=== PATIENT | female | born 2000 | race Caucasian/White ===

== ENCOUNTER 2020-07-03 16:51 | Emergency (ER) | payer BC, SELFPAY ==
[2020-07-03 16:54] VITALS: BP 125/83; PULSE 118; RESP 18; TEMP 36.9; O2SAT 99; BMI 43.9
--- NOTE | 2020-07-03 17:10 | HMH.EDGENADL ---
ED Disposition Clinical Impression: Menometrorrhagia Disposition: Home, Self-Care Condition on Discharge: Fair Instructions: DI for Vaginal Bleeding Additional Instructions: Treatment and follow-up as per Dr. Arroyo. Referrals: Mimi Tan APRN [Primary Care Provider] - Everett Arroyo MD [Staff Physician] - - Critical Care Critical Care Time: No Attestation: On 07/03/20, the high probability of a clinically significant, sudden or life threatening deterioration of the following system(s) required my full and direct attention, intervention and personal management. The time I documented below is in addition to time spent performing reported procedures but includes the following listed in this critical care notation. Medical Decision Making - Aidan Inquiry Pt receiving controlled substance: No Vital Signs: 07/03/20 16:54 Temperature 98.5 F Temperature Source Oral Pulse Rate [Right Radial] 118 H Respiratory Rate 18 Blood Pressure [Right Arm] 125/83 Blood Pressure Mean [Right Arm] 97 Blood Pressure Source [Right Arm] Automatic Cuff Blood Pressure Position [Right Arm] Sitting 02 Sat by Pulse Oximetry 99 Oxygen Delivery Method Room Air - Lab Data Lab results reviewed: Yes: I reviewed the patient's lab results. Lab Results 07/03/20 17:15: Urine Color Red, Urine Appearance Cloudy, Urine pH 6.0, Ur Specific [place] 1.025, Urine Protein 1+, Urine Glucose (UA) Negative, Urine Ketones Trace, Urine Blood 3+, Urine Nitrate Negative, Urine Bilirubin Negative, Urine Urobilinogen 0.2, Ur Leukocyte Esterase Negative, Urine RBC 20-50 07/03/20 17:21: PT 10.4, INR 0.93, APTT 24.8 07/03/20 17:21: Sodium 137, Potassium 3.4 L, Chloride 103, Carbon Dioxide 27, Anion Gap 10.4, BUN 13, Creatinine 0.60, Estimated Creat Clear 117, Estimated GFR 126, Est GFR ( Amer) 153, Glucose 137 H, Calcium 9.7, Total Bilirubin 0.4, AST 25, ALT 25, Alkaline Phosphatase 96, Total Protein 7.8, Albumin 4.3, Globulin 3.5 H, Albumin/Globulin Ratio 1.2 07/03/20 17:21: TSH 1.00, Free T4 Index 2.8 L, Thyroxine (T4) 9.9, T3 Uptake 28 07/03/20 17:21: Serum HCG, Qual Negative 07/03/20 17:31: WBC 7.7, RBC 4.27, Hgb 10.8 L, Hct 34.3 L, MCV 80.3 L, MCH 25.4 L, MCHC 31.6 L, RDW 14.6, Plt Count 291, MPV 7.6, Neut % (Auto) 61.5, Lymph % (Auto) 32.4, [place] % (Auto) 4.0, Eos % (Auto) 1.5, Baso % (Auto) 0.6, Neut # (Auto) 4.7, Lymph # (Auto) 2.5, [place] # (Auto) 0.3, Eos # (Auto) 0.1, Baso # (Auto) 0.0 Result diagrams: 07/03/20 17:31 07/03/20 17:21 Orders (Tests/Meds): ED MEDICATIONS Discontinued Medications Generic Name Dose Route Start Last Admin Trade Name Freq PRN Reason Stop Dose Admin Ketorolac Tromethamine 30 mg 07/03/20 19:03 07/03/20 19:05 Ketorolac 30mg/Ml Vial IV 07/03/20 19:04 30 mg ONCE ONE Administration ORDERS Category Date Time Status US transvaginal Stat Exams 07/03/20 17:19 Taken - Physician Consults Physician Consulted: Cruz Time: 19:00 Reason -: Gynocological Eval/Care Comment/Response: He will be in to the emergency department to see the patient. Discussed medication for her pain, patient is requesting pain medication. He recommends Toradol which may also help her bleeding. Medical Decision Narrative: 8:00 PM: Awaiting Dr. Arroyo. General Adult HPI - General Stated complaint: Vaginal Bleeding,abd lower back pain,rectum pain Time Seen by Provider: 07/03/20 17:10 - History of Present Illness HPI narrative: Complains of heavy vaginal bleeding for 3 months. States that she was seeing an SALES ADVISORY MANAGER at [facility] in [facility]. She says she was on progesterone and the bleeding stopped, but then it came back shortly after treatment and was heavier than prior. She says that they then started her on control pills which have not helped at all. She says that she is bleeding extremely heavily for a week and a half. She is using both tampons and pads. Says that she ap
--- NOTE | 2020-07-03 17:19 | US_ITS ---
PROCEDURE: US TRANSVAGINAL CLINICAL INDICATION: vaginal bleeding, pelvic pain COMPARISON: No exams were available for comparison FINDINGS: The uterus is 7 x 4 x 2.5 cm with a combined endometrial thickness of 8 mm. No uterine mass evident. Ovaries have an unremarkable appearance. Bilateral ovarian blood flow is present. No adnexal mass or cul-de-sac fluid. IMPRESSION: Negative pelvic ultrasound Dictated by: Blake aHuser MD 07/04/2020 07:07 Blake Hauser MD in OV 07/04/2020 07:07
[2020-07-03 18:06] LABS: Chloride 103 mmol/L (98-107); Potassium 3.4 mmoL/L (3.5-5.1); Sodium 137 mmol/L (136-145)
[2020-07-03 18:07] LABS: Activated Partial Thrombo Time 24.8 seconds (23.6-34.0); INR 0.93 (0.9-1.1); Prothrombin Time 10.4 seconds (9.4-11.8)
[2020-07-03 18:09] LABS: Alanine Aminotransferase 25 U/L (12-78); Albumin Level 4.3 g/dl (3.5-5.0); Albumin/Globulin Ratio 1.2 (1.1-1.8); Alkaline Phosphatase 96 U/L (38-126); Anion Gap 10.4 mEq/L (5-15); Aspartate Amino Transferase 25 U/L (14-36); Bilirubin,Total 0.4 mg/dl (0.2-1.3); Blood Urea Nitrogen 13 mg/dl (7-17); Carbon Dioxide 27 mmol/L (22.0-30.0); Creatinine Clearance Estimated 117 mL/min (50-200); Estimated Glomerular Filt Rate 126 ml/min (>60); GFR (African American) 153 ML/MIN (>60); Globulin 3.5 g/dL (1.3-3.2); Total Protein,Serum 7.8 g/dl (6.3-8.2)
[2020-07-03 18:10] LABS: Calcium 9.7 mg/dl (8.4-10.2); Glucose 137 mg/dl (74-100)
[2020-07-03 18:11] LABS: HCG Qualitative, Serum Negative (Negative)
--- NOTE | 2020-07-03 18:15 | PC.NURSE ---
pt return from ultrasound
[2020-07-03 18:26] LABS: Triiodothryronine (T3) Uptake 28 % (23.5-40.5)
[2020-07-03 18:27] LABS: Free Thyroxine Index 2.8 ug/dL (5.93-13.13); T4 (Thyroxine) 9.9 ug/dl (5.53-11.0)
[2020-07-03 18:43] LABS: Basophils % 0.6 % (0.1-2.0); Eosinophils # 0.1 K/mm3 (0.0-0.4); Eosinophils % 1.5 % (0.1-12.0); Hematocrit 34.3 % (37.0-47.0); Hemoglobin 10.8 g/dL (12.2-16.2); Lymphocytes # 2.5 K/mm3 (0.7-4.5); Lymphocytes % 32.4 % (10-50); Mean Corpuscular HGB Conc 31.6 g/dL (31.8-35.4); Mean Corpuscular Hemoglobin 25.4 pg (27.0-31.2); Mean Corpuscular Volume 80.3 fl (81-99); Mean Platelet Volume 7.6 fl (7.4-10.4); Monocytes # 0.3 K/mm3 (0.1-1.0); Neutrophils # 4.7 K/mm3 (1.8-7.8); Neutrophils % 61.5 % (37.0-80.0); Platelet Count 291 K/mm3 (142-424); Red Blood Count 4.27 M/mm3 (4.20-5.40); Red Cell Distribution Width 14.6 % (11.5-17.5); White Blood Count 7.7 K/mm3 (4.8-10.8)
[2020-07-03 18:50] LABS: Microscopic, Urine URINE MICROSCOPIC (MICROSCOPIC)
[2020-07-03 18:53] LABS: Appearance,Urine CLOUDY (Clear); Bilirubin,Urine Negative (Negative); Blood, Urine 3+ (Negative); Color,Urine RED (Yellow); Glucose,Urine (UA) Negative (Negative); Ketones,Urine TRACE (Negative); Leukocyte Esterase,Urine Negative (Negative); Nitrate,Urine Negative (Negative); Protein,Urine 1+ (Negative); Specific Gravity, Urine 1.025 (1.005-1.030); Urobilinogen,Urine 0.2 EU/dl (0.2)
--- NOTE | 2020-07-03 18:56 | PC.NURSE ---
ROXIE CALLE speaking with
[2020-07-03 19:04] LABS: RBC,Urine 20-50 #/hpf (0-3)
[2020-07-03 19:24] VITALS: BP 118/64; PULSE 102; RESP 16; O2SAT 99
--- NOTE | 2020-07-03 20:47 | HMH.GYNCON ---
COSMETICS AND TOILETRIES SALESPERSON - CN: HPI - Data of Consult Patient: new to practice Consult date: 07/03/20 Requesting Physician: Dr. Alston, ER Primary Care Provider: Mimi Tan APRN - Consult Narrative Reason for consult: vaginal bleeding History of present illness: Ms. Spivey is a 20 year old female 3 para 0 aborta 3 who has very irregular periods. She has been seen in [facility] and has tried Provera but as soon as she stopped taking it she started having very heavy bleeding. Lately over the last few days she has been bleeding quite heavily and going through tampons as well as pads. She was not happy with the care she was getting at [facility] and as result of that came down here to the ER. She is also tried control pills. Since last July she has been having very irregular periods. Her hemoglobin is stable at 10.1. CC: Review of Systems - Review of Systems Review of systems:: pertinent systems reviewed and negative unless documented below [facility] History I have reviewed the patient's past medical history: Yes *Have you ever received a pneumonia vaccine?: No *Have you received a flu vaccine this season?: No Amputation: No Fractures: No - *Social History Smoking Status: Unknown if ever smoked Alcohol Intake Frequency:: holidays/special occasions only Substance Use Type: denies use *Occupational Status:: other *Travel in the last 8 weeks: None Family Hx:: No significant family history Meds Allergies Allergy/AdvReac Type Severity Reaction Status Date / Time No Known Allergies Allergy Verified 07/03/20 17:30 COSMETICS AND TOILETRIES SALESPERSON - Exam Vital signs: Temp Pulse Resp BP Pulse Ox 98.5 F 118 H 18 125/83 99 07/03/20 16:54 07/03/20 16:54 07/03/20 16:54 07/03/20 16:54 07/03/20 16:54 - Constitutional no acute distress - Routine HEENT Exam Head: Present: normocephalic Eye: Present: EOMI, PERRL ENT: Present: mucous membranes moist - Routine Neck Exam Present: supple, full ROM - Routine Exam Patient deferred: external exam COSMETICS AND TOILETRIES SALESPERSON - Results - Labs CBC & Chem 7: 07/03/20 17:31 07/03/20 17:21 Labs: Short CBC 07/03/20 Range/Units 17:31 WBC 7.7 (4.8-10.8) K/mm3 Hgb 10.8 L (12.2-16.2) g/dL Hct 34.3 L (37.0-47.0) % Plt Count 291 (142-424) K/mm3 BMP 07/03/20 17:21 Sodium 137 Potassium 3.4 L Chloride 103 Carbon Dioxide 27 BUN 13 Creatinine 0.60 Glucose 137 H Calcium 9.7 Liver Function 07/03/20 Range/Units 17:21 Total Bilirubin 0.4 (0.2-1.3) mg/dl AST 25 (14-36) U/L ALT 25 (12-78) U/L Alkaline Phosphatase 96 (38-126) U/L Albumin 4.3 (3.5-5.0) g/dl Urine 07/03/20 Range/Units 17:15 Urine Color Red (Yellow) Urine Appearance Cloudy (Clear) Urine pH 6.0 (5.0-8.5) Ur Specific [place] 1.025 (1.005-1.030) Urine Protein 1+ (Negative) Urine Glucose (UA) Negative (Negative) Assessment and Plan (1) Menorrhagia Status: Acute Category: Medical Code(s): N92.0 - Excessive and frequent menstruation with regular cycle - Assessment and plan all Dx Assessment and Plan for all problems:: Her hemoglobin is 10.8. She is still bleeding somewhat. We gave her 25 mg IV of Premarin. We will discharge her home to follow-up with me in approximately 2 weeks time. She will continue with her vitamins. I have suggested that she start iron tablets as well. She is reluctant to start her control pill. We will see her in the office and then determine what the next step is. We will give her a prescription for Toradol. She said that this helped her when she received IV.
--- NOTE | 2020-07-03 21:00 | PC.NURSE ---
dr. jimenez came and seen patient and discharged her home.
[2020-07-03 21:02] VITALS: BP 116/68; PULSE 105; RESP 16; TEMP 36.7; O2SAT 99
== END 2020-07-03 21:04 | disposition home or self-care (01) ==
PROVIDERS: Emergency Provider Emergency Medicine; PCP Nurse Practitioner
DX: N92.1 Excessive and frequent menstruation with irregular cycle (principal)
CPT/HCPCS: 76830; 80053; 81001; 84436; 84443; 84479; 84703; 85025; 85610; 85730; 96374; 96375; 99283

== ENCOUNTER 2022-02-11 12:40 | Emergency (ER) | payer BC, SELFPAY ==
[2022-02-11 12:41] VITALS: BP 132/87; PULSE 100; RESP 18; TEMP 36.9; O2SAT 98; BMI 31.8
[2022-02-11 12:45] VITALS: BP 132/87; PULSE 101; RESP 17; O2SAT 97
--- NOTE | 2022-02-11 12:48 | PC.NURSE ---
ED MD AT BEDSIDE
--- NOTE | 2022-02-11 12:53 | HMH.EDGENADL ---
Discharge Plan Disposition Patient Disposition: Home, Self-Care Condition: Good Prescriptions Prescriptions: No Action ketorolac 10 MG tablet 10 mg PO Q6H 5 Days Qty: 20 0RF Referrals Follow up/Referrals: Helene Warren [Primary Care Provider] - See instructions Activity Restrictions/Add. Instructions Additional Instructions/Restrictions: Rest. Drink plenty of liquids. Tylenol as needed for discomfort. Discharge ED Provider: Efe Rodriguez General Adult HPI General Chief complaint: Weakness Stated complaint: covid+, 7 weeks Time Seen by Provider: 02/11/22 12:45 Mode of Arrival: Ambulatory Limitations: No Limitations Description of Symptoms (Recalled from ER Triage Doc. by RN): PT REPORTS HOME COVID TEST POSITIVE. WOKE UP FEELING WEAK AND HAS SORE THROAT. LIVES WITH COUSIN WHO WAS POSTIVE LAST WEEK. PT REPORTS BEING ABOUT 7 WEEKS History of Present Illness HPI narrative: Patient presents with 3-day history of sore throat. She had some generalized weakness today. She diagnosed positive for COVID at home and has had exposure to a cousin with whom she is residing that is known to be COVID-positive as well. She denies chest pain or shortness of breath she denies fever, vomiting or diarrhea. She is reportedly approximately 7 weeks but denies pelvic pain or vaginal discharge or bleeding. Chills are described as mild and without exacerbating or alleviating factors. Related Data Previous Rx's Medication Instructions Recorded ketorolac 10 mg tablet 10 mg PO Q6H 5 days #20 tabs 07/03/20 Allergies Allergy/AdvReac Type Severity Reaction Status Date / Time No Known Allergies Allergy Verified 07/03/20 17:30 PFSH PFSH Medical History (Updated 02/11/22 @ 12:58 by Bree Barfield RN) No significant past medical history Surgical History (Updated 02/11/22 @ 12:59 by Bree Barfield RN) Hx of tonsillectomy Family History (Updated 02/11/22 @ 12:58 by Bree Barfield RN) Other No significant family history Social History (Updated 02/11/22 @ 13:00 by Bree Barfield RN) Smoking Status: Never smoker alcohol intake: never substance use type: denies use current occupational status: other Travel in the last 8 weeks: None ROS Obtained: Yes All systems reviewed & no additional complaints except as documented Constitutional Constitutional: Reports system reviewed and no additional complaints, except as documented Physical Exam General General appearance: alert and in no apparent distress Head Head exam: atraumatic Eye Eye exam: Present normal appearance and PERRL ENT ENT exam: Present normal exam and normal oropharynx Neck Neck exam: Present normal inspection Chest Chest inspection: Present normal inspection Respiratory Respiratory exam: Present normal lung sounds bilaterally and respiratory distress Cardiovascular Cardiovascular exam: Present regular rate and normal rhythm Abdominal Exam Abdominal exam: Present soft; Absent tenderness Extremities Exam Extremities exam: Present normal inspection Back Exam Back exam: Present normal inspection Neurological Exam Neurological exam: Present alert and oriented X3 Psychiatric Psychiatric exam: Present anxious Skin Skin exam: Present warm Lymphatic Lymphatic Findings: no adenopathy Medical Decision Making Aidan Inquiry Pt receiving controlled substance: No Vital Signs: 02/11/22 12:41 Temperature 98.5 F Temperature Source Oral Pulse Rate [Radial] 100 H Respiratory Rate 18 Blood Pressure [Right Arm] 132/87 Blood Pressure Mean [Right Arm] 102 Blood Pressure Source [Right Arm] Automatic Cuff Blood Pressure Position [Right Arm] Sitting 02 Sat by Pulse Oximetry 98 Oxygen Delivery Method Room Air Lab Data Lab Results 02/11/22 12:55: Group A Strep Rapid Negative Orders (Tests/Meds): ORDERS Category Date Time Status Strep Scrn Group A (Rapid) Stat Lab 02/11/22 12:55 Completed Strep
[2022-02-11 13:00] VITALS: BP 118/80; PULSE 92; RESP 17; O2SAT 98
[2022-02-11 13:09] LABS: Strep Scrn Group A (Rapid) Negative (Negative)
[2022-02-11 13:28] VITALS: BP 112/22; PULSE 89; RESP 18; TEMP 36.9; O2SAT 98
== END 2022-02-11 13:32 | disposition home or self-care (01) ==
PROVIDERS: Emergency Provider Emergency Medicine; PCP Family Medicine
DX: O26.891 Other specified pregnancy related conditions, first trimester (principal); J02.9 Acute pharyngitis, unspecified; Z3A.01 Less than 8 weeks gestation of pregnancy
CPT/HCPCS: 87430; 99212; G0463

== ENCOUNTER 2022-03-19 13:34 | Emergency (ER) | payer BC, SELFPAY ==
[2022-03-19 14:05] VITALS: BP 126/84; PULSE 101; RESP 18; TEMP 36.8; O2SAT 99; BMI 32.8
--- NOTE | 2022-03-19 14:10 | HMH.EDGENADL ---
Discharge Plan Disposition Patient Disposition: Home, Self-Care Condition: Good Prescriptions Prescriptions: New metoclopramide HCl [Reglan] 5 mg tablet 5 mg PO TIDP PRN (Reason: nausea and vomiting) Qty: 10 0RF No Action prenat.vits,zoya,[id number] Tablet 1 tab PO DAILY promethazine 12.5 mg tablet 12.5 mg PO Q6H PRN (Reason: nausea and vomiting) Qty: 20 1RF Referrals Follow up/Referrals: Helene Sanchez [Primary Care Provider] - See instructions Activity Restrictions/Add. Instructions Additional Instructions/Restrictions: Reglan or Phenergan for nausea and vomiting. Follow-up with your PRINCIPLE SOFTWARE ENGINEER, call for appointment. Clinical Impressions Clinical Impression: Hyperemesis gravidarum Instructions Patient Instructions: DI for Diarrhea and Traveler's Diarrhea -- Adult, DI for Diarrhea and Traveler's Diarrhea -- Child, DI for Nausea -- Adult, DI for Nausea -- Child Discharge ED Provider: Axel Cheung General Adult HPI General Chief complaint: Nausea/Vomiting/Diarrhea Stated complaint: possibly dehydrated, 12 weeks Time Seen by Provider: 03/19/22 14:06 History of Present Illness HPI narrative: Patient states that she is 12-1/2 weeks , 4, para 0, AB 3 and is having profuse and intractable vomiting and now feels weak like she might be dehydrated. She called her PRINCIPLE SOFTWARE ENGINEER, Dr. Arroyo, and was advised to come to the emergency department for IV fluids. She also said that she has diarrhea today. However, this is not unusual for her. She says that she has seen a counter waiter in the past and is diagnosed with constipation, which precipitates her diarrhea. She currently is not nauseated. She does however have a headache and would like something for her headache. Related Data Home Medications Medication Instructions Recorded Confirmed prenat.vits,zoya,[id number] 1 tab PO DAILY 03/03/22 03/03/22 Previous Rx's Medication Instructions Recorded promethazine 12.5 mg tablet 12.5 mg PO Q6H PRN nausea and 03/03/22 vomiting #20 tabs metoclopramide HCl 5 mg tablet 5 mg PO TIDP PRN nausea and 03/19/22 (Reglan) vomiting #10 tabs Allergies Allergy/AdvReac Type Severity Reaction Status Date / Time No Known Allergies Allergy Verified 03/03/22 10:15 [facility] Medical History (Updated 03/19/22 @ 17:01 by Axel Cheung MD) No significant past medical history Surgical History (Updated 03/03/22 @ 10:16 by LUCHO Jc) History of dilation and curettage Hx of tonsillectomy Family History Other No significant family history Social History (Updated 03/03/22 @ 10:16 by LUCHO Jc) Smoking Status: Never smoker alcohol intake: never substance use type: marijuana current occupational status: unemployed and other Travel in the last 8 weeks: None ROS Obtained: Yes Systems reviewed as appropriate & no additional complaints except as documented Constitutional Constitutional: Denies fever(s), Reports headache(s) and Denies weakness ENT Ears, Nose, Mouth, and Throat: Reports headache(s), Denies nasal discharge and Denies sore throat Cardiovascular Cardiovascular: Denies chest pain Respiratory Respiratory: Denies shortness of breath and Denies cough Gastrointestinal Gastrointestingal: Reports diarrhea, nausea and vomiting; Denies abdominal pain or constipation Genitourinary Female Genitourinary: Denies difficulty voiding, Denies dysuria and Denies flank pain Musculoskeletal Musculoskeletal: Denies numbness Neurologic Neurologic: Reports headache(s), Denies numbness and Denies weakness Physical Exam General General appearance: alert and in no apparent distress Head Head exam: atraumatic and normocephalic Eye Eye exam: Present normal appearance and EOMI ENT ENT exam: Present mucous membranes moist Neck Neck exam: Present normal inspection and trachea midline Zina
[2022-03-19 14:28] VITALS: BMI 32.8
[2022-03-19 15:03] LABS: Basophils % 0.3 % (0.1-2.0); Eosinophils # 0.1 K/mm3 (0.0-0.4); Eosinophils % 0.9 % (0.1-12.0); Hematocrit 40.5 % (37.0-47.0); Hemoglobin 12.8 g/dL (12.2-16.2); Lymphocytes % 21.5 % (10-50); Mean Corpuscular HGB Conc 31.6 g/dL (31.8-35.4); Mean Corpuscular Hemoglobin 27.6 pg (27.0-31.2); Mean Corpuscular Volume 87.1 fl (81-99); Mean Platelet Volume 8.1 fl (7.4-10.4); Monocytes # 0.3 K/mm3 (0.1-1.0); Monocytes % 3.6 % (1.7-9.3); Neutrophils # 6.8 K/mm3 (1.8-7.8); Neutrophils % 73.7 % (37.0-80.0); Platelet Count 238 K/mm3 (142-424); Red Blood Count 4.65 M/mm3 (4.20-5.40); Red Cell Distribution Width 13.5 % (11.5-17.5); White Blood Count 9.3 K/mm3 (4.8-10.8)
--- NOTE | 2022-03-19 15:05 | PC.NURSE ---
Pt provided with a warm blanket and remote for the tv
--- NOTE | 2022-03-19 15:19 | PC.NURSE ---
Pt aware of need for UA. States she doesn't need to go at this time.
[2022-03-19 15:23] LABS: Alanine Aminotransferase 22 U/L (12-78); Albumin Level 3.9 g/dl (3.5-5.0); Albumin/Globulin Ratio 1.3 (1.1-1.8); Alkaline Phosphatase 91 U/L (38-126); Anion Gap 15.2 mEq/L (5-15); Aspartate Amino Transferase 26 U/L (14-36); Bilirubin,Total 0.4 mg/dl (0.2-1.3); Blood Urea Nitrogen 6 mg/dl (7-17); Calcium 8.8 mg/dl (8.4-10.2); Carbon Dioxide 26 mmol/L (22.0-30.0); Chloride 98 mmol/L (98-107); Creatinine Clearance Estimated 390 mL/min (50-200); Estimated Glomerular Filt Rate 278 ml/min (>60); GFR (African American) 337 ML/MIN (>60); Glucose 91 mg/dl (74-100); Potassium 3.2 mmoL/L (3.5-5.1); Sodium 136 mmol/L (136-145); Total Protein,Serum 6.9 g/dl (6.3-8.2)
[2022-03-19 16:21] LABS: Microscopic, Urine URINE MICROSCOPIC (MICROSCOPIC)
[2022-03-19 16:23] LABS: Appearance,Urine CLEAR (Clear); Bilirubin,Urine Negative (Negative); Blood, Urine Negative (Negative); Color,Urine YELLOW (Yellow); Glucose,Urine (UA) Negative (Negative); Ketones,Urine Negative (Negative); Leukocyte Esterase,Urine Negative (Negative); Nitrate,Urine Negative (Negative); Protein,Urine Negative (Negative); Urobilinogen,Urine 0.2 EU/dl (0.2)
[2022-03-19 16:27] VITALS: BP 117/60; PULSE 77; RESP 18; O2SAT 100
[2022-03-19 17:00] VITALS: BP 104/63; PULSE 84; O2SAT 100
[2022-03-19 17:15] LABS: Squamous Epithelial Cell,Urine Occasional #/hpf (0-5)
[2022-03-19 17:39] VITALS: BP 106/64; PULSE 89; RESP 16; TEMP 36.8; O2SAT 99
== END 2022-03-19 17:39 | disposition home or self-care (01) ==
PROVIDERS: Emergency Provider Emergency Medicine; PCP Family Medicine
DX: O21.0 Mild hyperemesis gravidarum (principal); Z3A.12 12 weeks gestation of pregnancy
CPT/HCPCS: 80053; 81001; 85025; 96365; 96366; 99284

== ENCOUNTER 2022-03-30 17:27 | Emergency (ER) | payer BC, SELFPAY ==
--- NOTE | 2022-03-30 17:49 | HMH.EDGENADL ---
Discharge Plan Disposition Patient Disposition: Home, Self-Care Condition: Good Prescriptions Prescriptions: No Action prenat.vits,zoya,[id number] Tablet 1 tab PO DAILY promethazine 12.5 mg tablet 12.5 mg PO Q6H PRN (Reason: nausea and vomiting) Qty: 20 1RF metoclopramide HCl [Reglan] 5 mg tablet 5 mg PO TIDP PRN (Reason: nausea and vomiting) Qty: 10 0RF Referrals Follow up/Referrals: Helene Sanchez [Primary Care Provider] - See instructions Activity Restrictions/Add. Instructions Additional Instructions/Restrictions: Follow up with your gang investigator as scheduled tomorrow and return to the ER for any new or worsening symptoms. Clinical Impressions Clinical Impression: Bleeding after intercourse Discharge ED Provider: Catrachito Ma General Adult HPI General Chief complaint: Vaginal Bleeding Stated complaint: 14 weeks preg bleeding Time Seen by Provider: 03/30/22 17:37 History of Present Illness HPI narrative: 21-year-old female presents with complaint of vaginal bleeding while 14 weeks that started while having intercourse. States that there was a pink trace amount of bleeding followed by a small amount of brown bleeding on arrival here no clots have been passed she has not had a loss of fluid and denies pain at this time. 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 She had significant nausea and vomiting earlier in and has improved from the standpoint. She denies vaginal discharge denies dysuria is having no difficulty urinating. Denies fevers chills and body aches. Related Data Home Medications Medication Instructions Recorded Confirmed prenat.vits,zoya,[id number] 1 tab PO DAILY 03/03/22 03/03/22 Previous Rx's Medication Instructions Recorded promethazine 12.5 mg tablet 12.5 mg PO Q6H PRN nausea and 03/03/22 vomiting #20 tabs metoclopramide HCl 5 mg tablet 5 mg PO TIDP PRN nausea and 03/19/22 (Reglan) vomiting #10 tabs Allergies Allergy/AdvReac Type Severity Reaction Status Date / Time No Known Allergies Allergy Verified 03/03/22 10:15 PFSH PFSH Medical History No significant past medical history Surgical History History of dilation and curettage Hx of tonsillectomy Family History Other No significant family history Social History Smoking Status: Never smoker alcohol intake: never substance use type: marijuana current occupational status: unemployed and other Travel in the last 8 weeks: None ROS Obtained: Yes Systems reviewed as appropriate & no additional complaints except as documented Physical Exam General General appearance: alert and in no apparent distress Head Head exam: atraumatic ENT ENT exam: Present mucous membranes moist Chest Chest inspection: Present symmetric chest wall rise Respiratory Respiratory exam: Absent respiratory distress Cardiovascular Cardiovascular exam: Present regular rate Abdominal Exam Abdominal exam: Present soft; Absent distention or tenderness Neurological Exam Neurological exam: Present alert and oriented X3 Skin Skin exam: Present warm, dry and intact Medical Decision Making Medical Records Medical records reviewed: Yes I reviewed the patient's medical records. Aidan Inquiry Pt receiving controlled substance: No Vital Signs: 03/30/22 18:36 Temperature 99.2 F Temperature Source Oral Pulse Rate [Apical] 114 H Respiratory Rate 18 Blood Pressure [Right Arm] 116/85 Blood Pressure Mean [Right Arm] 95 Blood Pressure Source [Right Arm] Automatic Cuff Blood Pressure Position [Right Arm] Sitting 02 Sat by Pulse Oximetry 98 Oxygen Delivery Method Room Air Lab Data Lab results reviewed: Yes I reviewed
[2022-03-30 18:36] VITALS: BP 116/85; PULSE 114; RESP 18; TEMP 37.3; O2SAT 98; BMI 31.1
[2022-03-30 19:06] LABS: Microscopic, Urine URINE MICROSCOPIC (MICROSCOPIC)
--- NOTE | 2022-03-30 19:10 | PC.NURSE ---
MD ARIANA OZUNA DOING FHT
--- NOTE | 2022-03-30 19:16 | PC.NURSE ---
MD requested heart tones be assessed. Unable to ascertain any heart tones. MD at bedside and performed a bedside ultrasound and was able to find a heart tone.
[2022-03-30 19:22] LABS: Appearance,Urine CLEAR (Clear); Bilirubin,Urine Negative (Negative); Blood, Urine 3+ (Negative); Color,Urine YELLOW (Yellow); Glucose,Urine (UA) Negative (Negative); Ketones,Urine Negative (Negative); Leukocyte Esterase,Urine Negative (Negative); Nitrate,Urine Negative (Negative); PH,Urine 6.5 (5.0-8.5); Protein,Urine Negative (Negative); Specific Gravity, Urine 1.025 (1.005-1.030); Urobilinogen,Urine 0.2 EU/dl (0.2)
[2022-03-30 19:35] LABS: WBC,Urine Occasional #/hpf (0-3)
[2022-03-30 19:36] LABS: Amorphous Sediment,Urine 1+ /lpf; Bacteria,Urine 1+ /lpf
[2022-03-30 20:38] LABS: Basophils % 0.4 % (0.1-2.0); Eosinophils # 0.1 K/mm3 (0.0-0.4); Eosinophils % 0.9 % (0.1-12.0); Hematocrit 39.2 % (37.0-47.0); Hemoglobin 13.1 g/dL (12.2-16.2); Lymphocytes # 2.4 K/mm3 (0.7-4.5); Lymphocytes % 22.7 % (10-50); Mean Corpuscular HGB Conc 33.4 g/dL (31.8-35.4); Mean Corpuscular Hemoglobin 28.5 pg (27.0-31.2); Mean Corpuscular Volume 85.2 fl (81-99); Mean Platelet Volume 8.7 fl (7.4-10.4); Monocytes # 0.5 K/mm3 (0.1-1.0); Monocytes % 5.1 % (1.7-9.3); Neutrophils # 7.3 K/mm3 (1.8-7.8); Neutrophils % 70.8 % (37.0-80.0); Platelet Count 248 K/mm3 (142-424); White Blood Count 10.3 K/mm3 (4.8-10.8)
[2022-03-30 20:42] LABS: Chloride 99 mmol/L (98-107); Potassium 3.4 mmoL/L (3.5-5.1); Sodium 134 mmol/L (136-145)
[2022-03-30 20:44] LABS: Blood Urea Nitrogen 5 mg/dl (7-17); Creatinine Clearance Estimated 371 mL/min (50-200); Estimated Glomerular Filt Rate 278 ml/min (>60); GFR (African American) 337 ML/MIN (>60)
[2022-03-30 20:45] LABS: Alanine Aminotransferase 22 U/L (12-78); Albumin Level 4.1 g/dl (3.5-5.0); Albumin/Globulin Ratio 1.4 (1.1-1.8); Alkaline Phosphatase 82 U/L (38-126); Anion Gap 14.4 mEq/L (5-15); Aspartate Amino Transferase 27 U/L (14-36); Bilirubin,Total 0.3 mg/dl (0.2-1.3); Calcium 9.4 mg/dl (8.4-10.2); Carbon Dioxide 24 mmol/L (22.0-30.0); Glucose 100 mg/dl (74-100); Total Protein,Serum 7.1 g/dl (6.3-8.2)
[2022-03-30 21:21] VITALS: BP 118/79; PULSE 85; RESP 18; TEMP 36.9; O2SAT 99
== END 2022-03-30 21:25 | disposition home or self-care (01) ==
PROVIDERS: Emergency Provider Student in an Organized Health Care Education/Training Program; PCP Family Medicine
DX: O26.852 Spotting complicating pregnancy, second trimester (principal); R11.2 Nausea with vomiting, unspecified; Z79.899 Other long term (current) drug therapy; Z3A.14 14 weeks gestation of pregnancy
CPT/HCPCS: 80053; 81001; 85025; 86900; 86901; 96360; 99284

== ENCOUNTER → 2022-05-14 12:54 | Outpatient (CLI) | payer BC, SELFPAY ==
--- NOTE | 2022-05-14 12:59 | US_ITS ---
FINAL REPORT CLINICAL HISTORY: 20 week anatomy scan FINDINGS: There is a single live intrauterine gestation. Presentation is cephalic. The cervix is closed and measures 3 cm. Placenta is anterior and grade 1. movement is noted. Three-vessel cord with satisfactory umbilical cord insertion. Four-chamber heart is noted. brain and ventricles are unremarkable. Chest and diaphragm are unremarkable. ABDOMEN: Both kidneys are unremarkable. Stomach is unremarkable. SPINE: No anomalies identified. AMNIOTIC FLUID: Appropriate amount. MEASUREMENTS: ULTRASOUND AGE: 20 weeks 6 days. GESTATION AGE: 20 weeks 3 days. ESTIMATED WEIGHT: 1 lb 13 oz GROWTH PERCENTILE: 65 % BPD: 4.93 cm, 21 weeks 0 days. OFD: 6.06 cm, 20 weeks 4 days. HC: 17.35 cm consistent with 20 weeks 0 days. AC: 15.45 cm consistent with 20 weeks 5 days. FL: 3.53 cm consistent with 21 weeks 2 days. CEREBELLUM: 2.04 cm consistent with 20 weeks 5 days. HUMERUS: 3.21 cm consistent with 20 weeks 6 days. HC/AC: 1.12 CI: 81% FL/BPD: 72% FL/AC: 23% IMPRESSION: Single living IUP with an ultrasound age of 20 weeks 6 days. Reviewed, Interpreted and Dictated by Bolivar Ambrosio III, MD Transcribed by Hailey Holden Authenticated and [facility]
== END ==
PROVIDERS: PCP Family Medicine; Visit Provider Nurse Practitioner Obstetrics & Gynecology
DX: Z34.90 Encounter for supervision of normal pregnancy, unspecified, unspecified trimester (principal); Z3A.20 20 weeks gestation of pregnancy
CPT/HCPCS: 76811

== ENCOUNTER 2022-05-27 18:40 | Outpatient (CLI) | payer BC, SELFPAY ==
[2022-05-27 19:15] VITALS: BP 129/69; PULSE 124; RESP 20; TEMP 36.9; O2SAT 96; BMI 30.4
[2022-05-27 19:39] VITALS: BMI 30.4
[2022-05-27 19:47] LABS: Microscopic, Urine URINE MICROSCOPIC (MICROSCOPIC)
[2022-05-27 20:14] LABS: Basophils # 0.1 K/mm3 (0-0.2); Basophils % 0.5 % (0.1-2.0); Eosinophils # 0.2 K/mm3 (0.0-0.4); Eosinophils % 1.3 % (0.1-12.0); Hematocrit 35.6 % (37.0-47.0); Hemoglobin 12.2 g/dL (12.2-16.2); Lymphocytes # 2.4 K/mm3 (0.7-4.5); Lymphocytes % 20.4 % (10-50); Mean Corpuscular HGB Conc 34.3 g/dL (31.8-35.4); Mean Corpuscular Hemoglobin 28.8 pg (27.0-31.2); Mean Corpuscular Volume 83.9 fl (81-99); Mean Platelet Volume 8.5 fl (7.4-10.4); Monocytes # 0.5 K/mm3 (0.1-1.0); Monocytes % 4.1 % (1.7-9.3); Neutrophils # 8.7 K/mm3 (1.8-7.8); Neutrophils % 73.7 % (37.0-80.0); Platelet Count 255 K/mm3 (142-424); Red Blood Count 4.25 M/mm3 (4.20-5.40); Red Cell Distribution Width 14.2 % (11.5-17.5); White Blood Count 11.7 K/mm3 (4.8-10.8)
[2022-05-27 20:16] LABS: Appearance,Urine SL CLOUDY (Clear); Bilirubin,Urine Negative (Negative); Blood, Urine Negative (Negative); Color,Urine YELLOW (Yellow); Glucose,Urine (UA) Negative (Negative); Ketones,Urine Negative (Negative); Leukocyte Esterase,Urine Negative (Negative); Nitrate,Urine Negative (Negative); PH,Urine 6.5 (5.0-8.5); Protein,Urine Negative (Negative); Urobilinogen,Urine 0.2 EU/dl (0.2)
[2022-05-27 20:22] LABS: Chloride 100 mmol/L (98-107); Sodium 136 mmol/L (136-145)
[2022-05-27 20:25] LABS: Alanine Aminotransferase 29 U/L (12-78); Albumin Level 3.8 g/dl (3.5-5.0); Albumin/Globulin Ratio 1.4 (1.1-1.8); Alkaline Phosphatase 85 U/L (38-126); Amylase 52 U/L (30-110); Anion Gap 11.9 mEq/L (5-15); Aspartate Amino Transferase 29 U/L (14-36); Bilirubin,Total 0.4 mg/dl (0.2-1.3); Blood Urea Nitrogen 6 mg/dl (7-17); Calcium 8.6 mg/dl (8.4-10.2); Carbon Dioxide 27 mmol/L (22.0-30.0); Creatinine Clearance Estimated 359 mL/min (50-200); Estimated Glomerular Filt Rate 276 ml/min (>60); GFR (African American) 334 ML/MIN (>60); Globulin 2.7 g/dL (1.3-3.2); Glucose 115 mg/dl (74-100); Lipase 84 U/L (23-300); Total Protein,Serum 6.5 g/dl (6.3-8.2)
[2022-05-27 20:28] LABS: Potassium 2.9 mmoL/L (3.5-5.1)
--- NOTE | 2022-05-27 20:28 | PC.NURSE ---
Nory from lab called with a critical lab value on patient; patient potassium is 2.9. Name, , and potassium level verified x2.
[2022-05-27 20:31] LABS: Barbiturates Screen,Urine Negative ng/ml (<200); Benzodiazepines Screen,Urine Negative ng/ml (<200)
--- NOTE | 2022-05-27 20:31 | PC.NURSE ---
Dr. Sharma notified of critical potassium level of 2.9 on patient. Orders for 40 meq of potassium chloride PO ONCE NOW.
[2022-05-27 20:32] LABS: Amphetamine/Metha Screen,Urine Negative ng/ml (<1000); Cocaine Screen,Urine Negative ng/ml (<300)
[2022-05-27 20:33] LABS: Methadone Screen,Urine Negative ng/ml (<300)
[2022-05-27 20:34] LABS: Cannabinoid Screen,Urine Positive ng/ml (<50); Opiate Screen,Urine Negative ng/ml (<300)
[2022-05-27 20:35] LABS: Phencyclidine Screen,Urine Negative ng/ml (<25)
[2022-05-27 20:52] LABS: Bacteria,Urine Trace /lpf; Squamous Epithelial Cell,Urine Occasional #/hpf (0-5); WBC,Urine Occasional #/hpf (0-3)
--- NOTE | 2022-05-27 21:31 | ECG_ITS ---
APPROVED REPORT Exam: Resting ECG HR:88 bpm ECG Measurements Heart Rate 88 AXES PA 145 P 50 QRSd 79 QRS 70 QT 362 T 13 QTc 408 Conclusion SINUS RHYTHM WITH SINUS ARRHYTHMIA NORMAL ECG UNCONFIRMED REPORT Electronically signed by : Hector Ash MD 05/29/2022 08:52:58
[2022-05-29 06:07] LABS: Rubella Antibodies, IgG 1.41 index (Immune >0.99)
[2022-05-29 06:09] LABS: HIV Screen 4th Generation wRfx Non Reactive (Non Reactive); Hepatitis B Surface Antigen Negative (Negative)
[2022-05-29 08:13] LABS: Rapid Plasma Reagin Ab Titer Non Reactive (NonRea<1:1)
== END 2022-05-27 21:45 | disposition home or self-care (01) ==
LOC: OBOUT 18:42 → OB 18:45
PROVIDERS: PCP Family Medicine; Visit Provider Obstetrics & Gynecology
DX: O26.892 Other specified pregnancy related conditions, second trimester (principal); Z3A.22 22 weeks gestation of pregnancy; R11.2 Nausea with vomiting, unspecified; R19.7 Diarrhea, unspecified
CPT/HCPCS: 80053; 80305; 81001; 82150; 83690; 85025; 86593; 86762; 86850; 87340; 93005; J2405

== ENCOUNTER → 2022-06-01 15:51 | Outpatient (CLI) | payer BC, SELFPAY ==
[2022-06-01 16:57] LABS: Potassium 3.1 mmoL/L (3.5-5.1)
== END ==
PROVIDERS: PCP Family Medicine; Visit Provider Obstetrics & Gynecology
DX: E87.6 Hypokalemia (principal)
CPT/HCPCS: 36415; 84132

== ENCOUNTER → 2022-06-12 15:06 | Outpatient (CLI) | payer BC, SELFPAY ==
[2022-06-12 15:25] LABS: Basophils # 0.1 K/mm3 (0-0.2); Basophils % 0.7 % (0.1-2.0); Eosinophils # 0.2 K/mm3 (0.0-0.4); Eosinophils % 1.4 % (0.1-12.0); Hematocrit 35.8 % (37.0-47.0); Hemoglobin 11.9 g/dL (12.2-16.2); Lymphocytes # 1.9 K/mm3 (0.7-4.5); Lymphocytes % 16.6 % (10-50); Mean Corpuscular HGB Conc 33.3 g/dL (31.8-35.4); Mean Corpuscular Hemoglobin 28.8 pg (27.0-31.2); Mean Corpuscular Volume 86.4 fl (81-99); Mean Platelet Volume 8.6 fl (7.4-10.4); Monocytes # 0.4 K/mm3 (0.1-1.0); Monocytes % 3.8 % (1.7-9.3); Neutrophils % 77.5 % (37.0-80.0); Platelet Count 268 K/mm3 (142-424); Red Blood Count 4.14 M/mm3 (4.20-5.40); Red Cell Distribution Width 14.1 % (11.5-17.5); White Blood Count 11.6 K/mm3 (4.8-10.8)
[2022-06-12 16:23] LABS: Potassium 3.5 mmoL/L (3.5-5.1)
== END ==
PROVIDERS: Obstetrics & Gynecology; PCP Family Medicine; Visit Provider Nurse Practitioner Obstetrics & Gynecology
DX: Z34.90 Encounter for supervision of normal pregnancy, unspecified, unspecified trimester (principal); E87.6 Hypokalemia
CPT/HCPCS: 36415; 84132; 85025

== ENCOUNTER → 2022-06-25 11:44 | Outpatient (CLI) | payer BC, SELFPAY ==
[2022-06-25 12:21] LABS: Glucose,Fasting 84 mg/dl (74-100)
[2022-06-25 13:56] LABS: Glucose 1 Hour 107 mg/dL (74-100)
== END ==
PROVIDERS: PCP Family Medicine; Visit Provider Nurse Practitioner Obstetrics & Gynecology
DX: Z34.90 Encounter for supervision of normal pregnancy, unspecified, unspecified trimester (principal)
CPT/HCPCS: 36415; 82951

== ENCOUNTER 2022-08-03 08:45 | Outpatient (CLI) | payer BC, SELFPAY ==
[2022-08-03 09:09] VITALS: BMI 33.6
[2022-08-03 09:18] LABS: Microscopic, Urine URINE MICROSCOPIC (MICROSCOPIC)
[2022-08-03 09:20] VITALS: BP 127/87; PULSE 120; RESP 18; TEMP 36.8; O2SAT 100
[2022-08-03 09:25] LABS: Appearance,Urine CLOUDY (Clear); Bilirubin,Urine Negative (Negative); Blood, Urine Negative (Negative); Color,Urine YELLOW (Yellow); Glucose,Urine (UA) Negative (Negative); Ketones,Urine Negative (Negative); Leukocyte Esterase,Urine 1+ (Negative); Nitrate,Urine Negative (Negative); Protein,Urine Negative (Negative); Specific Gravity, Urine 1.015 (1.005-1.030); Urobilinogen,Urine 0.2 EU/dl (0.2)
[2022-08-03 09:36] LABS: Barbiturates Screen,Urine Negative ng/ml (<200)
[2022-08-03 09:37] LABS: Benzodiazepines Screen,Urine Negative ng/ml (<200)
[2022-08-03 09:38] LABS: Amphetamine/Metha Screen,Urine Negative ng/ml (<1000); Methadone Screen,Urine Negative ng/ml (<300)
[2022-08-03 09:39] LABS: Cannabinoid Screen,Urine Positive ng/ml (<50)
[2022-08-03 09:40] LABS: Cocaine Screen,Urine Negative ng/ml (<300); Opiate Screen,Urine Negative ng/ml (<300)
[2022-08-03 09:41] LABS: Phencyclidine Screen,Urine Negative ng/ml (<25)
[2022-08-03 09:42] LABS: Amorphous Sediment,Urine 2+ /lpf; Bacteria,Urine Trace /lpf; Squamous Epithelial Cell,Urine Occasional #/hpf (0-5)
[2022-08-03 09:45] VITALS: BP 121/82; PULSE 105
[2022-08-03 10:10] VITALS: BP 115/72; PULSE 100
[2022-08-03 10:32] VITALS: BP 127/87; PULSE 115; RESP 18; TEMP 36.8; O2SAT 100; BMI 33.6
[2022-08-03 11:00] VITALS: BP 115/82; PULSE 94
== END 2022-08-03 12:39 | disposition home or self-care (01) ==
LOC: OBOUT 08:47 → OB 08:48
PROVIDERS: Nurse Practitioner Obstetrics & Gynecology; Visit Provider Obstetrics & Gynecology
DX: O26.893 Other specified pregnancy related conditions, third trimester (principal); Z3A.32 32 weeks gestation of pregnancy; R51.9 Headache, unspecified; O21.0 Mild hyperemesis gravidarum; H53.19 Other subjective visual disturbances
CPT/HCPCS: 59025; 80305; 81001; 87086; 87088; 87186; J2405

== ENCOUNTER → 2022-09-01 17:14 | Outpatient (CLI) | payer BC, SELFPAY | PROVIDERS: Visit Provider Nurse Practitioner Obstetrics & Gynecology | DX: Z34.90 Encounter for supervision of normal pregnancy, unspecified, unspecified trimester (principal) | CPT/HCPCS: 86403; 87186 ==

== ENCOUNTER 2022-09-09 21:43 | Outpatient (CLI) | payer BC, SELFPAY ==
[2022-09-09 21:56] VITALS: BMI 35.0
[2022-09-09 21:58] VITALS: BP 108/64; PULSE 95; RESP 18; TEMP 37.2; O2SAT 98; BMI 35.0
[2022-09-09 22:03] LABS: Microscopic, Urine URINE MICROSCOPIC (MICROSCOPIC)
[2022-09-09 22:06] LABS: Appearance,Urine CLEAR (Clear); Bilirubin,Urine Negative (Negative); Blood, Urine Negative (Negative); Color,Urine YELLOW (Yellow); Glucose,Urine (UA) Negative (Negative); Ketones,Urine Negative (Negative); Leukocyte Esterase,Urine 1+ (Negative); Nitrate,Urine Negative (Negative); PH,Urine 6.5 (5.0-8.5); Protein,Urine Negative (Negative); Specific Gravity, Urine 1.025 (1.005-1.030)
[2022-09-09 22:20] LABS: Amphetamine/Metha Screen,Urine Negative ng/ml (<1000); Benzodiazepines Screen,Urine Negative ng/ml (<200)
[2022-09-09 22:21] LABS: Barbiturates Screen,Urine Negative ng/ml (<200)
[2022-09-09 22:22] LABS: Cannabinoid Screen,Urine Positive ng/ml (<50); Cocaine Screen,Urine Negative ng/ml (<300)
[2022-09-09 22:23] LABS: Methadone Screen,Urine Negative ng/ml (<300)
[2022-09-09 22:24] LABS: Opiate Screen,Urine Negative ng/ml (<300)
[2022-09-09 23:11] LABS: POC Glucose,Bedside 106 (70-110)
[2022-09-10 00:38] LABS: Phencyclidine Screen,Urine Negative ng/ml (<25)
[2022-09-10 00:47] LABS: Bacteria,Urine 2+ /lpf
== END 2022-09-09 23:30 | disposition home or self-care (01) ==
LOC: OBOUT 21:47 → OB 21:48
PROVIDERS: PCP Family Medicine; Visit Provider Obstetrics & Gynecology
DX: O26.893 Other specified pregnancy related conditions, third trimester (principal); Z3A.37 37 weeks gestation of pregnancy; R53.1 Weakness
CPT/HCPCS: 59025; 80305; 81001; 82962; 87086

== ENCOUNTER 2022-09-23 04:58 | Inpatient (IN) | payer BC, SELFPAY ==
[2022-09-23 04:59] VITALS: BMI 35.4
[2022-09-23 05:32] VITALS: BP 114/75; PULSE 114; RESP 18; TEMP 36.9; O2SAT 99; BMI 35.4
[2022-09-23 05:42] LABS: Coronavirus 19, PCR Not Detected (NotDetected); Influenza A, PCR Not Detected (NotDetected); Influenza B, PCR Not Detected (NotDetected); Microscopic, Urine URINE MICROSCOPIC (MICROSCOPIC)
[2022-09-23 06:01] LABS: Basophils % 0.2 % (0.1-2.0); Eosinophils # 0.1 K/mm3 (0.0-0.4); Eosinophils % 0.5 % (0.1-12.0); Hemoglobin 11.8 g/dL (12.2-16.2); Lymphocytes # 2.4 K/mm3 (0.7-4.5); Lymphocytes % 18.1 % (10-50); Mean Corpuscular HGB Conc 32.7 g/dL (31.8-35.4); Mean Corpuscular Hemoglobin 25.9 pg (27.0-31.2); Mean Corpuscular Volume 79.4 fl (81-99); Mean Platelet Volume 9.7 fl (7.4-10.4); Monocytes # 0.9 K/mm3 (0.1-1.0); Monocytes % 6.5 % (1.7-9.3); Neutrophils # 9.9 K/mm3 (1.8-7.8); Neutrophils % 74.8 % (37.0-80.0); Platelet Count 271 K/mm3 (142-424); Red Blood Count 4.53 M/mm3 (4.20-5.40); Red Cell Distribution Width 14.9 % (11.5-17.5); White Blood Count 13.2 K/mm3 (4.8-10.8)
[2022-09-23 06:09] LABS: Appearance,Urine CLEAR (Clear); Bilirubin,Urine Negative (Negative); Blood, Urine Negative (Negative); Color,Urine YELLOW (Yellow); Glucose,Urine (UA) Negative (Negative); Ketones,Urine Negative (Negative); Leukocyte Esterase,Urine Negative (Negative); Nitrate,Urine Negative (Negative); Protein,Urine Negative (Negative); Specific Gravity, Urine 1.015 (1.005-1.030); Urobilinogen,Urine 0.2 EU/dl (0.2)
[2022-09-23 06:16] LABS: Barbiturates Screen,Urine Negative ng/ml (<200); Benzodiazepines Screen,Urine Negative ng/ml (<200)
[2022-09-23 06:17] LABS: Amphetamine/Metha Screen,Urine Negative ng/ml (<1000)
[2022-09-23 06:18] LABS: Cocaine Screen,Urine Negative ng/ml (<300); Methadone Screen,Urine Negative ng/ml (<300)
[2022-09-23 06:19] LABS: Cannabinoid Screen,Urine Negative ng/ml (<50)
[2022-09-23 06:20] LABS: Opiate Screen,Urine Negative ng/ml (<300); Phencyclidine Screen,Urine Negative ng/ml (<25)
[2022-09-23 06:43] LABS: Bacteria,Urine Trace /lpf; Squamous Epithelial Cell,Urine Occasional #/hpf (0-5)
--- NOTE | 2022-09-23 08:03 | P.CONPHA_ITS ---
Pharmacy Intervention Comments: MEDICATION RECONCILIATION COMPLETED ON PATIENT USING EXTERNAL FILL HISTORY FROM PHARMACY AND LIST FROM BASEBALL COACH OFFICE. -[place]
--- NOTE | 2022-09-23 08:03 | HMH.PHAINT1 ---
Pharmacy Intervention Comments: MEDICATION RECONCILIATION COMPLETED ON PATIENT USING EXTERNAL FILL HISTORY FROM PHARMACY AND LIST FROM [facility] TECHNICIAN OFFICE. -[place]
--- NOTE | 2022-09-23 08:52 | EXP.LABOR.NO ---
Labor Note Subjective: Date: 09/23/22 Time: 08:35 regular contraction Objective: NST:: Reactive Contractions:: every 2-3 minutes Cervical Dilation:: 2-3 Effacement:: 75% Station: -1 Membranes: artificially ruptured Fetus: Monitoring?: Yes monitoring type:: External Assessment: Labor progressing?: Yes Cephalopelvic disproportion?: No Plan: Anesthesia for epidural?: No Continue to labor down?: Yes Plan for ?: No Continue to monitor?: Yes Start pushing?: No Comment:: I ruptured membranes and there was clear fluid. She is having regular contractions. We will plan for a vaginal delivery.
--- NOTE | 2022-09-23 08:53 | EXP.HP ---
History of Present Illness *Admission Date: 09/23/22 *Reason for visit:: Term . *History of present illness: She is a 22-year-old lady at 39+ weeks gestational age. She requested induction of labor at term. She is admitted for delivery. [facility] Disclaimer: The information contained in this section may have been updated after the patient was seen, as this information can be updated by other users. Medical History Group B Streptococcus carrier, +RV culture, currently Hypokalemia Menorrhagia Surgical History History of dilation and curettage Hx of tonsillectomy Family History Anemia Hyperlipidemia Heart attack Cancer Hypertension Asthma Social History Smoking Status: Never smoker alcohol intake: never substance use type: marijuana current occupational status: unemployed Travel in the last 8 weeks: None Review of Systems Review of Systems Review of systems:: pertinent systems reviewed and negative unless documented below Meds Home Medications and Allergies Home Medications Medication Instructions Recorded Confirmed Type prenat.vits,zoya,[id number] 1 tab PO DAILY Supplement 03/03/22 09/23/22 History famotidine 20 mg tablet 20 mg PO DAILY Acid reflux 09/23/22 09/23/22 History ferrous sulfate 325 mg (65 mg 325 mg PO DAILY Supplement 09/23/22 09/23/22 History iron) tablet ondansetron 4 mg disintegrating 4 mg PO Q6HP PRN nausea and 09/23/22 09/23/22 History tablet vomiting New Prescriptions to Start Prescriptions: Allergies Allergy/AdvReac Type Severity Reaction Status Date / Time bisoprolol Allergy Mild rash Verified 09/23/22 06:04 phentermine [From Adipex-P] AdvReac Verified 09/23/22 06:04 Exam Data for Last 24 hours Vital signs and Labs for Last 24 Hours: Temp Pulse Resp BP Pulse Ox 98.4 F 114 H 18 114/75 99 09/23/22 05:32 09/23/22 05:32 09/23/22 05:32 09/23/22 05:32 09/23/22 05:32 Laboratory Results - last 24 hr 09/23/22 05:10: Urine Color Yellow, Urine Appearance Clear, Urine pH 7.0, Ur Specific [place] 1.015, Urine Protein Negative, Urine Glucose (UA) Negative, Urine Ketones Negative, Urine Blood Negative, Urine Nitrate Negative, Urine Bilirubin Negative, Urine Urobilinogen 0.2, Ur Leukocyte Esterase Negative, Urine RBC None, Urine WBC None, Ur Squamous Epith Cells Occasional, Urine Bacteria Trace 09/23/22 05:10: SARS-CoV-2 (PCR) Not detected, Influenza A Untype (PCR) Not detected, Influenza Type B (PCR) Not detected 09/23/22 05:10: Urine Opiates Screen Negative, Urine Methadone Screen Negative, Ur Barbituates Screen Negative, Ur Phencyclidine Scrn Negative, Ur Amphetamines Screen Negative, U Benzodiazepines Scrn Negative, Urine Cocaine Screen Negative, U Marijuana (THC) Screen Negative 09/23/22 05:25: WBC 13.2 H, RBC 4.53, Hgb 11.8 L, Hct 36.0 L, MCV 79.4 L, MCH 25.9 L, MCHC 32.7, RDW 14.9, Plt Count 271, MPV 9.7, Neut % (Auto) 74.8, Lymph % (Auto) 18.1, [place] % (Auto) 6.5, Eos % (Auto) 0.5, Baso % (Auto) 0.2, Neut # (Auto) 9.9 H, Lymph # (Auto) 2.4, [place] # (Auto) 0.9, Eos # (Auto) 0.1, Baso # (Auto) 0.0 09/23/22 05:25: Blood Type A Positive, Antibody Screen Negative I & O for Last 24 hours: Intake & Output 09/20/22 09/21/22 09/22/22 09/23/22 11:59 11:59 11:59 11:59 Weight 200 lb Constitutional Constitutional: no acute distress *Routine HEENT Exam Head: Present normocephalic Eye: Present EOMI and PERRL ENT: Present mucous membranes moist *Routine Neck Exam Neck: Present supple; Absent lymphadenopathy *Routine Respiratory Exam Respiratory: Present CTA bilaterally *Routine Cardiovascular Exam Cardiovascular: Present RRR *Routine Abdominal Exam Abdominal: Present soft and normoactive bowel sounds; Absent tenderness *Routine
--- NOTE | 2022-09-23 11:07 | EXP.LABOR.NO ---
Labor Note Subjective: Date: 09/23/22 Time: 11:07 regular contraction Objective: NST:: Reactive Contractions:: every 2-3 minutes Cervical Dilation:: 3-4 Effacement:: 75% Station: -1 Membranes: artificially ruptured Fetus: Monitoring?: Yes monitoring type:: External Assessment: Labor progressing?: Yes Cephalopelvic disproportion?: No Plan: Anesthesia for epidural?: Yes Continue to labor down?: Yes Plan for ?: No Continue to monitor?: Yes Start pushing?: No Comment:: She is doing well. She has changed to 3 to 4 cm. She would like an epidural. She is having regular strong contractions. We will plan for a vaginal delivery.
--- NOTE | 2022-09-23 13:39 | EXP.LABOR.NO ---
Labor Note Subjective: Date: 09/23/22 Time: 13:39 regular contraction Objective: NST:: Reactive Contractions:: every 2-3 minutes Cervical Dilation:: 4 Effacement:: 80% Station: -1 Membranes: artificially ruptured Fetus: monitoring type:: External Assessment: Labor progressing?: Yes Cephalopelvic disproportion?: No Plan: Anesthesia for epidural?: Yes Continue to labor down?: Yes Plan for ?: No Continue to monitor?: Yes Start pushing?: No Comment:: She seems to be doing well. We will continue to let her labor down. We expect a vaginal delivery.
--- NOTE | 2022-09-23 15:26 | EXP.ANES.CKL ---
[facility] Disclaimer: The information contained in this section may have been updated after the patient was seen, as this information can be updated by other users. Medical History Group B Streptococcus carrier, +RV culture, currently Hypokalemia Menorrhagia Surgical History History of dilation and curettage Hx of tonsillectomy Family History Anemia Hyperlipidemia Heart attack Cancer Hypertension Asthma Social History Smoking Status: Never smoker alcohol intake: never substance use type: marijuana current occupational status: unemployed Travel in the last 8 weeks: None [facility] Anesthesia Checklist Patient Identification Patient Identification: Verbal (Name & ) Structural Data Admitted From: Inpatient Planned Operative Procedure/s: labor epidural Consent for Planned Operative Procedure(s) Verified: Yes Airway Assessment C-Spine Mobility Assessed: Yes TMJ Mobility Assessed: Yes Dentition: Good Dentition Neurological Assessment Level of Consciousness: Awake, Alert and Appropriate Anesthesia Plan Anesthesia Risk discussed: Yes Anesthesia Plan: Verified ASA Class: II Anesthesia Type: Epidural
--- NOTE | 2022-09-23 16:35 | EXP.LABOR.NO ---
Labor Note Subjective: Date: 09/23/22 Time: 15:45 regular contraction Objective: NST:: Reactive Contractions:: every 2-3 minutes Cervical Dilation:: 5 Effacement:: 90% Station: -1 Membranes: artificially ruptured Fetus: Monitoring?: Yes monitoring type:: External Assessment: Labor progressing?: Yes Cephalopelvic disproportion?: No Plan: Anesthesia for epidural?: Yes Continue to labor down?: Yes Plan for ?: No Continue to monitor?: Yes Start pushing?: No Comment:: She is progressing slowly. She has a catheter. The head is well applied to the cervix. There is some molding. The nonstress test is reactive. We will see how she does over the next few hours and see if she progresses.
--- NOTE | 2022-09-23 18:22 | EXP.LABOR.NO ---
Labor Note Subjective: Date: 09/23/22 Time: 18:22 regular contraction Objective: NST:: Reactive Contractions:: every 2-3 minutes Cervical Dilation:: 5 Effacement:: 100% Station: -1 Membranes: artificially ruptured Fetus: Monitoring?: Yes monitoring type:: External Assessment: Labor progressing?: No Cephalopelvic disproportion?: Yes Plan: Anesthesia for epidural?: Yes Continue to labor down?: Yes Plan for ?: Yes Continue to monitor?: Yes Start pushing?: No Comment:: Her cervix has thinned somewhat but she still remains at 5 cm. Head is still a station -1. We will give her another couple of hours and see how she is doing although its been 7 hours since she turned 4 cm. She has thinned out but otherwise has not really dilated much. I will come back and check on her in a couple of hours the nonstress test is reactive. Hopefully this head will come down a little farther and she will dilate. Is not clear whether she may be occiput posterior.
--- NOTE | 2022-09-23 20:16 | PC.NURSE ---
Surgery team paged
--- NOTE | 2022-09-23 20:17 | EXP.LABOR.NO ---
Labor Note Subjective: Date: 09/23/22 Time: 20:17 regular contraction Objective: NST:: Reactive Contractions:: every 2-3 minutes Cervical Dilation:: 5 Effacement:: 100% Station: -1 Membranes: artificially ruptured Fetus: Monitoring?: Yes monitoring type:: External Assessment: Labor progressing?: No Cephalopelvic disproportion?: Yes Plan: Anesthesia for epidural?: Yes Continue to labor down?: No Plan for ?: Yes Continue to monitor?: Yes Start pushing?: No Continue pushing?: No Comment:: I have allowed her to do labor down for the last couple of hours and she really has not changed her cervix. There is a little more molding of the head but otherwise no cervical changes. We will go ahead with a section for pelvic disproportion. We discussed the risks of surgery that includes bleeding, infection, injury to other structures. We discussed the rare risk of DVT. We discussed the need for DVT prophylaxis. All questions were answered and consents were signed.
--- NOTE | 2022-09-23 20:18 | PC.NURSE ---
Spoke with Estela Ibarra and Tammi for pending C section.
[2022-09-23 21:29] LABS: Cord Blood PH 7.27 (7.35-7.45)
--- NOTE | 2022-09-23 21:55 | EXP.OP.NOTE ---
Date of procedure: 09/23/22 Pre-op Diagnosis:: Term , pelvic disproportion Post-op Diagnosis:: Term , pelvic disproportion, right occiput posterior, uterine atony Procedure performed:: Primary lower segment transverse section, B-miles suture Surgeon:: Everett Arroyo MD Tree Shear Operator(s):: Dr. Espinal TAPPING MACHINE OPERATOR AUTOMATIC:: Marcelo Thayer Anesthesia: epidural Estimated blood loss (mL): 600 Clinical Note:: She is a 22-year-old lady who is 39 weeks gestational age. She was brought in for induction of labor at term for maternal discomfort. She was started on IV oxytocin had her membranes ruptured and really failed to progress beyond 5 cm. There was considerable molding of the head but really no further dilation. As result of that pelvic disproportion was diagnosed. Risks and benefits of surgery discussed the patient and family and she was taken for a primary lower segment transverse section. Operative findings:: She delivered a liveborn male child at 9:19 PM in the evening of September 23, 2022. The baby was in the direct IVORY position. Apgars were 8 at 1 minute and 9 at 5 minutes. pH was 7.30. The baby weighed 7 pounds 4 ounces. When I opened up into the uterus I could see the baby's mouth. Ovaries and tubes appeared normal. The uterus was somewhat boggy so we elected to perform a B miles suture. Operative note:: She was taken to the operating room where spinal anesthesia was found be adequate. She was prepped and draped in normal sterile fashion in the supine position. A Hightower catheter was in the bladder. A Pfannenstiel skin incision was made with knife then carried through to the underlying layer of fascia with cautery. The fascia was opened in the midline with cautery and extended laterally using Farris scissors. Harvard clamps were applied to the superior aspect of the fascial incision which was tented up and the underlying rectus muscles dissected off using cautery. The Harvard clamps were then applied to the inferior aspect of the fascial incision which in a similar fashion was tented up and the underlying rectus muscles dissected off using cautery. The rectus muscles were then in the midline, the peritoneum identified, and entered bluntly. An Eliceo retractor was then inserted into the abdominal cavity. Transverse incision was made through the uterine muscle above the bladder flap to the amnion. This incision was then extended superiorly and inferiorly using the fingers as traction. The amnion was entered sharply with knife. There was clear amniotic fluid. The infant's head was then delivered atraumatically. This was followed by the anterior shoulder and the rest of the infant's body atraumatically. The oropharynx and nasopharynx were bulb suctioned. The infant was vigorous so we allowed the cord to continue to pulsate for approximately 1 minute. The cord was then doubly clamped and cut. The infant was then handed off to Dr. Rodrigues who assigned Apgars of 8 at 1 minute and 9 at 5 minutes. We then obtained cord blood. Using gentle traction on the cord and fundal massage I was able to easily deliver the placenta intact. It had a normal three-vessel cord. The uterus was then cleared of clots and debris . The uterine incision was then closed using running 0 Vicryl suture in a locked fashion. A second layer of the same suture was used to imbricate the first layer. The bladder peritoneum was then closed using running 2-0 Vicryl suture in a locked fashion. The uterus was somewhat boggy so elected to perform a B-miles suture. Using #1 Vicryl suture and a large needle I took a large bite anteriorly and then went over the top of the fundus of the uterus and took 2 large bites posteriorly. I then came back over the top of the uterus anteriorly and took another bite of the uterine muscle. The suture was then cinched down making sure to avoid the bilateral tubes. The gutters and cul-de-sac were then cleared of clots and memo
[2022-09-23 22:00] VITALS: BP 137/78; PULSE 112; RESP 18; TEMP 36.8; O2SAT 97
--- NOTE | 2022-09-23 22:06 | P.PNANES_ITS ---
[facility] Anesthesia Record Part I Anesthesia Record I Intake, IV Amount: 1,500 Estimated blood loss (mL): 600 Urine output (mL): 250 Blood Pressure: 147/101 SaO2: 98 Pulse Rate: 111 Respiratory Rate: 12 Temperature: 98.2 F Patient is:: Awake and Stable Stable to PACU at:: 22:00
[2022-09-23 22:07] VITALS: BP 147/101; PULSE 111; RESP 12; TEMP 36.8; O2SAT 98
[2022-09-23 22:10] VITALS: BP 140/93; PULSE 115; RESP 14; O2SAT 97
[2022-09-23 22:20] VITALS: BP 136/91; PULSE 119; RESP 14; O2SAT 98
[2022-09-23 22:30] VITALS: BP 128/87; PULSE 103; RESP 16; O2SAT 98
[2022-09-24 04:07] VITALS: BP 124/77; PULSE 101; RESP 19; TEMP 36.8; O2SAT 100
[2022-09-24 07:55] LABS: Hematocrit 32.1 % (37.0-47.0); Hemoglobin 10.6 g/dL (12.2-16.2)
[2022-09-24 08:35] VITALS: BP 140/78; PULSE 117; RESP 18; TEMP 37.4; O2SAT 98
--- NOTE | 2022-09-24 09:10 | EXP.ACUTE.PN ---
Subjective *Date: 09/24/22 *Time: 09:10 Interval history: She is postop day 1 from a primary lower segment transverse section. She is doing very well. She is bottlefeeding. Her pain is well controlled with a tap block. Her lochia is normal. Medical Exam Vital signs and Labs for Last 24 Hours: Vital Signs Temp Pulse Pulse Resp BP BP Pulse Ox 09/24/22 08:35 99.4 F 117 H 18 140/78 98 09/24/22 04:07 98.3 F 101 H 19 124/77 100 09/23/22 22:30 103 H 16 128/87 98 09/23/22 22:20 119 H 14 136/91 H 98 09/23/22 22:10 115 H 14 140/93 H 97 09/23/22 22:00 98.2 F 112 H 18 137/78 97 09/23/22 22:07 98.2 F 111 H 12 147/101 H Intake and Output 09/23/22 09/24/22 09/24/22 19:59 03:59 11:59 Intake Total 1500 / 1500 Output Total 700 / 700 Balance 800 / 800 Intake: Intake, Total IV Amount 1500 / 1500 Output: Output, Urine Amount (Catheter) 700 / 700 Hightower 700 / 700 Laboratory Results - last 24 hr 09/23/22 21:26: Cord ABG pH 7.27 L 09/24/22 07:41: Hgb 10.6 L, Hct 32.1 L I & O for Labs for Last 24 Hours: Intake & Output 09/21/22 09/22/22 09/23/22 09/24/22 11:59 11:59 11:59 11:59 Intake Total 1500 / 1500 Output Total 700 / 700 Balance 800 / 800 Weight 200 lb Head: Present atraumatic Neck: Present normal inspection Respiratory: Present normal respiratory effort; Absent accessory muscle use GI: Present soft; Absent distention, tenderness or guarding Assessment and Plan *Assessment and plan (1) delivery delivered: Status: Acute Category: Medical Code(s): O82 - Encounter for delivery without indication (2) Occiput posterior presentation of fetus: Status: Acute Category: Medical Code(s): O64.0XX0 - Obstructed labor due to incomplete rotation of head, not applicable or unspecified (3) pelvic disproportion antepartum: Status: Acute Category: Medical Code(s): O33.9 - Maternal care for disproportion, unspecified Plan She is doing very well 1 day post section. We will plan to send her home tomorrow if she is doing well.
--- NOTE | 2022-09-24 10:28 | EXP.ANES.II ---
[facility] Anesthesia Record Part II Anesthesia Record Part II Discharge Time: 22:30 Destination: Obstetric PACU nurse assessment reviewed?: Yes Patient Condition:: Good Anesthesia Complications:: None Swallowing reflex intact?: Yes Cyanosis?: No Blood Pressure: 128/87 Pulse Rate: 103 Temperature: 98.2 F Mental Status: Alert & Oriented Pain level:: 2 Nausea and/or vomitting:: None Intake, IV Amount: 0
[2022-09-24 10:30] VITALS: BP 128/87; PULSE 103; TEMP 36.8
--- NOTE | 2022-09-24 10:55 | SW/DCPLANNER ---
Addendum entered by Mayra Suh 09/28/22 09:10: Infant cord screen is NEGATIVE. Addendum entered by Mayra Suh 09/24/22 12:32: urine drug screen is negative. Original Note: I received a consult on this patient regarding THC use during . Patient tested positive for THC on the following dates: 03/03/22, 05/27/22, 08/03/22, 09/09/22. Patient was negative at admission on 09/23/22. urine has been collected but not resulted at this time: I will continue to follow up. Patient admits to THC use due to lack of sleep, nausea and appetite. Infant male (Costa Espinoza) was born on 09/23/22. Infant's father (Flaco Espinoza 05/09/98) was present at the time of my visit. Patient, , and Flaco will reside at [address] [place] [address]. Patient's contact number is [phone]. Patient is currently established with [facility] and is NOT interested in HANDS. Patient stated that she has the following items: crib, carseat, clothing, diapers and will be breast feeding. Patient could possibly discharge home tomorrow 09/25/22. OB nursing staff stated that patient is appropriate with . I will wait for 's urine drug screen to result.
[2022-09-24 16:15] VITALS: BP 117/71; PULSE 101; RESP 18; TEMP 36.8; O2SAT 99
--- NOTE | 2022-09-24 18:25 | PC.NURSE ---
All charting and care completed under my direct supervision
[2022-09-25 00:06] VITALS: RESP 18
[2022-09-25 04:15] VITALS: BP 123/81; PULSE 104; RESP 17; TEMP 36.6; O2SAT 100
[2022-09-25 08:00] VITALS: BP 132/74; PULSE 120; RESP 18; TEMP 36.7; O2SAT 99
--- NOTE | 2022-09-25 11:58 | EXP.DC.SUM ---
General Admission date:: 09/23/22 Discharge date: 09/25/22 HPI HPI HPI: She is a 22-year-old lady at 39+ weeks gestational age. She requested induction of labor at term. She is admitted for delivery. Hospital Course Hospital Course Hospital Course: She was started on IV oxytocin and had her membranes ruptured. She really failed to progress beyond about 5 to 6 cm. The baby was found to be in the occiput posterior position. She was diagnosed with pelvic disproportion and taken for primary lower segment transverse section. She delivered by section a liveborn male child at 9:19 PM in the evening of September 23, 2022. The baby weighed 7 pounds 4 ounces and had Apgars of 8 at 1 minute and 9 at 5 minutes. She has done well and has remained afebrile throughout her hospitalization. She is eating and drinking and ambulating. She is breast and bottlefeeding. Her lochia is normal. She has a positive blood, she is overall immune and she was group B streptococcus positive. She did receive IV antibiotics while in labor. She received a T AP block after her . This seems to be working well for her pain. She will be discharged home to follow-up with me in approximate 2 weeks time. She will continue with her vitamins and iron. She was given a prescription for Percocet 5/325 number 20 tablets. She was given the usual instructions with respect to limiting her activity, driving and sexual activity. She was given instructions with respect to wound care. Her condition on discharge is stable and improved. Exam Data for Last 24 hours Vital signs and Labs for Last 24 Hours: Temp Pulse Resp BP Pulse Ox 98.1 F 120 H 18 132/74 99 09/25/22 08:00 09/25/22 08:00 09/25/22 08:00 09/25/22 08:00 09/25/22 08:00 I & O for Last 24 hours: Intake & Output 09/22/22 09/23/22 09/24/22 09/25/22 11:59 11:59 11:59 11:59 Intake Total 1500 / 1500 Output Total 700 / 700 Balance 800 / 800 Weight 200 lb Constitutional Constitutional: no acute distress *Routine HEENT Exam Head: Present normocephalic *Routine Respiratory Exam Respiratory: Present normal respiratory effort DS: Diagnosis Discharge Diagnosis (1) delivery delivered: Status: Acute (2) Occiput posterior presentation of fetus: Status: Acute (3) pelvic disproportion antepartum: Status: Acute Meds Home Medications and Allergies Home Medications Medication Instructions Recorded Confirmed Type prenat.vits,zoya,grj-dfhb-xkily 1 tab PO DAILY Supplement 03/03/22 09/23/22 History famotidine 20 mg tablet 20 mg PO DAILY Acid reflux 09/23/22 09/23/22 History ferrous sulfate 325 mg (65 mg 325 mg PO DAILY Supplement 09/23/22 09/23/22 History iron) tablet ondansetron 4 mg disintegrating 4 mg PO Q6HP PRN nausea and 09/23/22 09/23/22 History tablet vomiting oxycodone-acetaminophen 5 mg-325 1 tab PO Q4-6H PRN severe pain. 09/25/22 Rx mg tablet (Percocet) #20 tabs New Prescriptions to Start Prescriptions: oxycodone-acetaminophen [Percocet] Everett Arroyo Allergies Allergy/AdvReac Type Severity Reaction Status Date / Time bisoprolol Allergy Mild rash Verified 09/23/22 06:04 phentermine [From Adipex-P] AdvReac Verified 09/23/22 06:04 Discharge Plan Disposition Patient Disposition: Home, Self-Care Condition: Good Discharge Order Discharge Orders: Discharge Order (Routine); Ordered 09/25/22 Ordered By: Everett Arroyo Follow up Plan Follow up with: Everett Arroyo MD [Staff Physician] - 10/07/22 2:00 pm Prescriptions/Medication Reconciliation: New oxycodone-acetaminophen [Percocet] 5-325 mg Tablet 1 tab PO Q4-6H PRN (Reason: severe pain.) Qty: 20 0RF Continued prenat.vits,zoya,psr-aghu-ocygg Tablet 1 tab PO DAILY famotidine 20 mg tablet 20 mg PO DAILY ferrous sulfate 325 mg (65 mg iron) tablet 325 mg PO
== END 2022-09-25 16:00 | disposition home or self-care (01) | DRG 788 ==
PROVIDERS: Admitting Provider Nurse Practitioner Obstetrics & Gynecology; PCP Family Medicine; Visit Provider Nurse Practitioner Obstetrics & Gynecology
PROC: 10D00Z1 Extraction of Products of Conception, Low, Open Approach (ICD-10-PCS; CPT 59514; principal; 2022-09-23 20:30)
DX: O64.0XX0 Obstructed labor due to incomplete rotation of fetal head, not applicable or unspecified (principal); O99.820 Streptococcus B carrier state complicating pregnancy; Z3A.39 39 weeks gestation of pregnancy; O75.89 Other specified complications of labor and delivery; Z37.0 Single live birth
CPT/HCPCS: 59514; 36415; 59025; 80305; 81001; 82800; 85014; 85018; 85025; 86850; 94761; C9803; G0283; J0290; J2405; U0003; U0005

== ENCOUNTER → 2022-10-08 15:17 | Outpatient (CLI) | payer BC, SELFPAY | PROVIDERS: PCP Family Medicine; Visit Provider Physician Assistant | DX: R00.0 Tachycardia, unspecified (principal); Z34.90 Encounter for supervision of normal pregnancy, unspecified, unspecified trimester | CPT/HCPCS: 93306 ==

== ENCOUNTER → 2022-12-17 11:22 | Outpatient (CLI) | payer BC, SELFPAY ==
[2022-12-17 13:50] LABS: HCG,Quantitative 7374 mIU/ml (0-5.42)
== END ==
PROVIDERS: PCP Family Medicine; Visit Provider Nurse Practitioner Obstetrics & Gynecology
DX: Z32.01 Encounter for pregnancy test, result positive (principal)
CPT/HCPCS: 36415; 84144; 84702

== ENCOUNTER → 2023-01-07 09:55 | Outpatient (CLI) | payer BC, SELFPAY ==
--- NOTE | 2023-01-07 09:56 | US_ITS ---
PROCEDURE: US OB <= 14 WEEKS FETUS CLINICAL INDICATION: for dates COMPARISON: No exams were available for comparison FINDINGS: Transvaginal sonographic images of the pelvis were obtained. From her last menstrual period she is 9weeks 1day. An intrauterine gestational sac is present with a pole with a crown-rump length of 1.87cm correlating to gestational age of 8weeks 3days. heart tones are present with an FHR of 163bpm. Yolk sac is noted. The yolk sac measures 4.6mm. There is a fluid collection adjacent to the chorion that measures 2.6 cm x 2.3 cm . The right ovary is seen and appears normal. The right ovary measures 3.2 cm x 2.2 cm x 1.9 cm The left ovary is seen and appears normal. The left ovary measures 3.1 cm x 1.8 cm x 1.4 cm Both ovaries have a polycystic appearance. There is no fluid in the cul-de-sac. IMPRESSION: 1. Viable fetus within the uterine cavity with heart rate activity. 2. Due date will be 08/16/2023. 3. There is a 2.6 centimeter fluid collection adjacent to the chorion. Likely blood. 4. Both ovaries have a polycystic appearance. Dictated by: Everett Arroyo MD 01/07/2023 13:56 Everett Arroyo MD in OV 01/07/2023 13:56
[2023-01-11 06:08] LABS: Neisseria gonorrhoeae, NAA Negative (Negative)
== END ==
PROVIDERS: PCP Family Medicine; Visit Provider Nurse Practitioner Obstetrics & Gynecology
DX: Z34.91 Encounter for supervision of normal pregnancy, unspecified, first trimester (principal); Z3A.08 8 weeks gestation of pregnancy
CPT/HCPCS: 76801; 87086; 87491; 87591

== ENCOUNTER → 2023-02-04 11:27 | Outpatient (CLI) | payer BC, SELFPAY ==
[2023-02-04 11:55] LABS: Basophils % 0.3 % (0.1-2.0); Eosinophils # 0.1 K/mm3 (0.0-0.4); Eosinophils % 1.4 % (0.1-12.0); Hematocrit 38.4 % (37.0-47.0); Hemoglobin 12.7 g/dL (12.2-16.2); Lymphocytes # 1.9 K/mm3 (0.7-4.5); Lymphocytes % 23.9 % (10-50); Mean Corpuscular HGB Conc 33.1 g/dL (31.8-35.4); Mean Corpuscular Hemoglobin 26.9 pg (27.0-31.2); Mean Corpuscular Volume 81.2 fl (81-99); Mean Platelet Volume 10.2 fl (7.4-10.4); Monocytes # 0.4 K/mm3 (0.1-1.0); Monocytes % 4.4 % (1.7-9.3); Neutrophils # 5.6 K/mm3 (1.8-7.8); Platelet Count 211 K/mm3 (142-424); Red Blood Count 4.73 M/mm3 (4.20-5.40); Red Cell Distribution Width 14.7 % (11.5-17.5)
[2023-02-05 06:17] LABS: Rubella Antibodies, IgG 1.87 index (Immune >0.99)
[2023-02-05 11:08] LABS: HIV Screen 4th Generation wRfx Non Reactive (Non Reactive)
[2023-02-05 12:29] LABS: Rapid Plasma Reagin Ab Titer Non Reactive (NonRea<1:1)
[2023-02-15 11:57] LABS: Hepatitis B Surface Antigen Negative; Hepatitis C Antibody Non Reactive
== END ==
PROVIDERS: PCP Family Medicine; Visit Provider Nurse Practitioner Obstetrics & Gynecology
DX: Z34.91 Encounter for supervision of normal pregnancy, unspecified, first trimester (principal); Z3A.12 12 weeks gestation of pregnancy
CPT/HCPCS: 36415; 85025; 86593; 86703; 86762; 86850; 87340; 87380; G0432

== ENCOUNTER → 2023-02-17 14:55 | Outpatient (CLI) | payer BC, SELFPAY ==
[2023-02-17 15:55] VITALS: BP 125/82; PULSE 105; RESP 18; TEMP 36.7; O2SAT 98
[2023-02-17 16:21] VITALS: BMI 36.5
--- NOTE | 2023-02-17 16:55 | PC.NURSE ---
LR infusion complete at this time.
--- NOTE | 2023-02-17 17:08 | PC.NURSE ---
1545- PT. ARRIVED TO ROOM 272 FOR INFUSION.
--- NOTE | 2023-02-17 17:09 | PC.NURSE ---
pT. LEFT UNIT AMBULATORY AT THIS TIME.
== END ==
LOC: OBOUT 14:56 → INF 14:58
PROVIDERS: PCP Family Medicine; Visit Provider Nurse Practitioner Obstetrics & Gynecology
DX: Z3A.14 14 weeks gestation of pregnancy (principal); R11.2 Nausea with vomiting, unspecified; E86.0 Dehydration
CPT/HCPCS: 96360; G0463; J2405

== ENCOUNTER 2023-03-10 19:35 | Emergency (ER) | payer BC, SELFPAY ==
[2023-03-10 19:35] VITALS: BP 154/83; PULSE 102; RESP 20; TEMP 37.2; O2SAT 98; BMI 36.5
--- NOTE | 2023-03-10 20:10 | ECG_ITS ---
APPROVED REPORT Exam: Resting ECG HR:102 bpm ECG Measurements Heart Rate 102 AXES [place] 148 P 52 QRSd 85 QRS 65 QT 346 T 38 QTc 405 Conclusion SINUS TACHYCARDIA ABNORMAL RHYTHM ECG UNCONFIRMED REPORT Electronically signed by : Hector Ash MD 03/13/2023 11:06:55
[2023-03-10 20:30] VITALS: BP 116/72; PULSE 102; O2SAT 97
--- NOTE | 2023-03-10 20:45 | HMH.EDGENADL ---
Discharge Plan Disposition Patient Disposition: Home, Self-Care Prescriptions Prescriptions: New potassium chloride 10 mEq capsule, extended release 40 meq PO BID 1 Days Qty: 8 0RF No Action prenat.vits,zoya,its-pstg-slucn Tablet 1 tab PO DAILY ondansetron 4 mg tablet,disintegrating 4 mg PO Q6H PRN (Reason: nausea and vomiting) Qty: 30 1RF progesterone micronized [Prometrium] 200 mg capsule 200 mg vaginal QHS 30 Days Qty: 30 2RF Referrals Follow up/Referrals: Helene Rain MD [Primary Care Provider] - See instructions Activity Restrictions/Add. Instructions Additional Instructions/Restrictions: Please follow-up with your primary care provider and your obgyn. Please return to the emergency department if you develop any new or worsening symptoms or become concerned for your health. You have been prescribed a couple of doses of potassium. Please take those tomorrow. Monitor for signs of dehydration, if you continue to be dehydrated, recommend returning for admission for fluids. Clinical Impressions Clinical Impression: Vomiting, Acute dehydration, Acute hypokalemia Discharge ED Provider: Efe Kirk General Adult HPI <Eef Kirk MD - Last Filed: 03/10/23 23:29> General Chief complaint: PAIN Stated complaint: kidney pain Time Seen by Provider: 03/10/23 19:38 Mode of Arrival: Ambulatory Source of Information: Patient Limitations: No Limitations Description of Symptoms (Recalled from ER Triage Doc. by RN): Pt is 17 weeks , presents today with complaints of left flank pain that has now moved to the right and radiaites into her lower abdomen. She states she feels SOA, has right arm pain that started a couple days ago as well a headache for 1 week. History of Present Illness HPI narrative: 22-year-old female who is 17 weeks by last menstrual period and initial OB ultrasound confirming IUP on 01/07 presenting with left leg pain. Patient states that left leg pain has been going on for couple of days. Intermittently on the left, intermittently on the right. Primarily on the left and wraps around to her lower abdomen. Denies dysuria or hematuria. No nausea or vomiting, fevers or chills. No abnormal vaginal discharge or bleeding or loss of fluid. Also having a host of other complaints that have been present prior to and are intermittently reappearing such as shortness of breath, bilateral shoulder discomfort, headaches, amongst others. Related Data Home Medications Medication Instructions Recorded Confirmed prenat.vits,zoya,jhp-txiv-gxuac 1 tab PO DAILY Supplement 03/03/22 03/04/23 Previous Rx's Medication Instructions Recorded progesterone micronized 200 mg 200 mg vaginal QHS 30 days #30 caps 12/18/22 capsule (Prometrium) ondansetron 4 mg disintegrating 4 mg PO Q6H PRN nausea and 02/17/23 tablet vomiting #30 tabs potassium chloride 10 mEq 40 meq PO BID hypokalemia 1 day #8 03/11/23 capsule,extended release caps Allergies Allergy/AdvReac Type Severity Reaction Status Date / Time bisoprolol Allergy Mild rash Verified 03/04/23 14:12 phentermine [From Adipex-P] AdvReac Verified 03/04/23 14:12 PFS <Efe Kirk MD - Last Filed: 03/10/23 23:29> [facility] Disclaimer: The information contained in this section may have been updated after the patient was seen, as this information can be updated by other users. Medical History (Updated 03/10/23 @ 23:29 by Efe Kirk MD) Hypokalemia Menorrhagia Sore throat Surgical History History of delivery History of dilation and curettage Hx of tonsillectomy Family History Other Anemia Asthma Cancer Heart attack Hyperlipidemia Hypertension Social History Smoking Status: Current every day smoker alcohol intake: never substa
[2023-03-10 20:54] LABS: Microscopic, Urine URINE MICROSCOPIC (MICROSCOPIC)
[2023-03-10 20:58] LABS: Appearance,Urine CLEAR (Clear); Bilirubin,Urine Negative (Negative); Blood, Urine Negative (Negative); Color,Urine YELLOW (Yellow); Glucose,Urine (UA) Negative (Negative); Ketones,Urine Negative (Negative); Leukocyte Esterase,Urine Negative (Negative); Nitrate,Urine Negative (Negative); PH,Urine 6.5 (5.0-8.5); Protein,Urine Negative (Negative); Specific Gravity, Urine 1.015 (1.005-1.030); Urobilinogen,Urine 0.2 EU/dl (0.2)
[2023-03-10 21:12] LABS: Bacteria,Urine Trace /lpf
--- NOTE | 2023-03-10 21:17 | US_ITS ---
PROCEDURE INFORMATION: Exam: US After First Trimester, Transabdominal Exam date and time: 03/10/2023 10:03 PM Age: 22 years old Clinical indication: complicated by abdominal or pelvic pain; Lower; Second trimester (14 weeks 0 days to 27 weeks 6 days); Gestational age or lmp: 17w1d; ; Additional info: Flank pain, abd pain, vomiting LABS AND CLINICAL REPORTS: Gestational age (Established): 17 w 2 d Estimated due date (Established): 08/16/2023 TECHNIQUE: Imaging protocol: Real-time transabdominal obstetrical ultrasound of the maternal pelvis and a second or third trimester with image documentation. COMPARISON: US OB <= 14 WEEKS FETUS 01/07/2023 10:05 AM FINDINGS: Gestation: Single intrauterine. heart rate: 144 bpm presentation: Breech Placenta: Anterior, grade 1 without previa. Amniotic fluid: Adequate. Survey: Visualized anatomy is unremarkable. BIOMETRY: Gestational age (AUA): 17 w 2 d Estimated due date (AUA): 08/16/2023 Estimated weight: 174.5 g. EFW by AC, BPD, FL, HC, Hadlock 1985 Biparietal diameter (BPD): 3.8 cm. EGA (BPD) is 17 w 4 d. 64 % percentile Head circumference (HC): 13.55 cm. EGA (HC) is 17 w 0 d. 27 % percentile Abdominal circumference (AC): 10.88 cm. EGA (AC) is 16 w 5 d. 31 % percentile Femur length (FL): 2.34 cm. EGA (FL) is 17 w 0 d. 35 % percentile HC/AC: 1.25 FL/BPD: 0.62 FL/AC: 0.22 MATERNAL: Cervix: Cervical length measures 3.2 cm. Intraperitoneal space: No free fluid in the pelvis. Other findings: Incidental note is made of gallstone(s) IMPRESSION: Single VIABLE intrauterine gestation.
--- NOTE | 2023-03-10 21:19 | PC.NURSE ---
called radiology to call in US
[2023-03-10 22:12] LABS: Basophils % 0.4 % (0.1-2.0); Eosinophils # 0.2 K/mm3 (0.0-0.4); Eosinophils % 2.4 % (0.1-12.0); Hemoglobin 12.9 g/dL (12.2-16.2); Lymphocytes # 2.5 K/mm3 (0.7-4.5); Mean Corpuscular HGB Conc 34.7 g/dL (31.8-35.4); Mean Corpuscular Hemoglobin 28.6 pg (27.0-31.2); Mean Corpuscular Volume 82.4 fl (81-99); Mean Platelet Volume 9.1 fl (7.4-10.4); Monocytes # 0.4 K/mm3 (0.1-1.0); Monocytes % 4.1 % (1.7-9.3); Neutrophils # 6.8 K/mm3 (1.8-7.8); Neutrophils % 68.2 % (37.0-80.0); Platelet Count 178 K/mm3 (142-424); Red Blood Count 4.49 M/mm3 (4.20-5.40); Red Cell Distribution Width 14.9 % (11.5-17.5)
[2023-03-10 22:20] LABS: Alanine Aminotransferase 25 U/L (12-78); Albumin/Globulin Ratio 1.2 (1.1-1.8); Alkaline Phosphatase 80 U/L (38-126); Aspartate Amino Transferase 28 U/L (14-36); Bilirubin,Total 0.2 mg/dl (0.2-1.3); Blood Urea Nitrogen 4 mg/dl (7-17); Carbon Dioxide 22 mmol/L (22.0-30.0); Chloride 102 mmol/L (98-107); Creatinine Clearance Estimated 430 mL/min (50-200); Estimated Glomerular Filt Rate 276 ml/min (>60); GFR (African American) 334 ML/MIN (>60); Globulin 3.3 g/dL (1.3-3.2); Glucose 95 mg/dl (74-100); Sodium 136 mmol/L (136-145); Total Protein,Serum 7.3 g/dl (6.3-8.2)
[2023-03-10 22:26] LABS: VBG Base Excess -1.1 mmol/L (-2.4-2.3); VBG HCO3 22.7 mmol/L (23-30); VBG Oxygen Saturation 99.7 % (50-70); VBG PCO2 32.7 mmol/L (35-51); VBG PH 7.46 mmol/L (7.31-7.41); VBG PO2 219.2 mmol/L (28-40); VBG Total CO2 23.7 mmol/L (23-27)
--- NOTE | 2023-03-10 22:26 | PC.NURSE ---
Lab called critical result K+ 3.0, Dr Kirk aware
--- NOTE | 2023-03-10 22:30 | PC.NURSE ---
Patient returned from ultrasound, nausea improved.
--- NOTE | 2023-03-10 22:52 | XR_ITS ---
PROCEDURE INFORMATION: Exam: XR Chest Exam date and time: 03/10/2023 11:17 PM Age: 22 years old Clinical indication: Shortness of breath; Additional info: SOA, leg nodules TECHNIQUE: Imaging protocol: Radiologic exam of the chest. Views: 1 view. COMPARISON: No relevant prior studies available. FINDINGS: Lungs: Unremarkable lungs. Pleural spaces: No pleural effusion or pneumothorax. Heart/Mediastinum: Cardiomediastinal silhouette is normal. Bones/joints: NA IMPRESSION: No active lung parenchymal lesion.
[2023-03-10 23:03] LABS: HCG,Quantitative 38693 mIU/ml (0-5.42)
[2023-03-10 23:09] LABS: Lipase 162 U/L (23-300)
--- NOTE | 2023-03-10 23:51 | PC.NURSE ---
Patient reports improved nausea, asked for food with medications. Approved by ER provider. Provided patient with sandwich, chips, and water.
[2023-03-11 01:53] VITALS: BP 124/75; PULSE 90; RESP 18; TEMP 36.7; O2SAT 99
== END 2023-03-11 01:56 | disposition home or self-care (01) ==
PROVIDERS: Emergency Provider Emergency Medicine; PCP Family Medicine
DX: O26.892 Other specified pregnancy related conditions, second trimester (principal); O21.1 Hyperemesis gravidarum with metabolic disturbance; E86.0 Dehydration; R00.0 Tachycardia, unspecified; O99.332 Smoking (tobacco) complicating pregnancy, second trimester; R22.42 Localized swelling, mass and lump, left lower limb; R51.9 Headache, unspecified; Z3A.17 17 weeks gestation of pregnancy; F17.210 Nicotine dependence, cigarettes, uncomplicated
CPT/HCPCS: 71045; 76805; 80053; 81001; 82803; 83690; 84702; 85025; 93005; 96361; 96374; 96375; 99285; J2405

== ENCOUNTER → 2023-04-01 13:08 | Outpatient (CLI) | payer BC, SELFPAY ==
--- NOTE | 2023-04-01 13:12 | US_ITS ---
PROCEDURE: US OB /MATERNAL DETAIL CLINICAL INDICATION: 20 week anatomy scan COMPARISON: US US OB >= 14 WEEKS FETUS from 03/10/2023 FINDINGS: Transabdominal sonographic images of the pelvis were obtained. From her established due date she is 20 weeks 3 days. Single viable intrauterine gestation. Breech position. Placenta: Anterior and fundalplacenta grade 1. Posterior accessory lobe. There is an average amount of fluid. MVP 4.4 cm. The cervix appears satisfactory. Closed and measuring 2.7 cm in length. Complete survey performed and was unremarkable on the submitted images as in PACS. No discrete anomalies identified on survey imaging by technologist. Active fetus. Three-vessel cord with satisfactory umbilical cord insertion. 4- chamber heart noted. Situs, aortic arch, LVOT, RVOT, three-vessel view appear normal. Survey of brain & ventricles Unremarkable. Cerebellum, cisterna magna, choroid plexus, thalamus appear normal. Face and neck survey unremarkable. Profile, nasion, lips and nose appeared normal. Diaphragm and chest views unremarkable. Abdomen: Both kidneys noted and unremarkable. Stomach and bladder noted and satisfactory. Spine: Survey of the spine satisfactory with no anomalies identified nor imaged. Cervical, thoracic and lower spine appear normal. Both arms and legs noted. Amniotic Fluid: Adequate. Measurements: Average ultrasound age 20weeks 0 days. Estimated due date by ultrasound age 0308/19/2023. Estimated weight 334g BPD = 19weeks 4days HC = 19weeks 6days AC = 20weeks 4days FL = 19weeks 6days Growth Percentile= 29 Heart Rate = 144bpm Cerebellum = 19weeks 6days Humerus = 20weeks 3days HC/AC is 1.13 FL/BPD is 0.71 FL/AC is 0.21 IMPRESSION: 1. Viable fetus in the breech presentation with an anterior/fundal placenta grade 1. There appears to be a posterior accessory lobe. 2. Anatomy scan appears normal. 3. biometry is consistent with dates. Dictated by: Everett Arroyo MD 04/01/2023 18:27 Everett Arroyo MD in OV 04/01/2023 18:27
== END ==
PROVIDERS: PCP Family Medicine; Visit Provider Nurse Practitioner Obstetrics & Gynecology
DX: Z34.92 Encounter for supervision of normal pregnancy, unspecified, second trimester (principal); Z3A.20 20 weeks gestation of pregnancy
CPT/HCPCS: 76811

== ENCOUNTER 2023-05-26 13:53 | Outpatient (CLI) | payer BC, SELFPAY ==
[2023-05-26 14:03] VITALS: BMI 38.6
[2023-05-26 14:25] LABS: Microscopic, Urine URINE MICROSCOPIC (MICROSCOPIC)
[2023-05-26] MEDS: ONDANSETRON 4MG/2ML VIAL 4 MG IV (14:55)
[2023-05-26] MEDS: LACTATED RINGERS 1000ML 1,000 ML 999 ML IV (14:55)
[2023-05-26 15:10] LABS: Appearance,Urine CLEAR (Clear); Bilirubin,Urine Negative (Negative); Blood, Urine Negative (Negative); Color,Urine YELLOW (Yellow); Glucose,Urine (UA) Negative (Negative); Ketones,Urine Negative (Negative); Leukocyte Esterase,Urine Negative (Negative); Nitrate,Urine Negative (Negative); PH,Urine 7.5 (5.0-8.5); Protein,Urine Negative (Negative); Specific Gravity, Urine 1.015 (1.005-1.030); Urobilinogen,Urine 0.2 EU/dl (0.2)
[2023-05-26 15:17] VITALS: BP 128/69; PULSE 111; RESP 16; TEMP 37.4; O2SAT 98; BMI 38.6
[2023-05-26 15:23] LABS: Barbiturates Screen,Urine Negative ng/ml (<200)
[2023-05-26 15:24] LABS: Benzodiazepines Screen,Urine Negative ng/ml (<200)
[2023-05-26 15:25] LABS: Amphetamine/Metha Screen,Urine Negative ng/ml (<1000); Cannabinoid Screen,Urine Positive ng/ml (<50)
[2023-05-26 15:26] LABS: Cocaine Screen,Urine Negative ng/ml (<300); Methadone Screen,Urine Negative ng/ml (<300)
[2023-05-26 15:27] LABS: Opiate Screen,Urine Negative ng/ml (<300)
[2023-05-26 15:28] LABS: Phencyclidine Screen,Urine Negative ng/ml (<25)
[2023-05-26 16:09] LABS: Bacteria,Urine Trace /lpf; WBC,Urine Occasional #/hpf (0-3)
== END 2023-05-26 17:20 | disposition home or self-care (01) ==
LOC: OBOUT 13:56 → OB 13:57
PROVIDERS: PCP Family Medicine; Referring Provider Obstetrics & Gynecology; Visit Provider Obstetrics & Gynecology
DX: O21.8 Other vomiting complicating pregnancy (principal); Z3A.28 28 weeks gestation of pregnancy
CPT/HCPCS: 59025; 80307; 81001; 96365; 96366; G0463; J2405

== ENCOUNTER → 2023-05-27 11:59 | Outpatient (CLI) | payer BC, SELFPAY ==
[2023-05-27 12:25] LABS: Basophils % 0.2 % (0.1-2.0); Eosinophils # 0.1 K/mm3 (0.0-0.4); Eosinophils % 0.9 % (0.1-12.0); Hematocrit 34.1 % (37.0-47.0); Hemoglobin 11.8 g/dL (12.2-16.2); Lymphocytes # 1.8 K/mm3 (0.7-4.5); Lymphocytes % 18.5 % (10-50); Mean Corpuscular HGB Conc 34.6 g/dL (31.8-35.4); Mean Corpuscular Hemoglobin 28.2 pg (27.0-31.2); Mean Corpuscular Volume 81.6 fl (81-99); Mean Platelet Volume 8.9 fl (7.4-10.4); Monocytes # 0.4 K/mm3 (0.1-1.0); Monocytes % 4.5 % (1.7-9.3); Neutrophils # 7.2 K/mm3 (1.8-7.8); Platelet Count 187 K/mm3 (142-424); Red Blood Count 4.18 M/mm3 (4.20-5.40); Red Cell Distribution Width 14.8 % (11.5-17.5); White Blood Count 9.5 K/mm3 (4.8-10.8)
[2023-05-27 12:36] LABS: Glucose,Fasting 88 mg/dl (74-100)
[2023-05-27 14:32] LABS: Glucose 1 Hour 113 mg/dL (74-100)
== END ==
LOC: LAB 12:00
PROVIDERS: Visit Provider Obstetrics & Gynecology
DX: Z34.93 Encounter for supervision of normal pregnancy, unspecified, third trimester (principal); Z3A.28 28 weeks gestation of pregnancy
CPT/HCPCS: 36415; 82951; 85025

== ENCOUNTER 2023-06-04 18:08 | Outpatient (CLI) | payer BC, SELFPAY ==
[2023-06-04 19:12] VITALS: BMI 38.6
[2023-06-04 19:13] VITALS: BP 136/83; PULSE 120; RESP 18; TEMP 36.8; O2SAT 97; BMI 38.6
[2023-06-04 19:21] LABS: Microscopic, Urine URINE MICROSCOPIC (MICROSCOPIC)
[2023-06-04 19:22] LABS: Fetal Membrane Rupture (Rapid) Negative (Negative)
[2023-06-04 19:27] LABS: Appearance,Urine CLEAR (Clear); Blood, Urine Negative (Negative); Color,Urine YELLOW (Yellow); Glucose,Urine (UA) Negative (Negative); Ketones,Urine TRACE (Negative); Leukocyte Esterase,Urine 1+ (Negative); Nitrate,Urine Negative (Negative); Protein,Urine Negative (Negative); Specific Gravity, Urine 1.025 (1.005-1.030); Urobilinogen,Urine 0.2 EU/dl (0.2)
[2023-06-04 19:32] LABS: Bilirubin,Urine 1+ (Negative)
[2023-06-04 19:46] LABS: Bacteria,Urine 1+ /lpf
[2023-06-04 21:02] LABS: Amphetamine/Metha Screen,Urine Negative ng/ml (<1000); Barbiturates Screen,Urine Negative ng/ml (<200); Benzodiazepines Screen,Urine Negative ng/ml (<200); Cannabinoid Screen,Urine Positive ng/ml (<50); Cocaine Screen,Urine Negative ng/ml (<300); Methadone Screen,Urine Negative ng/ml (<300); Opiate Screen,Urine Negative ng/ml (<300); Phencyclidine Screen,Urine Negative ng/ml (<25)
== END 2023-06-04 19:55 | disposition home or self-care (01) ==
LOC: OBOUT 18:09 → OB 18:10
PROVIDERS: PCP Family Medicine; Visit Provider Obstetrics & Gynecology
DX: O26.893 Other specified pregnancy related conditions, third trimester (principal); Z3A.29 29 weeks gestation of pregnancy; R10.2 Pelvic and perineal pain
CPT/HCPCS: 59025; 80307; 81001; 84112; 87086; G0463

== ENCOUNTER 2023-06-23 08:49 | Outpatient (CLI) | payer BC, SELFPAY ==
--- NOTE | 2023-06-23 08:54 | US_ITS ---
PROCEDURE: US OB BIOPHYSICAL PROFILE CLINICAL INDICATION: US OB BPP/Growth for LGA and EVI COMPARISON: No exams were available for comparison FINDINGS: Transabdominal sonographic images of the uterus were obtained. From her established due date she is 32weeks 2days. The following parameters are obtained: Viable Fetus in the breech presentation with and anterior placenta grade 1. Average ultrasound age is 31weeks 6days Estimated weight 1,805g, 4 lb 0 oz. The cervix measures 3.5 cm Measurements: heart Rate = 136bpm BPD = 32weeks 3days HC = 31weeks 5days AC = 31weeks 5days FL = 31weeks 3days HC/AC is 1.04 FL/BPD is 0.75 FL/AC is 0.22 21 percentile Amniotic fluid index: 9.03cm, MVP 3.90 cm Qualitative AFV:2 Breathing movements: 2 Gross Body Movements: 2 Tone: 2 Biophysical profile score: 8 No obvious anomalies evident.Kidneys, stomach, bladder, diaphragm, three-vessel cord appear normal. IMPRESSION: 1. Viable fetus in the breech presentation with an anterior placenta grade 1. 2. The fluid is within normal limits with an amniotic fluid index of 9.03 cm, MVP 3.90 cm. 3. Biophysical profile is 8/8 with good breathing movement and movement seen. 4. There has been good interval growth with the fetus currently 21st percentile. Dictated by: Everett Arroyo MD 06/23/2023 12:54 Everett Arroyo MD in OV 06/23/2023 12:54
== END 2023-06-23 23:59 ==
LOC: RAD 08:50
PROVIDERS: PCP Family Medicine; Visit Provider Obstetrics & Gynecology
DX: O36.63X0 Maternal care for excessive fetal growth, third trimester, not applicable or unspecified (principal); Z3A.32 32 weeks gestation of pregnancy
CPT/HCPCS: 76816; 76819

== ENCOUNTER 2023-06-30 11:34 | Emergency (ER) | payer BC, SELFPAY ==
[2023-06-30 11:35] VITALS: BP 140/94; PULSE 114; RESP 18; TEMP 36.7; O2SAT 98; BMI 38.0
--- NOTE | 2023-06-30 11:40 | PC.NURSE ---
FHT'S 136-145 WITH DOPPLER. PT REPORTS + FM
--- NOTE | 2023-06-30 11:43 | PC.NURSE ---
DR BENITEZ AT BEDSIDE
--- NOTE | 2023-06-30 11:45 | PC.NURSE ---
DR MARILYNN FERNANDEZ
--- NOTE | 2023-06-30 11:48 | PC.NURSE ---
SPOKE WITH DR CERNA WHO IS COUNTER POCKET TRIMMER FOR DR SUBRAMANIAN, REPORT GIVEN. VERBAL ORDERS RECEIVED. PT TO BE EVALUATED IN OB FOR PRE-ECLAMPSIA WORK-UP
[2023-06-30 11:49] VITALS: BMI 38.0
--- NOTE | 2023-06-30 11:51 | PC.NURSE ---
REPORT CALLED TO ELAINE LANGE
--- NOTE | 2023-06-30 11:53 | PC.NURSE ---
PT UPDATED ON POC, CALL LIGHT WITHIN REACH. S.O. AT BEDSIDE
--- NOTE | 2023-06-30 11:54 | ED_ITS ---
Discharge Plan Disposition Patient Disposition: Still a Patient Chief Complaint: PAIN Prescriptions Prescriptions: No Action prenat.vits,zoya,[id number] Tablet 1 tab PO DAILY famotidine [Pepcid] 20 mg tablet 20 mg PO DAILY Qty: 30 11RF Clinical Impressions Clinical Impression: Preeclampsia Discharge ED Provider: Tammi Patricia General Adult HPI General Chief complaint: PAIN Stated complaint: weakness Time Seen by Provider: 06/30/23 11:38 History of Present Illness HPI narrative: This patient is a 23-year-old female at estimated 33 weeks gestational age presenting to the emergency department for evaluation with concern for headache, visual aura, strange sensation in her left arm, and upper abdominal discomfort that radiates between her shoulder blades. She advises that she noticed this this morning. She also took her blood pressure at home and noted that it was high in the 140s over 80s. thus far has been uncomplicated, with the exception of marijuana use as per medical record review. No other concerns noted, such as speech difficulty, facial droop, balance issues, weakness, or other issues. Related Data Home Medications Medication Instructions Recorded Confirmed prenat.vits,zoya,fye-axgv-jieae 1 tab PO DAILY Supplement 03/03/22 06/23/23 Previous Rx's Medication Instructions Recorded famotidine 20 mg tablet (Pepcid) 20 mg PO DAILY #30 tabs 03/22/23 Allergies Allergy/AdvReac Type Severity Reaction Status Date / Time bisoprolol Allergy Mild rash Verified 06/23/23 09:58 phentermine [From Adipex-P] AdvReac Verified 06/23/23 09:[address] [facility] Disclaimer: The information contained in this section may have been updated after the patient was seen, as this information can be updated by other users. Medical History Hypokalemia Marijuana use during Menorrhagia depression Size of fetus inconsistent with dates in third trimester Sore throat Surgical History History of delivery History of dilation and curettage Hx of tonsillectomy Family History Other Anemia Asthma Cancer Heart attack Hyperlipidemia Hypertension Social History Smoking Status: Current every day smoker alcohol intake: never substance use type: marijuana current occupational status: other Travel in the last 8 weeks: None ROS Obtained: Yes All systems reviewed & no additional complaints except as documented Physical Exam General General appearance: alert and in no apparent distress Head Head exam: atraumatic and normocephalic Eye Eye exam: Present normal appearance, PERRL and EOMI ENT ENT exam: Present normal exam, normal oropharynx, mucous membranes moist and normal external ear exam Neck Neck exam: Present normal inspection, full ROM and trachea midline; Absent tenderness Chest Chest inspection: Present normal inspection and symmetric chest wall rise; Absent tenderness Respiratory Respiratory exam: Present normal lung sounds bilaterally; Absent respiratory distress, wheezes, stridor or accessory muscle use Cardiovascular Cardiovascular exam: Present regular rate and normal rhythm Abdominal Exam Abdominal exam: Present soft; Absent distention, tenderness or guarding Extremities Exam Extremities exam: Present normal inspection, full ROM and normal capillary refill; Absent tenderness or edema Back Exam Back exam: Present normal inspection and full ROM; Absent tenderness Neurological Exam Neurological exam: Present alert, oriented X3, CN II-XII intact, normal gait and other (No focal neurologic deficits on exam); Absent motor sensory deficit Psychiatric Psychiatric exam: Present normal affect and normal mood Skin Skin exam: Present warm and dry Medical Decision Making Medical Records Medical records reviewed: Yes I reviewed the patient's medical records. Aidan Inquiry Pt receiving controlled substance: No Vital Signs: 06/30/23 11:35 06/30/23 12:05 Temperature 98.0 F 98.0 F Temperature Source Oral Oral Pulse Rate 121 H Pulse Rate [Radial] 114 H Respiratory Rate 18 18 Blood Pressure 142/86 H Blood Pressure [Right Arm] 140/94 H Blood Pressure Mean [Right Arm] 109 Blood Pressure Source Automatic Cuff Blood Pressure Source [Right Arm] Automatic Cuff Blood Pressure Position Sitting Blood Pressure Position [Right Arm] Sitting 02 Sat by Pulse Oximetry 98 Oxygen Delivery Method Room Air Room Air Lab Data Lab results reviewed: Yes I reviewed the patient's lab results. Lab Results 06/30/23 11:42: WBC 8.6, RBC 4.20, Hgb 11.7 L, Hct 33.3 L, MCV 79.1 L, MCH 27.8, MCHC 35.1, RDW 14.7, Plt Count 201, MPV 9.2, Neut % (Auto) 72.6, Lymph % (Auto) 20.9, [place] % (Auto) 5.3, Eos % (Auto) 0.8, Baso % (Auto) 0.5, Neut # (Auto) 6.3, Lymph # (Auto) 1.8, [place] # (Auto) 0.5, Eos # (Auto) 0.1, Baso # (Auto) 0.1, PT 9.7 L, INR 0.89 L, APTT 25.0, Fibrinogen 520 H, Sodium 135 L 06/30/23 11:42: Sodium 135 L, Potassium 2.9 L* 06/30/23 11:42: Potassium 2.9 L*, Chloride 103 06/30/23 11:42: Chloride 102, Carbon Dioxide 25 06/30/23 11:42: Carbon Dioxide 24, Anion Gap 9.9 06/30/23 11:42: Anion Gap 11.9, BUN 6 L 06/30/23 11:42: BUN 5 L, Creatinine 0.40 L 06/30/23 11:42: Creatinine 0.40 L, Estimated Creat Clear 334 H 06/30/23 11:42: Estimated Creat Clear 334 H, Estimated GFR 196 06/30/23 11:42: Estimated GFR 196, Est GFR ( Amer) 237 06/30/23 11:42: Est GFR ( Amer) 237, Glucose 117 H 06/30/23 11:42: Glucose 116 H, Uric Acid 3.6, Calcium 9.2 06/30/23 11:42: Calcium 9.3, Total Bilirubin 0.4, AST 26 06/30/23 11:42: AST 26, ALT 21 06/30/23 11:42: ALT 22, Alkaline Phosphatase 119, Total Protein 6.4, Albumin 3.5, Globulin 2.9, Albumin/Globulin Ratio 1.2 06/30/23 11:42 06/30/23 11:42 Orders (Tests/Meds): ORDERS Category Date Time Status Comprehensive Metabolic Panel Stat Lab 06/30/23 11:42 Completed Lactate Dehydrogenase Stat Lab 06/30/23 11:42 Received Magnesium Stat Lab 06/30/23 11:42 Received PIH Profile [ Ind. Hyperten(No TS)] Stat Lab 06/30/23 11:42 Completed Urinalysis and Microscopic Stat Lab 06/30/23 11:38 Ordered Medical Decision Narrative: In summary, this patient is a 23-year-old female presenting to the Emergency Department for evaluation of visual disturbance, headache, upper abdominal pain, and strange sensation in her left arm as well as high blood pressure readings at home. She is estimated 33 weeks gestation. Differential diagnoses considered include but are not limited to preeclampsia, eclampsia, HELLP syndrome, CVA, hypoglycemia, hypertensive urgency, hypertensive emergency, other stroke mimic. Ruling out the most morbid conditions drove assessment. On exam, the patient is well-appearing. She has no focal neurologic deficits despite noting a strange sensation in her left arm. Abdominal exam is benign with no focal tenderness. Workup included CBC, CMP, LDH, uric acid, and urinalysis. Patient is hypertensive with systolics in the 140s. Prior to lab results, I called and had an interactive discussion with OB who accepted the patient upstairs for further evaluation with concern for likely preeclampsia. Patient was transported in stable condition. Critical Care Critical Care Time Critical Care Time: No
[2023-06-30 11:56] LABS: Basophils # 0.1 K/mm3 (0-0.2); Basophils % 0.5 % (0.1-2.0); Eosinophils # 0.1 K/mm3 (0.0-0.4); Eosinophils % 0.8 % (0.1-12.0); Hematocrit 33.3 % (37.0-47.0); Hemoglobin 11.7 g/dL (12.2-16.2); Lymphocytes # 1.8 K/mm3 (0.7-4.5); Lymphocytes % 20.9 % (10-50); Mean Corpuscular HGB Conc 35.1 g/dL (31.8-35.4); Mean Corpuscular Hemoglobin 27.8 pg (27.0-31.2); Mean Corpuscular Volume 79.1 fl (81-99); Mean Platelet Volume 9.2 fl (7.4-10.4); Monocytes # 0.5 K/mm3 (0.1-1.0); Monocytes % 5.3 % (1.7-9.3); Neutrophils # 6.3 K/mm3 (1.8-7.8); Neutrophils % 72.6 % (37.0-80.0); Platelet Count 201 K/mm3 (142-424); Red Cell Distribution Width 14.7 % (11.5-17.5); White Blood Count 8.6 K/mm3 (4.8-10.8)
[2023-06-30 12:05] VITALS: BP 142/86; PULSE 121; RESP 18; TEMP 36.7; O2SAT 98
[2023-06-30 12:07] LABS: Alanine Aminotransferase 22 U/L (12-78); Anion Gap 11.9 mEq/L (5-15); Aspartate Amino Transferase 26 U/L (14-36); Blood Urea Nitrogen 5 mg/dl (7-17); Calcium 9.3 mg/dl (8.4-10.2); Carbon Dioxide 24 mmol/L (22.0-30.0); Chloride 102 mmol/L (98-107); Creatinine Clearance Estimated 334 mL/min (50-200); Estimated Glomerular Filt Rate 196 ml/min (>60); GFR (African American) 237 ML/MIN (>60); Glucose 116 mg/dl (74-100); Sodium 135 mmol/L (136-145); Uric Acid 3.6 mg/dl (2.5-6.2)
[2023-06-30 12:08] LABS: Alanine Aminotransferase 21 U/L (12-78); Albumin Level 3.5 g/dl (3.5-5.0); Albumin/Globulin Ratio 1.2 (1.1-1.8); Alkaline Phosphatase 119 U/L (38-126); Anion Gap 9.9 mEq/L (5-15); Aspartate Amino Transferase 26 U/L (14-36); Bilirubin,Total 0.4 mg/dl (0.2-1.3); Blood Urea Nitrogen 6 mg/dl (7-17); Calcium 9.2 mg/dl (8.4-10.2); Carbon Dioxide 25 mmol/L (22.0-30.0); Chloride 103 mmol/L (98-107); Creatinine Clearance Estimated 334 mL/min (50-200); Estimated Glomerular Filt Rate 196 ml/min (>60); GFR (African American) 237 ML/MIN (>60); Globulin 2.9 g/dL (1.3-3.2); Glucose 117 mg/dl (74-100); Sodium 135 mmol/L (136-145); Total Protein,Serum 6.4 g/dl (6.3-8.2)
[2023-06-30 12:11] LABS: Fibrinogen 520 mg/dL (229.9-363.5); INR 0.89 (0.9-1.1); Prothrombin Time 9.7 seconds (10.1-12.5)
[2023-06-30 12:15] LABS: Potassium 2.9 mmoL/L (3.5-5.1)
[2023-06-30 12:16] LABS: Potassium 2.9 mmoL/L (3.5-5.1)
--- NOTE | 2023-06-30 13:00 | ECG_ITS ---
APPROVED REPORT Exam: Resting ECG HR:103 bpm ECG Measurements Heart Rate 103 AXES NH 136 P 27 QRSd 76 QRS 29 QT 334 T 0 QTc 393 Conclusion SINUS TACHYCARDIA ABNORMAL RHYTHM ECG UNCONFIRMED REPORT Electronically signed by : Hector Ash MD 06/30/2023 22:38:24
[2023-06-30 13:06] LABS: Lactate Dehydrogenase 252 U/L (313-618); Magnesium 1.8 mg/dl (1.6-2.3)
== END 2023-06-30 12:05 | disposition still patient (30) ==
PROVIDERS: Nurse Practitioner Obstetrics & Gynecology; Emergency Provider Emergency Medicine; PCP Family Medicine
DX: O14.93 Unspecified pre-eclampsia, third trimester (principal); O99.353 Diseases of the nervous system complicating pregnancy, third trimester; O99.891 Other specified diseases and conditions complicating pregnancy; O99.331 Smoking (tobacco) complicating pregnancy, first trimester; H53.8 Other visual disturbances; R51.9 Headache, unspecified; R10.10 Upper abdominal pain, unspecified; F17.200 Nicotine dependence, unspecified, uncomplicated; Z3A.33 33 weeks gestation of pregnancy
CPT/HCPCS: 80048; 80053; 83615; 83735; 84450; 84460; 84550; 85025; 85384; 85610; 85730; 93005; 99285

== ENCOUNTER 2023-06-30 12:06 | Outpatient (CLI) | payer BC, SELFPAY ==
[2023-06-30 12:21] VITALS: BP 137/66; PULSE 112; RESP 20; BMI 38.0
[2023-06-30] MEDS: LACTATED RINGERS 1000ML 1,000 ML 999 ML IV (13:04)
[2023-06-30] MEDS: FAMOTIDINE 20MG/2ML VIAL 20 MG IV (13:05)
[2023-06-30] MEDS: ASPIRIN 81MG CHEWABLE TABLET 81 MG PO (13:05)
[2023-06-30] MEDS: hydrOXYzine pamoate 25MG CAPSULE 50 MG PO (13:05)
[2023-06-30] MEDS: POTASSIUM CHLORIDE 20MEQ TAB 20 MEQ PO (13:05)
== END 2023-06-30 15:25 | disposition home or self-care (01) ==
LOC: OBOUT 12:08 → OB 12:10
PROVIDERS: PCP Family Medicine; Referring Provider Obstetrics & Gynecology; Visit Provider Nurse Practitioner Obstetrics & Gynecology
DX: O26.893 Other specified pregnancy related conditions, third trimester (principal); Z3A.33 33 weeks gestation of pregnancy; R51.9 Headache, unspecified; R11.0 Nausea; M79.602 Pain in left arm
CPT/HCPCS: 59025; 96360; 96361; 96367

== ENCOUNTER 2023-07-14 15:32 | Outpatient (CLI) | payer BC, SELFPAY ==
[2023-07-14 15:57] VITALS: BMI 35.2
[2023-07-14 16:17] LABS: Microscopic, Urine URINE MICROSCOPIC (MICROSCOPIC)
[2023-07-14 16:19] LABS: Appearance,Urine CLEAR (Clear); Bilirubin,Urine Negative (Negative); Blood, Urine Negative (Negative); Color,Urine YELLOW (Yellow); Glucose,Urine (UA) Negative (Negative); Ketones,Urine 1+ (Negative); Leukocyte Esterase,Urine Negative (Negative); Nitrate,Urine Negative (Negative); Protein,Urine TRACE (Negative); Specific Gravity, Urine 1.025 (1.005-1.030); Urobilinogen,Urine 0.2 EU/dl (0.2)
[2023-07-14 16:25] VITALS: BP 122/80; PULSE 113; RESP 20; TEMP 36.9; O2SAT 98; BMI 35.2
[2023-07-14 16:30] LABS: Fetal Membrane Rupture (Rapid) Negative (Negative)
[2023-07-14 16:34] LABS: Barbiturates Screen,Urine Negative ng/ml (<200)
[2023-07-14 16:35] LABS: Benzodiazepines Screen,Urine Negative ng/ml (<200)
[2023-07-14 16:36] LABS: Amphetamine/Metha Screen,Urine Negative ng/ml (<1000); Cannabinoid Screen,Urine Positive ng/ml (<50)
[2023-07-14 16:37] LABS: Cocaine Screen,Urine Negative ng/ml (<300)
[2023-07-14 16:38] LABS: Methadone Screen,Urine Negative ng/ml (<300); Opiate Screen,Urine Negative ng/ml (<300)
[2023-07-14 16:39] LABS: Phencyclidine Screen,Urine Negative ng/ml (<25)
[2023-07-14 17:49] LABS: Squamous Epithelial Cell,Urine Occasional #/hpf (0-5); WBC,Urine Occasional #/hpf (0-3)
== END 2023-07-14 16:41 | disposition home or self-care (01) ==
LOC: OBOUT 15:36 → OB 15:39
PROVIDERS: PCP Family Medicine; Visit Provider Obstetrics & Gynecology
DX: O26.893 Other specified pregnancy related conditions, third trimester (principal); Z3A.35 35 weeks gestation of pregnancy
CPT/HCPCS: 59025; 80307; 81001; 84112; G0463

== ENCOUNTER 2023-07-29 17:44 | Inpatient (IN) | payer BC, SELFPAY ==
[2023-07-29 15:32] VITALS: BP 127/68; PULSE 128; RESP 16; TEMP 36.8; O2SAT 97; BMI 36.6
[2023-07-29 15:40] VITALS: BMI 36.6
--- NOTE | 2023-07-29 16:13 | US_ITS ---
PROCEDURE: US OB BIOPHYSICAL PROFILE CLINICAL INDICATION: PT C/O PAIN COMPARISON: No exams were available for comparison FINDINGS: Transabdominal sonographic images of the uterus were obtained. From her established due date she is 37weeks 3days. The following parameters are obtained: Viable Fetus in the cephalic presentation with an anterior placenta grade 2. Measurements: heart Rate = 133bpm Amniotic fluid index: 11.62cm, MVP 3.68 cm. Qualitative AFV:2 Breathing movements: 2 Gross Body Movements: 2 Tone: 2 Biophysical profile score: 8 No obvious anomalies evident.Kidneys, stomach, bladder, four-chamber heart, three-vessel cord appear normal. IMPRESSION: 1. Viable fetus in the cephalic presentation with an anterior placenta grade 2. 2. The fluid is within normal limits with an amniotic fluid index of 11.62 cm, MVP 3.68 cm. 3. Biophysical profile 8/8 with good breathing movement and movement seen. 4. Measurement between the skull and internal bladder wall is 8 mm. The uterine wall appears to be thin here. 5. Dr. Forbes was notified by the bone puller. Dictated by: Everett Arroyo MD 07/30/2023 17:01 Everett Arroyo MD in OV 07/30/2023 17:01
[2023-07-29 19:42] LABS: Basophils % 0.5 % (0.1-2.0); Eosinophils # 0.1 K/mm3 (0.0-0.4); Eosinophils % 1.1 % (0.1-12.0); Hematocrit 32.8 % (37.0-47.0); Lymphocytes # 1.9 K/mm3 (0.7-4.5); Lymphocytes % 21.5 % (10-50); Mean Corpuscular HGB Conc 33.5 g/dL (31.8-35.4); Mean Corpuscular Hemoglobin 27.5 pg (27.0-31.2); Mean Platelet Volume 9.3 fl (7.4-10.4); Monocytes # 0.4 K/mm3 (0.1-1.0); Monocytes % 4.6 % (1.7-9.3); Neutrophils # 6.2 K/mm3 (1.8-7.8); Neutrophils % 72.3 % (37.0-80.0); Platelet Count 242 K/mm3 (142-424); Red Blood Count 4.01 M/mm3 (4.20-5.40); White Blood Count 8.6 K/mm3 (4.8-10.8)
[2023-07-29] MEDS: FAMOTIDINE 20MG TABLET 20 MG PO (20:07)
[2023-07-29] MEDS: ACETAMINOPHEN 500MG TAB 1000 MG PO (20:12)
[2023-07-29] MEDS: LACTATED RINGERS 1000ML 1,000 ML 75 ML IV (20:18)
[2023-07-29 23:52] LABS: Microscopic, Urine URINE MICROSCOPIC (MICROSCOPIC)
[2023-07-29 23:55] LABS: Appearance,Urine CLEAR (Clear); Bilirubin,Urine Negative (Negative); Blood, Urine Negative (Negative); Color,Urine YELLOW (Yellow); Glucose,Urine (UA) Negative (Negative); Ketones,Urine Negative (Negative); Leukocyte Esterase,Urine Negative (Negative); Nitrate,Urine Negative (Negative); Protein,Urine Negative (Negative); Specific Gravity, Urine 1.015 (1.005-1.030); Urobilinogen,Urine 0.2 EU/dl (0.2)
[2023-07-30] VITALS (13 sets, daily range): BP systolic 99–136; BP diastolic 63–88; PULSE 93–114; RESP 16–24; TEMP 36.7–36.8; O2SAT 94–100
[2023-07-30 00:06] LABS: Barbiturates Screen,Urine Negative ng/ml (<200); Benzodiazepines Screen,Urine Negative ng/ml (<200)
[2023-07-30 00:08] LABS: Cocaine Screen,Urine Negative ng/ml (<300); Methadone Screen,Urine Negative ng/ml (<300)
[2023-07-30 00:09] LABS: Opiate Screen,Urine Negative ng/ml (<300)
[2023-07-30 00:10] LABS: Phencyclidine Screen,Urine Negative ng/ml (<25)
[2023-07-30 00:15] LABS: Cannabinoid Screen,Urine Positive ng/ml (<50)
[2023-07-30 00:29] LABS: Amorphous Sediment,Urine Trace /lpf; Bacteria,Urine Trace /lpf; Squamous Epithelial Cell,Urine Occasional #/hpf (0-5)
[2023-07-30 00:30] LABS: Amphetamine/Metha Screen,Urine Negative ng/ml (<1000)
[2023-07-30] MEDS: ACETAMINOPHEN 500MG TAB 1000 MG PO ×3 (03:11→22:18)
[2023-07-30] MEDS: ONDANSETRON 4MG/2ML VIAL 4 MG IV (07:08)
--- NOTE | 2023-07-30 07:50 | P.CONPHA_ITS ---
Pharmacy Intervention Comments: MEDICATION RECONCILIATION COMPLETED ON PATIENT USING EXTERNAL FILL HISTORY FROM PHARMACY AND LIST FROM PARAPROFESSIONAL AIDE TEACHER OFFICE. -[place]
--- NOTE | 2023-07-30 07:50 | HMH.PHAINT1 ---
Pharmacy Intervention Comments: MEDICATION RECONCILIATION COMPLETED ON PATIENT USING EXTERNAL FILL HISTORY FROM PHARMACY AND LIST FROM TICKET COLLECTOR OFFICE. -[place]
--- NOTE | 2023-07-30 09:04 | EXP.OB.APHP ---
OB - H&P: HPI Antepartum History of Present Illness Chief complaint: Abdominal pain History of present illness: Ms Emmanuelle Spivey is a 23 yo at 37w4d, by 1st trimster ultrasound, who presented to [facility] Labor and Delivery from the office on 07/29/23 for complaint of abdominal pain along prior scar. Pain started the evening of 07/28. When she attempted to stand from a sitting position she had sudden severe abdominal pain along her incision that caused her to sit back down. This occurred 3 times in a row. She sat for a while and rested and pain resolved. During her ob appointment on abdomen was tender to palpation incision. She reported pain felt deep. She also reported decreased movement. She was sent to L&D for evaluation. NST was reactive. No contractions on monitor. However, when she stood up to get out of bed she felt sudden sharp pain in the area of her scar. Ultrasound was ordered and demonstrated previous uterine wall measuring 7-8 mm in thickness at uterine scar and baby's head appeared to be pushing on scar. History of Present Criteria for establishing EDC:: based on 1st trimester US only care: good care Ultrasounds: normal mid trimester US Obstetrical complications: previous Medical complications: none Labs Blood type: A (+) positive Rubella: immune RPR/VDRL: nonreactive HBsAG: negative PFSH [facility] Disclaimer: The information contained in this section may have been updated after the patient was seen, as this information can be updated by other users. Medical History (Updated 07/30/23 @ 16:37 by Josefina Sharma DO) 37 weeks gestation of Hypokalemia Marijuana use during Menorrhagia depression Size of fetus inconsistent with dates in third trimester Sore throat Surgical History History of delivery History of dilation and curettage Hx of tonsillectomy Family History Other Anemia Asthma Cancer Heart attack Hyperlipidemia Hypertension Social History (Updated 07/29/23 @ 19:13 by Brie Holliday RN) Smoking Status: Current every day smoker alcohol intake: never substance use type: marijuana current occupational status: unemployed Travel in the last 8 weeks: None Review of Systems Review of Systems Review of systems:: pertinent systems reviewed and negative unless documented below *Gastrointestinal Gastrointestinal: Reports abdominal pain (deep to prior scar) Meds Home Medications and Allergies Home Medications Medication Instructions Recorded Confirmed Type famotidine 20 mg tablet (Pepcid) 20 mg PO DAILY Acid Reflux 07/30/23 07/30/23 History ferrous sulfate 325 mg (65 mg 325 mg PO DAILY Supplement 07/30/23 07/30/23 History iron) tablet potassium chloride 20 mEq 20 meq PO DAILY Supplement 07/30/23 07/30/23 History tablet,extended release(part/cryst) vit no.95-ferrous 1 tab PO DAILY Supplement 07/30/23 07/30/23 History fumarate 28 mg-folic acid 800 mcg tablet () New Prescriptions to Start Prescriptions: Allergies Allergy/AdvReac Type Severity Reaction Status Date / Time bisoprolol Allergy Mild rash Verified 07/29/23 13:29 phentermine [From Adipex-P] AdvReac Verified 07/29/23 13:29 OB - H&P: Exam Physical Exam Vital signs: Temp Pulse Resp BP Pulse Ox O2 Del Method 98.3 F 128 H 16 127/68 97 Room Air 07/29/23 15:32 07/29/23 15:32 07/29/23 15:32 07/29/23 15:32 07/29/23 15:32 07/29/23 15:32 Constitutional no acute distress and cooperative Routine HEENT Exam Head: Present normocephalic and atraumatic Eye: Absent conjunctivae pink ENT: Present mucous membranes moist Routine Neck Exam Present full ROM Routine Respiratory Exam Present CTA bilaterally and normal respiratory effort Routine Cardiovascular Exam Present RRR Routine Abdominal Exam Present soft (Gravid) and tenderness (tenderness to palpation at Pfannenstiel scar) Routine Rectal Exam Patient deferred: visual exam Routine Exam Patient deferred: external exam Routine Neurological Exam Present alert, moving all extremities and normal speech Routine Psychiatric Exam Present normal affect and cooperative Detailed Labor and Delivery Exam Baseline heart rate: 130 monitor accelerations: Present monitor decelerations: None buttermilk drier operator variability: Moderate (11-25) OB - Results Labs Labs: Short CBC 07/29/23 Range/Units 19:30 WBC 8.6 (4.8-10.8) K/mm3 Hgb 11.0 L (12.2-16.2) g/dL Hct 32.8 L (37.0-47.0) % Plt Count 242 (142-424) K/mm3 Urine 07/29/23 Range/Units 23:40 Urine Color Yellow (Yellow) Urine Appearance Clear (Clear) Urine pH 7.0 (5.0-8.5) Ur Specific [place] 1.015 (1.005-1.030) Urine Protein Negative (Negative) Urine Glucose (UA) Negative (Negative) OB - A/P Antepartum (1) 37 weeks gestation of : Status: Acute (2) Short interval between pregnancies affecting in first trimester, antepartum: Problem details: less than 2 months after primary Status: Acute (3) Previous section complicating : Status: Acute (4) Marijuana use during : Status: Acute Additional Plan Additional Information:: Discussed ultrasound findings and Emmanuelle's pain. I and Emmanuelle were worried about the risk of rupture. Decision was made to proceed with repeat at 37w4d secondary to abdominal pain at scar and thin uterine wall with history of less than 2 months after primary . Discussed risks, benefits, alternatives, expectations and possible complications of surgery. All questions addressed and answered. She voiced understanding of risks and possible complications. Consent form signed. Proceed with repeat
[2023-07-30] MEDS: CEFAZOLIN SODIUM 2 GM in 0.9 % SODIUM CHLORIDE 100 ML IV ×2 (14:25→22:17)
--- NOTE | 2023-07-30 14:51 | EXP.ANES.CKL ---
[facility] Disclaimer: The information contained in this section may have been updated after the patient was seen, as this information can be updated by other users. Medical History Hypokalemia Marijuana use during Menorrhagia depression Size of fetus inconsistent with dates in third trimester Sore throat Surgical History History of delivery History of dilation and curettage Hx of tonsillectomy Family History Other Anemia Asthma Cancer Heart attack Hyperlipidemia Hypertension Social History (Updated 07/29/23 @ 19:13 by Brie Holliday RN) Smoking Status: Current every day smoker alcohol intake: never substance use type: marijuana current occupational status: unemployed Travel in the last 8 weeks: None [facility] Anesthesia Checklist Patient Identification Patient Identification: Arm Band Structural Data Admitted From: Inpatient Planned Operative Procedure/s: Repeat C/S Consent for Planned Operative Procedure(s) Verified: Yes Verified Documents: Surgical Consent NPO Status Verified Time NPO: 07:00 (Clear Liquids) Additional verifications Anesthesia Reactions: Yes Airway Assessment Mallampati Score:: Class II C-Spine Mobility Assessed: Yes TMJ Mobility Assessed: Yes Dentition: Good Dentition Neurological Assessment Level of Consciousness: Awake and Alert Anesthesia Plan Anesthesia Risk discussed: Yes Anesthesia Plan: Verified ASA Class: II Anesthesia Type: Spinal (with Bilateral TAP Block)
--- NOTE | 2023-07-30 15:59 | EXP.ANES.I ---
[facility] Anesthesia Record Part I Anesthesia Record I Intake, IV Amount: 1,000 Hydration: Adequate Estimated blood loss (mL): 500 Urine output (mL): 200 Blood Pressure: 110/63 SaO2: 100 Pulse Rate: 110 Airway Patency: Patent Respiratory Rate: 24 Temperature: 98.3 F Patient is:: Awake Stable to PACU at:: 15:50
--- NOTE | 2023-07-30 16:39 | P.OP_ITS ---
Date of procedure: 07/30/23 Pre-op Diagnosis:: 1. IUP at 37w4d 2. Abdominal pain at prior scar 3. Thin uterine wall at prior scar 3. History of x 1 4. Short interval between pregnancies. less than 2 months from primary . Post-op Diagnosis:: 1. IUP at 37w4d 2. Abdominal pain at prior scar 3. Thin uterine wall at prior scar 3. History of x 1 4. Short interval between pregnancies. less than 2 months from primary . Procedure performed:: Repeat Low Transverse Section Surgeon:: Josefina Sharma DO Senior Network Systems Engineer(s):: Rhona Forbes DO ASSAULT AMPHIBIOUS VEHICLE CREWMAN:: Krista Uriostegui Anesthesia: spinal Estimated blood loss (mL): 500 Clinical Note:: Ms Emmanuelle Spivey is a 23 yo at 37w4d, by [facility] trimster ultrasound, who presented to [facility] Labor and Delivery from the office on 07/29/23 for complaint of abdominal pain along prior scar. Pain started the evening of 07/28. When she attempted to stand from a sitting position she had sudden severe abdominal pain along her incision that caused her to sit back down. This occurred 3 times in a row. She sat for a while and rested and pain resolved. During her ob appointment on abdomen was tender to palpation incision. She reported pain felt deep. She also reported decreased movement. She was sent to L&D for evaluation. NST was reactive. No contractions on monitor. However, when she stood up to get out of bed she felt sudden sharp pain in the area of her scar. Ultrasound was ordered and demonstrated previous uterine wall measuring 7-8 mm in thickness at uterine scar and baby's head appeared to be pushing on scar. Current occurred less than two months from primary . Decision was made to proceed with repeat c- section secondary to pain and risk of rupture with thin uterine wall. Operative findings:: 1. Live female baby, Amy Elizondo, weighing 6 lb 5 oz, AGPARs 8 (1 min), 6 (5 min), 8 (10 min) 2. Very thin lower uterine segment without any muscular integrity 3. Grossly normal appearing bilateral fallopian tubes and ovaries Operative note:: The risks, benefits and alternatives of the procedure were reviewed with the patient. Informed consent was obtained. Patient was taken to the operating room where spinal anesthesia was placed. She received 2 grams of Ancef preoperatively. She was placed in dorsal supine position with a leftward tilt. SCDs in place. Hightower catheter had been placed and was draining clear urine prior to the start of the procedure. heart tones were obtained. She was then prepped and draped in normal sterile fashion. Allis clamp test was performed to ensure adequate anesthesia. A Pfannenstiel skin incision was made 2 cm above pubic symphysis, above prior Pfannenstiel scar. This was carried through to underlying layer of fascia. Fascia was incised in midline, extended laterally with Farris scissors. Superior aspect of fascial incision was grasped with two Magy clamps, elevated up, and rectus muscle dissected off bluntly and sharply with Farris scissors. Inferior aspect of fascial incision was grasped with two Magy clamps, elevated up, and rectus muscle dissected off bluntly and sharply with Farris scissors. The retcus muscle was then in the midline and the peritoneum was entered bluntly with a digit. Peritoneal incision was then extended superiorly and inferiorly with good visualization of the bladder. Eliceo retractor was inserted. Very thin lower uterine segment was noted. No muscular integrity appreciated. The lower uterine segment was incised in a transverse fashion. Clear amniotic fluid was noted. Head was delivered without difficulty. Remainder of body was delivered without difficulty. Mouth and nares were bulb suctioned. Spontaneous cry was noted. Delayed cord clamping was performed for 60 seconds. The umbilical cord was clamped and cut. The was handed to awaiting pediatric staff in stable condition. Dr. Varner was present. Apgars were 8 (1 min), 6 (5 min), 8 (10 min). Cord blood was obtained. Gentle traction on the umbilical cord and uterine fundal massage delivered the placenta. Placenta was intact. Placenta will be sent to pathology for review. Uterus was cleared of all clots and debris with a moist laparotomy sponge. Corners of the uterine incision were grasped with Allis clamps. The uterine incision was reapproximated with # 1 Vicryl suture in a running, locked stitch. Hemostasis was noted. Posterior cul-de-sac was cleaned with moist laparotomy sponge. Gutters cleared of all clots and debris with a moist laparotomy sponge. Reinspection of the lower uterine segment demonstrated small amount of oozing. Gel Foam placed over closed incision. Hemostasis was noted. At this point all instruments and sponges were removed from the pelvis.? The peritoneum was grasped with Bernadette clamps x 3. The peritoneum was reapproximated with 0 Vicryl suture in a running stitch. The corners of the fascia were grasped with Magy clamps, and the fascia was reapproximated with two # 1 Vicryl suture overlapped to the right of midline. Subcutaneous tissue was irrigated with clear return of fluids. The subcutaneous tissue was reapproximated with 3-0 Vicryl. The skin was reapproximated with Insorb philipp. Telfa was placed over closed Pfannenstiel skin incision. At the end of the procedure, the uterus was firm with minimal vaginal bleeding. Patient tolerated the procedure well. Instrument, sponges and needle counts were correct x 2. Mom and baby were transported to recovery room in stable condition. Condition: stable Disposition: floor Specimens:: 1. Placenta and umbilical cord 2. Cord blood Complications:: None
--- NOTE | 2023-07-30 16:47 | SUR.PHASEI ---
677.6 was QBL. The patient was dressed with philipp, telfa, and tape. No bleeding was noted with the fundal rubs. 3 below the umbilicus. The patient was comfortable and stable. Report was given to TEX bass RN at [id number].
[2023-07-30] MEDS: OXYTOCIN/RINGERS LACTATE 30 UNITS/500 ML BAG 40 UNITS IV (17:11)
[2023-07-30] MEDS: LACTATED RINGERS 1000ML 1,000 ML 125 ML IV (17:12)
[2023-07-30] MEDS: OXYCODONE 5MG IMMEDIATE RELEASE TABLET 5 MG PO (18:21)
[2023-07-30] MEDS: PRENATAL MULTIVITAMIN W/IRON 1 EACH PO (18:21)
[2023-07-30] MEDS: KETOROLAC 30MG/ML VIAL 30 MG IV (22:17)
[2023-07-31] MEDS: ACETAMINOPHEN 500MG TAB 1000 MG PO ×4 (04:19→21:44)
[2023-07-31] MEDS: KETOROLAC 30MG/ML VIAL 30 MG IV (04:20)
[2023-07-31] MEDS: OXYCODONE 5MG IMMEDIATE RELEASE TABLET 5 MG PO ×4 (04:31→21:43)
[2023-07-31] MEDS: SENNA 8.6MG TABLET 8.59999999999999964 MG PO ×2 (04:31→16:35)
[2023-07-31] MEDS: SIMETHICONE 80MG CHEWABLE TABLET 160 MG PO ×2 (04:31→16:35)
[2023-07-31] MEDS: CEFAZOLIN SODIUM 2 GM in 0.9 % SODIUM CHLORIDE 100 ML IV (06:07)
[2023-07-31 08:00] VITALS: BP 109/74; PULSE 97; RESP 18; TEMP 36.8; O2SAT 100
[2023-07-31 08:44] LABS: Basophils % 0.3 % (0.1-2.0); Eosinophils # 0.1 K/mm3 (0.0-0.4); Eosinophils % 0.9 % (0.1-12.0); Hematocrit 33.8 % (37.0-47.0); Hemoglobin 10.7 g/dL (12.2-16.2); Lymphocytes # 2.1 K/mm3 (0.7-4.5); Lymphocytes % 19.1 % (10-50); Mean Corpuscular HGB Conc 31.7 g/dL (31.8-35.4); Mean Corpuscular Hemoglobin 26.4 pg (27.0-31.2); Mean Corpuscular Volume 83.4 fl (81-99); Mean Platelet Volume 9.2 fl (7.4-10.4); Monocytes # 0.5 K/mm3 (0.1-1.0); Monocytes % 4.8 % (1.7-9.3); Neutrophils # 8.2 K/mm3 (1.8-7.8); Neutrophils % 74.9 % (37.0-80.0); Platelet Count 210 K/mm3 (142-424); Red Blood Count 4.05 M/mm3 (4.20-5.40); Red Cell Distribution Width 14.8 % (11.5-17.5); White Blood Count 10.9 K/mm3 (4.8-10.8)
[2023-07-31] MEDS: IBUPROFEN 400 MG TABLET 800 MG PO ×2 (11:45→21:43)
--- NOTE | 2023-07-31 12:20 | P.PN_ITS ---
Subjective *Date: 07/31/23 *Time: 12:20 Interval history: POD # 1 s/p RLTCS Resting comfortably in bed. Pain controlled. Lochia appropriate. Bottle/formula feeding. Voiding without diffiulty. Not passing flatus yet. Tolerating regular diet. But, admits to some nausea. No vomiting. No fever/chills, chest pain or shortness of breath. No headaches, lightheadedness/dizziness. No swelling. Medical Exam Vital signs and Labs for Last 24 Hours: Vital Signs Temp Pulse Pulse Resp BP BP Pulse Ox 07/30/23 18:45 108 H 99/70 L 100 07/30/23 18:15 108 H 119/81 97 07/30/23 18:00 107 H 16 136/83 98 07/30/23 17:45 94 H 129/82 07/30/23 17:30 94 H 18 115/68 95 07/30/23 17:15 98 H 120/76 95 07/30/23 17:00 101 H 16 121/75 99 07/30/23 16:30 98.1 F 104 H 16 110/63 99 07/30/23 16:52 93 H 18 112/71 94 L 07/30/23 16:20 99 H 19 120/88 100 07/30/23 16:10 100 H 20 127/86 100 07/30/23 16:00 99 H 20 121/75 100 07/30/23 15:50 98.2 F 114 H 20 110/69 100 07/30/23 16:00 98.3 F 110 H 24 110/63 O2 Del Method 07/30/23 18:45 Room Air 07/30/23 18:15 07/30/23 18:00 07/30/23 17:45 07/30/23 17:30 Room Air 07/30/23 17:15 Room Air 07/30/23 17:00 Room Air 07/30/23 16:30 Room Air 07/30/23 16:52 Room Air 07/30/23 16:20 Room Air 07/30/23 16:10 Room Air 07/30/23 16:00 Room Air 07/30/23 15:50 Room Air 07/30/23 16:00 Intake and Output 07/30/23 07/31/23 07/31/23 23:59 07:59 15:59 Intake Total 1000 / 1000 Output Total 300 / 300 Balance 700 / 700 Intake: Intake, Total IV Amount 1000 / 1000 Output: Output, Urine Amount 300 / 300 Laboratory Results - last 24 hr 07/31/23 07:59: WBC 10.9 H D, RBC 4.05 L, Hgb 10.7 L, Hct 33.8 L, MCV 83.4, MCH 26.4 L, MCHC 31.7 L, RDW 14.8, Plt Count 210, MPV 9.2, Neut % (Auto) 74.9, Lymph % (Auto) 19.1, Tompkins % (Auto) 4.8, Eos % (Auto) 0.9, Baso % (Auto) 0.3, Neut # (Auto) 8.2 H, Lymph # (Auto) 2.1, Tompkins # (Auto) 0.5, Eos # (Auto) 0.1, Baso # (Auto) 0.0 I & O for Labs for Last 24 Hours: Intake & Output 07/28/23 07/29/23 07/30/23 07/31/23 23:59 23:59 23:59 23:59 Intake Total 1000 / 1000 Output Total 300 / 300 Balance 700 / 700 Weight 220 lb Head: Present atraumatic and normocephalic ENT: Present mucous membranes moist Neck: Present full ROM Respiratory: Present CTA bilaterally and normal respiratory effort Cardiac: Present Reg Rate and Rhythm GI: Present soft, tenderness (appropriate mild tenderness to palpation) and hypoactive bowel sounds; Absent distention or guarding Comments:: Uterine fundus firm and below umbilicus, pfannenstiel incision clean/dry/intact with steri strips in place Rectal (female): Present deferred (female): Present deferred Extremities: Present full ROM; Absent edema or calf tenderness Neuro: Present alert, awake and moves all extremities Assessment and Plan *Assessment and plan (1) S/P repeat low transverse : Status: Acute Category: Surgical Code(s): Z98.891 - History of uterine scar from previous surgery (2) 37 weeks gestation of : Status: Acute Category: Medical Code(s): Z3A.37 - 37 weeks gestation of (3) Short interval between pregnancies affecting in first trimester, antepartum: Problem Comment: less than 2 months after primary Status: Acute Category: Medical Code(s): O09.891 - Supervision of other high risk pregnancies, first trimester (4) Previous section complicating : Status: Acute Category: Surgical Code(s): O34.219 - Maternal care for unspecified type scar from previous delivery Plan Continue routine care Encouraged increased ambulation. Mylicon and chewing gum to help augment bowels Plan d/c home POD # 2 or POD # 3
[2023-07-31] MEDS: PRENATAL MULTIVITAMIN W/IRON 1 EACH PO ×2 (16:34→16:35)
[2023-07-31 17:50] VITALS: BP 120/72; PULSE 104; RESP 20; TEMP 36.9; O2SAT 100
--- NOTE | 2023-07-31 20:05 | EXP.DC.SUM ---
General Admission date:: 07/29/23 Discharge date: 07/31/23 HPI HPI HPI: Emmanuelle is resting comfortably in bed. Pain controlled. Lochia appropriate. Bottle/formula feeding. Voiding without difficulty and passing flatus. Tolerating regular diet. No fever/chills, chest pain or shortness of breath. No headaches, lightheadedness/dizziness. No swelling. Ambulating well ad conrad. Baby is getting transferred to and she would like to be discharged to go with baby. Hospital Course Hospital Course Hospital Course: Ms Emmanuelle Spivey is a 23 yo at 37w4d, by [facility] ultrasound, who presented to [facility] Labor and Delivery from the office on 07/29/23 for complaint of abdominal pain along prior scar. Pain started the evening of 07/28. When she attempted to stand from a sitting position she had sudden severe abdominal pain along her incision that caused her to sit back down. This occurred 3 times in a row. She sat for a while and rested and pain resolved. During her ob appointment on abdomen was tender to palpation incision. She reported pain felt deep. She also reported decreased movement. She was sent to L&D for evaluation. NST was reactive. No contractions on monitor. However, when she stood up to get out of bed she felt sudden sharp pain in the area of her scar. Ultrasound was ordered and demonstrated previous uterine wall measuring 7-8 mm in thickness at uterine scar and baby's head appeared to be pushing on scar. Current occurred less than two months from primary . Decision was made to proceed with repeat secondary to pain and risk of rupture with thin uterine wall. She underwent repeat on 07/30/23. She delivered a live female baby, Amy Elizondo, weighing 6 lb 5 oz, AGPARs 8 (1 min), 6 (5 min), 8 (10 min). EBL 500 mL. She did well . Pain controlled. Formula feeding. Light lochia. Voiding without difficulty and passing flatus. Tolerating regular diet. Denies fever/chills, chest pain and shortness of breath. No headaches, dizziness/lightheadedness or vision changes. Vital signs stable, afebrile. Heart regular rate and rhythm. Lungs clear to auscultation. Abdomen soft, nontender. No lower extremity swelling. Ambulating well ad conrad. Baby was being transferred to . She was discharged to home on POD # 1 with instructions to follow-up in the office in 2 weeks or sooner if needed. Exam Data for Last 24 hours Vital signs and Labs for Last 24 Hours: Temp Pulse Resp BP Pulse Ox O2 Del Method 98.5 F 104 H 20 120/72 100 Room Air 07/31/23 17:50 07/31/23 17:50 07/31/23 17:50 07/31/23 17:50 07/31/23 17:50 07/31/23 17:50 Laboratory Results - last 24 hr 07/31/23 07:59: WBC 10.9 H D, RBC 4.05 L, Hgb 10.7 L, Hct 33.8 L, MCV 83.4, MCH 26.4 L, MCHC 31.7 L, RDW 14.8, Plt Count 210, MPV 9.2, Neut % (Auto) 74.9, Lymph % (Auto) 19.1, Jones % (Auto) 4.8, Eos % (Auto) 0.9, Baso % (Auto) 0.3, Neut # (Auto) 8.2 H, Lymph # (Auto) 2.1, Jones # (Auto) 0.5, Eos # (Auto) 0.1, Baso # (Auto) 0.0 I & O for Last 24 hours: Intake & Output 07/28/23 07/29/23 07/30/23 07/31/23 23:59 23:59 23:59 23:59 Intake Total 1000 / 1000 Output Total 300 / 300 Balance 700 / 700 Weight 220 lb Constitutional Constitutional: no acute distress and cooperative *Routine HEENT Exam Head: Present normocephalic and atraumatic Eye: Absent conjunctivae pink ENT: Present mucous membranes moist *Routine Neck Exam Neck: Present full ROM *Routine Respiratory Exam Respiratory: Present CTA bilaterally and normal respiratory effort *Routine Cardiovascular Exam Cardiovascular: Present RRR *Routine Abdominal Exam Abdominal: Present soft, normoactive bowel sounds and tenderness (appropriate mild tenderness to palpation postoperatively); Absent distended Comments: Uterine fundus firm and below umbilicus, Pfannenstiel incision clean/dry/intact with steri strips present *Routine Rectal Exam Patient deferred: visual exam *Routine Exam Patient deferred: external exam *Routine Extremities Exam Extremities: Absent edema or calf tenderness *Routine Neurological Exam Neurological: Present alert, moving all extremities and normal speech Routine Psychiatric Exam Psychiatric: Present normal affect and cooperative Results Data Completed and Pending Labs on day of discharge: Labs from last 24 hours 07/31/23 07:59 WBC 10.9 H D RBC 4.05 L Hgb 10.7 L Hct 33.8 L MCV 83.4 MCH 26.4 L MCHC 31.7 L RDW 14.8 Plt Count 210 MPV 9.2 Neut % (Auto) 74.9 Lymph % (Auto) 19.1 Jones % (Auto) 4.8 Eos % (Auto) 0.9 Baso % (Auto) 0.3 Neut # (Auto) 8.2 H Lymph # (Auto) 2.1 Jones # (Auto) 0.5 Eos # (Auto) 0.1 Baso # (Auto) 0.0 DS: Diagnosis Discharge Diagnosis (1) S/P repeat low transverse : Status: Acute Code(s): Z98.891 - History of uterine scar from previous surgery (2) 37 weeks gestation of : Status: Acute Code(s): Z3A.37 - 37 weeks gestation of (3) Short interval between pregnancies affecting in first trimester, antepartum: Status: Acute Code(s): O09.891 - Supervision of other high risk pregnancies, first trimester Problem details: less than 2 months after primary (4) Previous section complicating : Status: Acute Code(s): O34.219 - Maternal care for unspecified type scar from previous delivery Meds Home Medications and Allergies Home Medications Medication Instructions Recorded Confirmed Type famotidine 20 mg tablet (Pepcid) 20 mg PO DAILY Acid Reflux 07/30/23 07/30/23 History ferrous sulfate 325 mg (65 mg 325 mg PO DAILY Supplement 07/30/23 07/30/23 History iron) tablet potassium chloride 20 mEq 20 meq PO DAILY Supplement 07/30/23 07/30/23 History tablet,extended release(part/cryst) vit no.95-ferrous 1 tab PO DAILY Supplement 07/30/23 07/30/23 History fumarate 28 mg-folic acid 800 mcg tablet () ibuprofen 800 mg tablet 800 mg PO Q8H PRN pain #20 tabs 07/31/23 Rx oxycodone 5 mg tablet 5 mg PO Q4HP PRN Moderate Pain 07/31/23 Rx (4-6) #20 tabs New Prescriptions to Start Prescriptions: ibuprofen Josefina Sharma oxycodone Josefina Sharma Allergies Allergy/AdvReac Type Severity Reaction Status Date / Time bisoprolol Allergy Mild rash Verified 07/29/23 13:29 phentermine [From Adipex-P] AdvReac Verified 07/29/23 13:29 Discharge Plan Disposition Patient Disposition: Home, Self-Care Condition: Good Discharge Order Discharge Orders: Discharge Order (Routine); Ordered 07/31/23 Ordered By: Josefina Sharma Follow up Plan Follow up with: Josefina Sharma DO [Staff Physician] - 2 weeks Prescriptions/Medication Reconciliation: New ibuprofen 800 mg tablet 800 mg PO Q8H PRN (Reason: pain) Qty: 20 0RF oxycodone 5 mg Tablet 5 mg PO Q4HP PRN (Reason: Moderate Pain (4-6)) Qty: 20 0RF Continued PNV cmb#95-ferrous fumarate-FA [] 28 mg iron- 800 mcg Tablet 1 tab PO DAILY potassium chloride 20 mEq tablet,ER particles/crystals 20 meq PO DAILY famotidine [Pepcid] 20 mg tablet 20 mg PO DAILY ferrous sulfate 325 mg (65 mg iron) tablet 325 mg PO DAILY Problem Reconciliation Problems Reviewed?: Yes Patient Discharge Instructions ACTIVITY: Limited activity DIET: continue same diet and regular diet Additional Instructions: Discharge: 1. Take 800 mg Ibuprofen every 8 hours as needed for pain. You can also take 500-1000 mg of Tylenol in between doses, every 6-8 hours. If pain persists you can take Oxycodone 5 mg, 1 tablet every 4-6 hours or more as needed. 2. Nothing in the vagina for 6 weeks - no intercourse, douching or tampons. No tub baths/hot tubs or swimming pools - Drink plenty of fluids. - No strenuous activity or driving until released by your doctor. - Don't lift anything heavier than your . 3. Reasons to return to L&D or call On-Call doctor - fever (greater than 100.4) - heavy vaginal bleeding (soaking through 1 pad in less than 2 hours) - vaginal discharge (malodorous and/or purulent) - severe headaches not resolved by medication or rest and leg tenderness/edema 4. depression/blues - Normal to feel anxious/overwhelmed for first 2 weeks - Talk to your doctor if: severe anxiety, trouble bonding with baby, withdrawing from other family members, thoughts of harming yourself or others Josefina Sharma DO [facility] [phone] Patient Instructions: Depression, Hemorrhage, DI for , DI for Pre-eclampsia Providers Primary Care Provider: Helene Rain Admit Provider: Rhona Forbes Attending Provider: Josefina Sharma
[2023-07-31 21:46] VITALS: BP 118/64; PULSE 112; RESP 17; TEMP 36.8; O2SAT 97
--- NOTE | 2023-08-05 14:59 | SW/DCPLANNER ---
Infant cord screen is POSITIVE for THC and has been faxed to [facility]/ .
--- NOTE | 2023-08-09 17:05 | P.PNANES_ITS ---
[facility] Anesthesia Record Part II Anesthesia Record Part II Discharge Time: 16:20 Destination: Obstetric PACU nurse assessment reviewed?: Yes Patient Condition:: Good Anesthesia Complications:: None Swallowing reflex intact?: Yes Airway Patency: Patent Cyanosis?: No Blood Pressure: 120/88 SaO2: 100 Respiratory Rate: 19 Pulse Rate: 99 Temperature: 98.1 F Mental Status: Alert & Oriented Pain level:: 0 Nausea and/or vomitting:: None Intake, IV Amount: 0 Hydration: Adequate
[2023-08-09 17:06] VITALS: BP 120/88; PULSE 99; RESP 19; TEMP 36.7; O2SAT 100
== END 2023-07-31 22:16 | disposition home or self-care (01) | DRG 787 ==
LOC: OBOUT 17:45 → OB 17:45
PROVIDERS: Admitting Provider Obstetrics & Gynecology; PCP Family Medicine; Visit Provider Obstetrics & Gynecology
PROC: 10D00Z1 Extraction of Products of Conception, Low, Open Approach (ICD-10-PCS; CPT 59514; principal; 2023-07-30 14:45)
DX: O34.211 Maternal care for low transverse scar from previous cesarean delivery (principal); O99.324 Drug use complicating childbirth; N85.8 Other specified noninflammatory disorders of uterus; Z3A.37 37 weeks gestation of pregnancy; Z37.0 Single live birth
CPT/HCPCS: 59514; 36415; 59025; 76819; 80307; 81001; 85025; 86850; 87086; 88307; 94761; C9290; G0283; J2405

== ENCOUNTER 2023-10-19 13:56 | Emergency (ER) | payer BC, SELFPAY ==
[2023-10-19 13:58] VITALS: BP 154/105; PULSE 125; RESP 20; TEMP 37.1; O2SAT 96; BMI 38.0
--- NOTE | 2023-10-19 14:08 | HMH.EDGENADL ---
Discharge Plan Disposition Patient Disposition: Home, Self-Care Condition: Good Prescriptions Prescriptions: No Action ParaGard T 380A 380 square mm intrauterine device 1 device intrauterine ONCE atomoxetine 18 mg capsule 18 mg PO DAILY Patient Comments: TAKE 1 CAPSULE BY MOUTH DAILY FOR 180 DAYS. ibuprofen 800 mg tablet 800 mg PO Q8H Qty: 20 0RF Referrals Follow up/Referrals: Helene Rain MD [Primary Care Provider] - See instructions Activity Restrictions/Add. Instructions Additional Instructions/Restrictions: Please take Tylenol alternating with Motrin every 4 hours as needed for symptoms along with any ordx-vhb-nulpyes cold remedy of your choice. Please do not take more than 3 g of Tylenol in a 24-hour period. Follow-up with your PCP as needed for any worsening signs or symptoms or return to ER as needed. Clinical Impressions Clinical Impression: Upper respiratory infection Qualifiers: URI type: unspecified URI Qualified Code(s): J06.9 - Acute upper respiratory infection, unspecified Discharge ED Provider: Tammi Patricia General Adult HPI <PASCALE Lopez - Last Filed: 10/19/23 15:02> General Chief complaint: Upper Respiratory Infection Stated complaint: sore throat, cough Time Seen by Provider: 10/19/23 14:08 History of Present Illness HPI narrative: Patient presents with her 2 children for evaluation of of runny nose sore throat. Patient's significant other recently had a upper respiratory tract infection and now the patient and her 2 children have similar symptoms. She denies chest pain shortness of breath fever chills hemoptysis hematochezia melena nausea vomit diarrhea. Related Data Home Medications Medication Instructions Recorded Confirmed atomoxetine 18 mg capsule 18 mg PO DAILY 10/18/23 10/18/23 copper 380 square mm intrauterine 1 device intrauterine ONCE 10/18/23 10/18/23 device (ParaGard T 380A) Previous Rx's Medication Instructions Recorded ibuprofen 800 mg tablet 800 mg PO Q8H #20 tabs 08/02/23 Allergies Allergy/AdvReac Type Severity Reaction Status Date / Time bisoprolol Allergy Mild rash Verified 10/18/23 14:52 phentermine [From Adipex-P] AdvReac Verified 10/18/23 14:52 PFS <PASCALE Lopez - Last Filed: 10/19/23 15:02> [facility] Disclaimer: The information contained in this section may have been updated after the patient was seen, as this information can be updated by other users. Medical History (Updated 10/19/23 @ 15:02 by PASCALE Lopez) Vaginal discharge Encounter for insertion of ParaGard IUD Menorrhagia History of recurrent miscarriages depression Hypokalemia Surgical History History of delivery History of dilation and curettage Hx of tonsillectomy Family History Other Anemia Asthma Cancer Heart attack Hyperlipidemia Hypertension Social History Smoking Status: Never smoker alcohol intake: never substance use type: marijuana current occupational status: unemployed Travel in the last 8 weeks: None <PASCALE Lopez - Last Filed: 10/19/23 15:02> ROS Obtained: Yes Systems reviewed as appropriate & no additional complaints except as documented Physical Exam <PASCALE Lopez - Last Filed: 10/19/23 15:02> General General appearance: alert and in no apparent distress Eye Eye exam: Present normal appearance ENT ENT exam: Present normal exam, mucous membranes moist and TM's normal bilaterally; Absent normal oropharynx (Patient has a red posterior pharynx without exudate with clear postnasal drip) Neck Neck exam: Present normal inspection, full ROM and lymphadenopathy Respiratory Respiratory exam: Present normal lung sounds bilaterally Cardiovascular Cardiovascular exam: Present regular rate and normal rhythm Neurological Exam Neurological exam: Present alert and oriented X3 Skin Skin exam: Present dry; Absent warm (Hot to touch) or normal color (Flushed facies) Medical Decision Making <PASCALE Lopez - Last Filed: 10/19/23 15:02> Medical Records Medical records reviewed: Yes I reviewed the patient's medical records. Aidan Inquiry Pt receiving controlled substance: No Vital Signs: 10/19/23 13:58 10/19/23 15:04 Temperature 98.8 F 98.7 F Temperature Source Oral Oral Pulse Rate 86 Pulse Rate [Right Radial] 125 H Respiratory Rate 20 20 Blood Pressure 127/77 Blood Pressure [Right Arm] 154/105 H Blood Pressure Mean [Right Arm] 121 Blood Pressure Source Automatic Cuff Blood Pressure Source [Right Arm] Automatic Cuff Blood Pressure Position Sitting Blood Pressure Position [Right Arm] Supine 02 Sat by Pulse Oximetry 96 Oxygen Delivery Method Room Air Room Air Lab Data Lab results reviewed: Yes I reviewed the patient's lab results. Lab Results 10/19/23 14:34: Chlamy pneumoniae PCR Not detected, Adenovirus (PCR) Not detected, B. pertussis DNA (PCR) Not detected, Coronavirus OC43 (PCR) Not detected, Coronavirus HKU1 (PCR) Not detected, Coronavirus 229E (PCR) Not detected, SARS-CoV-2 (PCR) Not detected, Coronavirus NL63 (PCR) Not detected, Human Metapneumovir PCR Detected A, Influenza A (H1) PCR Not detected, Influ A (H1N1/09) PCR Not detected, Influenza A (H3) PCR Not detected, Influenza Type A (PCR) Not detected, Influenza Type B (PCR) Not detected, M. pneumoniae (PCR) Not detected, Parainfluenza 1 (PCR) Not detected, Parainfluenza 2 (PCR) Not detected, Parainfluenza 3 (PCR) Not detected, Parainfluenza 4 (PCR) Not detected, RSV (PCR) Not detected, Entero/Rhino (PCR) Not detected Orders (Tests/Meds): ORDERS Category Date Time Status Full Resp Panel w/COVID ([facility]) Routine Lab 10/19/23 14:34 Completed Medical Decision Narrative: In summary patient is a 23-year-old female who presents to the emergency department for evaluation of runny nose sore throat. Patient is hypertensive with a blood pressure 154/105 and tachycardic initially at 125 with respiratory rate of 20 satting 96% on room air upon arrival, and afebrile. Physical exam is remarkable for erythematous posterior pharynx without exudate with clear postnasal drip, boggy nasal mucosa,. Differential diagnosis includes viral versus bacterial upper respiratory tract infection. Initial workup will be conducted with full respiratory panel. Initial interventions include oral Tylenol and Motrin. Initial workup was deferred after an interactive discussion with the patient regarding the likelihood that this is a viral upper respiratory tract infection and she has no evidence of bacterial infection currently. Patient has not tried any fdjx-pyz-blpumnj remedies and through patient direct decision making patient will be discharged with recommendations for taking Tylenol alternating with Motrin every 4 hours as needed for symptoms along with any [id number] cold and flu remedy that she can tolerate and instructions to follow-up closely with her PCP for any worsening signs or symptoms. <Efe Kirk MD - Last Filed: 10/21/23 07:18> Vital Signs: 10/19/23 13:58 10/19/23 15:04 Temperature 98.8 F 98.7 F Temperature Source Oral Oral Pulse Rate 86 Pulse Rate [Right Radial] 125 H Respiratory Rate 20 20 Blood Pressure 127/77 Blood Pressure [Right Arm] 154/105 H Blood Pressure Mean [Right Arm] 121 Blood Pressure Source Automatic Cuff Blood Pressure Source [Right Arm] Automatic Cuff Blood Pressure Position Sitting Blood Pressure Position [Right Arm] Supine 02 Sat by Pulse Oximetry 96 Oxygen Delivery Method Room Air Room Air Lab Data Lab Results 10/19/23 14:34: Chlamy pneumoniae PCR Not detected, Adenovirus (PCR) Not detected, B. pertussis DNA (PCR) Not detected, Coronavirus OC43 (PCR) Not detected, Coronavirus HKU1 (PCR) Not detected, Coronavirus 229E (PCR) Not detected, SARS-CoV-2 (PCR) Not detected, Coronavirus NL63 (PCR) Not detected, Human Metapneumovir PCR Detected A, Influenza A (H1) PCR Not detected, Influ A (H1N1/09) PCR Not detected, Influenza A (H3) PCR Not detected, Influenza Type A (PCR) Not detected, Influenza Type B (PCR) Not detected, M. pneumoniae (PCR) Not detected, Parainfluenza 1 (PCR) Not detected, Parainfluenza 2 (PCR) Not detected, Parainfluenza 3 (PCR) Not detected, Parainfluenza 4 (PCR) Not detected, RSV (PCR) Not detected, Entero/Rhino (PCR) Not detected Orders (Tests/Meds): ORDERS Category Date Time Status Full Resp Panel w/COVID ([facility]) Routine Lab 10/19/23 14:34 Completed Medical Decision Narrative: In summary patient is a 23-year-old female who presents to the emergency department for evaluation of runny nose sore throat. Patient is hypertensive with a blood pressure 154/105 and tachycardic initially at 125 with respiratory rate of 20 satting 96% on room air upon arrival, and afebrile. Physical exam is remarkable for erythematous posterior pharynx without exudate with clear postnasal drip, boggy nasal mucosa,. Differential diagnosis includes viral versus bacterial upper respiratory tract infection. Initial workup will be conducted with full respiratory panel. Initial interventions include oral Tylenol and Motrin. Initial workup was deferred after an interactive discussion with the patient regarding the likelihood that this is a viral upper respiratory tract infection and she has no evidence of bacterial infection currently. Patient has not tried any ivcn-rzv-ordanun remedies and through patient direct decision making patient will be discharged with recommendations for taking Tylenol alternating with Motrin every 4 hours as needed for symptoms along with any vyya-zih-awuaotw cold and flu remedy that she can tolerate and instructions to follow-up closely with her PCP for any worsening signs or symptoms. I was consulted by the ANA LAURA, and we discussed the complexity of the problems being addressed. I approved the treatment and management plan for this patient's care in the Emergency Department, thus performing a substantive portion of the medical decision making. Efe Kirk MD Critical Care <PASCALE Lopez - Last Filed: 10/19/23 15:02> Critical Care Time Critical Care Time: No
[2023-10-19 15:02] LABS: Adenovirus,PCR Not Detected (NotDetected); Bordetella Pertussis Not Detected (NotDetected); Chlamydophila Pneumoniae, PCR Not Detected (NotDetected); Coronavirus 19, PCR Not Detected (NotDetected); Coronavirus 229E Not Detected (NotDetected); Coronavirus NL63 Not Detected (NotDetected); Coronavirus OC43 Not Detected (NotDetected); Coronovirus HKU1,PCR Not Detected (NotDetected); Influenza A, PCR Not Detected (NotDetected); Influenza AH1, 2009 Not Detected (NotDetected); Influenza AH1, PCR Not Detected (NotDetected); Influenza AH3,PCR Not Detected (NotDetected); Influenza B, PCR Not Detected (NotDetected); Mycoplasma Pneumoniae, PCR Not Detected (NotDetected); Parainfluenza 1, PCR Not Detected (NotDetected); Parainfluenza 2, PCR Not Detected (NotDetected); Parainfluenza 3, PCR Not Detected (NotDetected); Parainfluenza 4, PCR Not Detected (NotDetected); Respiratory Syncytial Virus Not Detected (NotDetected); Rhinovirus/Enterovirus Not Detected (NotDetected)
[2023-10-19 15:04] VITALS: BP 127/77; PULSE 86; RESP 20; TEMP 37.1; O2SAT 99
[2023-10-19 21:40] LABS: Human Metapneumovirus Detected (NotDetected)
== END 2023-10-19 15:15 | disposition home or self-care (01) ==
PROVIDERS: Physician Assistant; Emergency Provider Emergency Medicine; PCP Family Medicine
DX: R07.0 Pain in throat (principal); B97.81 Human metapneumovirus as the cause of diseases classified elsewhere; J06.9 Acute upper respiratory infection, unspecified
CPT/HCPCS: 87581; 87632; 87635; 87798; 99283

== ENCOUNTER 2024-07-10 23:58 | Observation (INO) | payer OTHER, SELFPAY ==
[2024-07-10 23:59] VITALS: BP 134/84; PULSE 101; RESP 18; TEMP 36.9; O2SAT 97; BMI 36.3
--- NOTE | 2024-07-11 00:20 | XR_ITS ---
PROCEDURE INFORMATION: Exam: XR Chest Exam date and time: 07/11/2024 12:45 AM Age: 24 years old Clinical indication: Pain; Chest pressure; Additional info: Intermittent L upper chest pain, cough TECHNIQUE: Imaging protocol: Radiologic exam of the chest. Views: 2 views. COMPARISON: CR XR CHEST PORTABLE 03/10/2023 11:17 PM FINDINGS: Lungs: Unremarkable. No consolidation. Pleural spaces: Unremarkable. No pleural effusion. No pneumothorax. Heart/Mediastinum: Unremarkable. No cardiomegaly. Bones/joints: Unremarkable. IMPRESSION: No acute findings.
--- NOTE | 2024-07-11 00:20 | CT_ITS ---
PROCEDURE INFORMATION: Exam: CT Abdomen And Pelvis With Contrast Exam date and time: 07/11/2024 1:01 AM Age: 24 years old Clinical indication: Abdominal pain; Additional info: Suprapubic, L flank pain TECHNIQUE: Imaging protocol: Computed tomography of the abdomen and pelvis with contrast. Radiation optimization: All CT scans at this facility use at least one of these dose optimization techniques: automated exposure control; mA and/or kV adjustment per patient size (includes targeted exams where dose is matched to clinical indication); or iterative reconstruction. Contrast material: ISOVUE; Contrast volume: 75 ml; Contrast route: IV; COMPARISON: US OB BIOPHYSICAL PROFILE 07/29/2023 4:35 PM FINDINGS: Liver: Normal. No mass. Gallbladder and biliary ducts: Normal. No calcified stones. No ductal dilation. Pancreas: Normal. No ductal dilation. Spleen: Normal. No splenomegaly. Adrenal glands: Normal. No mass. Kidneys and ureters: Normal. No hydronephrosis. Stomach and bowel: Unremarkable. No obstruction. No mucosal thickening. Appendix: No evidence of appendicitis. Intraperitoneal space: Unremarkable. No free air. No significant fluid collection. Vasculature: Unremarkable. No abdominal aortic aneurysm. Lymph nodes: Unremarkable. No enlarged lymph nodes. Urinary bladder: Unremarkable as visualized. Reproductive: Bilateral ovarian cysts, 3.0 cm on the left and 1.5 cm on the right. Bones/joints: Unremarkable. No acute fracture. Soft tissues: Unremarkable. IMPRESSION: Bilateral ovarian cysts.
--- NOTE | 2024-07-11 00:21 | HMH.EDGENADL ---
Discharge Plan Disposition Patient Disposition: Admitted Prescriptions Prescriptions: No Action ferrous sulfate [FeroSul] 325 mg (65 mg iron) tablet PO Patient Comments: TAKE 1 TABLET BY MOUTH 2 TIMES DAILY. fluoxetine 60 mg tablet 60 mg PO DAILY norgestimate-ethinyl estradiol [Sprintec (28)] 0.25-35 mg-mcg tablet 1 tab PO DAILY Qty: 84 0RF ParaGard T 380A 380 square mm intrauterine device 1 device intrauterine ONCE atomoxetine 18 mg capsule 18 mg PO DAILY Patient Comments: TAKE 1 CAPSULE BY MOUTH DAILY FOR 180 DAYS. ibuprofen 800 mg tablet 800 mg PO Q8H Qty: 20 0RF Referrals Follow up/Referrals: Zulay Fonseca DO [Primary Care Provider] - See instructions Clinical Impressions Clinical Impression: Ovarian cyst, Abdominal pain, left lower quadrant Instructions Patient Instructions: DI for Acute Abdominal Pain Print Language Print Language: Montenegrin Discharge ED Provider: Quinton Lobato General Adult HPI General Chief complaint: Abdominal Pain Stated complaint: lower abd, pelvic, back pain Time Seen by Provider: 07/11/24 00:14 Mode of Arrival: Ambulatory Source of Information: Patient Limitations: No Limitations Description of Symptoms (Recalled from ER Triage Doc. by RN): PT C/O ABD PAIN FOR ABOUT 3 DAYS, RADIATES INTO BACK. DENIES NVD OR FEVER History of Present Illness HPI narrative: 24-year-old female with history of abnormal uterine bleeding, menorrhagia presents to the ER with lower abdominal pain and demonstrates to the suprapubic area that she states radiates to the back specifically to the left flank more than the right. She reports she went to her primary care doctor earlier for these symptoms as well as for persistent cough which she has had for the last 2 months. She states her cough has some mild phlegm but she has been afebrile and has intermittent left upper chest pain, no chest pain at this time. No difficulty breathing. Patient states she has had nausea and vomiting yesterday but no vomiting today. No dysuria or hematuria, patient reports her PCP was ordering an abdominal and a chest x-ray but these have not been performed yet. She states they were looking for possible kidney stone since she had symptoms like this once before that they thought were stones but never saw them. No other complaints Related Data Home Medications ?Medication ?Instructions ?Recorded ?Confirmed atomoxetine 18 mg capsule 18 mg PO DAILY 10/18/23 03/07/24 copper 380 square mm intrauterine 1 device intrauterine ONCE 10/18/23 03/07/24 device (ParaGard T 380A) ferrous sulfate 325 mg (65 mg mg PO 03/07/24 03/07/24 iron) tablet (FeroSul) fluoxetine 60 mg tablet 60 mg PO DAILY 03/07/24 03/07/24 Previous Rx's ?Medication ?Instructions ?Recorded ibuprofen 800 mg tablet 800 mg PO Q8H #20 tabs 08/02/23 norgestimate 0.25 mg-ethinyl 1 tab PO DAILY #84 tabs 03/07/24 estradiol 35 mcg tablet (Sprintec (28)) Allergies Allergy/AdvReac Type Severity Reaction Status Date / Time bisoprolol Allergy Mild rash Verified 03/07/24 08:48 phentermine (From Adipex-P) AdvReac Verified 03[facility]07[facility]24 08:[facility] Disclaimer: The information contained in this section may have been updated after the patient was seen, as this information can be updated by other users. Medical History (Updated 07/11/24 @ 03:45 by Quinton Lobato MD) Abnormal uterine bleeding Vaginal discharge Menorrhagia History of recurrent miscarriages depression Hypokalemia Surgical History History of delivery History of dilation and curettage Hx of tonsillectomy Family History Other Anemia Asthma Cancer Heart attack Hyperlipidemia Hypertension Social History Smoking Status: Current every day smoker alcohol intake: never substance use type: marijuana current occupational status: unemployed Travel in the last 8 weeks: None Have you lived/traveled outside [place] in past 30 days?: No Contact w/someone who lives/traveled outside US past 30 days?: No Exposure to someone with infectious disease in past 14 days?: No Do you have a fever (greater than 100.4 F or 38 C)?: No Have you tested positive for COVID-19: No Exposed to someone with COVID-19 in past 14 days?: No Do you have a sore throat?: No Do you have a cough?: No Do you have any weakness?: No Do you have any diarrhea?: No Are you experiencing any unusual bleeding?: No Do you have any muscle aches/pain?: No Do you have any abdominal pain?: Yes Are you experiencing loss of taste or smell?: No Other Medical History Have you received the Flu Vaccine for this season: No Have you received the Pneumonia Vaccine: No ROS Obtained: Yes Systems reviewed as appropriate & no additional complaints except as documented Physical Exam General General appearance: alert and in no apparent distress Head Head exam: atraumatic and normocephalic Eye Eye exam: Present PERRL and EOMI ENT ENT exam: Present mucous membranes moist Neck Neck exam: Present normal inspection and full ROM Chest Chest inspection: Present symmetric chest wall rise; Absent tenderness Respiratory Respiratory exam: Present normal lung sounds bilaterally; Absent respiratory distress, wheezes or stridor Cardiovascular Cardiovascular exam: Present regular rate and normal rhythm Abdominal Exam Abdominal exam: Present soft and tenderness (Suprapubic, mild); Absent distention, guarding, rebound or rigidity Extremities Exam Extremities exam: Present full ROM; Absent edema Back Exam Back exam: Present CVA tenderness (L) (Low left CVA tenderness); Absent tenderness or CVA tenderness (R) Neurological Exam Neurological exam: Present alert and oriented X3; Absent motor sensory deficit Psychiatric Psychiatric exam: Present normal affect and normal mood Skin Skin exam: Present warm and dry Medical Decision Making Medical Records Medical records reviewed: Yes I reviewed the patient's medical records. Screening: Per USPSTF and CDC recommendations, given the prevalence of disease in our region, it is our hospital?s policy to screen for HIV and viral Hepatitis for all patients aged 18 and over and those with ongoing risk factors. MR Comment: I reviewed patient's most recent OB note from February 2024 which demonstrates she has had heavy periods since the of her last child despite having IUD. IUD removed. Aidan Inquiry Pt receiving controlled substance: No Vital Signs: 07/10/24 23:59 07/11/24 03:30 Temperature 98.5 F Temperature Source Tympanic Pulse Rate 89 Pulse Rate [Apical] 101 H Respiratory Rate 18 Blood Pressure 106/66 L Blood Pressure [Right Arm] 134/84 Blood Pressure Mean [Right Arm] 100 02 Sat by Pulse Oximetry 97 97 Oxygen Delivery Method Room Air Room Air Lab Data Lab Results 07/11/24 00:17: Urine Color Yellow, Urine Appearance Clear, Urine pH 6.5, Ur Specific [place] 1.020, Urine Protein Negative, Urine Glucose (UA) Negative, Urine Ketones Negative, Urine Blood Negative, Urine Nitrate Negative, Urine Bilirubin Negative, Urine Urobilinogen 0.2, Ur Leukocyte Esterase Negative, Urine RBC None, Urine WBC Occasional, Ur Squamous Epith Cells 5-10, Urine Bacteria Trace, Urine HCG, Qual Negative 07/11/24 00:20: WBC 8.6, RBC 4.52, Hgb 12.3, Hct 38.0, MCV 84.1, MCH 27.2, MCHC 32.4, RDW 13.9, Plt Count 220, MPV 11.7 H, Neut % (Auto) 60.6, Lymph % (Auto) 29.8, Mcculloch % (Auto) 7.1, Eos % (Auto) 1.7, Baso % (Auto) 0.5, Neut # (Auto) 5.2, Lymph # (Auto) 2.6, [place]och # (Auto) 0.6, Eos # (Auto) 0.2, Baso # (Auto) 0.0, PT 9.1 L, INR 0.81 L, D-Dimer 0.50, Sodium 134 L, Potassium 3.7, Chloride 99, Carbon Dioxide 27, Anion Gap 11.7, BUN 12, Creatinine 0.70, Estimated Creat Clear 180, Estimated GFR 102, Est GFR ( Amer) 123, Glucose 95, Calcium 9.1, Total Bilirubin 0.3, AST 27, ALT 23, Alkaline Phosphatase 77, Troponin I < 0.01, Total Protein 6.8, Albumin 4.3, Globulin 2.5, Albumin/Globulin Ratio 1.7, Lipase 81 07/11/24 00:35: Lactate 0.7 07/11/24 00:20 07/11/24 00:20 Orders (Tests/Meds): ED MEDICATIONS Generic Name Dose Route Start Last Admin Trade Name Freq PRN Reason Stop Dose Admin Sodium Chloride 10 ml 07/11/24 01:08 07/11/24 01:08 Sodium Chloride 0.9% 10ml Syr (Rad Only) IV 08/10/24 01:07 10 ml NEEDED PRN Administration Maintain IV Site Discontinued Medications Generic Name Dose Route Start Last Admin Trade Name Freq PRN Reason Stop Dose Admin Lactated Ringer's 1,000 mls @ 999 mls/hr 07/11/24 00:20 07/11/24 00:28 Lactated Ringer's 1000 Ml Bag IV 07/11/24 01:20 999 mls/hr .Q1H1M ONE Administration Iopamidol 75 ml 07/11/24 01:08 07/11/24 01:08 Iopamidol-370 (76%);100ml Bottle IV 07/11/24 01:09 75 ml ONCE ONE Administration Ketorolac Tromethamine 30 mg 07/11/24 01:52 07/11/24 01:56 Ketorolac 30mg/Ml Vial IV 07/11/24 01:53 30 mg ONCE ONE Administration Morphine Sulfate 4 mg 07/11/24 03:13 07/11/24 03:18 Morphine 4mg/Ml Syringe IV 07/11/24 03:14 4 mg ONCE ONE Administration Morphine Sulfate 4 mg 07/11/24 03:41 Morphine 4mg/Ml Syringe IV 07/11/24 03:42 ONCE ONE Ondansetron HCl 4 mg 07/11/24 00:20 07/11/24 00:29 Ondansetron 4mg/2ml Vial IV 07/11/24 00:21 4 mg ONCE ONE Administration Ondansetron HCl 4 mg 07/11/24 03:13 07/11/24 03:19 Ondansetron 4mg/2ml Vial IV 07/11/24 03:14 4 mg ONCE ONE Administration ORDERS Category Date Time Status CT abdomen pelvis w con Stat Cat Scan 07/11/24 00:20 Completed US transvaginal Stat Exams 07/11/24 01:41 Completed XR chest 2V Stat Exams 07/11/24 00:20 Completed Complete Blood Count Auto Diff Stat Lab 07/11/24 00:20 Completed Comprehensive Metabolic Panel Stat Lab 07/11/24 00:20 Completed D-Dimer Stat Lab 07/11/24 00:20 Completed Lactic Acid Stat Lab 07/11/24 00:35 Completed Lipase Stat Lab 07/11/24 00:20 Completed Prothrombin Time INR Stat Lab 07/11/24 00:20 Completed Troponin I Q3H Lab 07/11/24 03:26 Received Troponin I Q3H Lab 07/11/24 06:30 Ordered Troponin I Stat Lab 07/11/24 00:20 Completed Urinalysis and Microscopic Stat Lab 07/11/24 00:17 Completed Urine , HCG Qual. Stat Lab 07/11/24 00:17 Completed Medical Decision Narrative: In summary, this 24-year-old female presents to the emergency department today with low abdominal pain radiating to the left flank without dysuria or hematuria, persistent cough with intermittent chest pain no current chest pain, most recent chest pain was earlier yesterday. On initial evaluation patient is hemodynamically stable, afebrile, exam is only notable for suprapubic tenderness and low left CVA tenderness, abdomen does not demonstrate peritonitic findings cardiopulmonary exam benign. Differential diagnosis includes but is not limited to urinary tract infection, pyelonephritis, ureterolithiasis, hydronephrosis, electrolyte abnormality, kidney dysfunction, also consider diverticulosis, diverticulitis, viral syndrome, mesenteric adenitis, ovarian cyst, pneumonia, pneumothorax, ACS, PE. Based on these concerns, I ordered serum labs, cardiac workup, D-dimer, urine studies, CT imaging. ECG personally interpreted demonstrates normal sinus rhythm, rate 90, normal axis, normal VT and QTc, no STEMI. Patient received IV fluids, ondansetron initially for treatment. After negative test she also received IV Toradol. Labs personally reviewed demonstrate No leukocytosis or anemia, normal platelets, PT/INR nonactionable, D-dimer about 0.5, no concern for PE, CMP nonactionable, troponin undetectably low less than 0.01 which is significantly reassuring in the setting of normal ECG and patient not having had symptoms in more than 6 hours. UA negative for findings of infection, test negative. XR personally interpreted demonstrates no acute intrathoracic abnormality, see radiology read for final interpretation. CT imaging personally interpreted demonstrate bilateral ovarian cyst, left larger than right. This would be consistent with patient's symptoms. Since she is still having pain, transvaginal ultrasound was ordered to evaluate for hemorrhagic cyst, torsion. See radiology read for full interpretation. Patient is complaining of pain and nausea again. She received morphine, Zofran. Transvaginal ultrasound demonstrates bilateral ovarian cysts as well as 4 mm fluid collection within patient's scar. Normal flow to both ovaries, no evidence of torsion. No evidence of hemorrhagic cyst. Patient does not have a leukocytosis, no stranding of the abdominal wall, no obvious clear explanation of patient's pain other than the presence of the ovarian cysts. I explained patient's results to her, she is still having pain despite having received Morphine earlier. She is receiving additional morphine at this time for pain management. Patient symptoms are not controlled so I consulted Dr. Fay with OB. We reviewed patient's presenting symptoms, workup, and continued symptoms despite multiple doses of pain medication. He is not sure exactly why the patient is having pain since she does not have any evidence of torsion or other significant abnormalities on imaging, but excepted the patient for admission for continued pain management. Patient admitted to [facility] in stable condition. Critical Care Critical Care Time Critical Care Time: No
[2024-07-11 00:28] LABS: Microscopic, Urine URINE MICROSCOPIC (MICROSCOPIC)
[2024-07-11] MEDS: LACTATED RINGERS 1000ML 1,000 ML 999 ML IV (00:28)
[2024-07-11] MEDS: ONDANSETRON 4MG/2ML VIAL 4 MG IV ×2 (00:29→03:19)
[2024-07-11 00:32] LABS: Basophils % 0.5 % (0.1-2.0); Eosinophils # 0.2 K/mm3 (0.0-0.4); Eosinophils % 1.7 % (0.1-12.0); Hemoglobin 12.3 g/dL (12.2-16.2); Lymphocytes # 2.6 K/mm3 (0.7-4.5); Lymphocytes % 29.8 % (10-50); Mean Corpuscular HGB Conc 32.4 g/dL (31.8-35.4); Mean Corpuscular Hemoglobin 27.2 pg (27.0-31.2); Mean Corpuscular Volume 84.1 fl (81-99); Mean Platelet Volume 11.7 fl (7.4-10.4); Monocytes # 0.6 K/mm3 (0.1-1.0); Monocytes % 7.1 % (1.7-9.3); Neutrophils # 5.2 K/mm3 (1.8-7.8); Neutrophils % 60.6 % (37.0-80.0); Platelet Count 220 K/mm3 (142-424); Red Blood Count 4.52 M/mm3 (4.20-5.40); Red Cell Distribution Width 13.9 % (11.5-17.5); White Blood Count 8.6 K/mm3 (4.8-10.8)
--- NOTE | 2024-07-11 00:32 | ECG_ITS ---
APPROVED REPORT Exam: Resting ECG HR:90 bpm ECG Measurements Heart Rate 90 AXES OH 153 P 59 QRSd 82 QRS 60 QT 356 T 65 QTc 404 Conclusion SINUS RHYTHM NORMAL ECG Electronically signed by : REBA PASCAL, 07/11/2024 06:54:50
[2024-07-11 00:38] LABS: Appearance,Urine CLEAR (Clear); Bilirubin,Urine Negative (Negative); Blood, Urine Negative (Negative); Color,Urine YELLOW (Yellow); Glucose,Urine (UA) Negative (Negative); Ketones,Urine Negative (Negative); Leukocyte Esterase,Urine Negative (Negative); Nitrate,Urine Negative (Negative); PH,Urine 6.5 (5.0-8.5); Protein,Urine Negative (Negative); Urobilinogen,Urine 0.2 EU/dl (0.2)
[2024-07-11 00:40] LABS: INR 0.81 (0.9-1.1); Prothrombin Time 9.1 seconds (9.2-12.1)
[2024-07-11 00:46] LABS: Alanine Aminotransferase 23 U/L (12-78); Albumin Level 4.3 g/dl (3.5-5.0); Albumin/Globulin Ratio 1.7 (1.1-1.8); Alkaline Phosphatase 77 U/L (38-126); Anion Gap 11.7 mEq/L (5-15); Aspartate Amino Transferase 27 U/L (14-36); Bilirubin,Total 0.3 mg/dl (0.2-1.3); Blood Urea Nitrogen 12 mg/dl (7-17); Calcium 9.1 mg/dl (8.4-10.2); Carbon Dioxide 27 mmol/L (22.0-30.0); Chloride 99 mmol/L (98-107); Creatinine Clearance Estimated 180 mL/min (50-200); Estimated Glomerular Filt Rate 102 ml/min (>60); GFR (African American) 123 ML/MIN (>60); Globulin 2.5 g/dL (1.3-3.2); Glucose 95 mg/dl (74-100); Lipase 81 U/L (23-300); Potassium 3.7 mmoL/L (3.5-5.1); Sodium 134 mmol/L (136-145); Total Protein,Serum 6.8 g/dl (6.3-8.2)
[2024-07-11 00:52] LABS: Urine Pregnancy, HCG Qual. Negative (Negative)
[2024-07-11 00:58] LABS: Troponin I < 0.01 ng/ml (0.00-0.034)
[2024-07-11 01:02] LABS: Lactic Acid 0.7 mmol/L (0.7-2.1)
[2024-07-11 01:04] LABS: Bacteria,Urine Trace /lpf; WBC,Urine Occasional #/hpf (0-3)
[2024-07-11] MEDS: SODIUM CHLORIDE 0.9% 10ML SYR (RAD ONLY) 10 ML IV (01:08)
[2024-07-11] MEDS: IOPAMIDOL-370 (76%);100ML BOTTLE 75 ML IV (01:08)
--- NOTE | 2024-07-11 01:41 | US_ITS ---
PROCEDURE INFORMATION: Exam: US Pelvis, Transvaginal, Non-Obstetric Exam date and time: 07/11/2024 2:13 AM Age: 24 years old Clinical indication: Pelvic pain; Additional info: Bilateral ovarian cyst, L pain, n/v yesterday TECHNIQUE: Imaging protocol: Real-time transvaginal pelvic (non-obstetric) ultrasound with image documentation. Transvaginal imaging was used for better evaluation of the endometrium, adnexa, and/or cervix. COMPARISON: CT ABDOMEN PELVIS W CON 07/11/2024 1:01 AM FINDINGS: Uterus: Uterus is normal. Endometrial stripe is normal. Endometrial thickness 11 mm. Uterus 8.8 x 4.7 x 6.5 cm for a volume of 140 cc. Right ovary/adnexa: 3.0 x 2.2 x 2.1 cm for a volume of 7.5 cc. Cyst right ovary 1.9 cm. Normal blood flow. Left ovary/adnexa: 4.2 x 3.6 x 3.4 cm. Cyst left ovary 2.9 cm. Normal blood flow. Urinary bladder: Urinary bladder is limited. Intraperitoneal space: No free fluid. There is a small amount of fluid seen within the region of the patient's uterine section scar. This measures only 4 mm in size. IMPRESSION: Bilateral ovarian cysts.
--- NOTE | 2024-07-11 01:44 | PC.NURSE ---
ultrasound called in
[2024-07-11] MEDS: KETOROLAC 30MG/ML VIAL 30 MG IV ×3 (01:56→12:30)
--- NOTE | 2024-07-11 02:13 | PC.NURSE ---
Pt yo ultasound via wheelchair
[2024-07-11] MEDS: MORPHINE 4MG/ML SYRINGE 4 MG IV ×2 (03:18→03:54)
[2024-07-11 03:30] VITALS: BP 106/66; PULSE 89; O2SAT 97
--- NOTE | 2024-07-11 03:50 | PC.NURSE ---
Report received from Diana HENRY in ER
[2024-07-11 03:57] VITALS: BP 106/66; PULSE 86; RESP 20; TEMP 37.1; O2SAT 99
[2024-07-11 04:00] VITALS: BP 127/84; PULSE 102; RESP 18; O2SAT 99; BMI 36.3
--- NOTE | 2024-07-11 04:00 | PC.NURSE ---
Pt arrived to floor at this time.
[2024-07-11 04:06] LABS: Troponin I < 0.01 ng/ml (0.00-0.034)
[2024-07-11 04:10] VITALS: BP 127/84; PULSE 102; RESP 17; TEMP 36.3; O2SAT 99
--- NOTE | 2024-07-11 04:20 | PC.NURSE ---
Spoke with Dr. Arroyo. Telephone orders received. Order r/v. See new orders, see MAR.
--- NOTE | 2024-07-11 04:30 | PC.NURSE ---
Nasal swab collected as ordered, pt tolerated this well.
[2024-07-11] MEDS: LACTATED RINGERS 1000ML 1,000 ML 125 ML IV (04:40)
[2024-07-11 04:45] LABS: Coronavirus 19, PCR Not Detected (NotDetected); Human Rhinovirus Not Detected (NotDetected); Influenza A, PCR Not Detected (NotDetected); Influenza B, PCR Not Detected (NotDetected); Respiratory Syncytial Virus Not Detected (NotDetected)
--- NOTE | 2024-07-11 06:14 | PC.NURSE ---
RN called to pts room. Pt reporting nausea and began vomiting. Pt requesting meds to help with this. No abdominal pain at this time.
--- NOTE | 2024-07-11 06:16 | PC.NURSE ---
Spoke with Dr. Arroyo over the phone. New orders received. Orders r/v. See MAR
--- NOTE | 2024-07-11 06:25 | PC.NURSE ---
Pt IV saline locked and covered so that pt could shower, she is requesting to shower because she is feeling sweaty.
[2024-07-11] MEDS: 0.9 % SODIUM CHLORIDE 25 ML 100 ML IV (06:52)
[2024-07-11] MEDS: PROMETHAZINE HCL 25MG/ML 1ML VIAL 12.5 MG IV (06:52)
[2024-07-11 06:53] LABS: Troponin I < 0.01 ng/ml (0.00-0.034)
--- NOTE | 2024-07-11 06:53 | PC.NURSE ---
Pt's IV fluids infusing after pt's shower. Pt given Toradol IV push per prn order, and Phenergan infusing in secondary bag per prn order. Pt does report feeling warm and sweaty and just vomited a small amount of clear emesis. Pt is in bed and has a new emesis bag.
[2024-07-11 07:05] VITALS: BP 121/75; PULSE 89; RESP 16; TEMP 36.4; O2SAT 96
--- NOTE | 2024-07-11 07:15 | PC.NURSE ---
Report given to Araceli Hess RN
[2024-07-11 09:45] VITALS: BP 116/80; PULSE 105; RESP 16; TEMP 36.7; O2SAT 98
--- NOTE | 2024-07-11 09:56 | P.HP_ITS ---
History of Present Illness *Admission Date: 07/11/24 *Reason for visit:: Lower abdominal pain, nausea vomiting *History of present illness: 24-year-old female with history of abnormal uterine bleeding, menorrhagia presents to the ER with lower abdominal pain and demonstrates to the suprapubic area that she states radiates to the back specifically to the left flank more than the right. She reports she went to her primary care doctor earlier for these symptoms as well as for persistent cough which she has had for the last 2 months. She states her cough has some mild phlegm but she has been afebrile and has intermittent left upper chest pain, no chest pain at this time. No difficul ty breathing. Patient states she has had nausea and vomiting yesterday but no vomiting today. No dysuria or hematuria, patient reports her PCP was ordering an abdominal and a chest x-ray but these have not been performed yet. She states they were looking for possible kidney stone since she had symptoms like this once before that they thought were stones but never saw them. No other complaints test is negative. She takes the control pill for control. Her children are not in daycare or at school. Nobody else is home sick. She had a bowel movement yesterday that was normal. Blood counts were normal. No white count. Urinalysis is normal with no blood, leukocytes or crystals. [facility] Disclaimer: The information contained in this section may have been updated after the patient was seen, as this information can be updated by other users. Medical History Abnormal uterine bleeding Vaginal discharge Menorrhagia History of recurrent miscarriages depression Hypokalemia Surgical History History of delivery History of dilation and curettage Hx of tonsillectomy Family History Anemia Hyperlipidemia Heart attack Cancer Hypertension Asthma Social History Smoking Status: Current every day smoker alcohol intake: never substance use type: marijuana current occupational status: unemployed Travel in the last 8 weeks: None Have you lived/traveled outside [place] in past 30 days?: No Contact w/someone who lives/traveled outside [place] past 30 days?: No Exposure to someone with infectious disease in past 14 days?: No Do you have a fever (greater than 100.4 F or 38 C)?: No Have you tested positive for COVID-19: No Exposed to someone with COVID-19 in past 14 days?: No Do you have a sore throat?: No Do you have a cough?: No Do you have any weakness?: No Do you have any diarrhea?: No Are you experiencing any unusual bleeding?: No Do you have any muscle aches/pain?: No Do you have any abdominal pain?: Yes Are you experiencing loss of taste or smell?: No Other Medical History Have you received the Flu Vaccine for this season: No Have you received the Pneumonia Vaccine: No Review of Systems Review of Systems Review of systems:: pertinent systems reviewed and negative unless documented below Meds Home Medications and Allergies Home Medications ?Medication ?Instructions ?Recorded ?Confirmed ?Type ibuprofen 800 mg tablet 800 mg PO Q8H #20 tabs 08/02/23 07/11/24 Rx ferrous sulfate 325 mg (65 mg 325 mg PO BID 03/07/24 07/11/24 History iron) tablet (FeroSul) fluoxetine 60 mg tablet 60 mg PO DAILY 03/07/24 07/11/24 History norgestimate 0.25 mg-ethinyl 1 tab PO DAILY #84 tabs 03/07/24 07/11/24 Rx estradiol 35 mcg tablet (Sprintec (28)) phentermine 37.5 mg tablet 37.5 mg PO DAILY 07/11/24 07/11/24 History New Prescriptions to Start Prescriptions: Allergies Allergy/AdvReac Type Severity Reaction Status Date / Time bisoprolol Allergy Mild rash Verified 07/11/24 04:16 Exam Data for Last 24 hours Vital signs and Labs for Last 24 Hours: Temp Pulse Resp BP Pulse Ox O2 Del Method 97.6 F 89 16 121/75 96 Room Air 07/11/24 07:05 07/11/24 07:05 07/11/24 07:05 07/11/24 07:05 07/11/24 07:05 07/11/24 08:34 Laboratory Results - last 24 hr 07/11/24 00:17: Urine Color Yellow, Urine Appearance Clear, Urine pH 6.5, Ur Specific [place] 1.020, Urine Protein Negative, Urine Glucose (UA) Negative, Urine Ketones Negative, Urine Blood Negative, Urine Nitrate Negative, Urine Bilirubin Negative, Urine Urobilinogen 0.2, Ur Leukocyte Esterase Negative, Urine RBC None, Urine WBC Occasional, Ur Squamous Epith Cells 5-10, Urine Bacteria Trace, Urine HCG, Qual Negative 07/11/24 00:20: WBC 8.6, RBC 4.52, Hgb 12.3, Hct 38.0, MCV 84.1, MCH 27.2, MCHC 32.4, RDW 13.9, Plt Count 220, MPV 11.7 H, Neut % (Auto) 60.6, Lymph % (Auto) 29.8, [place] % (Auto) 7.1, Eos % (Auto) 1.7, Baso % (Auto) 0.5, Neut # (Auto) 5.2, Lymph # (Auto) 2.6, [place] # (Auto) 0.6, Eos # (Auto) 0.2, Baso # (Auto) 0.0, PT 9.1 L, INR 0.81 L, D-Dimer 0.50, Sodium 134 L, Potassium 3.7, Chloride 99, Carbon Dioxide 27, Anion Gap 11.7, BUN 12, Creatinine 0.70, Estimated Creat Clear 180, Estimated GFR 102, Est GFR ( Amer) 123, Glucose 95, Calcium 9.1, Total Bilirubin 0.3, AST 27, ALT 23, Alkaline Phosphatase 77, Troponin I < 0.01, Total Protein 6.8, Albumin 4.3, Globulin 2.5, Albumin/Globulin Ratio 1.7, Lipase 81 07/11/24 00:35: Lactate 0.7 07/11/24 03:26: Troponin I < 0.01 07/11/24 04:32: SARS-CoV-2 (PCR) Not detected, Influenza Type A (PCR) Not detected, Influenza Type B (PCR) Not detected, RSV (PCR) Not detected, Rhinovirus (PCR) Not detected 07/11/24 06:01: Troponin I < 0.01 I & O for Last 24 hours: Intake & Output 07/08/24 07/09/24 07/10/24 07/11/24 11:59 11:59 11:59 11:59 Weight 205 lb Constitutional Constitutional: no acute distress *Routine HEENT Exam Head: Present normocephalic Eye: Present EOMI and PERRL ENT: Present mucous membranes moist *Routine Neck Exam Neck: Present supple; Absent lymphadenopathy *Routine Respiratory Exam Respiratory: Present CTA bilaterally *Routine Cardiovascular Exam Cardiovascular: Present RRR *Routine Abdominal Exam Abdominal: Present soft, normoactive bowel sounds, tenderness and obese; Absent distended, rebound, guarding or rigid Comments: She was tender in the suprapubic area but there are no peritoneal signs, guarding or rigidity. *Routine Rectal Exam Rectal:: deferred *Routine Genitalia Exam Genitalia:: deferred *Routine Extremities Exam Extremities: Absent cyanosis, clubbing or edema *Routine Skin Exam Skin: Present warm; Absent rash *Routine Neurological Exam Neurological: Present alert and oriented X3 Assessment and Plan *Assessment and plan (1) Abdominal pain, left lower quadrant: Status: Acute Category: Medical Code(s): R10.32 - Left lower quadrant pain (2) Ovarian cyst: Status: Acute Qualifiers: Laterality: bilateral Qualified Code(s): N83.201 - Unspecified ovarian cyst, right side; N83.202 - Unspecified ovarian cyst, left side Category: Medical Code(s): N83.209 - Unspecified ovarian cyst, unspecified side Plan I reviewed her ultrasound and she has simple follicles on her ovaries. The left side has a 3.3 cm follicle and the right side has a 1.8 cm follicle. No fluid in the cul-de-sac. On examination her suprapubic area was tender but no obvious peritoneal signs, guarding or rigidity. She has had nausea and vomiting and it certainly possible that she has a viral enteritis. Urinalysis was negative for UTI. test was negative. Bowel movements have been regular. We will go ahead and start Pyridium 200 mg 3 times daily to help with any bladder discomfort. Flu A and B as well as COVID, RSV and rhino virus are negat maico at this point in time. I do not think she needs an antibiotic since her urinalysis was completely normal. She does not have a surgical abdomen that would require a diagnostic laparoscopy or any other surgery at this point in time. She would like to start eating again and we will see how she does with this. She seems to be doing well with Phenergan for nausea. We will continue with this. Will continue to observe her throughout the day and see how she does.
[2024-07-11] MEDS: PHENAZOPYRIDINE 200MG TABLET 200 MG PO (10:05)
[2024-07-11] MEDS: CEFAZOLIN SODIUM 2 GM in 0.9 % SODIUM CHLORIDE 100 ML IV (12:30)
--- NOTE | 2024-07-11 14:53 | EXP.DC.SUM ---
General Admission date:: 07/11/24 Discharge date: 07/11/24 HPI HPI HPI: 24-year-old female with history of abnormal uterine bleeding, menorrhagia presents to the ER with lower abdominal pain and demonstrates to the suprapubic area that she states radiates to the back specifically to the left flank more than the right. She reports she went to her primary care doctor earlier for these symptoms as well as for persistent cough which she has had for the last 2 months. She states her cough has some mild phlegm but she has been afebrile and has intermittent left upper chest pain, no chest pain at this time. No difficulty breathing. Patient states she has had nausea and vomiting yesterday but no vomiting today. No dysuria or hematuria, patient reports her PCP was ordering an abdominal and a chest x-ray but these have not been performed yet. She states they were looking for possible kidney stone since she had symptoms like this once before that they thought were stones but never saw them. No other complaints test is negative. She takes the control pill for control. Her children are not in daycare or at school. Nobody else is home sick. She had a bowel movement yesterday that was normal. Blood counts were normal. No white count. Urinalysis is normal with no blood, leukocytes or crystals. Hospital Course Hospital Course Hospital Course: She received IV pain medication as well as Phenergan and ondansetron for her nausea vomiting and pain. This morning she is doing better and she would like to go home. She is eating and drinking and ambulating. She is voiding well. As result of that we are sending her home to follow-up in a week. She is given a prescription for Toradol 10 mg p.o. Q6 number 20 tablets, Pyridium 200 mg p.o. 3 times daily number 9 tablets. Keflex 500 mg p.o. twice daily x 5 days. Exam Data for Last 24 hours Vital signs and Labs for Last 24 Hours: Temp Pulse Resp BP Pulse Ox O2 Del Method 98.1 F 105 H 16 116/80 98 Room Air 07/11/24 09:45 07/11/24 09:45 07/11/24 09:45 07/11/24 09:45 07/11/24 09:45 07/11/24 13:26 Laboratory Results - last 24 hr 07/11/24 00:17: Urine Color Yellow, Urine Appearance Clear, Urine pH 6.5, Ur Specific [place] 1.020, Urine Protein Negative, Urine Glucose (UA) Negative, Urine Ketones Negative, Urine Blood Negative, Urine Nitrate Negative, Urine Bilirubin Negative, Urine Urobilinogen 0.2, Ur Leukocyte Esterase Negative, Urine RBC None, Urine WBC Occasional, Ur Squamous Epith Cells 5-10, Urine Bacteria Trace, Urine HCG, Qual Negative 07/11/24 00:20: WBC 8.6, RBC 4.52, Hgb 12.3, Hct 38.0, MCV 84.1, MCH 27.2, MCHC 32.4, RDW 13.9, Plt Count 220, MPV 11.7 H, Neut % (Auto) 60.6, Lymph % (Auto) 29.8, [place] % (Auto) 7.1, Eos % (Auto) 1.7, Baso % (Auto) 0.5, Neut # (Auto) 5.2, Lymph # (Auto) 2.6, [place] # (Auto) 0.6, Eos # (Auto) 0.2, Baso # (Auto) 0.0, PT 9.1 L, INR 0.81 L, D-Dimer 0.50, Sodium 134 L, Potassium 3.7, Chloride 99, Carbon Dioxide 27, Anion Gap 11.7, BUN 12, Creatinine 0.70, Estimated Creat Clear 180, Estimated GFR 102, Est GFR ( Amer) 123, Glucose 95, Calcium 9.1, Total Bilirubin 0.3, AST 27, ALT 23, Alkaline Phosphatase 77, Troponin I < 0.01, Total Protein 6.8, Albumin 4.3, Globulin 2.5, Albumin/Globulin Ratio 1.7, Lipase 81 07/11/24 00:35: Lactate 0.7 07/11/24 03:26: Troponin I < 0.01 07/11/24 04:32: SARS-CoV-2 (PCR) Not detected, Influenza Type A (PCR) Not detected, Influenza Type B (PCR) Not detected, RSV (PCR) Not detected, Rhinovirus (PCR) Not detected 07/11/24 06:01: Troponin I < 0.01 I & O for Last 24 hours: Intake & Output 07/09/24 07/10/24 07/11/24 07/12/24 11:59 11:59 11:59 11:59 Output Total 0 / 0 Balance 0 / 0 Weight 205 lb Constitutional Constitutional: no acute distress *Routine HEENT Exam Head: Present normocephalic *Routine Respiratory Exam Respiratory: Present normal respiratory effort; Absent accessory muscle use *Routine Cardiovascular Exam Cardiovascular: Present RRR *Routine Abdominal Exam Abdominal: Present soft, tenderness and obese; Absent distended, rebound, guarding or rigid *Routine Rectal Exam Patient deferred: visual exam and digital exam *Routine Exam Patient deferred: external exam, groin exam and perineal exam Results Data Completed and Pending Labs on day of discharge: Labs from last 24 hours 07/11/24 07/11/24 07/11/24 06:01 04:32 03:26 WBC RBC Hgb Hct MCV MCH MCHC RDW Plt Count MPV Neut % (Auto) Lymph % (Auto) [place] % (Auto) Eos % (Auto) Baso % (Auto) Neut # (Auto) Lymph # (Auto) [place] # (Auto) Eos # (Auto) Baso # (Auto) PT INR D-Dimer Sodium Potassium Chloride Carbon Dioxide Anion Gap BUN Creatinine Estimated Creat Clear Estimated GFR Est GFR ( Amer) Glucose Lactate Calcium Total Bilirubin AST ALT Alkaline Phosphatase Troponin I < 0.01 < 0.01 Total Protein Albumin Globulin Albumin/Globulin Ratio Lipase Urine Color Urine Appearance Urine pH Ur Specific [place] Urine Protein Urine Glucose (UA) Urine Ketones Urine Blood Urine Nitrate Urine Bilirubin Urine Urobilinogen Ur Leukocyte Esterase Urine RBC Urine WBC Ur Squamous Epith Cells Urine Bacteria Urine HCG, Qual SARS-CoV-2 (PCR) Not detected Influenza Type A (PCR) Not detected Influenza Type B (PCR) Not detected RSV (PCR) Not detected Rhinovirus (PCR) Not detected 07/11/24 07/11/24 07/11/24 00:35 00:20 00:17 WBC 8.6 RBC 4.52 Hgb 12.3 Hct 38.0 MCV 84.1 MCH 27.2 MCHC 32.4 RDW 13.9 Plt Count 220 MPV 11.7 H Neut % (Auto) 60.6 Lymph % (Auto) 29.8 [place] % (Auto) 7.1 Eos % (Auto) 1.7 Baso % (Auto) 0.5 Neut # (Auto) 5.2 Lymph # (Auto) 2.6 [place] # (Auto) 0.6 Eos # (Auto) 0.2 Baso # (Auto) 0.0 PT 9.1 L INR 0.81 L D-Dimer 0.50 Sodium 134 L Potassium 3.7 Chloride 99 Carbon Dioxide 27 Anion Gap 11.7 BUN 12 Creatinine 0.70 Estimated Creat Clear 180 Estimated GFR 102 Est GFR ( Amer) 123 Glucose 95 Lactate 0.7 Calcium 9.1 Total Bilirubin 0.3 AST 27 ALT 23 Alkaline Phosphatase 77 Troponin I < 0.01 Total Protein 6.8 Albumin 4.3 Globulin 2.5 Albumin/Globulin Ratio 1.7 Lipase 81 Urine Color Yellow Urine Appearance Clear Urine pH 6.5 Ur Specific [place] 1.020 Urine Protein Negative Urine Glucose (UA) Negative Urine Ketones Negative Urine Blood Negative Urine Nitrate Negative Urine Bilirubin Negative Urine Urobilinogen 0.2 Ur Leukocyte Esterase Negative Urine RBC None Urine WBC Occasional Ur Squamous Epith Cells 5-10 Urine Bacteria Trace Urine HCG, Qual Negative SARS-CoV-2 (PCR) Influenza Type A (PCR) Influenza Type B (PCR) RSV (PCR) Rhinovirus (PCR) DS: Diagnosis Discharge Diagnosis (1) Abdominal pain, left lower quadrant: Status: Acute Code(s): R10.32 - Left lower quadrant pain (2) Ovarian cyst: Status: Acute Code(s): N83.209 - Unspecified ovarian cyst, unspecified side Qualifiers: Laterality: bilateral Qualified Code(s): N83.201 - Unspecified ovarian cyst, right side; N83.202 - Unspecified ovarian cyst, left side Meds Home Medications and Allergies Home Medications ?Medication ?Instructions ?Recorded ?Confirmed ?Type ferrous sulfate 325 mg (65 mg 325 mg PO BID 03/07/24 07/11/24 History iron) tablet (FeroSul) fluoxetine 60 mg tablet 60 mg PO DAILY 03/07/24 07/11/24 History norgestimate 0.25 mg-ethinyl 1 tab PO DAILY #84 tabs 03/07/24 07/11/24 Rx estradiol 35 mcg tablet (Sprintec (28)) phentermine 37.5 mg tablet 37.5 mg PO DAILY 07/11/24 07/11/24 History New Prescriptions to Start Prescriptions: Allergies Allergy/AdvReac Type Severity Reaction Status Date / Time bisoprolol Allergy Mild rash Verified 07/11/24 04:16 Discharge Plan Disposition Patient Disposition: Home, Self-Care Follow up Plan Follow up with: Canan,Josefina, DO [Staff Physician] - 07/17/24 11:00 am Prescriptions/Medication Reconciliation: Continued ferrous sulfate [FeroSul] 325 mg (65 mg iron) tablet 325 mg PO BID Patient Comments: TAKE 1 TABLET BY MOUTH 2 TIMES DAILY. fluoxetine 60 mg tablet 60 mg PO DAILY norgestimate-ethinyl estradiol [Sprintec (28)] 0.25-35 mg-mcg tablet 1 tab PO DAILY Qty: 84 0RF phentermine 37.5 mg Tablet 37.5 mg PO DAILY Rx Instructions: must administer 30 minutes before or 1-2 hours after breakfast Discontinued ibuprofen 800 mg tablet 800 mg PO Q8H Qty: 20 0RF Problem Reconciliation Problems Reviewed?: Yes Patient Discharge Instructions ACTIVITY: Continue current activity DIET: continue same diet Patient Instructions: DI for Acute Abdominal Pain, DI for Pelvic Pain Print Language: [place] Providers Primary Care Provider: Zulay Fonseca Admit Provider: Everett Arroyo Attending Provider: Everett Arroyo
--- NOTE | 2024-07-11 15:06 | PC.NURSE ---
Active Medications Generic Name Dose Route Start Last Admin Trade Name Freq PRN Reason Stop Dose Admin Ketorolac Tromethamine 30 mg 07/11/24 04:41 07/11/24 12:30 Ketorolac 30mg/Ml Vial IV 07/16/24 04:40 30 mg Q6HP PRN Administration Moderate Pain (4-6)
--- NOTE | 2024-07-11 15:20 | PC.NURSE ---
Discharge education provided, questions encouraged and answered. Pt. v/u.
== END 2024-07-11 15:45 | disposition home or self-care (01) ==
LOC: ER 07-11 03:45 → OB 07-11 04:38
PROVIDERS: Admitting Provider Nurse Practitioner Obstetrics & Gynecology; Emergency Provider Emergency Medicine; PCP Student in an Organized Health Care Education/Training Program; Visit Provider Nurse Practitioner Obstetrics & Gynecology
DX: R10.32 Left lower quadrant pain (principal); N83.201 Unspecified ovarian cyst, right side; N83.202 Unspecified ovarian cyst, left side; F17.210 Nicotine dependence, cigarettes, uncomplicated
CPT/HCPCS: 71046; 74177; 76830; 80053; 81001; 81025; 83605; 83690; 84484; 85025; 85378; 85610; 87631; 93005; G0378; J0690; J1885; J2270; J2405; J2550; J7120; Q9967

== ENCOUNTER 2024-07-18 15:49 | Emergency (ER) | payer OTHER, SELFPAY ==
[2024-07-18 15:53] VITALS: BP 131/79; PULSE 103; RESP 18; TEMP 36.5; O2SAT 98; BMI 36.3
[2024-07-18 15:57] VITALS: BP 113/66; PULSE 83; TEMP 37.1; O2SAT 97
--- NOTE | 2024-07-18 16:18 | HMH.EDGENADL ---
Discharge Plan Disposition Patient Disposition: Home, Self-Care Condition: Good Prescriptions Prescriptions: New ibuprofen 800 mg tablet 800 mg PO Q8H Qty: 60 0RF No Action ferrous sulfate [FeroSul] 325 mg (65 mg iron) tablet 325 mg PO BID Patient Comments: TAKE 1 TABLET BY MOUTH 2 TIMES DAILY. fluoxetine 60 mg tablet 60 mg PO DAILY norgestimate-ethinyl estradiol [Sprintec (28)] 0.25-35 mg-mcg tablet 1 tab PO DAILY Qty: 84 0RF phentermine 37.5 mg Tablet 37.5 mg PO DAILY Rx Instructions: must administer 30 minutes before or 1-2 hours after breakfast ketorolac 10 mg Tablet 10 mg PO Q6H Qty: 20 0RF promethazine 25 mg Tablet 12.5 mg PO Q6H PRN (Reason: Nausea And Vomiting) Qty: 14 0RF ondansetron 4 mg Tablet,Disintegrating 4 mg PO Q4H PRN (Reason: Nausea And Vomiting) Qty: 30 0RF promethazine 12.5 mg suppository 12.5 mg IN Q6H PRN (Reason: nausea and vomiting) Qty: 12 1RF cephalexin 500 mg tablet 500 mg PO BID Qty: 10 0RF phenazopyridine [Pyridium] 200 mg tablet 200 mg PO TID Qty: 6 1RF Referrals Follow up/Referrals: Seng Duggan [Primary Care Provider] - See instructions Activity Restrictions/Add. Instructions Additional Instructions/Restrictions: Follow-up with your [employer]ODUCTS MECH[employer]ICAL DESIGN ENGINEER as scheduled. Follow-up with your PCP for continued new or worsening signs or symptoms or return to the ER as needed. Clinical Impressions Clinical Impression: Ovarian cyst Qualifiers: Laterality: bilateral Qualified Code(s): N83.201 - Unspecified ovarian cyst, right side Instructions Patient Instructions: DI for Ovarian Cyst Print Language Print Language: Burmese Discharge ED Provider: Efe Kirk General Adult HPI <PASCALE Lopez - Last Filed: 07/18/24 21:50> General Chief complaint: Abdominal Pain Stated complaint: abdomin pain and pulling Time Seen by Provider: 07/18/24 16:05 Mode of Arrival: Ambulatory Source of Information: Patient Limitations: No Limitations Description of Symptoms (Recalled from ER Triage Doc. by RN): Pt arrives for evaluation of lower mid to left abdominal pain. Pt was diagnosed the other day with a cyst to her ovary. Pt states pain was constant all night but suddenly became worse this afternoon. History of Present Illness HPI narrative: LeftPatient presents for evaluation of quadrant abdominal pain. Patient was recently admitted and discharged on 07/11/2024 for left lower quadrant abdominal pain and found ovarian cyst. Patient reports that she has had continued pain that increased earlier today. She denies any fever chills hemoptysis hematochezia melena nausea vomiting diarrhea. She called PRODUCTS MECHANICAL DESIGN ENGINEER who told her to come to the ER for evaluation. Related Data Home Medications ?Medication ?Instructions ?Recorded ?Confirmed ferrous sulfate 325 mg (65 mg 325 mg PO BID 03/07/24 07/11/24 iron) tablet (FeroSul) fluoxetine 60 mg tablet 60 mg PO DAILY 03/07/24 07/11/24 phentermine 37.5 mg tablet 37.5 mg PO DAILY 07/11/24 07/11/24 Previous Rx's ?Medication ?Instructions ?Recorded norgestimate 0.25 mg-ethinyl 1 tab PO DAILY #84 tabs 03/07/24 estradiol 35 mcg tablet (Sprintec (28)) cephalexin 500 mg tablet 500 mg PO BID #10 tabs 07/11/24 ketorolac 10 mg tablet 10 mg PO Q6H #20 tabs 07/11/24 ondansetron 4 mg disintegrating 4 mg PO Q4H PRN Nausea And 07/11/24 tablet Vomiting #30 tabs phenazopyridine 200 mg tablet 200 mg PO TID 6 doses #6 tabs 07/11/24 (Pyridium) promethazine 12.5 mg rectal 12.5 mg IN Q6H PRN nausea and 07/11/24 suppository vomiting #12 ea promethazine 25 mg tablet 12.5 mg (1/2 x 25 mg) PO Q6H PRN 07/11/24 Nausea And Vomiting #14 tabs ibuprofen 800 mg tablet 800 mg PO Q8H #60 tabs 07/18/24 Allergies Allergy/AdvReac Type Severity Reaction Status Date / Time bisoprolol Allergy Mild rash Verified 07/11/24 04:16 [facility] <PASCALE Lopez - Last Filed: 07/18/24 21:50> [facility] Disclaimer: The information contained in this section may have been updated after the patient was seen, as this information can be updated by other users. Medical History Abnormal uterine bleeding Vaginal discharge Menorrhagia History of recurrent miscarriages depression Hypokalemia Surgical History History of delivery History of dilation and curettage Hx of tonsillectomy Family History Anemia Hyperlipidemia Heart attack Cancer Hypertension Asthma Social History Smoking Status: Never smoker alcohol intake: never substance use type: marijuana current occupational status: unemployed Travel in the last 8 weeks: None Have you lived/traveled outside US in past 30 days?: No Contact w/someone who lives/traveled outside US past 30 days?: No Exposure to someone with infectious disease in past 14 days?: No Do you have a fever (greater than 100.4 F or 38 C)?: No Have you tested positive for COVID-19: No Exposed to someone with COVID-19 in past 14 days?: No Do you have a sore throat?: No Do you have a cough?: No Do you have any weakness?: No Do you have any diarrhea?: No Are you experiencing any unusual bleeding?: No Do you have any muscle aches/pain?: No Do you have any abdominal pain?: Yes Are you experiencing loss of taste or smell?: No Other Medical History Have you received the Flu Vaccine for this season: No Have you received the Pneumonia Vaccine: No <PASCALE Lopez - Last Filed: 07/18/24 21:50> ROS Obtained: Yes Systems reviewed as appropriate & no additional complaints except as documented Physical Exam <PASCALE Lopez - Last Filed: 07/18/24 21:50> General General appearance: alert and in no apparent distress Respiratory Respiratory exam: Present normal lung sounds bilaterally Cardiovascular Cardiovascular exam: Present regular rate Neurological Exam Neurological exam: Present alert and oriented X3 Medical Decision Making <PASCALE Lopez - Last Filed: 07/18/24 21:50> Medical Records Medical records reviewed: Yes I reviewed the patient's medical records. Screening: Per USPSTF and CDC recommendations, given the prevalence of disease in our region, it is our hospital?s policy to screen for HIV and viral Hepatitis for all patients aged 18 and over and those with ongoing risk factors. Aidan Inquiry Pt receiving controlled substance: No Vital Signs: 07/18/24 15:53 07/18/24 15:57 07/18/24 17:25 Temperature 97.7 F 98.8 F Temperature Source Tympanic Pulse Rate 83 89 Pulse Rate [Right] 103 H Respiratory Rate 18 Blood Pressure 113/66 126/69 Blood Pressure [Right Arm] 131/79 Blood Pressure Mean [Right Arm] 96 Blood Pressure Source Blood Pressure Source [Right Arm] Automatic Cuff Blood Pressure Position [Right Arm] Sitting 02 Sat by Pulse Oximetry 98 97 97 Oxygen Delivery Method Room Air 07/18/24 19:00 Temperature 98.8 F Temperature Source Oral Pulse Rate 77 Pulse Rate [Right] Respiratory Rate 16 Blood Pressure 107/60 L Blood Pressure [Right Arm] Blood Pressure Mean [Right Arm] Blood Pressure Source Automatic Cuff Blood Pressure Source [Right Arm] Blood Pressure Position [Right Arm] 02 Sat by Pulse Oximetry Oxygen Delivery Method Room Air Lab Data Lab results reviewed: Yes I reviewed the patient's lab results. Orders (Tests/Meds): ED MEDICATIONS Discontinued Medications Generic Name Dose Route Start Last Admin Trade Name Freq PRN Reason Stop Dose Admin Ketorolac Tromethamine 30 mg 07/18/24 16:47 07/18/24 17:05 Ketorolac 30mg/Ml Vial IM 07/18/24 16:48 30 mg ONCE ONE Administration ORDERS Category Date Time Status US transvaginal Stat Exams 07/18/24 16:46 Completed Medical Decision Narrative: In summary patient is a 24-year-old female who presents to the emergency department for evaluation of left lower quadrant abdominal pain. Patient is hemodynamically stable upon arrival, afebrile. Physical exam is remarkable for mild left lower quadrant tenderness to palpation without rebound or guarding or rigidity and normal bowel sounds.. Differential diagnosis includes variances pain versus ovarian torsion. Initial workup will be conducted with transvaginal ultrasound. Initial interventions include Toradol. Initial workup reviewed by me shows patient's cyst is the same size there is no evidence of torsion on ultrasound. Upon repeat evaluation patient reported moderate improvement in her discomfort. Given this I had an interactive discussion with Dr. Forbes of [employer] DES[employer] regarding patient's symptoms GARCIA patient management. Dr. Forbes came down and interviewed the patient in the ER and felt the patient was appropriate for discharge with follow-up as an outpatient. Given this patient is appropriate for discharge with follow-up with [employer] MECH[employer]ICAL DESIGN ENGINEER within 48 hours and a prescription for ibuprofen sent to her pharmacy. <Efe Kirk MD - Last Filed: 07/18/24 21:51> Vital Signs: 07/18/24 15:53 07/18/24 15:57 07/18/24 17:25 Temperature 97.7 F 98.8 F Temperature Source Tympanic Pulse Rate 83 89 Pulse Rate [Right] 103 H Respiratory Rate 18 Blood Pressure 113/66 126/69 Blood Pressure [Right Arm] 131/79 Blood Pressure Mean [Right Arm] 96 Blood Pressure Source Blood Pressure Source [Right Arm] Automatic Cuff Blood Pressure Position [Right Arm] Sitting 02 Sat by Pulse Oximetry 98 97 97 Oxygen Delivery Method Room Air 07/18/24 19:00 Temperature 98.8 F Temperature Source Oral Pulse Rate 77 Pulse Rate [Right] Respiratory Rate 16 Blood Pressure 107/60 L Blood Pressure [Right Arm] Blood Pressure Mean [Right Arm] Blood Pressure Source Automatic Cuff Blood Pressure Source [Right Arm] Blood Pressure Position [Right Arm] 02 Sat by Pulse Oximetry Oxygen Delivery Method Room Air Orders (Tests/Meds): ED MEDICATIONS Discontinued Medications Generic Name Dose Route Start Last Admin Trade Name Freq PRN Reason Stop Dose Admin Ketorolac Tromethamine 30 mg 07/18/24 16:47 07/18/24 17:05 Ketorolac 30mg/Ml Vial IM 07/18/24 16:48 30 mg ONCE ONE Administration ORDERS Category Date Time Status US transvaginal Stat Exams 07/18/24 16:46 Completed Medical Decision Narrative: In summary patient is a 24-year-old female who presents to the emergency department for evaluation of left lower quadrant abdominal pain. Patient is hemodynamically stable upon arrival, afebrile. Physical exam is remarkable for mild left lower quadrant tenderness to palpation without rebound or guarding or rigidity and normal bowel sounds.. Differential diagnosis includes variances pain versus ovarian torsion. Initial workup will be conducted with transvaginal ultrasound. Initial interventions include Toradol. Initial workup reviewed by me shows patient's cyst is the same size there is no evidence of torsion on ultrasound. Upon repeat evaluation patient reported moderate improvement in her discomfort. Given this I had an interactive discussion with Dr. Forbes of [employer] regarding patient's symptoms GARCIA patient management. Dr. Forbes came down and interviewed the patient in the ER and felt the patient was appropriate for discharge with follow-up as an outpatient. Given this patient is appropriate for discharge with follow-up with [employer]CH[employer] DESIGN ENGINEER within 48 hours and a prescription for ibuprofen sent to her pharmacy. I was consulted by the ANA LAURA, and we discussed the complexity of the problems being addressed. I approved the treatment and management plan for this patient's care in the Emergency Department, thus performing a substantive portion of the medical decision making. Efe Kirk MD Critical Care <PASCALE Lopez - Last Filed: 07/18/24 21:50> Critical Care Time Critical Care Time: No
--- NOTE | 2024-07-18 16:41 | PC.NURSE ---
Patient is in the chair resting and said she doesnt need anyhting right now.
--- NOTE | 2024-07-18 16:46 | US_ITS ---
PROCEDURE INFORMATION: Exam: US Duplex Artery and Vein of the Abdominal and/or Reproductive Organs. Complete Ovaries Exam date and time: 07/18/2024 5:19 PM Age: 24 years old Clinical indication: Pelvic pain; Additional info: Rlq abd pain, ovarian cysts rule out torsion TECHNIQUE: Imaging protocol: Real-time duplex ultrasound scan of the arterial and venous flow with color Doppler flow and spectral waveform analysis with image documentation. Duplex exam was performed to evaluate for torsion and other vascular conditions. COMPARISON: US TRANSVAGINAL 04/01/2025 02:13 FINDINGS: Right ovary/adnexa: Normal arterial and venous Doppler waveforms in the ovary. No ovarian torsion. Left ovary/adnexa: Normal arterial and venous Doppler waveforms in the ovary. No ovarian torsion. IMPRESSION: Ovarian blood flow appears within normal limits. PROCEDURE INFORMATION: Exam: US Pelvis, Transvaginal, Non-Obstetric Exam date and time: 07/18/2024 5:19 PM Age: 24 years old Clinical indication: Pelvic pain; Additional info: Rlq abd pain, ovarian cysts rule out torsion TECHNIQUE: Imaging protocol: Real-time transvaginal pelvic (non-obstetric) ultrasound with image documentation. Transvaginal imaging was used for better evaluation of the endometrium, adnexa, and/or cervix. COMPARISON: US TRANSVAGINAL 04/01/2025 02:13 FINDINGS: Uterus: Uterus measures 9.7 x 4.5 x 5.9 cm. Endometrium is 9 mm in thickness. Small Caesarean section scar in the anterior low uterus containing a pocket of fluid, of doubtful clinical significance. Right ovary/adnexa: Unremarkable right ovarian arterial and venous waveforms. Right ovary measures 2.2 x 2.3 x 2 cm. Left ovary/adnexa: Unremarkable left ovarian arterial and venous waveforms. Left ovary measures 4.6 x 4 x 3.7 cm. The estimated volume is 35 mL, which is abnormal. This is accounted for by the presence of a 4 cm simple cyst. Urinary bladder: Urinary bladder is limited. Intraperitoneal space: No free fluid. IMPRESSION: No acute findings. Specifically, no ovarian torsion.
[2024-07-18] MEDS: KETOROLAC 30MG/ML VIAL 30 MG IM (17:05)
[2024-07-18 17:25] VITALS: BP 126/69; PULSE 89; O2SAT 97
--- NOTE | 2024-07-18 17:25 | PC.NURSE ---
pt transported to ultrasound via international trade teacher and wheelchair
--- NOTE | 2024-07-18 17:57 | PC.NURSE ---
Omar Stewart PAC at bedside
--- NOTE | 2024-07-18 18:45 | PC.NURSE ---
DR BYRD OB AT BEDSIDE
--- NOTE | 2024-07-18 18:59 | PC.NURSE ---
ROUNDED ON THE PT. THE PT VOICES THAT SHE DOES NOT NEED ANYTHING AT THIS TIME. CALL LIGHT IS WITHIN REACH OF THE PT.
[2024-07-18 19:00] VITALS: BP 107/60; PULSE 77; RESP 16; TEMP 37.1; O2SAT 98
== END 2024-07-18 19:01 | disposition home or self-care (01) ==
PROVIDERS: Emergency Provider Emergency Medicine; PCP Pediatrics
DX: N83.202 Unspecified ovarian cyst, left side (principal); R10.32 Left lower quadrant pain
CPT/HCPCS: 76830; 96372; 99283; J1885

== ENCOUNTER 2024-08-29 11:07 | Outpatient (CLI) | payer OTHER, SELFPAY ==
--- NOTE | 2024-08-29 11:10 | US_ITS ---
PROCEDURE: US TRANSVAGINAL CLINICAL INDICATION: ovarian cyst COMPARISON: CT CT ABDOMEN PELVIS W CON from 07/11/2024 US US TRANSVAGINAL from 07/11/2024 US US TRANSVAGINAL from 07/18/2024 FINDINGS: Transvaginal sonographic images of the pelvis were obtained. UTERUS: 9.5 cm x 4.9 cmx 4.0cm anteverted with a combined endometrial thickness of 5.2mm. LEFT OVARY: 3.0cmx2.2cmx2.4cm with a volume of 8.2ml. There are several small follicles. RIGHT OVARY: 2.3cmx 1.6 cmx2.0cm with a volume of 3.9ml. There are multiple small peripheral follicles. The largest follicle measures 1 cm. Both ovaries are seen and appear normal. Doppler flow to both ovaries are seen. There is no fluid in the cul-de-sac. IMPRESSION: 1. Anteverted uterus upper limits of normal in size. The endometrium is thin measuring 5.2 mm and appears normal. 2. The left ovary contains several small follicles. 3. The right ovary has multiple small peripheral follicles. The largest follicle measures 1 cm. 4. No fluid in the cul-de-sac. Dictated by: Everett Arroyo MD 08/29/2024 14:01 Everett Arroyo MD in OV 08/29/2024 14:01
== END 2024-08-29 23:59 | disposition home or self-care (01) ==
LOC: RAD 11:08
PROVIDERS: PCP Pediatrics; Visit Provider Obstetrics & Gynecology
DX: R10.32 Left lower quadrant pain (principal); N83.201 Unspecified ovarian cyst, right side; N83.202 Unspecified ovarian cyst, left side
CPT/HCPCS: 76830

== ENCOUNTER 2025-01-23 17:47 | Emergency (ER) | payer OTHER, SELFPAY ==
--- OUTSIDE RECORDS SUMMARY | 2005-08-05 01:00 | XMS_ITS | Encounter Summary ---
Author Organization [facility] Address [address] [place] [id number] Care Team Providers Care Addiction Therapist Name Role Phone Unavailable Primary Care Provider Unavailabl e Encounter Details Date Type Department Care Team (Late st Contact Info) Description 08/05/2005 Hospital Encounter [facility] Department of Radiology [address] [place] [phone] Social History Tobacco Use Types Packs/Day Years Used Date Smoking Tobacco: Never Assessed Comments Unknown Sex and Gender Information Value Date Recorded Sex Assigned at Not on file Legal Sex Female 5:26 AM EST Gender Identity Not on file Sexual Orientation Not on file documented as of this encounter Miscellaneous Notes * Consent Other - Edt, Audit [place] - 01/23/2009 10:13 AM EDT documented in this encounter Plan of Treatment Not on file documented as of this encounter Visit Diagnoses Not on filedocumented in this encounter
--- OUTSIDE RECORDS SUMMARY | 2024-12-27 14:40 | XMS_ITS | Encounter Summary ---
Author Organization [place] [address] Care Team Providers Care Tea Room Manager Name Role Phone Zulay Fonseca DO Primary Care Provider + [phone] Reason for Visit * Reason Comments Congestion Encounter Details Date Type Department Care Team (Late st Contact Info) Description 12/27/2024 2:40 PM EDT Telemedicine [place] [address] [place] [address] Zulay Fonseca DO [address] [place] [phone] Acute bacterial sinusitis (Primary Dx) Social History [...] Date Recorded PHQ-2 Total Score 0 02/08/2024 [facility] [place] of Occupat ional Health - Occupational Stress [...] A video visit does not replace a yhbv-lv-xoyx exam and further services may be necessary. We are conducting her video visit in a private space and this video visit is being conducted in accordance with [facility] telehealth/video visit regulations. HPI: 24 year [...] unspecified documented in this encounter Care Teams Tea Room Manager Relationship Specialty Start Date End Date Zulay [place]sec[place] [address] PCP - General Family Medicine 07/30/23 documented as of this encounter
--- OUTSIDE RECORDS SUMMARY | 2025-01-16 14:00 | XMS_ITS | Encounter Summary ---
Author Organization [place] [address] Care Team Providers Care Monomer Recovery Supervisor Name Role Phone Zulay Fonseca DO Primary Care Provider + [phone] Reason for Visit * Reason Comments Test Positive t est at home Encounter Details Date Type Department Care Team (Late st Contact Info) Description 01/16/2025 2:00 PM EDT Office Visit [facility] [address] [place] [address] vIone Muro, RETAIL BRANCH MANAGER [address] [place] [address] Amenorrhea (Primary Dx); Iron deficiency anemia due [...] Date Recorded PHQ-2 Total Score 0 02/08/2024 [facility] [place] of Occupat ional Health - Occupational Stress [...] written. Encouraged to discuss medication management with spanish speaking babysitter. Orders: sertraline (ZOLOFT) 50 mg Oral Tablet; [...] written. Encouraged to discuss medication management with spanish speaking babysitter. Orders: sertraline (ZOLOFT) 50 mg Oral Tablet; [...] contacted her Ob, Dr. Josefina Weaver at [facility] and has appointment scheduled in 1 [...] * (ABNORMAL) FERRITIN (01/16/2025 2:30 PM EDT) [facility] Signature Ferritin 22(L) 30 - 150 ng/mL 01/17/2025 12:14 AM EDT [employer] Comment:The lower threshold of 30 is not [...] EDT 01/16/2025 2:30 PM EDT Narrative PREFERRED [facility], [facility] - 01/17/2025 12:14 AM EDT Ingestion of jeane doses of biotin (>5 mg/day) taken within 8 hours of drawing blood sample can interfere with this immunoassay test. Ivone Muro APRN CHEMISTRY ORDERABLES Sosa l Result Performing Organization Address [facility] de Phone Number PREFERRED LAB [facility], [address] , [place] [address] * (ABNORMAL) IRON+TIBC (01/16/2025 2:30 PM EDT) Iron 27(L) 30 - 160 mcg/dL 01/17/2025 12:14 AM EDT PREFERRED LAB [facility], [employer] Transferrin 235 200 - 360 mg/dL 01/17/2025 12:14 AM EDT PREF[facility]ED LAB [facility], [facility] Transferrin Saturation 8(L) 20 - 50 % 01/17/2025 12:14 AM EDT PREFERRED LAB [facility], [facility] TIBC 329 250 - 400 mcg/dL 01/17/2025 12:14 AM EDT [employer], [facility] Blood VENOUS BLOOD / Unknown Venipuncture / Unknown 01/16/2025 2:30 PM EDT 01/16/2025 2:30 PM EDT Ivone Muro APRN CHEMISTRY ORDERABLES Sosa l Result Performing Organization Address [facility] Co de Phone Number PREFERRED [facility], [address] , [place] [address] * (ABNORMAL) COMPREHENSIVE METABOLIC PANEL (01/16/2025 2:30 PM EDT) Sodium 135(L) 136 - 145 mmol/L 01/17/2025 12:14 AM EDT [facility] Potassium 3.5 3.5 - 5.0 mmol/L 01/17/2025 12:14 AM EDT [facility] Chloride 102 98 - 107 mmol/L 01/17/2025 12:14 AM EDT [facility] Total CO2 21(L) 22 - 29 mmol/L 01/17/2025 12:14 AM EDT [facility] Anion Gap 12 7 - 16 mmol/L 01/17/2025 12:14 AM EDT [facility] Calcium 9.3 8.6 - 10.4 mg/dL 01/17/2025 12:14 AM EDT [facility] Glucose Lvl 83 70 - 99 mg/dL 01/17/2025 12:14 AM EDT [facility] BUN 9 6 - 20 mg/dL 01/17/2025 12:14 AM EDT [facility] Creatinine 0.51 0.51 - 1.30 mg/dL 01/17/2025 12:14 AM EDT [facility] Albumin 4.1 3.5 - 5.2 gm/dL 01/17/2025 12:14 AM EDT [facility] Total Protein 6.8 6.4 - 8.3 gm/dL 01/17/2025 12:14 AM EDT [facility] Bili Total 0.2 0.2 - 1.3 mg/dL 01/17/2025 12:14 AM EDT [facility] ALT 16 <=41 U/L 01/17/2025 12:14 AM EDT [facility] AST 16 <=40 U/L 01/17/2025 12:14 AM EDT [facility] Alk Phos 80 36 - 123 U/L 01/17/2025 12:14 AM EDT [facility] eGFR (CKD-EPIcr 2020) 132 >=60 mL/min/1.7 3 m2 01/17/2025 12:14 AM EDT [facility] Comment:Estimated GFR was ca lculated using the CKD-EPIcr (2020) equation refit without race. The equation is recommended by the National Kidney Foundation - [place] Society of Nephrology Task Force. Blood VENOUS BLOOD / Unknown Venipuncture / Unknown 01/16/2025 2:30 PM EDT 01/16/2025 2:30 PM EDT us Ivone Romero Bhaskar MONTOYA CHEMISTRY ORDERABLES Sosa velasco Result [facility] 1 MEDICAL [facility] , [place] [address] * CBC WITH DIFF (01/16/2025 2:30 PM EDT) Pathologist [facility] WBC 8.2 3.7 - 10.3 x10(3)/mcL 01/16/2025 [...] 01/16/2025 9:10 PM EDT [facility] [place] Percent 7.7 % 01/16/2025 9:10 PM EDT [facility] Eos Percent 1.8 % 01/16/2025 9:10 PM EDT [facility] Baso Percent 0.6 % 01/16/2025 9:10 PM EDT [facility] Neut # 5.0 1.6 - 6.1 x10(3)/[facility] 01/16/2025 9:10 PM EDT [facility] Comment:Neutrophils equals s egs plus bands IMMGRAN# 0.0 0.0 - 0.1 x10(3)/[facility] 01/16/2025 9:10 PM EDT [facility] Comment:Automated count of m etamyelocytes, myelocytes and promyelocytes. An absolute IG <0.1 is reported as 0.0. Lymph # 2.3 1.2 - 3.9 x10(3)/[facility] 01/16/2025 9:10 PM EDT [facility] [place] # 0.6 0.3 - 0.9 x10(3)/[facility] 01/16/2025 9:10 PM EDT [facility] Eos# 0.2 0.0 - 0.5 x10(3)/[facility] 01/16/2025 9:10 PM EDT [facility] Baso # 0.1 0.0 - 0.1 x10(3)/[facility] 01/16/2025 9:10 PM [address] [facility] LAB [facility], [facility] Blood VENOUS BLOOD / Unknown Venipuncture / Unknown 01/16/2025 2:30 PM EDT 01/16/2025 2:30 PM EDT us Ivone Muro APRN HEMATOLOGY ORDERABLES Fin al Result [facility], [facility] [address] [facility] , [place] [address] * (ABNORMAL) HUMAN CHORIONIC GONADOTROPIN QUANTITATIVE (01/16/2025 2:30 PM EDT) Pathologist [facility] Hcg Quant 1,006(H) <5 mIU/mL 01/17/2025 12:18 AM EDT [employer] Blood VENOUS BLOOD / Unknown Venipuncture / Unknown 01/16/2025 2:30 PM EDT 01/16/2025 2:30 PM EDT Narrative PREFERRED [employer] - 01/17/2025 12:18 AM EDT Female (non-): [...] ORDERABLES Sosa l Result Performing Organization Address City/[facility]/ZIP Co de Phone Number [facility] [address] [place] [address] , [place] [address] * POCT URINE TELCOR (01/16/2025 2:01 PM EDT) Pathologist [facility] Preg Test, Ur Positive 01/16/2025 2:05 PM EDT [facility] Urine STRUCTURE OF URINARY TRACT PROPER / Unknown 01/16/2025 2:01 PM EDT 01/16/2025 2:05 PM EDT Ivone Muro APRN POINT OF CARE TEST ORDERA BLES Final Result [facility] [address] [place] [address] documented in this encounter Visit Diagnoses [...] 01/16/2025 fluticasone propionate (FLONASE) 50 mcg/actuation Nasl [place], SuspensionIndications: Eustachian tube dysfunction, left 1 [place] by Nasal route daily. Cancelled by 08/18/2024 [...] documented as of this encounter Care Teams Monomer Recovery Supervisor Relationship Specialty Start Date End Date Zulay Fonseca DO [employer] [place] [phone] PCP - General Family Medicine 07/30/23 documented as of this encounter
--- OUTSIDE RECORDS SUMMARY | 2025-01-17 13:30 | XMS_ITS | Encounter Summary ---
Author Organization [place] [address] Care Team Providers Care Wrapper Leaf Inspector Name Role Phone Zulay Fonseca DO Primary Care Provider + [phone] Reason for Visit * Reason Comments Labs Only Encounter Details Date Type Department Care Team (Late st Contact Info) Description 01/17/2025 1:30 PM EDT Clinical Support [facility] [place] [address] [place] [address] [address] [place], [place] [phone] Amenorrhea Social History Tobacco Use Types Packs/Day [...] Date Recorded PHQ-2 Total Score 0 02/08/2024 [facility] [place] of Occupat ional Health - Occupational Stress [...] Assessment Author No 08/29/2019 6:29 PM Darwin Maurre RN * Does this person have serious [...] Date Author No 08/29/2019 6:29 PM Darwin aMurer RN documented in this encounter Progress Notes [...] 9.10 ng/mL 01/18/20 8:48 PM EDT [facility] Blood VENOUS BLOOD / Unknown Venipuncture / Unknown 01/17/2025 1:29 PM EDT 01/17/2025 1:29 PM EDT Narrative [facility] - 01/17/2025 8:48 PM EDT Suggested Reference [...] APRN CHEMISTRY ORDERABLES Sosa velasco Result [facility] [address] [facility] , [place] [address] documented in this encounter Visit Diagnoses Diagnosis Amenorrhea Absence of menstruation documented in this encounter Care Teams Wrapper Leaf Inspector Relationship Specialty Start Date End Date Zulay Fonseca DO [address] [place] [address] PCP - General Family Medicine 07/30/23 documented as of this encounter
--- NOTE | 2025-01-23 17:52 | ED_ITS ---
<Statement entered by Lyndsey Wallace DO - 01/23/25 20:22> I was consulted by the ANA LAURA, and we discussed the complexity of problems being addressed. I approve the treatment and management plan for this patient's care in the emergency department, thus performing a substantial portion of the medical decision making. Lyndsey Wallace DO Discharge Plan Disposition Patient Disposition: Home, Self-Care Condition: Good Prescriptions Prescriptions: No Action ferrous sulfate [FeroSul] 325 mg (65 mg iron) tablet 325 mg PO BID Patient Comments: TAKE 1 TABLET BY MOUTH 2 TIMES DAILY. fluoxetine 60 mg tablet 60 mg PO DAILY albuterol sulfate 90 mcg/actuation HFA aerosol inhaler inhalation Patient Comments: INHALE 2 PUFFS INTO THE LUNGS EVERY 4 HOURS NEEDED FOR WHEEZING. mupirocin 2 % ointment topical Patient Comments: APPLY TOPICALLY 3 TIMES DAILY FOR 14 DAYS. valacyclovir 1 gram tablet 500 mg PO PRN Patient Comments: TAKE 2 TABLETS BY MOUTH 2 TIMES DAILY FOR 2 DAYS. triamcinolone acetonide 0.1 % cream topical Patient Comments: APPLY TOPICALLY TO THE AFFECTED AREA(S) TWICE DAILY. omeprazole 40 mg capsule,delayed release(DR/EC) 40 mg PO PRN Patient Comments: TAKE 1 CAPSULE BY MOUTH 2 TIMES DAILY. guaifenesin [Mucus Relief ER] 600 mg tablet extended release 12hr PO Patient Comments: TAKE 1 TABLET BY MOUTH 2 TIMES DAILY. quetiapine 50 mg tablet extended release 24 hr PO Patient Comments: TAKE 1 TABLET BY MOUTH NIGHTLY. progesterone micronized [Prometrium] 200 mg capsule 200 mg vaginal HS Qty: 30 1RF Rx Instructions: insert vaginally every night at bedtime ibuprofen 800 mg tablet 800 mg PO Q8H Qty: 60 0RF Referrals Follow up/Referrals: Zulay Fonseca DO [Primary Care Provider, Family Practice] - See instructions Josefina Sharma DO [Staff Physician, NEUROSURGERY SPINE PHYSICIAN] - See instructions Activity Restrictions/Add. Instructions Additional Instructions/Restrictions: You were evaluated on an emergency basis. It is very important that you follow- up with your primary care provider and any specialist who we discussed within the next 2 days in order to better assess your health more comprehensively. For example, incidental findings on imaging or laboratory results that were performed today may be discovered, which do not require immediate medical care, but may impact your health in the future. If your symptoms worsen or persist, please return to the emergency department immediately for reassessment. Take all medications as prescribed. In queue for allowing me to participate in your health care, and I hope you feel better soon. Clinical Impressions Clinical Impression: Confirmed intrauterine on ultrasound, Hypokalemia Instructions Patient Instructions: Hypokalemia Print Language Print Language: Iranian Discharge ED Provider: Lyndsey Wallace General Adult HPI <Ivone Diaz - Last Filed: 01/23/25 20:15> General Chief complaint: Abdominal Pain Stated complaint: with cramps and pelvic pain Time Seen by Provider: 01/23/25 17:52 History of Present Illness HPI narrative: 24-year-old female presents to the emergency department with complaints of lower abdominal pain/cramping, painful urination. She reports that she is approximately 5 weeks and is scheduled to see her OB provider tomorrow. She denies vaginal bleeding. She reports her last menstrual period was December 16. She states that she had lab work done to confirm her on January 16 and had a hCG level of approximately 1000. Related Data Home Medications ?Medication ?Instructions ?Recorded ?Confirmed ferrous sulfate 325 mg (65 mg 325 mg PO BID 03/07/24 0 10/19/24 iron) tablet (FeroSul) fluoxetine 60 mg tablet 60 mg PO DAILY 03/07/2409/29 albuterol sulfate 90 mcg/actuation inhalation 07/20/24 10/19/24 aerosol inhaler mupirocin 2 % topical ointment topical 07/20/24 omeprazole 40 mg capsule,delayed 40 mg PO PRN 07/20/24 10/19/24 release triamcinolone acetonide 0.1 % applic topical 07/20/24 10/19/24 topical cream valacyclovir 1 gram tablet 500 mg PO PRN 07/20/2409/29 guaifenesin 600 mg tablet, mg PO 10/19/24 10/19/24 extended release 12 hr (Mucus Relief ER) quetiapine 50 mg tablet,extended mg PO 10/19/24 release 24 hr Previous Rx's ?Medication ?Instructions ?Recorded ibuprofen 800 mg tablet 800 mg PO Q8H #60 tabs 07/18 progesterone micronized 200 mg 200 mg vaginal HS #30 c aps 01/19/25 capsule (Prometrium) Allergies Allergy/AdvReac Type Severity Reaction Status Date / Time bisoprolol Allergy Mild rash Verified 01/23/25 18:10 PFS <Ivone Diaz - Last Filed: 01/23/25 20:15> [facility] Disclaimer: The information contained in this section may have been updated after the patient was seen, as this information can be updated by other users. Medical History Abnormal uterine bleeding Vaginal discharge Menorrhagia History of recurrent miscarriages depression Hypokalemia Surgical History History of delivery x2 History of dilation and curettage Hx of tonsillectomy Family History Other Anemia Asthma Cancer Heart attack Hyperlipidemia Hypertension Social History Smoking Status: Current every day smoker alcohol intake: never substance use type: marijuana current occupational status: unemployed Travel in the last 8 weeks?: None Have you lived/traveled outside US in past 30 days?: No Contact w/someone who lives/traveled outside US past 30 days?: No Exposure to someone with infectious disease in past 14 days?: No Do you have a fever (greater than 100.4 F or 38 C)?: No Have you tested positive for COVID-19?: No Exposed to someone with COVID-19 in past 14 days?: No Do you have a sore throat?: No Do you have a cough?: No Do you have any weakness?: No Do you have any diarrhea?: No Are you experiencing any unusual bleeding?: No Do you have any muscle aches/pain?: No Do you have any abdominal pain?: No Are you experiencing loss of taste or smell?: No Other Medical History Have you received the Flu Vaccine for this season: No Have you received the Pneumonia Vaccine: No <Ivone Diaz - Last Filed: 01/23/25 20:15> ROS Obtained: Yes All systems reviewed & no additional complaints except as documented Gastrointestinal Gastrointestingal: Reports abdominal pain and cramping Physical Exam <Ivone Diaz - Last Filed: 01/23/25 20:15> Narrative Physical exam: General: Awake, aware, in no acute distress HEENT: Normocephalic, no evidence of trauma CV: RRR, no murmurs, rubs, or gallops Pulm: CTA bilaterally with no rhonchi, rales, wheezes ABD: Mild diffuse abdominal tenderness noted on palpation with normal active bowel sounds Psych, appropriate mood and affect General General appearance: alert Respiratory Respiratory exam: Present normal lung sounds bilaterally Cardiovascular Cardiovascular exam: Present regular rate Expanded Exam Speculum exam: Present cervical OS closed Neurological Exam Neurological exam: Present alert <Lyndsey Wallace DO - Last Filed: 01/23/25 20:21> Narrative Physical exam: General: Awake, aware, in no acute distress HEENT: Normocephalic, no evidence of trauma CV: RRR, no murmurs, rubs, or gallops Pulm: CTA bilaterally with no rhonchi, rales, wheezes ABD: Mild diffuse abdominal tenderness noted on palpation with normal active bowel sounds Psych, appropriate mood and affect Pelvic Exam: Vaginal canal with mild physiologic discharge, cervix unremarkable no lesions Medical Decision Making <Ivone Diaz - Last Filed: 01/23/25 20:15> Medical Records Screening: Per USPSTF and CDC recommendations, given the prevalence of disease in our region, it is our hospital?s policy to screen for HIV and viral Hepatitis for all patients aged 18 and over and those with ongoing risk factors. Aidan Inquiry Pt receiving controlled substance: No Vital Signs: 01/23/25 17:58 01/23/25 18:00 01/23/25 18:45 Temperature 98.6 F Temperature Source Oral Pulse Rate 86 92 H Pulse Rate [Right Brachial] 77 Respiratory Rate 17 Blood Pressure 118/73 Blood Pressure [Right Arm] 118/73 Blood Pressure Mean [Right Arm] 88 Blood Pressure Source [Right Arm] Automatic Cuff Blood Pressure Position Blood Pressure Position [Right Arm] Sitting 02 Sat by Pulse Oximetry 100 98 98 Oxygen Delivery Method Room Air 01/23/25 19:15 01/23/25 20:19 Temperature 98.0 F Temperature Source Oral Pulse Rate 105 H 88 Pulse Rate [Right Brachial] Respiratory Rate 18 Blood Pressure 148/88 H 148/88 H Blood Pressure [Right Arm] Blood Pressure Mean [Right Arm] Blood Pressure Source [Right Arm] Blood Pressure Position Supine Blood Pressure Position [Right Arm] 02 Sat by Pulse Oximetry 97 Oxygen Delivery Method Room Air Lab Data Lab Results 01/23/25 17:56: Urine Color Yellow, Urine Appearance Clear, Urine pH 6.0, Ur Specific Beasley >= 1.030, Urine Protein Negative, Urine Glucose (UA) Negative, Urine Ketones Negative, Urine Blood Negative, Urine Nitrate Negative, Urine Bilirubin Negative, Urine Urobilinogen 0.2, Ur Leukocyte Esterase Negative, Urine RBC None, Urine WBC None, Ur Squamous Epith Cells 10-20, Urine Bacteria 1+ 01/23/25 18:34: WBC 8.6, RBC 4.56, Hgb 12.5, Hct 38.3, MCV 84.0, MCH 27.4, MCHC 32.6, RDW 13.4, Plt Count 209, MPV 11.7 H, Neut % (Auto) 68.4, Lymph % (Auto) 24.8, Edmunds % (Auto) 4.8, Eos % (Auto) 1.3, Baso % (Auto) 0.5, Neut # (Auto) 5.9, Lymph # (Auto) 2.1, Edmunds # (Auto) 0.4, Eos # (Auto) 0.1, Baso # (Auto) 0.0, Sodium 136, Potassium 3.2 L, Chloride 101, Carbon Dioxide 24, Anion Gap 14.2, BUN 11, Creatinine 0.50 L, Estimated Creat Clear 234, Estimated GFR 150, Est GFR ( Amer) 182, Glucose 94, Calcium 9.2, Total Bilirubin 0.5, AST 28, ALT 22, Alkaline Phosphatase 69, Total Protein 7.2, Albumin 4.5, Globulin 2.7, Albumin/Globulin Ratio 1.7, HCG, Quant [id number] H 01/23/25 18:34 01/23/25 18:34 Orders (Tests/Meds): ED MEDICATIONS Discontinued Medications Generic Name Dose Route Start Last Admin Trade Name Freq PRN Reason Stop Dose Admin Cephalexin HCl 500 mg 01/23/25 19:34 01/23/25 19:54 Cephalexin 500mg Capsule PO 01/23/25 19:35 500 mg ONCE ONE Administration Potassium Chloride 40 meq 01/23/25 18:59 01/23/25 19:14 Potassium Chloride 20meq Tab PO 01/23/25 19:00 40 meq ONCE ONE Administration ORDERS Category Date Time Status POCUS Point of Care (ER Only) Stat Exams 01/23/25 19:19 Ordered CBC w/Auto Diff [Complete Blood Count Auto Diff] Stat Lab 01/23/25 18:34 Completed CMP [Comprehensive Metabolic Panel] Stat Lab 01/23/25 18:34 Completed HCG,Quantitative Stat Lab 01/23/25 18:34 Completed Urinalysis and Microscopic Stat Lab 01/23/25 17:56 Completed Medical Decision Narrative: Initial impression of presenting illness: 24-year-old female presents to the emergency department with complaints of lower abdominal pain and cramping. She states she is approximately 5 weeks , denies vaginal bleeding. She states that her last menstrual period was December 16. She reports she had lab work done to confirm her on January 16 had hCG level around thousand. She states that she is scheduled to see her OB provider tomorrow. Differential diagnosis includes but is not limited to: Urinary tract infection, constipation, ectopic , pyelonephritis Patient arrives hemodynamically stable, afebrile, without respiratory distress with vital signs interpreted by myself. Initial physical exam reveals mild diffuse abdominal tenderness on palpation with normal active bowel sounds. CVA tenderness is noted. Rest of exam is unremarkable Initial diagnostic plan: Urinalysis and laboratory studies Results from initial plan were reviewed and interpreted by myself, pertinent positives include: Urinalysis was positive for 1+ bacteria however there were also 10-20 epithelial cells per high-power field. Potassium was 3.2. Patient's quantitative hCG is still being alluded by lab however they reported that it was greater than 15,000. Rest of laboratory studies were nonactionable. Bedside ultrasound was done by ED attending Dr. Wallace that does show a gestational sac within the uterus unable to visualize heart activity at this time. Interventions in the ED: Patient was given oral potassium for supplementation. Also gave patient 1 dose of Keflex to treat for possible urinary tract infection. Patient was made aware of the results and the findings, upon reevaluation patient has remained stable throughout stay, symptoms remain stable. Upon reevaluation patient's resting comfortably in bed with no signs of acute distress. Disposition: Reviewed findings today's workup with patient informed her that her potassium was slightly low at 3.2 however the oral supplementation should bring her back to normal range. Inform patient that she does have some bacteria in her urine but there was also epithelial cells present. This could be contamination from collection technique versus an actual urinary tract infection. Informed patient that since she has an appointment with the OB provider tomorrow that would give her 1 dose of Keflex tonight to treat for possible urinary tract infection but recommended that she follow-up with them tomorrow to have her urinalysis rechecked to confirm UTI versus contamination. Instructed patient to return to the emergency department any new or worsening symptoms otherwise to keep her scheduled appoint with her OB provider tomorrow. Patient made aware of findings and had a detailed discussion with symptomatic care and return precautions, patient voiced understanding. <Lyndsey Wallace, DO - Last Filed: 01/23/25 20:21> Vital Signs: 01/23/25 17:58 01/23/25 18:00 01/23/25 18:45 Temperature 98.6 F Temperature Source Oral Pulse Rate 86 92 H Pulse Rate [Right Brachial] 77 Respiratory Rate 17 Blood Pressure 118/73 Blood Pressure [Right Arm] 118/73 Blood Pressure Mean [Right Arm] 88 Blood Pressure Source [Right Arm] Automatic Cuff Blood Pressure Position Blood Pressure Position [Right Arm] Sitting 02 Sat by Pulse Oximetry 100 98 98 Oxygen Delivery Method Room Air 01/23/25 19:15 01/23/25 20:19 Temperature 98.0 F Temperature Source Oral Pulse Rate 105 H 88 Pulse Rate [Right Brachial] Respiratory Rate 18 Blood Pressure 148/88 H 148/88 H Blood Pressure [Right Arm] Blood Pressure Mean [Right Arm] Blood Pressure Source [Right Arm] Blood Pressure Position Supine Blood Pressure Position [Right Arm] 02 Sat by Pulse Oximetry 97 Oxygen Delivery Method Room Air Lab Data Lab Results 01/23/25 17:56: Urine Color Yellow, Urine Appearance Clear, Urine pH 6.0, Ur Specific Beasley >= 1.030, Urine Protein Negative, Urine Glucose (UA) Negative, Urine Ketones Negative, Urine Blood Negative, Urine Nitrate Negative, Urine Bilirubin Negative, Urine Urobilinogen 0.2, Ur Leukocyte Esterase Negative, Urine RBC None, Urine WBC None, Ur Squamous Epith Cells 10-20, Urine Bacteria 1+ 01/23/25 18:34: WBC 8.6, RBC 4.56, Hgb 12.5, Hct 38.3, MCV 84.0, MCH 27.4, MCHC 32.6, RDW 13.4, Plt Count 209, MPV 11.7 H, Neut % (Auto) 68.4, Lymph % (Auto) 24.8, Edmunds % (Auto) 4.8, Eos % (Auto) 1.3, Baso % (Auto) 0.5, Neut # (Auto) 5.9, Lymph # (Auto) 2.1, Edmunds # (Auto) 0.4, Eos # (Auto) 0.1, Baso # (Auto) 0.0, Sodium 136, Potassium 3.2 L, Chloride 101, Carbon Dioxide 24, Anion Gap 14.2, BUN 11, Creatinine 0.50 L, Estimated Creat Clear 234, Estimated GFR 150, Est GFR ( Amer) 182, Glucose 94, Calcium 9.2, Total Bilirubin 0.5, AST 28, ALT 22, Alkaline Phosphatase 69, Total Protein 7.2, Albumin 4.5, Globulin 2.7, Albumin/Globulin Ratio 1.7, HCG, Quant [id number] H Orders (Tests/Meds): ED MEDICATIONS Discontinued Medications Generic Name Dose Route Start Last Admin Trade Name Freq PRN Reason Stop Dose Admin Cephalexin HCl 500 mg 01/23/25 19:34 01/23/25 19:54 Cephalexin 500mg Capsule PO 01/23/25 19:35 500 mg ONCE ONE Administration Potassium Chloride 40 meq 01/23/25 18:59 01/23/25 19:14 Potassium Chloride 20meq Tab PO 01/23/25 19:00 40 meq ONCE ONE Administration ORDERS Category Date Time Status POCUS Point of Care (ER Only) Stat Exams 01/23/25 19:19 Ordered CBC w/Auto Diff [Complete Blood Count Auto Diff] Stat Lab 01/23/25 18:34 Completed CMP [Comprehensive Metabolic Panel] Stat Lab 01/23/25 18:34 Completed HCG,Quantitative Stat Lab 01/23/25 18:34 Completed Urinalysis and Microscopic Stat Lab 01/23/25 17:56 Completed Procedures <Lyndsey Wallace DO - Last Filed: 01/23/25 20:21> Limited Ultrasound Indication:: Abdominal cramping Views:: Suprapubic Findings:: Gestational sac with IUP, no FHR found Interpretation:: Gestational sac with IUP Disclaimer: Images were saved to the archive. The exam was technically adequate. No further imaging was indicated. Critical Care <Ivone Diaz - Last Filed: 01/23/25 20:15> Critical Care Time Critical Care Time: No
[2025-01-23 17:58] VITALS: BP 118/73; PULSE 77; RESP 17; TEMP 37; O2SAT 100; BMI 33.6
--- OUTSIDE RECORDS SUMMARY | 2025-01-23 17:58 | XMS_ITS | Clinical Summary ---
Author Organization [facility] Address [address] [place] [id number] Care Team Providers Care Wool Hat Finisher Name Role Phone Unavailable Primary Care Provider Unavailabl e Source Comments [facility] is fully rolled out with thefollowing exceptions:General Clinical Research [facility] Social History Tobacco Use Types Packs/Day Years Used Date Smoking Tobacco: Never Assessed Comments Unknown Sex and Gender Information Value Date Recorded Sex Assigned at Not on file Legal Sex Female 5:26 AM EST Gender Identity Not on file Sexual Orientation Not on file Plan of Treatment Health Maintenance Due Date Last Done Comments MMR IMMUNIZATION (1 of 1 - S tandard series) 2000 DTAP/Tdap/Td IMMUNIZATION (1 - Tdap) 2006 VARICELLA IMMUNIZATION (1 of 2 - 13+ 2-dose series) 2012 HPV IMMUNIZATION (1 - 3-dose series) 2014 HEPATITIS B IMMUNIZATION (1 of 3 - 19+ 3-dose series) 2018 COVID-19 Vaccine (1 - 2023-2 5 season) 2024 AMB SEASONAL FLU VACCINE (#1) 03/31/2025 HIB IMMUNIZATION Aged Out No longer e ligible based on patient's age to complete this topic IPV IMMUNIZATION Aged Out No longer e ligible based on patient's age to complete this topic MCV4 IMMUNIZATION Aged Out No longer eligible based on patient's age to complete this topic MENINGOCOCCAL B VACCINE Aged Out No l onger eligible based on patient's age to complete this topic PNEUMOCOCCAL IMMUNIZATION Aged Out No longer eligible based on patient's age to complete this topic Respiratory Syncytial Virus (RSV) <20mo Aged Out No longer eligible b ased on patient's age to complete this topic
--- OUTSIDE RECORDS SUMMARY | 2025-01-23 17:58 | XMS_ITS | Encounter Summary ---
Author Organization [place] [address] Care Team Providers Care Steam Tunnel Feeder Name Role Phone Zulay Fonseca DO Primary Care Provider + [phone] Encounter Details Date Type Department Care Team (Late st Contact Info) Description 01/18/2025 Results Follow-Up [facility] [address] [place] [address] Ivone Muro, STUDENT FINANCE SPECIALIST [address] [place], [place] [id number] PROGESTERONE LEVEL Social History Tobacco Use Types Packs/Day Years [...] Date Recorded PHQ-2 Total Score 0 02/08/2024 [facility] [place] [facility] - Occupational Stress [...] 08/29/2019 6:29 PM EDDarwin Mariee RN * Is the person blind or does he/she have serious difficulty seeing even when wearing glasses? Answer Date of Assessment Author No 08/29/2019 6:29 PM EDDarwin Mariee RN * Does this person have serious difficulty walking or climbing stairs? Answer Date of Assessment Author No 08/29/2019 6:29 PM EDDarwin Mariee RN * Does this person have difficulty [...] Darwin Maurer RN documented in this encounter Plan of Treatment [...] Diagnoses Not on filedocumented in this encounter Care Teams Steam Tunnel Feeder Relationship Specialty Start Date End Date Zulay Fonseca [email or web address] [address] PCP - General Family Medicine 07/30/23 documented as of this encounter
--- OUTSIDE RECORDS SUMMARY | 2025-01-23 17:58 | XMS_ITS | Encounter Summary ---
Author Organization [place] [address] Care Team Providers Care Playground Monitor Name Role Phone FonsecaZulay Primary Care Provider + [phone] Encounter Details Date Type Department Care Team (Latest Contact Info) Description 01/18/2025 Results [facility] [place] [address] [place] [address] Seng Duggan MD [address] [facility] [place] [address] HUMAN CHORIONIC GONADOTROPIN QUANTITATIVE Social History Tobacco Use Types Packs/Day Years [...] Date Recorded PHQ-2 Total Score 0 02/08/2024 [facility] [place] [facility] Occupat ional Health - Occupational Stress [...] documented in this encounter Progress Notes * Seng Duggan MD - 01/18/2025 11:32 AM EDT Blood work confirms early documented in this encounter Plan of Treatment [...] on filedocumented in this encounter Care Teams Playground Monitor Relationship Specialty Start Date End Date Zulay Fonseca DO [address] [place] [address] PCP - General Family Medicine 07/30/23 documented as of this encounter
--- OUTSIDE RECORDS SUMMARY | 2025-01-23 17:59 | XMS_ITS | Clinical Summary ---
Author Organization [facility] Address [address] [place] [address] Phone Care Team Providers Care Chuck Boner Name Role Phone Zulay Fonseca DO Primary Care Provider Allergies Active Allergy Reactions Criticality Noted Date Comments Bisoprolol Rash Low 04/01/2023 Medications sertraline (ZOLOFT) 50 mg Oral TabletIndicatio ns:Anxiety and depression Take 1 Tablet by mouth daily. 30 Tablet 3 01/16/2025 Active amoxicillin-cla vulanate (AUGMENTIN) 875-125 mg Oral TabletIndicatio ns:Acute bacterial sinusitis Take 1 Tablet by mouth every 12 hours for 10 days. 20 Tablet 12/27/2024 5 dextromethorpha n-guaiFENesin (MUCINEX DM) 30-600 mg Oral Tablet Sustained Release 12 hrIndications:A cute bacterial sinusitis Take 1 Tablet by mouth every 12 hours as needed for Other (cough) for up to 10 days. 20 Tablet 12/27/2024 5 Active Problems Patient Care Coordination No te Formatting of this note migh t be different from the original. Aidan as expected 05/16/2018 Reference number [id number] Utilization audit completed by Josefina Miguel RN on 04/19/2023. 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 See the Genomic Indicators tab in the Patient Snapshot or on the toolbar for more information. 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 Patient is predicted to have a high risk of irinotecan-induced adverse events such as bone marrow suppression and neutropenia. See the Genomic Indicators tab in the Patient Snapshot or on the toolbar for more information. 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 In Europeans, this has been associated with decreased response and increased intolerability of SSRI medications. While clinical guidelines do not currently exist for this gene, it may be reasonable to try non-SSRI medications for depression (e.g. SNRIs, bupropion, mirtazapine, vortioxetine), provided these medications are also indicated for the condition being treated and appropriate for the patient based on other clinical factors. Iron deficiency anemia 11/03/2023 Assessment & Plan (01/16/2025 8:59 PM EDT): Orders: CBC WITH DIFF; Future IRON+TIBC; Future FERRITIN; Future Assessment & Plan (05/18/2024 2:50 PM EST): Orders: CBC WITH DIFF; Future IRON+TIBC; Future Panic attacks 11/01/2023 Assessment & Plan (03/03/2024 1:28 PM EDT): Hydroxyzine 50 mg as needed Assessment & Plan (11/01/2023 5:18 PM EDT): -Patient reporting panic attack-like symptoms. -Continue Prozac -Will try hydroxyzine as needed -Can also consider gabapentin as needed for the panic attacks if the hydroxyzine is not effective until the Prozac is at a level that helps control her baseline anxiety Menometrorrhagia 08/25/2023 Assessment & Plan (05/18/2024 2:50 PM EST): Continue estarylla as prescribed, reports decreased menstrual flow. Orders: ESTARYLLA 0.25-35 mg-mcg Oral Tablet; Take 1 Tablet by mouth daily for 270 days. 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 Needs to increase physical activity. Restrict calories to [id number]. Phentermine caused tachycardia. Assessment & Plan (10/28/2023 5:04 PM EDT): Insurance will not cover Wegov[employer] Discussed appetite suppressant medications. Prozac has been used for binge eating disorders. Plan to start Prozac for mood disorders and this patient and helpful and will work on appetite suppression as well Assessment & Plan (02/22/2018 9:00 AM EDT): Negative metabolic/endocrine workup in May. Weight gain likely related to sedentary lifestyle and food intake. Calorie restrictions 1500/day. 5-6 meals a day. Continue water intake, up to 6 bottles/day. Phentermine 15mg daily x60 days and re-evaluate. Anxiety and depression 04/27/2016 Assessment & Plan (01/16/2025 8:59 PM EDT): Symptoms well controlled on Prozac but is class C with . After discussion of risks, benefits and possible side effects, will begin Zoloft as written. Encouraged to discuss medication management with hyperbaric technologist. Orders: sertraline (ZOLOFT) 50 mg Oral Tablet; Take 1 Tablet by mouth daily. Assessment & Plan (10/16/2024 12:08 PM EDT): Will add Seroquel to the Prozac to see if this combination is effective in managing symptoms Follow-up in a few weeks If alternative needed consider changing to fluvoxamine, escitalopram, or paroxetine Orders: QUEtiapine XR (SEROQUEL XR) 50 mg Oral Tablet Sustained Release 24 hr; Take 1 Tablet by mouth nightly. DAY 1 50MG, DAY 2 50MG, DAY 3 150MG, DAY 4 150MG Must be taken 3-4 hours prior to Bedtime. Assessment & Plan (03/03/2024 1:32 PM EDT): Increase Prozac to 60 mg Hydroxyzine 50 mg as needed Has tried BuSpar in the past and caused irritation Pharmacogenic report alternative therapy is indicated, consider fluvoxamine, escitalopram, or paroxetine Orders: FLUoxetine (PROZAC) 20 mg Oral Capsule; Take 3 Capsules by mouth daily for 90 days. Assessment & Plan (11/01/2023 5:18 PM EDT): Continue titration up on prozac as needed in a few weeks Assessment & Plan (10/28/2023 5:04 PM EDT): Pharmacal genetic testing ordered to help direct therapy given multiple medication failures in the past Start Prozac today follow-up in 4 weeks Assessment & Plan (08/25/2023 5:27 PM EDT): Has taken Wellbutrin effectively in the past. Patient would like to restart Wellbutrin at this time Follow-up in a couple of weeks Comments Yes Resolved Problems Problem Noted Date Diagnosed Date Resolved Date Encounter for insertion of ParaGard IUD 03/03/2024 03/03/2024 IUD (intrauterine device) in place 09/17/2023 03/08/2024 Overview (09/17/2023): Placed by STACKER STRAIGHTENER 08/2023 Paragard Hyperemesis gravidarum 08/25/202308/24 Group B Streptococcus samy r, +RV culture, currently 08/25/2023 08/25/2023 pelvic disproportion antepartum 08/25/2023 08/25/2023 Intrauterine growth restrict ion (IUGR) affecting care of mother 08/25/2023 08/25/2023 Insulin resistance 11/05/2020 Overview (11/05/2020): Lab Results Component Value Date HGBA1C 5.8 (H) 12/29/2019 History of miscarriage, curr ently , first trimester 07/31/2019 09/05/2019 Threatened in first trimester 07/31/2019 09/05/2019 Less than 8 weeks gestation of 07/31/2019 09/05/2019 Desire for 02/09/2019 020 Missed 08/17/2018 09/05/2019 Tachycardia 06/01/2018 09/05/2019 Epiploic appendagitis 06/01/20182019 Acne vulgaris 02/22/2018 08/25/2023 Overview (05/17/2018): Stable on benzoyl peroxide Encounter for surveillance o f contraceptive pills 11/04/2016 11/02/2017 Seasonal allergic rhinitis 04/27/2016 0 08/25/2023 Allergic contact dermatitis 08/15/2015 09/05/2020 Dermatitis 04/15/2015 08/25/2023 ADHD, predominantly hyperactive type 02/22/2018 Encounters Date Type Department Care Team Description 01/18/2025 Results Follow-Up [facility] [address] [place] [phone] Ivone Muro, WARDROBE COORDINATOR PROGESTERONE LEVEL 01/18/2025 Results Follow-Up [facility] [place] [address] [place] [phone] Seng Duggan MD HUMAN CHORIONIC GONADOTROPIN QUANTITATIVE 01/17/2025 1:30 PM EDT Clinical Support [address] [place] [phone] April Romero E Amenorrhea 01/16/2025 2:00 PM EDT Office Visit [address] [place] [phone] Ivone Muro WARDROBE COORDINATOR Amenorrhea (Primary Dx); Iron deficiency anemia due to chronic blood loss; Anxiety and depression 12/28/2024 Orders Only [address] [place] [phone] Zulay Fonseca, DO Acute bacterial sinusitis (Primary Dx) 12/27/2024 2:40 PM EDT Telemedicine [address] [place] [phone] Zulay Fonseca, Acute bacterial sinusitis (Primary Dx) 12/27/2024 Travel 10/24/2024 4:00 PM EDT Office Visit [address] [place] [phone] Seng Duggan MD Obesity, Class III, BMI 40-49.9 (morbid obesity) from Last 3 Months Immunizations Immunization Administration Dates Next Due DTaP 08/11/2004, 1,1999,1999,1999 HPV Quadrivalent 09/12/2014,01/30/2011 Hepatitis A, Ped/Adol, 2 Dose 02/23/2017, 015 Hepatitis B, Unspecified Formulation 07/20/2000, 1999,1999 HiB, Unspecified Formulation 07/20/2000, 1999,1999,1999 IPV 08/11/2004, 1,1999,1999 Influenza Vaccine Quadrivalent 02/28/2016,2014,03/15/2014 Influenza Vaccine Quadrivalent PF 06/01/2018,05/2018 MMR 01/25/2003,07/20/2000 Meningococcal Conjugate 02/23/2017,01/30/2011 Tdap 01/05/2011 Varicella 01/05/2011,01/25/2003 Surgical History Surgery Date Site/Laterality Comments TONSILLECTOMY AND ADENOIDECTOMY DILATION AND CURETTAGE OF UTERUS 08/17/2018 N/A DILATION AND CURETTAGE SUCTION EVACUATION FOR MISCARRIAGE; Surgeon: Catrachito Ramos MD; Location: [facility]; Service: Gynecology DILATION AND CURETTAGE OF UTERUS 08/29/2019 N/A DILATION AND CURETTAGE SUCTION EVACUATION FOR MISCARRIAGE; Surgeon: Catrachito Ramos MD; Location: [facility]; Service: Gynecology Medical History Medical History Date Comments Ovarian cyst Adhd Intrauterine growth restriction (IUGR) affecting care of mother 08/25/2023 pelvic disproportion antepartum 08/25/2023 Group B Streptococcus carrier, +RV culture, curr ently 08/25/2023 Hyperemesis gravidarum 08/25/2023 Family History Medical History Relation Name Comments High Blood Pressure Father Substance Abuse Father methamphetam megha Substance Abuse Maternal Grandfather opia domenic Asthma Maternal Grandmother COPD Maternal Grandmother Hypertension Maternal Grandmother Ulcerative Colitis Mother opiate Mother Cancer Paternal Grandfather colon Pancreatic Cancer Paternal Uncle sona Relation Name Status Comments Brother Alive Father Alive Maternal Grandfather Maternal Grandmother Alive Mother Alive Paternal Grandfather Paternal Grandmother Paternal Uncle sona Sister Alive Social History Tobacco Use Types Packs/Day Years Used Date Smoking Tobacco: Former Cigarettes Q uit: 05/31/2017 Smokeless Tobacco: Never Chew Tobacco Cessation:Counseling Given: Not Answered Comments:QUIT IN 2019 Alcohol Use Standard Drinks/Week Comments Not Currently 0 (1 standard drink = 0.6 oz pur e alcohol) some Overall Financial Resource Strain (CARDIA) Answe r Date Recorded Difficulty of Paying Living Expenses Not hard at all 05/03/2019 PHQ-2 Answer Date Recorded PHQ-2 Total Score 0 02/08/2024 [facility] Occupat ional Health - Occupational Stress [...] on file Sexual Orientation Not on file Obstetrics History Para Term AB IAB SAB Ectopic Multiple Livin g Live Births 6 1 1 3 3 Date Outcome GA Total Labor Labor/2nd/3rd Weight Sex Type Anes PTL Carolynn A1 A5 Name Clin 8 SAB 9 SAB 8w0d 2019 SAB 6w0d SAB 2022 Term CS-Uns pec 2023 CS-LTr anv Current Last Filed Vital Signs Vital Sign Reading [...] Mass Index 34.08 01/16/2025 2:03 PM EDT Plan of Treatment Health Maintenance Due Date Last Done Comments DTaP/TDaP/Td (7 - Td or Tdap) 01/05/2021 01/05/2011, 08/11/2004, 05/21/2003, Additional history exists COVID-19 Vaccine ( season) 2024 Cervical Cancer Screening 06/04/2024 Pap Smear 06/04/2024 06/04/2021 Influenza Vaccine (#1) 2025 9, 06/01/2018, 05/31/2018, Additional history exists Annual Wellness Exam 10/16/2025 10/16/2024, 08/05/19 24 RSV or 60+ (1 - 1-dose 75+ series) 2074 Hepatitis B Vaccine Completed 07/20/2000, 07/20/2000, 1999, Additional history exists HPV Completed 09/12/2014, 07/2010, 05/07/2008 Chlamydia Screening Discontinued 06/04/2021, 02/14/2020, 11/22/2019, Additional history exists Meningococcal B Vaccine Aged Out No l onger eligible based on patient's age to complete this topic Pneumococcal Vaccine 0-49 Aged Out No longer eligible based on patient's age to complete this topic Goals Goal Patient Goal Type Associated Problems Recent Progress Patient-Stated? Author Blood Pressure < 140/90 Blood Pressure 113/66(2024 2:03 PM EDT) No April Romero Eat better, exercise, reach an ideal body weight General No April Romero Stay Tobacco Free Lifestyle No Cary Baldwin LPN Procedures Procedure Name Priority Date/Time Associated Diagnosis Comments PROGESTERONE LEVEL Routine 01/17/2025 1: 29 PM EDT Amenorrhea FERRITIN Routine 01/16/2025 2:30 PM EDT Iron deficiency anemia due to chronic blood loss IRON+TIBC Routine 01/16/2025 2:30 PM EDT Iron deficiency anemia due to chronic blood loss COMPREHENSIVE METABOLIC PANEL Routine 01/16/2025 2:30 PM EDT Amenorrhea CBC WITH DIFF Routine 01/16/2025 2:30 PM EDT Amenorrhea Iron deficiency anemia due to chronic blood loss HUMAN CHORIONIC GONADOTROPIN QUANTITATIVE Routine 01/16/2025 2:30 PM EDT Amenorrhea POCT URINE TELCOR Routine 01/16/2025 2:01 PM EDT Amenorrhea GC CHLAMYDIA THIN PREP Routine 06/04/2021 3:32 PM EST Abnormal menstruation CLINICAL NURSING DIRECTOR CYTOLOGY REQUEST (PAP ONLY) Routine 06/04/2021 3:32 PM EST Abnormal menstruation from Last 3 Months or Most Recently Relevant to Health Maintenance Results * PROGESTERONE LEVEL (01/17/2025 1:29 PM EDT) Progesterone Lvl 9.10 ng/mL 01/18/20 8:48 PM EDT [facility] Blood VENOUS BLOOD / Unknown Venipuncture / Unknown 01/17/2025 1:29 PM EDT 01/17/2025 1:29 PM EDT Narrative [facility], [facility] - 01/17/2025 8:48 PM EDT Suggested Reference Ranges (ng/mL) Follicular Phase 0.05 - 0.19 Ovulation Phase 0.06 - 4.14 Luteal Phase 4.11 - 14.5 Postmenopause 0.05 - 0.13 Adult Males <0.05 - 0.15 Ingestion of jeane doses of biotin (>5 mg/day) taken within 8 hours of drawing blood sample can interfere with this immunoassay test. us Ivone Muro WARDROBE COORDINATOR CHEMISTRY ORDERABLES Sosa velasco Result [facility] [address] [facility] , [place] [address] * (ABNORMAL) IRON+TIBC (01/16/2025 2:30 PM EDT) Iron 27(L) 30 - 160 mcg/dL 01/17/2025 12:14 AM EDT [facility] Transferrin 235 200 - 360 mg/dL 01/17/2025 12:14 AM EDT [facility] Transferrin Saturation 8(L) 20 - 50 % 01/17/2025 12:14 AM EDT [facility] TIBC 329 250 - 400 mcg/dL 01/17/2025 12:14 AM EDT [facility] Blood VENOUS BLOOD / Unknown Venipuncture / Unknown 01/16/2025 2:30 PM EDT 01/16/2025 2:30 PM EDT us Ivone Muro APRN CHEMISTRY ORDERABLES Sosa velasco Result [facility] [address] [facility] , [place] [address] * CBC WITH DIFF (01/16/2025 2:30 PM EDT) WBC 8.2 3.7 - 10.3 x10(3)/mcL 01/16/2025 [...] 01/16/2025 9:10 PM EDT [facility] Comment:Automated count of m etamyelocytes, myelocytes and promyelocytes. Lymph Percent 28.3 % 01/16/2025 9:10 PM EDT [facility] Metcalfe Percent 7.7 % 01/16/2025 9:10 PM EDT [facility] Eos Percent 1.8 % 01/16/2025 9:10 PM EDT [facility] Baso Percent 0.6 % 01/16/2025 9:10 PM EDT [facility], [facility] Neut # 5.0 1.6 - 6.1 x10(3)/[facility] 01/16/2025 9:10 PM EDT [facility], [facility] Comment:Neutrophils equals s egs plus bands IMMGRAN# 0.0 0.0 - 0.1 x10(3)/[facility] 01/16/2025 9:10 PM EDT [facility] Comment:Automated count of m etamyelocytes, myelocytes and promyelocytes. An absolute IG <0.1 is reported as 0.0. Lymph # 2.3 1.2 - 3.9 x10(3)/mcL 01/16/2025 9:10 PM EDT [facility] Metcalfe # 0.6 0.3 - 0.9 x10(3)/[facility] 01/16/2025 9:10 PM EDT [facility] Eos# 0.2 0.0 - 0.5 x10(3)/[facility] 01/16/2025 9:10 PM EDT [facility], [facility] Baso # 0.1 0.0 - 0.1 x10(3)/[facility] 01/16/2025 9:10 PM EDT [facility], [facility] Blood VENOUS BLOOD / Unknown Venipuncture / Unknown 01/16/2025 2:30 PM EDT 01/16/2025 2:30 PM EDT us Ivone Muro WARDROBE COORDINATOR HEMATOLOGY ORDERABLES Fin al Result [facility], [facility] [address] [facility] , [place] [address] * (ABNORMAL) HUMAN CHORIONIC GONADOTROPIN QUANTITATIVE (01/16/2025 2:30 PM EDT) Hcg Quant 1,006(H) <5 mIU/mL 01/17/2025 12:18 AM EDT [facility] [employer] [facility] Blood VENOUS BLOOD / Unknown Venipuncture / Unknown 01/16/2025 2:30 PM EDT 01/16/2025 2:30 PM EDT Narrative [facility] [employer] [facility] - 01/17/2025 12:18 AM EDT Female (non-): [...] test. Ivone Muro APRN CHEMISTRY ORDERABLES Sosa velasco Result [facility] [employer] [facility] [address] [facility] , [place] [address] * (ABNORMAL) FERRITIN (01/16/2025 2:30 PM EDT) Ferritin 22(L) 30 - 150 ng/mL 01/17/2025 12:14 AM EDT [facility] [employer] [facility] Comment:The lower threshold of 30 is not statistically defined, nor internally validated. The threshold has been updated to more closely reflect a physiologic basis. Vaishali Z, et al. Physiologically based serum ferritin thresholds for iron deficiency in children and non- women: a [place] National Health and Nutrition Examination Surveys (NHANES) serial cross-sectional study. Lancet Haematol 2021;8:e572-82. Blood VENOUS BLOOD / Unknown Venipuncture / Unknown 01/16/2025 2:30 PM EDT 01/16/2025 2:30 PM EDT Narrative [facility] - 01/17/2025 12:14 AM EDT Ingestion of jeane doses of biotin (>5 mg/day) taken within 8 hours of drawing blood sample can interfere with this immunoassay test. Ivone Muro WARDROBE COORDINATOR CHEMISTRY ORDERABLES Sosa velasco Result [facility] [address] [facility] , [place] [address] * (ABNORMAL) COMPREHENSIVE METABOLIC PANEL (01/16/2025 2:30 PM EDT) Sodium 135(L) 136 - 145 mmol/L 01/17/2025 12:14 AM EDT [facility] Potassium 3.5 3.5 - 5.0 mmol/L 01/17/2025 12:14 AM EDT [facility] Chloride 102 98 - 107 mmol/L 01/17/2025 12:14 AM EDT [facility] Total CO2 21(L) 22 - 29 mmol/L 01/17/2025 12:14 AM EDT [facility] Anion Gap 12 7 - 16 mmol/L 01/17/2025 12:14 AM EDT [facility] Calcium 9.3 8.6 - 10.4 mg/dL 01/17/2025 12:14 AM EDT [facility] Glucose Lvl 83 70 - 99 mg/dL 01/17/2025 12:14 AM EDT [facility] BUN 9 6 - 20 mg/dL 01/17/2025 12:14 AM EDT [facility] Creatinine 0.51 0.51 - 1.30 mg/dL 01/17/2025 12:14 AM EDT [facility] Albumin 4.1 3.5 - 5.2 gm/dL 01/17/2025 12:14 AM EDT [facility] Total Protein 6.8 6.4 - 8.3 gm/dL 01/17/2025 12:14 AM EDT [facility] Bili Total 0.2 0.2 - 1.3 mg/dL 01/17/2025 12:14 AM EDT [facility] ALT 16 <=41 U/L 01/17/2025 12:14 AM EDT [facility] AST 16 <=40 U/L 01/17/2025 12:14 AM EDT [facility] Alk Phos 80 36 - 123 U/L 01/17/2025 12:14 AM EDT [facility] eGFR (CKD-EPIcr 2020) 132 >=60 mL/min/1.7 3 m2 01/17/2025 12:14 AM EDT [facility] Comment:Estimated GFR was ca lculated using the CKD-EPIcr (2020) equation refit without race. The equation is recommended by the National Kidney Foundation - [place] [employer] of Nephrology Task Force. Blood VENOUS BLOOD / Unknown Venipuncture / Unknown 01/16/2025 2:30 PM EDT 01/16/2025 2:30 PM EDT Ivone Muro APRN CHEMISTRY ORDERABLES Sosa l Result Performing Organization Address City/[facility]/ZIP Co de Phone Number [facility], [facility] [address] [facility] , [place] [address] * POCT URINE TELCOR (01/16/2025 2:01 PM EDT) Preg Test, Ur Positive 01/16/2025 2:05 PM EDT [facility] Urine STRUCTURE OF URINARY TRACT PROPER / Unknown 01/16/2025 2:01 PM EDT 01/16/2025 2:05 PM EDT Ivone Muro APRN POINT OF CARE TEST ORDERA BLES Final Result [facility] [address] [place] [address] * CLINICAL NURSING DIRECTOR CYTOLOGY REQUEST (PAP ONLY) (06/04/2021 3:32 PM EST) CASE REPORT Gynecologic Cytology Report Case: [id number] Authorizing Provider: Helene Dobson Collected: 06/04/2021 Nicholas Jeff MD Ordering Location: [facility] Received: 06/04/2021 1532 First Screen: Tre Parkinson CT Specimen: LIQUID-BASED PAP - CERVICAL/ENDOCERV ICAL, Cervix, Endocervical 06/06/2021 6:48 AM EST [facility] PAP FINAL DIAGNOSIS Negative for intraepithelial lesion or malignancy 06/06/2021 6:48 AM EST [facility] at 0648 EST MICROSCOPIC DESCRIPTION Microscopic examination is performed and the findings corroborate the diagnosis. 06/06/2021 6:48 AM EST [facility] PAP SMEAR ADEQUACY Satisfactory for evaluation 06/06/2021 6:48 AM [facility] ENDOCERVICAL T-ZONE Transformation zone absent. 06/06/2021 6:48 AM EST [facility] EMBEDDED IMAGES 6:48 AM EST [facility] PAP DISCLAIMER The Pap Smear is a screening test that aids in the detection of cervical cancer and cancer precursors. Both false positive and false negative results can occur. The test should be used at regular intervals, and positive results should be confirmed before definitive therapy. Processed using the ThinPrep Stage Settings Painter Automated cytology screening device ([employer]). 06/06/2021 6:48 AM EST [facility] Thin Prep ENDOCERVICAL STRUCTURE / Unknown 06/04/2021 3:32 PM EST 06/04/2021 3:32 PM EST us Helene Rain MD CYTOLOGY ORDERABLES Final Result [address] [id number] * GC CHLAMYDIA THIN PREP (06/04/2021 3:32 PM EST) Chlamydia trachomatis Not Detected Not Detected 06/06/2021 1:17 AM EST [facility] Neisseria gonorrhoeae Not Detected Not Detected 06/06/2021 1:17 AM EST [facility] Thin Prep SPECIMEN FROM UTERINE CERVIX / Unknown 06/04/2021 3:32 PM EST 06/04/2021 3:32 PM EST [facility] - 06/06/2021 1:17 AM EST Testing methodology is residential appraiser mediated amplification (TMA) using the Aptima Combo 2 assay from [employer] [place]. A negative result does not completely rule out a Chlamydia trachomatis or Neisseria gonorrhoeae infection due to potential inhibitors or levels present below the limit of detection by this assay. Results are dependent on proper collection and transport of specimen. This test is indicated for medical purposes only and should not be used for legal or forensic purposes. The performance characteristics of this assay were validated by the testing laboratory. This assay is FDA cleared to test the following specimens: clinician-collected endocervical, vaginal, male urethral swab specimens, rectal swabs, and throat/pharyngeal swabs; patient collected vaginal specimens within a clinic setting; Thin Prep Specimens in PreservCyt Solution; and first-stream, unpreserved male and female urine specimens. Detailed methodology is available upon request. us Helene Rain MD MICROBIOLOGY - [facility] ORDERABLES Final Result Together Mobile [address] [facility], [place] [place] [address] from Last 3 Months or Most Recently Relevant to Health Maintenance Insurance [facility] [place] [address] [place] [address] MDR [facility] [place] MDR Advance Directives For more information, please contact: [phone] * Full Code (Latest Code Status on File) Date Activated Date Inactivated Comments 06/02/2018 9:04 AM 06/02/2018 10:24 PM Care Teams Chuck Boner Relationship Specialty Start Date End Date Zulay Fonseca DO [address] [place] [address] PCP - General Family Medicine 07/30/23
--- OUTSIDE RECORDS SUMMARY | 2025-01-23 17:59 | XMS_ITS | Encounter Summary ---
Author Organization [place] [address] Care Team Providers Care Ux Design Manager Name Role Phone Zulay Fonseca DO Primary Care Provider [phone] Encounter Details Date Type Department Care Team (Late st Contact Info) Description 12/28/2024 Orders Only [facility] [address] [place] [address] Zulay Fonseca DO [address] [place] [id number] Acute bacterial sinusitis (Primary Dx) Social History [...] Date Recorded PHQ-2 Total Score 0 02/08/2024 [facility] [place] of Occupat ional Health - Occupational Stress [...] Refills Last Filled Start Date End Date methylPREDNISolon e (MEDROL DOSPACK) 4 mg Oral Tablets, Dose PackIndications:A cute bacterial sinusitis See package instructions 21 Tablet 12/28/2024 documented in this encounter Plan of Treatment [...] unspecified documented in this encounter Care Teams Ux Design Manager Relationship Specialty Start Date End Date Zulay [place] [address] PCP - General Family Medicine 07/30/23 documented as of this encounter
--- OUTSIDE RECORDS SUMMARY | 2025-01-23 17:59 | XMS_ITS | Encounter Summary ---
Author Organization [place] Address [facility] [address] [place] [address] Care Team Providers Care Surgical Orderly Name Role Phone Zulay Fonseca DO Primary Care Provider + [phone] Encounter Details Date Type Department Care Team (Late st Contact Info) Description 10/18/2024 Results Follow-Up [facility] [address] [place] [address] Zulay Fonseca DO [address] [place] [id number] LIPID PANEL REFLEX, HEMOGLOBIN A1C, CBC WITH DIFF, BASIC METABOLIC PANEL Social History Tobacco Use Types Packs/Day Years [...] Date Recorded PHQ-2 Total Score 0 02/08/2024 [facility] [place] of Occupat ional Health - Occupational Stress [...] on filedocumented in this encounter Care Teams Surgical Orderly Relationship Specialty Start Date End Date Zulay Fonseca DO [address] [place] [address] PCP - General Family Medicine 07/30/23 documented as of this encounter
--- OUTSIDE RECORDS SUMMARY | 2025-01-23 17:59 | XMS_ITS | Encounter Summary ---
Author Organization [place] Address One [facility] [place] [address] Care Team Providers Care Netting Inspector Name Role Phone Helene Dobson MD Primary Care Provi Zulay Schultz DO Primary Care Provider + [phone] Encounter Details Date Type Department Care Team (Late st Contact Info) Description 10/26/2019 Hospital Encounter [facility] [address] [place] [id number] Social History Tobacco Use Types Packs/Day Years [...] Date Recorded PHQ-2 Total Score 0 02/08/2024 [facility] [place] of Occupat ional Health - Occupational Stress [...] on file Sexual Orientation Not on file COVID-19 Exposure Response Date Recorded In the last 10 days, have yo u been in contact with someone who was confirmed or suspected to have Coronavirus/COVID-19? No / Unsure 02/18/2022 9:18 AM EDT documented as of this encounter Functional Status * Is the person deaf or does he/she have serious difficulty hearing? Answer Date of Assessment Author No 08/29/2019 6:29 PM ZENT Darwin Luo RN * Is the person [...] 08/29/2019 6:29 PM Darwin Maurer RN * PHQ-2 Total Score Answer Date of Assessment Author 0 02/08/2024 4:00 PM EDT Fanta Kerr RMA * PHQ-9 Total Score Answer Date of Assessment Author 0 02/08/2024 4:00 PM EDT Fanta Kerr RMA * Question Answer Date of Assessment Author Little interest or pleasure in doing things 0 02/08/2024 4:00 PM ZENT Fanta Levin RMA Feeling down, depressed, or hopeless 0 02/08/2024 4:00 PM EDT Fanta Levin RMA Trouble falling or staying asleep, or sleeping too much 0 02/08/2024 4:00 PM EDT Fanta Weber RMA Feeling tired or having doug le energy 0 02/08/2024 4:00 PM EDT Fanta Levin RMA Poor appetite or overeating 0 02/08/2024 4: 00 PM EDT Fanta Levin RMA Feeling bad about yourself - or that you are a failure or have let yourself or your family down 0 02/08/2024 4:00 PM EDT Fanta Levin RMA Trouble concentrating on things, such as reading the newspaper or watching television 0 02/08/2024 4:00 PM EDT Fanta Levin RMA Moving or speaking so slowly that other people could have noticed. Or the opposite - being so fidgety or restless that you have been moving around a lot more than usual 0 02/08/2024 4:00 PM EDT Fanta Weber RMA Thoughts that you would be better off , or of hurting yourself in some way 0 02/08/2024 4:00 PM EDT Jose M Levin RMA * Suicide Severity Rating Answer Date of Assessment Author No Risk 09/29/2024 11:26 PM EDT Gianluca James RN * [place] Suicide Severity Rating Scale (Q shift for moderate and high) Question Answer Date of Assessment Author 1. In the past month, have y ou wished you were or wished you could go to sleep and not wake up? 0 09/29/2024 11:26 PM EDT Albert James RN 2. In the past month, have y ou actually had any thoughts of killing yourself? (If no, skip to question 6) 0 09/29/2024 11:26 PM ED T Gianluca James RN 6. Have you ever done anythi ng, started to do anything, or prepared to do anything to end your life? 0 09/29/2024 11:26 PM EDT Gianluca Frances RN documented as of this encounter Mental Status * Because of a physical, mental or emotional condition, does this person have serious difficulty concentrating, remembering or making decisions? Answer Entry Date Author No 08/29/2019 6:29 PM EDT Darwin Luo RN documented in this encounter Plan of [...] Diagnoses Not on filedocumented in this encounter Additional Health Concerns Infection Onset Date Last Indicated Resolved Time R/O C-Diff 09/22/2021 09/22/2021 09/24/2021 10:1 2 PM EDT R/O COVID-19 12/23/2021 12/23/2021 12/23/2021 10:1 8 PM EDT documented as of this encounter Care Teams Netting Inspector Relationship Specialty Start Date End Date Helene Dobson MD PCP - General Family Medicine 09/19/14 07/29/23 Zulay [place] [address] PCP - General Family Medicine 07/30/23 documented as of this encounter
--- OUTSIDE RECORDS SUMMARY | 2025-01-23 17:59 | XMS_ITS | Encounter Summary ---
Author Organization [facility] [place] [address] Care Team Providers Care Box Gluer Name Role Phone Zulay Fonseca DO Primary Care Provider [phone] Encounter Details Date Type Department Care Team (Latest Contact Info) Description 12/27/2024 Travel Social History Tobacco Use Types Packs/Day Years [...] Date Recorded PHQ-2 Total Score 0 02/08/2024 [facility] [place] of Occupat ional Health - Occupational Stress [...] 6:29 PM EDT Darwin Luo RN * Because of a physical, mental [...] on filedocumented in this encounter Care Teams Box Gluer Relationship Specialty Start Date End Date Zulay Fonseca DO [address] [place] [address] PCP - General Family Medicine 07/30/23 documented as of this encounter
[2025-01-23 18:00] VITALS: BP 118/73; PULSE 86; O2SAT 98
[2025-01-23 18:20] LABS: Microscopic, Urine URINE MICROSCOPIC (MICROSCOPIC)
[2025-01-23 18:31] LABS: Bilirubin,Urine Negative (Negative); Color,Urine YELLOW (Yellow); Glucose,Urine (UA) Negative (Negative); Ketones,Urine Negative (Negative); Leukocyte Esterase,Urine Negative (Negative); PH,Urine 6.0 (5.0-8.5); Protein,Urine Negative (Negative); Specific Gravity, Urine >= 1.030 (1.005-1.030); Urobilinogen,Urine 0.2 EU/dl (0.2)
[2025-01-23 18:40] LABS: Hematocrit 38.3 % (37.0-47.0); Hemoglobin 12.5 g/dL (12.2-16.2); Immature Granulocytes % 0.2 %; Mean Corpuscular HGB Conc 32.6 g/dL (31.8-35.4); Mean Corpuscular Hemoglobin 27.4 pg (27.0-31.2); Mean Corpuscular Volume 84.0 fl (81-99); Nucleated Red Blood Cells % 0 %; Platelet Count 209 K/mm3 (142-424); Red Blood Count 4.56 M/mm3 (4.20-5.40); Red Cell Distribution Width-SD 41.4 fL; White Blood Count 8.6 K/mm3 (4.8-10.8)
[2025-01-23 18:45] VITALS: PULSE 92; O2SAT 98
[2025-01-23 18:52] LABS: Bacteria,Urine 1+ /lpf
[2025-01-23 18:55] LABS: Alanine Aminotransferase 22 U/L (12-78); Albumin Level 4.5 g/dl (3.5-5.0); Albumin/Globulin Ratio 1.7 (1.1-1.8); Alkaline Phosphatase 69 U/L (38-126); Anion Gap 14.2 mEq/L (5-15); Aspartate Amino Transferase 28 U/L (14-36); Bilirubin,Total 0.5 mg/dl (0.2-1.3); Blood Urea Nitrogen 11 mg/dl (7-17); Calcium 9.2 mg/dl (8.4-10.2); Carbon Dioxide 24 mmol/L (22.0-30.0); Chloride 101 mmol/L (98-107); Creatinine Clearance Estimated 234 mL/min (50-200); Creatinine,Serum 0.50 mg/dl (0.52-1.04); Estimated Glomerular Filt Rate 150 ml/min (>60); GFR (African American) 182 ML/MIN (>60); Globulin 2.7 g/dL (1.3-3.2); Glucose 94 mg/dl (74-100); Potassium 3.2 mmoL/L (3.5-5.1); Sodium 136 mmol/L (136-145); Total Protein,Serum 7.2 g/dl (6.3-8.2)
[2025-01-23] MEDS: POTASSIUM CHLORIDE 20MEQ TAB 40 MEQ PO (19:14)
[2025-01-23 19:15] VITALS: BP 148/88; PULSE 105; O2SAT 97
[2025-01-23 20:19] VITALS: BP 148/88; PULSE 88; RESP 18; TEMP 36.7; O2SAT 98
== END 2025-01-23 20:20 | disposition home or self-care (01) ==
PROVIDERS: Nurse Practitioner Family; Emergency Provider Student in an Organized Health Care Education/Training Program; PCP Student in an Organized Health Care Education/Training Program
DX: O26.891 Other specified pregnancy related conditions, first trimester (principal); R10.2 Pelvic and perineal pain; R30.0 Dysuria; E87.6 Hypokalemia; F17.200 Nicotine dependence, unspecified, uncomplicated; Z3A.01 Less than 8 weeks gestation of pregnancy
CPT/HCPCS: 80053; 81001; 84702; 85025; 99284; 99285

== ENCOUNTER 2025-01-24 07:59 | Outpatient (CLI) | payer OTHER, SELFPAY ==
--- OUTSIDE RECORDS SUMMARY | 2005-08-05 01:00 | XMS_ITS | Encounter Summary ---
Author Organization [facility] Address [address] [place] [address] Care Team Providers Care Office Equipment Technician Name Role Phone Unavailable Primary Care Provider Unavailabl e Encounter Details Date Type Department Care Team (Late st Contact Info) Description 08/05/2005 Hospital Encounter [facility] Department of Radiology [address] [place] [phone] Social History Tobacco Use Types Packs/Day Years Used Date Smoking Tobacco: Never Assessed Comments Unknown Sex and Gender Information Value Date Recorded Sex Assigned at Not on file Legal Sex Female 5:26 AM EST Gender Identity Not on file Sexual Orientation Not on file documented as of this encounter Miscellaneous Notes * Consent Other - Edt, Audit [place] - 01/23/2009 10:13 AM EDT documented in this encounter Plan of Treatment Not on file documented as of this encounter Visit Diagnoses Not on filedocumented in this encounter
--- OUTSIDE RECORDS SUMMARY | 2024-12-27 14:40 | XMS_ITS | Encounter Summary ---
Author Organization [place] [address] Care Team Providers Care Electric Power Superintendent Name Role Phone Zulay Fonseca DO Primary Care Provider + [phone] Reason for Visit * Reason Comments Congestion Encounter Details Date Type Department Care Team (Late st Contact Info) Description 12/27/2024 2:40 PM EDT Telemedicine [place] [phone] [place] [address] Zulay Fonseca DO [address] [place] [phone] Acute bacterial sinusitis (Primary Dx) Social History [...] Date Recorded PHQ-2 Total Score 0 02/08/2024 [facility] [place] of Occupat ional Health - Occupational Stress [...] A video visit does not replace a bvoc-lj-ixzo exam and further services may be necessary. We are conducting her video visit in a private space and this video visit is being conducted in accordance with [facility] telehealth/video visit regulations. HPI: 24 year old [...] unspecified documented in this encounter Care Teams Electric Power Superintendent Relationship Specialty Start Date End Date Zulay [place] [address] PCP - General Family Medicine 07/30/23 documented as of this encounter
--- OUTSIDE RECORDS SUMMARY | 2025-01-16 14:00 | XMS_ITS | Encounter Summary ---
Author Organization [place] [address] Care Team Providers Care Steam Tender Name Role Phone Zulay Fonseca DO Primary Care Provider + [phone] Reason for Visit * Reason Comments Test Positive t est at home Encounter Details Date Type Department Care Team (Late st Contact Info) Description 01/16/2025 2:00 PM EDT Office Visit [facility] [address] [place] [address] Ivone Muro, KILN CAR REPAIRER [address] [place] [address] Amenorrhea (Primary Dx); Iron deficiency anemia due [...] Date Recorded PHQ-2 Total Score 0 02/08/2024 [facility] [place] of Occupat ional Health - Occupational Stress [...] written. Encouraged to discuss medication management with topographical engineer. Orders: sertraline (ZOLOFT) 50 mg Oral Tablet; [...] written. Encouraged to discuss medication management with topographical engineer. Orders: sertraline (ZOLOFT) 50 mg Oral Tablet; [...] contacted her Ob, Dr. Josefina Weaver at [facility] and has appointment scheduled in 1 month [...] * (ABNORMAL) FERRITIN (01/16/2025 2:30 PM EDT) [facility] Signature Ferritin 22(L) 30 - 150 ng/mL 01/17/2025 12:14 AM EDT [employer] [employer] Comment:The lower threshold of 30 is not [...] EDT 01/16/2025 2:30 PM EDT Narrative PREFERRED [employer], [facility] - 01/17/2025 12:14 AM EDT Ingestion of jeane doses of biotin (>5 mg/day) taken within 8 hours of drawing blood sample can interfere with this immunoassay test. Ivone Muro APRN CHEMISTRY ORDERABLES Sosa l Result Performing Organization Address [facility] de Phone Number PREFERRED LAB [facility], [address] , [place] [address] * (ABNORMAL) IRON+TIBC (01/16/2025 2:30 PM EDT) Iron 27(L) 30 - 160 mcg/dL 01/17/2025 12:14 AM EDT [facility]REF[facility]ED [facility], [employer] Transferrin 235 200 - 360 mg/dL 01/17/2025 12:14 AM EDT PREF[facility]ED [facility], [facility] Transferrin Saturation 8(L) 20 - 50 % 01/17/2025 12:14 AM EDT PREFERRED [facility], [facility] TIBC 329 250 - 400 mcg/dL 01/17/2025 12:14 AM EDT [facility], [facility] Blood VENOUS BLOOD / Unknown Venipuncture / Unknown 01/16/2025 2:30 PM EDT 01/16/2025 2:30 PM EDT Ivone Muro APRN CHEMISTRY ORDERABLES Sosa l Result Performing Organization Address [facility] Co de Phone Number PREFERRED [employer], [address] , [place] [address] * (ABNORMAL) COMPREHENSIVE METABOLIC PANEL (01/16/2025 2:30 PM EDT) Sodium 135(L) 136 - 145 mmol/L 01/17/2025 12:14 AM EDT [facility] Potassium 3.5 3.5 - 5.0 mmol/L 01/17/2025 12:14 AM EDT [facility] Chloride 102 98 - 107 mmol/L 01/17/2025 12:14 AM EDT [facility] Total CO2 21(L) 22 - 29 mmol/L 01/17/2025 12:14 AM EDT [facility] Anion Gap 12 7 - 16 mmol/L 01/17/2025 12:14 AM EDT [facility] Calcium 9.3 8.6 - 10.4 mg/dL 01/17/2025 12:14 AM EDT [facility] Glucose Lvl 83 70 - 99 mg/dL 01/17/2025 12:14 AM EDT [facility] BUN 9 6 - 20 mg/dL 01/17/2025 12:14 AM EDT [facility] Creatinine 0.51 0.51 - 1.30 mg/dL 01/17/2025 12:14 AM EDT [facility] Albumin 4.1 3.5 - 5.2 gm/dL 01/17/2025 12:14 AM EDT [facility] Total Protein 6.8 6.4 - 8.3 gm/dL 01/17/2025 12:14 AM EDT [facility] Bili Total 0.2 0.2 - 1.3 mg/dL 01/17/2025 12:14 AM EDT [facility] ALT 16 <=41 U/L 01/17/2025 12:14 AM EDT [facility] AST 16 <=40 U/L 01/17/2025 12:14 AM EDT [facility] Alk Phos 80 36 - 123 U/L 01/17/2025 12:14 AM EDT [facility] eGFR (CKD-EPIcr 2020) 132 >=60 mL/min/1.7 3 m2 01/17/2025 12:14 AM EDT [facility] Comment:Estimated GFR was ca lculated using the CKD-EPIcr (2020) equation refit without race. The equation is recommended by the National Kidney Foundation - [place] Society of Nephrology Task Force. Blood VENOUS BLOOD / Unknown Venipuncture / Unknown 01/16/2025 2:30 PM EDT 01/16/2025 2:30 PM EDT us Ivone Romero Bhaskar MONTYOA CHEMISTRY ORDERABLES Sosa velasco Result [facility] 1 MED[address] [facility] , [place] [address] * CBC WITH DIFF (01/16/2025 2:30 PM EDT) Pathologist [facility] WBC 8.2 3.7 - 10.3 x10(3)/mcL 01/16/2025 [...] 01/16/2025 9:10 PM EDT [facility] [place] Percent 7.7 % 01/16/2025 9:10 PM EDT [facility] Eos Percent 1.8 % 01/16/2025 9:10 PM EDT [facility] Baso Percent 0.6 % 01/16/2025 9:10 PM EDT [facility] Neut # 5.0 1.6 - 6.1 x10(3)/[facility] 01/16/2025 9:10 PM EDT [facility] Comment:Neutrophils equals s egs plus bands IMMGRAN# 0.0 0.0 - 0.1 x10(3)/[facility] 01/16/2025 9:10 PM EDT [facility] Comment:Automated count of m etamyelocytes, myelocytes and promyelocytes. An absolute IG <0.1 is reported as 0.0. Lymph # 2.3 1.2 - 3.9 x10(3)/[facility] 01/16/2025 9:10 PM EDT [facility] [place] # 0.6 0.3 - 0.9 x10(3)/[facility] 01/16/2025 9:10 PM EDT [facility] Eos# 0.2 0.0 - 0.5 x10(3)/[facility] 01/16/2025 9:10 PM EDT [facility] Baso # 0.1 0.0 - 0.1 x10(3)/[facility] 01/16/2025 9:10 PM EDT [facility], [facility] Blood VENOUS BLOOD / Unknown Venipuncture / Unknown 01/16/2025 2:30 PM EDT 01/16/2025 2:30 PM EDT us Ivone Muro APRN HEMATOLOGY ORDERABLES Fin al Result [facility], [facility] [address] [facility] , [place] [address] * (ABNORMAL) HUMAN CHORIONIC GONADOTROPIN QUANTITATIVE (01/16/2025 2:30 PM EDT) Pathologist [facility] Hcg Quant 1,006(H) <5 mIU/mL 01/17/2025 12:18 AM EDT [employer] Blood VENOUS BLOOD / Unknown Venipuncture / Unknown 01/16/2025 2:30 PM EDT 01/16/2025 2:30 PM EDT Narrative PREFERRED [employer] - 01/17/2025 12:18 AM EDT Female (non-): [...] ORDERABLES Sosa l Result Performing Organization Address City/[facility]/ZIP Co de Phone Number [employer] [address] [place] [address] , [place] [address] * POCT URINE TELCOR (01/16/2025 2:01 PM EDT) Pathologist [facility] Preg Test, Ur Positive 01/16/2025 2:05 PM EDT [facility] Urine STRUCTURE OF URINARY TRACT PROPER / Unknown 01/16/2025 2:01 PM EDT 01/16/2025 2:05 PM EDT Ivone Muro APRN POINT OF CARE TEST ORDERA BLES Final Result [facility] [address] [place] [address] documented in this encounter Visit Diagnoses [...] 01/16/2025 fluticasone propionate (FLONASE) 50 mcg/actuation Nasl [place], SuspensionIndications: Eustachian tube dysfunction, left 1 [place] by Nasal route daily. Cancelled by 08/18/2024 [...] documented as of this encounter Care Teams Steam Tender Relationship Specialty Start Date End Date Zulay Fonseca DO [facility] [place] [phone] PCP - General Family Medicine 07/30/23 documented as of this encounter
--- OUTSIDE RECORDS SUMMARY | 2025-01-17 13:30 | XMS_ITS | Encounter Summary ---
Author Organization [place] [address] Care Team Providers Care Coverage Specialist Name Role Phone Zulay Fonseca DO Primary Care Provider + [phone] Reason for Visit * Reason Comments Labs Only Encounter Details Date Type Department Care Team (Late st Contact Info) Description 01/17/2025 1:30 PM EDT Clinical Support [facility] [place] [address] [place] [address] [place], [place] [id number] Amenorrhea Social History Tobacco Use Types Packs/Day Years Used Date Smoking Tobacco: Former Cigarettes Q uit: 05/31/2017 Smokeless Tobacco: Never Chew Comments:QUIT IN 2019 Alcohol Use Standard Drinks/Week Comments Not Currently 0 (1 standard drink = 0.6 oz pur e alcohol) some Overall Financial Resource Strain (CARDI) Answe r Date Recorded Difficulty of Paying Living Expenses Not hard at all 05/03/2019 PHQ-2 Answer Date Recorded PHQ-2 Total Score 0 02/08/2024 [facility] [place] of Occupat ional Health - Occupational Stress [...] Darwin Maurer RN documented in this encounter Progress Notes * April Romero 01/17/2025 1:30 PM EDT Venipuncture in the right antecubital [...] Procedure Name Priority Date/Time Associated Diagnosis Comments PROGESTERONE LEVEL Routine 01/17/2025 1: 29 PM EDT Amenorrhea documented in this encounter Results * PROGESTERONE LEVEL (01/17/2025 1:29 PM EDT) Progesterone Lvl 9.10 ng/mL 01/18/20 8:48 PM EDT [facility] [employer] Blood VENOUS BLOOD / Unknown Venipuncture / Unknown 01/17/2025 1:29 PM EDT 01/17/2025 1:29 PM EDT Narrative [facility] [employer] - 01/17/2025 8:48 PM EDT Suggested Reference Ranges (ng/mL) Follicular Phase 0.05 - 0.19 Ovulation Phase 0.06 - 4.14 Luteal Phase 4.11 - 14.5 Postmenopause 0.05 - 0.13 Adult Males <0.05 - 0.15 Ingestion of jeane doses of biotin (>5 mg/day) taken within 8 hours of drawing blood sample can interfere with this immunoassay test. us Ivone Muro APRN CHEMISTRY ORDERABLES Sosa velasco Result [facility] [employer] [facility] [address] [facility] , [place] [address] documented in this encounter Visit Diagnoses Diagnosis Amenorrhea Absence of menstruation documented in this encounter Care Teams Coverage Specialist Relationship Specialty Start Date End Date Zulay Fonseca DO [address] [place] [address] PCP - General Family Medicine 07/30/23 documented as of this encounter
--- OUTSIDE RECORDS SUMMARY | 2025-01-24 08:03 | XMS_ITS | Encounter Summary ---
Author Organization [place] [address] Care Team Providers Care District Manager Postal Service Name Role Phone Zulay Fonseca DO Primary Care Provider + [phone] Encounter Details Date Type Department Care Team (Late st Contact Info) Description 01/18/2025 Results Follow-Up [facility] [address] [place] [address] Ivone Muro, [place] [address] [place], [place] [id number] [place] Social History Tobacco Use Types [...] Recorded PHQ-2 Total Score 0 02/08/2024 [facility] [place] of Occupat ional Health - Occupational Stress [...] on filedocumented in this encounter Care Teams District Manager Postal Service Relationship Specialty Start Date End Date Zulay [place]onsec[place] [address] PCP - General Family Medicine 07/30/23 documented as of this encounter
--- OUTSIDE RECORDS SUMMARY | 2025-01-24 08:03 | XMS_ITS | Clinical Summary ---
Author Organization [facility] Address [address] [place] [address] Care Team Providers Care Customer Project Manager Name Role Phone Unavailable Primary Care Provider Unavailabl e Source Comments [facility] is fully rolled out with thefollowing exceptions:General Clinical Research [facility] Social History Tobacco Use Types [...]
--- OUTSIDE RECORDS SUMMARY | 2025-01-24 08:03 | XMS_ITS | Encounter Summary ---
Author Organization [place] [address] Care Team Providers Care Radiological Metallurgist Name Role Phone FonsecaZulay Primary Care Provider + [phone] Encounter Details Date Type Department Care Team (Latest Contact Info) Description 01/18/2025 Results Follow-Up [facility] [place] [address] [place] [address] Seng Duggan MD [address] [place] [address] HUMAN CHORIONIC [...] Date Recorded PHQ-2 Total Score 0 02/08/2024 [facility] [place] of Occupat ional Health - Occupational Stress [...] on filedocumented in this encounter Care Teams Radiological Metallurgist Relationship Specialty Start Date End Date Zulay Fonseca [place] [address] PCP - General Family Medicine 07/30/23 documented as of this encounter
--- OUTSIDE RECORDS SUMMARY | 2025-01-24 08:04 | XMS_ITS | Encounter Summary ---
Author Organization [facility] [place] [address] Care Team Providers Care Wood Milling Machine Hand Name Role Phone Zulay Fonseca DO Primary Care Provider [phone] Encounter Details Date Type Department Care Team [...] Date Recorded PHQ-2 Total Score 0 02/08/2024 [facility] [place] of Occupat ional Health - Occupational Stress [...] on filedocumented in this encounter Care Teams Wood Milling Machine Hand Relationship Specialty Start Date End Date Zulay Fonseca DO [address] [place] [address] PCP - General Family Medicine 07/30/23 documented as of this encounter
--- OUTSIDE RECORDS SUMMARY | 2025-01-24 08:04 | XMS_ITS | Encounter Summary ---
Author Organization [place] [address] Care Team Providers Care Grain Blender Name Role Phone Zulay Fonseca DO Primary Care Provider + [phone] Encounter Details Date Type Department Care Team (Late st Contact Info) Description 10/18/2024 Results Follow-Up [facility] [address] [place] [address] Zulay Fonseca DO [address] [place] [id number] LIPID PANEL REFLEX, HEMOGLOBIN A1C, CBC WITH [...] Date Recorded PHQ-2 Total Score 0 02/08/2024 [facility] [place] of Occupat ional Health - Occupational Stress [...] on filedocumented in this encounter Care Teams Grain Blender Relationship Specialty Start Date End Date Zulay Fonseca DO [address] [place] [address] PCP - General Family Medicine 07/30/23 documented as of this encounter
--- OUTSIDE RECORDS SUMMARY | 2025-01-24 08:04 | XMS_ITS | Clinical Summary ---
Author Organization [facility] Address [address] [place] [address] Phone Care Team Providers Care Product Applications Engineer Name Role Phone Zulay Fonseca DO Primary Care Provider [phone] Allergies Active Allergy Reactions Criticality Noted Date [...] original. Aidan as expected 05/16/2018 Reference number [id number] Utilization audit completed by Josefina Miguel RN on 04/19/2023. 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 Needs to increase physical activity. Restrict calories to 1521-4544. Phentermine caused tachycardia. Assessment & Plan (10/28/2023 [...] written. Encouraged to discuss medication management with hull and deck remover. Orders: sertraline (ZOLOFT) 50 mg Oral Tablet; [...] place 09/17/2023 03/08/2024 Overview (09/17/2023): Placed by STOCK SHAPER 08/2023 Paragard Hyperemesis gravidarum 08/25/202308/24 Group B [...] Department Care Team Description 01/18/2025 Results Follow-Up [facility] [place] [facility] [address] [place] [address] Ivone Muro, WATCH INSPECTOR PROGESTERONE LEVEL 01/18/2025 Results Follow-Up [facility] [place] [address] [place] [address] Seng Duggan MD HUMAN CHORIONIC GONADOTROPIN QUANTITATIVE 01/17/2025 1:30 PM EDT Clinical Support [address] [place] [address] April Romero E Amenorrhea 01/16/2025 2:00 PM EDT Office Visit [address] [place] [address] Ivone Muro WATCH INSPECTOR Amenorrhea (Primary Dx); Iron deficiency anemia due to chronic blood loss; Anxiety and depression 12/28/2024 Orders Only [address] [place] [address] Zulay Fonseca, DO Acute bacterial sinusitis (Primary Dx) 12/27/2024 2:40 PM EDT Telemedicine [address] [place] [address] Zulay Fonseca, Acute bacterial sinusitis (Primary Dx) 12/27/2024 Travel 10/24/2024 4:00 PM EDT Office Visit [address] [place] [address] Seng Duggan MD Obesity, Class III, BMI [...] FOR MISCARRIAGE; Surgeon: Catrachito Ramos MD; Location: [facility]; Service: Gynecology DILATION AND CURETTAGE OF UTERUS 08/29/2019 N/A DILATION AND CURETTAGE SUCTION EVACUATION FOR MISCARRIAGE; Surgeon: Catrachito Ramos MD; Location: [facility]; Service: Gynecology Medical History Medical [...] Date Recorded PHQ-2 Total Score 0 02/08/2024 [facility] [place] of Occupat ional Health - Occupational Stress [...] Routine 06/04/2021 3:32 PM EST Abnormal menstruation DIRECTOR ENVIRONMENTAL CYTOLOGY REQUEST (PAP ONLY) Routine 06/04/2021 3:32 PM EST Abnormal menstruation from Last 3 Months or Most Recently Relevant to Health Maintenance Results * PROGESTERONE LEVEL (01/17/2025 1:29 PM EDT) Progesterone Lvl 9.10 ng/mL 01/18/20 8:48 PM EDT PREFERRED [facility] Blood VENOUS BLOOD / Unknown Venipuncture / Unknown 01/17/2025 1:29 PM EDT 01/17/2025 1:29 PM EDT Narrative PREFERRED IP [facility], [facility] - 01/17/2025 8:48 PM EDT Suggested Reference Ranges (ng/mL) Follicular Phase 0.05 - 0.19 Ovulation Phase 0.06 - 4.14 Luteal Phase 4.11 - 14.5 Postmenopause 0.05 - 0.13 Adult Males <0.05 - 0.15 Ingestion of jeane doses of biotin (>5 mg/day) taken within 8 hours of drawing blood sample can interfere with this immunoassay test. us Ivone Muro WATCH INSPECTOR CHEMISTRY ORDERABLES Sosa velasco Result PREFERRED IP [facility], [employer] [facility] [address] [facility] , [place] [address] * (ABNORMAL) IRON+TIBC (01/16/2025 2:30 PM EDT) Iron 27(L) 30 - 160 mcg/dL 01/17/2025 12:14 AM EDT PREFERRED IP [facility] [employer] Transferrin 235 200 - 360 mg/dL 01/17/2025 12:14 AM EDT PREFERRED IP [facility], [employer] Trans[employer]in Saturation 8(L) 20 - 50 % 01/17/2025 12:14 AM EDT [facility] TIBC 329 250 - 400 mcg/dL 01/17/2025 12:14 AM EDT [facility] Blood VENOUS BLOOD / Unknown Venipuncture / Unknown 01/16/2025 2:30 PM EDT 01/16/2025 2:30 PM EDT us Ivone Muro APRN CHEMISTRY ORDERABLES Sosa velasco Result [facility], [facility] [address] [facility] , [place] [address] * CBC WITH DIFF (01/16/2025 [...] 01/16/2025 9:10 PM EDT [facility] Comment:Automated count of m etamyelocytes, myelocytes and promyelocytes. Lymph Percent 28.3 % 01/16/2025 9:10 PM EDT [facility] [place] Percent 7.7 % 01/16/2025 9:10 PM EDT [facility] Eos Percent 1.8 % 01/16/2025 9:10 PM EDT [facility] Baso Percent 0.6 % 01/16/2025 9:10 PM EDT [facility], [facility] Neut # 5.0 1.6 - 6.1 x10(3)/[facility] 01/16/2025 9:10 PM EDT [facility], [facility] Comment:Neutrophils equals s egs plus bands IMMGRAN# 0.0 0.0 - 0.1 x10(3)/[facility] 01/16/2025 9:10 PM EDT [facility] Comment:Automated count of m etamyelocytes, myelocytes and promyelocytes. An absolute IG <0.1 is reported as 0.0. Lymph # 2.3 1.2 - 3.9 x10(3)/mcL 01/16/2025 9:10 PM EDT [facility] [place] # 0.6 0.3 - 0.9 x10(3)/[facility] 01/16/2025 9:10 PM EDT [facility] Eos# 0.2 0.0 - 0.5 x10(3)/[facility] 01/16/2025 9:10 PM EDT [facility], [facility] Baso # 0.1 0.0 - 0.1 x10(3)/[facility] 01/16/2025 9:10 PM EDT [facility] [employer], [facility] Blood VENOUS BLOOD / Unknown Venipuncture / Unknown 01/16/2025 2:30 PM EDT 01/16/2025 2:30 PM EDT us Ivone Muro WATCH INSPECTOR HEMATOLOGY ORDERABLES Fin al Result [facility] [employer] [facility], [facility] [address] [facility] , [place] [address] * (ABNORMAL) HUMAN CHORIONIC GONADOTROPIN QUANTITATIVE (01/16/2025 2:30 PM EDT) Hcg Quant 1,006(H) <5 mIU/mL 01/17/2025 12:18 AM EDT [facility] Blood VENOUS BLOOD / Unknown Venipuncture / Unknown 01/16/2025 2:30 PM EDT 01/16/2025 2:30 PM EDT Narrative [facility] - 01/17/2025 12:18 AM EDT Female [...] Muro APRN CHEMISTRY ORDERABLES Sosa velasco Result [facility] [address] [facility] , [place] [address] * (ABNORMAL) FERRITIN (01/16/2025 2:30 PM EDT) Ferritin 22(L) 30 - 150 ng/mL 01/17/2025 12:14 AM EDT [facility] Comment:The lower threshold of 30 is [...] interfere with this immunoassay test. Ivone Muro WATCH INSPECTOR CHEMISTRY ORDERABLES Sosa velasco Result [facility] [address] [facility] , [place] [address] * (ABNORMAL) COMPREHENSIVE METABOLIC PANEL (01/16/2025 2:30 PM EDT) Sodium 135(L) 136 - 145 mmol/L 01/17/2025 12:14 AM EDT [facility] Potassium 3.5 3.5 - 5.0 mmol/L 01/17/2025 12:14 AM EDT [facility] Chloride 102 98 - 107 mmol/L 01/17/2025 12:14 AM EDT [facility] Total CO2 21(L) 22 - 29 [...] U/L 01/17/2025 12:14 AM EDT [facility] AST 16 <=40 U/L 01/17/2025 12:14 AM EDT [facility] [employer], [facility] Alk Phos 80 36 - 123 U/L 01/17/2025 12:14 AM EDT [facility] [employer] [facility], [facility] eGFR (CKD-EPIcr 2020) 132 >=60 mL/min/1.7 3 m2 01/17/2025 12:14 AM EDT [facility] [employer] [facility], [facility] Comment:Estimated GFR was ca lculated using the CKD-EPIcr (2020) equation refit without race. The equation is recommended by the National Kidney Foundation - [place] Society of Nephrology Task Force. Blood VENOUS BLOOD / Unknown Venipuncture / Unknown 01/16/2025 2:30 PM EDT 01/16/2025 2:30 PM EDT Ivone Muro APRN CHEMISTRY ORDERABLES Sosa l Result Performing Organization Address City/[facility]/ZIP Co de Phone Number [facility] [employer] [facility], [facility] [address] [facility] , [place] [address] * POCT URINE TELCOR (01/16/2025 2:01 PM EDT) Preg Test, Ur Positive 01/16/2025 2:05 PM EDT [facility] Urine STRUCTURE OF URINARY TRACT PROPER / Unknown 01/16/2025 2:01 PM EDT 01/16/2025 2:05 PM EDT Ivone Muro APRN POINT OF CARE TEST ORDERA BLES Final Result [facility] [address] [place] [address] * DIRECTOR ENVIRONMENTAL CYTOLOGY REQUEST (PAP ONLY) (06/04/2021 3:32 PM EST) CASE REPORT Gynecologic Cytology Report Case: [id number] Authorizing Provider: Helene Dobson Collected: 06/04/2021 Nicholas Jeff MD Ordering Location: [facility] Received: 06/04/2021 1532 First Screen: Tre Parkinson CT Specimen: LIQUID-BASED PAP - CERVICAL/ENDOCERV ICAL, Cervix, Endocervical 06/06/2021 6:48 AM EST [facility] PAP FINAL DIAGNOSIS Negative for intraepithelial lesion or malignancy 06/06/2021 6:48 AM EST [facility] at 0648 EST MICROSCOPIC DESCRIPTION Microscopic examination is performed and the findings corroborate the diagnosis. 06/06/2021 6:48 AM EST [facility] PAP SMEAR ADEQUACY Satisfactory for evaluation 06/06/2021 6:48 AM [facility] ENDOCERVICAL T-ZONE Transformation zone absent. 06/06/2021 6:48 AM EST [facility] EMBEDDED IMAGES 6:48 AM EST [facility] PAP DISCLAIMER The Pap Smear is a screening test that aids in the detection of cervical cancer and cancer precursors. Both false positive and false negative results can occur. The test should be used at regular intervals, and positive results should be confirmed before definitive therapy. Processed using the ThinPrep Ssis Ssrs Developer Automated cytology screening device (Med Access). 06/06/2021 6:48 AM EST [facility] Thin Prep ENDOCERVICAL STRUCTURE / Unknown 06/04/2021 3:32 PM EST 06/04/2021 3:32 PM EST us Helene Rain MD CYTOLOGY ORDERABLES Final Result [address] [id number] * GC CHLAMYDIA THIN PREP (06/04/2021 3:32 PM EST) Chlamydia trachomatis Not Detected Not Detected 06/06/2021 1:17 AM EST [facility] Neisseria gonorrhoeae Not Detected Not Detected 06/06/2021 1:17 AM EST [facility] Thin Prep SPECIMEN FROM UTERINE CERVIX / Unknown 06/04/2021 3:32 PM EST 06/04/2021 3:32 PM EST Narrative [facility] - 06/06/2021 1:17 AM EST Testing methodology is manager of photography mediated amplification (TMA) using the Aptima Combo 2 assay from [employer]. A negative result does not completely rule [...] request. us Helene Rain MD MICROBIOLOGY - [facility] ORDERABLES Final Result [facility] [address] [facility], [place] [address] from Last 3 Months or Most Recently Relevant to Health Maintenance Insurance [facility] [place] [address] [place] [address] MDR [facility] [place] MDR Advance Directives For more information, please contact: [phone] * Full Code (Latest Code Status on File) Date Activated Date Inactivated Comments 06/02/2018 9:04 AM 06/02/2018 10:24 PM Care Teams Product Applications Engineer Relationship Specialty Start Date End Date Zulay Fonseca DO [address] [place] [address] PCP - General Family Medicine 07/30/23
--- OUTSIDE RECORDS SUMMARY | 2025-01-24 08:04 | XMS_ITS | Encounter Summary ---
Author Organization [place] Address One [facility] [place] [address] Care Team Providers Care Nurse Research Name Role Phone Helene Dobson MD Primary Care Provi Zulay Schultz DO Primary Care Provider + [phone] Encounter Details Date Type Department Care Team (Late st Contact Info) Description 10/26/2019 Hospital Encounter [facility] [address] [place] [id number] Social History Tobacco Use Types Packs/Day Years [...] Date Recorded PHQ-2 Total Score 0 02/08/2024 [facility] [place] of Occupat ional Health - Occupational Stress [...] 11:26 PM EDT Gianluca James RN * [place] Suicide Severity Rating Scale (Q shift for [...] documented as of this encounter Care Teams Nurse Research Relationship Specialty Start Date End Date Helene Dobson MD PCP - General Family Medicine 09/19/14 07/29/23 Zul[place] [address] PCP - General Family Medicine 07/30/23 documented as of this encounter
--- OUTSIDE RECORDS SUMMARY | 2025-01-24 08:04 | XMS_ITS | Encounter Summary ---
Author Organization [place] [address] Care Team Providers Care Gasket Notcher Name Role Phone Zulay Fonseca DO Primary Care Provider [phone] Encounter Details Date Type Department Care Team (Late st Contact Info) Description 12/28/2024 Orders Only [facility] [address] [place] [place] [address] Zulay Fonseca DO [address] [place] [id number] Acute bacterial sinusitis (Primary Dx) Social History [...] Date Recorded PHQ-2 Total Score 0 02/08/2024 [facility] [place] of Occupat ional Health - Occupational Stress [...] unspecified documented in this encounter Care Teams Gasket Notcher Relationship Specialty Start Date End Date Zulay Fonseca DO [employer] [place] [address] PCP - General Family Medicine 07/30/23 documented as of this encounter
--- NOTE | 2025-01-24 08:07 | US_ITS ---
PROCEDURE: US OB <= 14 WEEKS FETUS CLINICAL INDICATION: cramping/pelvic pain COMPARISON: CT CT ABDOMEN PELVIS W CON from 07/11/2024 US US TRANSVAGINAL from 07/11/2024 US US TRANSVAGINAL from 07/18/2024 US US TRANSVAGINAL from 08/29/2024 FINDINGS: Transvaginal sonographic images of the pelvis were obtained. From her last menstrual period she is 5weeks 4days. An intrauterine gestational sac is present. A pole is not visualized. This correlates to a gestational age of 6weeks 1day. heart tones are not visualized. Yolk sac is not seen. The right ovary is seen and appears normal. The right ovary contains a corpus luteum. The left ovary is seen and appears normal. There is no fluid in the cul-de-sac. IMPRESSION: 1. Anteverted uterus. There is a gestational sac seen within the uterine cavity. 2. An embryo and yolk sac are not seen. 3. The right ovary contains a corpus luteum. The left ovary appears normal. 4. No fluid in the cul-de-sac. 5. Possible blighted ovum but suggest a repeat scan in 1 week. Dictated by: Everett Arroyo MD 01/24/2025 16:02 Everett Arroyo MD in OV 01/24/2025 16:02
== END 2025-01-24 23:59 | disposition home or self-care (01) ==
LOC: RAD 08:00
PROVIDERS: PCP Student in an Organized Health Care Education/Training Program; Visit Provider Obstetrics & Gynecology
DX: O28.3 Abnormal ultrasonic finding on antenatal screening of mother (principal); O34.81 Maternal care for other abnormalities of pelvic organs, first trimester; O26.891 Other specified pregnancy related conditions, first trimester; N83.11 Corpus luteum cyst of right ovary; R10.2 Pelvic and perineal pain; Z3A.01 Less than 8 weeks gestation of pregnancy
CPT/HCPCS: 76801

== ENCOUNTER 2025-01-30 13:51 | Outpatient (CLI) | payer OTHER, SELFPAY ==
--- OUTSIDE RECORDS SUMMARY | 2005-08-05 01:00 | XMS_ITS | Encounter Summary ---
Author Organization [facility] Address [address] [place] [id number] Care Team Providers Care Hall Monitor Name Role Phone Unavailable Primary Care Provider Unavailabl e Encounter Details Date Type Department Care Team (Late st Contact Info) Description 08/05/2005 Hospital Encounter [facility] Department of Radiology [address] [place] [phone] Social History Tobacco Use Types Packs/Day Years Used Date Smoking Tobacco: Never Assessed Comments Unknown Sex and Gender Information Value Date Recorded Sex Assigned at Not on file Legal Sex Female 5:26 AM EST Gender Identity Not on file Sexual Orientation Not on file documented as of this encounter Miscellaneous Notes * Consent Other - Edt, Audit [place] - 01/23/2009 10:13 AM EDT documented in this encounter Plan of Treatment Not on file documented as of this encounter Visit Diagnoses Not on filedocumented in this encounter
--- OUTSIDE RECORDS SUMMARY | 2024-12-27 14:40 | XMS_ITS | Encounter Summary ---
Author Organization [facility] Address [place] [address] Care Team Providers Care Basket Person Name Role Phone Zulay Fonseca DO Primary Care Provider + [phone] Reason for Visit * Reason Comments Congestion Encounter Details Date Type Department Care Team (Late st Contact Info) Description 12/27/2024 2:40 PM EDT Telemedicine [place] [phone] [place] [address] Zulay Fonseca DO [address] [place] [phone] Acute bacterial sinusitis (Primary Dx) Social History [...] Date Recorded PHQ-2 Total Score 0 02/08/2024 [facility] Occupat ional Health - Occupational Stress [...] A video visit does not replace a [id number] exam and further services may be necessary. We are conducting her video visit in a private space and this video visit is being conducted in accordance with [facility] telehealth/video visit regulations. HPI: 24 year old [...] Author Blood Pressure < 140/90 Blood Pressure 113/66(2024 2:03 PM EDT) No April Romero Eat better, exercise, reach an ideal body weight General No April Romero Stay Tobacco Free Lifestyle No Cary Baldwin LPN documented as of this encounter Visit Diagnoses Diagnosis Acute bacterial sinusitis- Primary Acute sinusitis, unspecified documented in this encounter Care Teams Basket Person Relationship Specialty Start Date End Date Zualy [place]sec[place] [address] PCP - General Family Medicine 07/30/23 documented as of this encounter
--- OUTSIDE RECORDS SUMMARY | 2025-01-16 14:00 | XMS_ITS | Encounter Summary ---
Author Organization [place] [address] Care Team Providers Care Installation And Repair Technician Name Role Phone Zulay Fonseca DO Primary Care Provider + [phone] Reason for Visit * Reason Comments Test Positive t est at home Encounter Details Date Type Department Care Team (Late st Contact Info) Description 01/16/2025 2:00 PM EDT Office Visit [facility] [address] [place] [address] Ivone Muro, PAPER PRODUCTS INSPECTOR [address] [place] [address] Amenorrhea (Primary Dx); Iron deficiency anemia due [...] Recorded PHQ-2 Total Score 0 02/08/2024 [facility] of Occupat ional Health - Occupational Stress [...] written. Encouraged to discuss medication management with senior clinical research scientist. Orders: sertraline (ZOLOFT) 50 mg Oral Tablet; [...] written. Encouraged to discuss medication management with senior clinical research scientist. Orders: sertraline (ZOLOFT) 50 mg Oral Tablet; [...] contacted her Ob, Dr. Josefina Weaver at [facility] and has appointment scheduled in 1 month [...] Blood Pressure 113/66(2024 2:03 PM EDT) No Apirl Romero Eat better, exercise, reach an ideal [...] * (ABNORMAL) FERRITIN (01/16/2025 2:30 PM EDT) [employer] Signature Ferritin 22(L) 30 - 150 ng/mL 01/17/2025 12:14 AM EDT [facility] Comment:The lower threshold of 30 is not [...] EDT 01/16/2025 2:30 PM EDT Narrative PREF[facility]ED [facility], [facility] - 01/17/2025 12:14 AM EDT Ingestion of jeane doses of biotin (>5 mg/day) taken within 8 hours of drawing blood sample can interfere with this immunoassay test. Ivone Muro APRN CHEMISTRY ORDERABLES Sosa l Result Performing Organization Address [facility] de Phone Number PREFERRED LAB [facility], [address] , [place] [address] * (ABNORMAL) IRON+TIBC (01/16/2025 2:30 PM EDT) Iron 27(L) 30 - 160 mcg/dL 01/17/2025 12:14 AM EDT [facility]REF[facility]ED [facility], [employer] Transferrin 235 200 - 360 mg/dL 01/17/2025 12:14 AM EDT [facility]REF[facility]ED [facility], [facility] Transferrin Saturation 8(L) 20 - 50 % 01/17/2025 12:14 AM EDT PREFERRED [facility], [facility] TIBC 329 250 - 400 mcg/dL 01/17/2025 12:14 AM EDT [employer] [facility], [facility] Blood VENOUS BLOOD / Unknown Venipuncture / Unknown 01/16/2025 2:30 PM EDT 01/16/2025 2:30 PM EDT Ivone Muro APRN CHEMISTRY ORDERABLES Sosa l Result Performing Organization Address [facility] Co de Phone Number PREFERRED [facility], [address] , [place] [address] * (ABNORMAL) COMPREHENSIVE METABOLIC PANEL (01/16/2025 2:30 PM EDT) Sodium 135(L) 136 - 145 mmol/L 01/17/2025 12:14 AM EDT [facility] Potassium 3.5 3.5 - 5.0 mmol/L 01/17/2025 12:14 AM EDT [facility] Chloride 102 98 - 107 mmol/L 01/17/2025 12:14 AM EDT [facility] Total CO2 21(L) 22 - 29 mmol/L 01/17/2025 12:14 AM EDT [facility] Anion Gap 12 7 - 16 mmol/L 01/17/2025 12:14 AM EDT [facility] Calcium 9.3 8.6 - 10.4 mg/dL 01/17/2025 12:14 AM EDT [facility] Glucose Lvl 83 70 - 99 mg/dL 01/17/2025 12:14 AM EDT [facility] BUN 9 6 - 20 mg/dL 01/17/2025 12:14 AM EDT [facility] Creatinine 0.51 0.51 - 1.30 mg/dL 01/17/2025 12:14 AM EDT [facility] Albumin 4.1 3.5 - 5.2 gm/dL 01/17/2025 12:14 AM EDT [facility] Total Protein 6.8 6.4 - 8.3 gm/dL 01/17/2025 12:14 AM EDT [facility] Bili Total 0.2 0.2 - 1.3 mg/dL 01/17/2025 12:14 AM EDT [facility] ALT 16 <=41 U/L 01/17/2025 12:14 AM EDT [facility] AST 16 <=40 U/L 01/17/2025 12:14 AM EDT [facility] Alk Phos 80 36 - 123 U/L 01/17/2025 12:14 AM EDT [facility] eGFR (CKD-EPIcr 2020) 132 >=60 mL/min/1.7 3 m2 01/17/2025 12:14 AM EDT [facility] Comment:Estimated GFR was ca lculated using the CKD-EPIcr (2020) equation refit without race. The equation is recommended by the National Kidney Foundation - [place] Society of Nephrology Task Force. Blood VENOUS BLOOD / Unknown Venipuncture / Unknown 01/16/2025 2:30 PM EDT 01/16/2025 2:30 PM EDT us Ivone Romero Bhaskar MONTOYA CHEMISTRY ORDERABLES Sosa velasco Result [facility] [address] MED[facility] , [place] [address] * CBC WITH DIFF (01/16/2025 2:30 PM EDT) Pathologist [facility] WBC 8.2 3.7 - 10.3 x10(3)/mcL 01/16/2025 [...] 01/16/2025 9:10 PM EDT [facility] [place] Percent 7.7 % 01/16/2025 9:10 PM EDT [facility] Eos Percent 1.8 % 01/16/2025 9:10 PM EDT [facility] Baso Percent 0.6 % 01/16/2025 9:10 PM EDT [facility] Neut # 5.0 1.6 - 6.1 x10(3)/[facility] 01/16/2025 9:10 PM EDT [facility] Comment:Neutrophils equals s egs plus bands IMMGRAN# 0.0 0.0 - 0.1 x10(3)/[facility] 01/16/2025 9:10 PM EDT [facility] Comment:Automated count of m etamyelocytes, myelocytes and promyelocytes. An absolute IG <0.1 is reported as 0.0. Lymph # 2.3 1.2 - 3.9 x10(3)/[facility] 01/16/2025 9:10 PM EDT [facility] [place] # 0.6 0.3 - 0.9 x10(3)/[facility] 01/16/2025 9:10 PM EDT [facility] Eos# 0.2 0.0 - 0.5 x10(3)/[facility] 01/16/2025 9:10 PM EDT [facility] Baso # 0.1 0.0 - 0.1 x10(3)/[facility] 01/16/2025 9:10 PM EDT [facility] LAB [facility], [facility] Blood VENOUS BLOOD / Unknown Venipuncture / Unknown 01/16/2025 2:30 PM EDT 01/16/2025 2:30 PM EDT us Ivone Muro APRN HEMATOLOGY ORDERABLES Fin al Result [facility], [facility] [address] [facility] , [place] [address] * (ABNORMAL) HUMAN CHORIONIC GONADOTROPIN QUANTITATIVE (01/16/2025 2:30 PM EDT) Pathologist [facility] Hcg Quant 1,006(H) <5 mIU/mL 01/17/2025 12:18 AM EDT [facility] Blood VENOUS BLOOD / Unknown Venipuncture / Unknown 01/16/2025 2:30 PM EDT 01/16/2025 2:30 PM EDT Narrative PREFERRED [facility] - 01/17/2025 12:18 AM EDT Female (non-): [...] ORDERABLES Sosa l Result Performing Organization Address City/[facility]/ZIP Co de Phone Number [email or web address] [address] [place] [address] , [place] [address] * POCT URINE TELCOR (01/16/2025 2:01 PM EDT) Pathologist [facility] Preg Test, Ur Positive 01/16/2025 2:05 PM EDT [facility] Urine STRUCTURE OF URINARY TRACT PROPER / Unknown 01/16/2025 2:01 PM EDT 01/16/2025 2:05 PM EDT Ivone Muro APRN POINT OF CARE TEST ORDERA BLES Final Result [facility] [address] [place] [address] documented in this encounter Visit Diagnoses [...] 01/16/2025 fluticasone propionate (FLONASE) 50 mcg/actuation Nasl [place], SuspensionIndications: Eustachian tube dysfunction, left 1 [place] by Nasal route daily. Cancelled by 08/18/2024 [...] ity, Class III, BMI 40-49.9 (morbid obesity) Take 1 Tablet by mouth every morning (before breakfast) for 90 days. Cancelled by 10/24/2024 01/16/2025 methylPREDNISolone (MEDROL DOSPACK) 4 mg Oral Tablets, Dose PackIndications:Acute bacterial sinusitis See package instructions Cancelled by 12/28/2024 01/16/2025 documented as of this encounter Care Teams Installation And Repair Technician Relationship Specialty Start Date End Date Zulay Fonseca DO [facility] [place] [phone] PCP - General Family Medicine 07/30/23 documented as of this encounter
--- OUTSIDE RECORDS SUMMARY | 2025-01-17 13:30 | XMS_ITS | Encounter Summary ---
Author Organization [place] [address] Care Team Providers Care Theater Education Teacher Name Role Phone Zulay Fonseca DO Primary Care Provider + [phone] Reason for Visit * Reason Comments Labs Only Encounter Details Date Type Department Care Team (Late st Contact Info) Description 01/17/2025 1:30 PM EDT Clinical Support [facility] [place] [address] [place] [address] [place], [place] [phone] Amenorrhea Social History Tobacco Use Types Packs/Day [...] Date Recorded PHQ-2 Total Score 0 02/08/2024 [facility] [place] of Occupat ional Health - Occupational Stress [...] 9.10 ng/mL 01/18/20 8:48 PM EDT [facility] [employer] Blood VENOUS BLOOD / Unknown Venipuncture / Unknown 01/17/2025 1:29 PM EDT 01/17/2025 1:29 PM EDT Narrative [facility] [facility] - 01/17/2025 8:48 PM EDT Suggested Reference [...] APRN CHEMISTRY ORDERABLES Sosa velasco Result [facility] [employer] [facility] [address] [facility] , [place] [address] documented in this encounter Visit Diagnoses Diagnosis Amenorrhea Absence of menstruation documented in this encounter Care Teams Theater Education Teacher Relationship Specialty Start Date End Date Zulay Fonseca DO [address] [place] [address] PCP - General Family Medicine 07/30/23 documented as of this encounter
--- OUTSIDE RECORDS SUMMARY | 2025-01-30 13:54 | XMS_ITS | Encounter Summary ---
Author Organization [place] [address] Care Team Providers Care Tie Tamper Name Role Phone Zulay Fonseca DO Primary Care Provider + [phone] Encounter Details Date Type Department Care Team (Late st Contact Info) Description 01/18/2025 Results Follow-Up [facility] [address] [place] [address] Ivone Muro, TRADE UNION SECRETARY [address] [place], [place] [id number] PROGESTERONE LEVEL Social History Tobacco Use Types [...] Date Recorded PHQ-2 Total Score 0 02/08/2024 [facility] [place] of Occupat ional Health - Occupational Stress [...] on filedocumented in this encounter Care Teams Tie Tamper Relationship Specialty Start Date End Date Zulay [place] [address] PCP - General Family Medicine 07/30/23 documented as of this encounter
--- OUTSIDE RECORDS SUMMARY | 2025-01-30 13:54 | XMS_ITS | Clinical Summary ---
Author Organization [facility] Address [address] [place] [address] Care Team Providers Care Manager Cable Name Role Phone Unavailable Primary Care Provider Unavailabl e Source Comments [facility] is fully rolled out with thefollowing exceptions:General Clinical Research [facility] Social History Tobacco Use Types Packs/Day Years [...] - 19+ 3-dose series) 2018 COVID-19 Vaccine ( - 2023-2 5 season) 2025 AMB SEASONAL FLU VACCINE (#1) 03/31/2025 HIB [...]
--- OUTSIDE RECORDS SUMMARY | 2025-01-30 13:54 | XMS_ITS | Encounter Summary ---
Author Organization [place] [address] Care Team Providers Care Airport Skilled Maintenance Supervisor Name Role Phone FonsecaZulay Primary Care Provider + [phone] Encounter Details Date Type Department Care Team (Latest Contact Info) Description 01/18/2025 Results Follow-Up [facility] [place] [address] Seng Duggan MD [address] [place] [address] HUMAN CHORIONIC GONADOTROPIN QUANTITATIVE Social History [...] Date Recorded PHQ-2 Total Score 0 02/08/2024 [facility] [place] of Occupat ional Health - Occupational Stress [...] on filedocumented in this encounter Care Teams Airport Skilled Maintenance Supervisor Relationship Specialty Start Date End Date [place]ul[place] [address] PCP - General Family Medicine 07/30/23 documented as of this encounter
--- OUTSIDE RECORDS SUMMARY | 2025-01-30 13:55 | XMS_ITS | Encounter Summary ---
Author Organization [place] Address [facility] [place] [address] Care Team Providers Care Editor Sound Name Role Phone Helene Dobson MD Primary Care Provi Zulay Schultz DO Primary Care Provider + [phone] Encounter Details Date Type Department Care Team (Late st Contact Info) Description 10/26/2019 Hospital Encounter [facility] [address] [place] [phone] Social History Tobacco Use Types Packs/Day Years [...] Date Recorded PHQ-2 Total Score 0 02/08/2024 [facility] [place] of Occupat ional Health - Occupational Stress [...] 11:26 PM EDT Gianluca James RN * [place] Suicide Severity Rating Scale (Q shift for [...] documented as of this encounter Care Teams Editor Sound Relationship Specialty Start Date End Date Helene Dobson MD PCP - General Family Medicine 09/19/14 07/29/23 [place] [address] PCP - General Family Medicine 07/30/23 documented as of this encounter
--- OUTSIDE RECORDS SUMMARY | 2025-01-30 13:55 | XMS_ITS | Clinical Summary ---
Author Organization [facility] [place] [facility] Address [address] [place] [address] Phone Care Team Providers Care Smoke Inspector Name Role Phone Zulay Fonseca DO Primary Care Provider Allergies Active Allergy Reactions Criticality Noted Date Comments Bisoprolol Rash Low 04/01/2023 Medications sertraline (ZOLOFT) 50 mg Oral TabletIndication s:Anxiety and depression Take 1 Tablet by mouth daily. 30 Tablet 3 01/17/20 25 Active omeprazole (PRILOSEC) 40 mg Oral Capsule, Delayed Release(E.C.)Ind ications:Epigast lou abdominal pain Take 1 Capsule by mouth 2 times daily. 180 Capsule 2 04/17/20 24 025 Discontinu ed(Cancell ed by MD) ibuprofen (ADVIL;MOTRIN) 400 mg Oral Tablet Take 1 Tablet by mouth every 6 hours as needed for Pain. 160 Tablet 2 04/17/20 24 025 Discontinu ed(Cancell ed by MD) albuterol (PROVENTIL HFA;VENTOLIN HFA) 90 mcg/actuation Inhl HFA Aerosol InhalerIndicatio ns:Acute bronchitis, unspecified organism Inhale 2 Puffs into the lungs every 4 hours as needed for Wheezing. 1 Each 2 06/21/19 25 025 Discontinu ed(Cancell ed by ) polyethylene glycol (GLYCOLAX) 17 gram/dose Oral PowderIndication s:Constipation, unspecified constipation type Take 17 g by mouth 2 times daily. 1700 g 07/25/19 25 Discontinu ed(Cancell ed by ) ferrous sulfate 325 mg (65 mg iron) Oral Tablet, Delayed Release (E.C.)Indication s:Other iron deficiency anemia Take 1 Tablet by mouth 2 times daily. 180 Tablet 3 08/11/19 25 Discontinu ed(Cancell ed by ) fluticasone propionate (FLONASE) 50 mcg/actuation Nasl [place], SuspensionIndica tions:Eustachian tube dysfunction, left 1 [place] by Nasal route daily. 1 Each 2 08/19/19 25 Discontinu ed(Cancell ed by ) QUEtiapine XR (SEROQUEL XR) 50 mg Oral Tablet Sustained Release 24 hrIndications:An xiety and depression Take 1 Tablet by mouth nightly. DAY 1 50MG, DAY 2 50MG, DAY 3 150MG, DAY 4 150MG Must be taken 3-4 hours prior to Bedtime. 30 Tablet 10/17/19 25 Discontinu ed(Cancell ed by ) triamcinolone (KENALOG) 0.1 % Top Ointment Apply topically 2 times daily. 5 g 2 10/17/19 25 Discontinu ed(Cancell ed by ) loratadine (CLARITIN) 10 mg Oral TabletIndication s:Head congestion Take 1 Tablet by mouth daily. 30 Tablet 2 10/17/19 25 Discontinu ed(Cancell ed by ) FLUoxetine (PROZAC) 20 mg Oral CapsuleIndicatio ns:Anxiety and depression Take 3 Capsules by mouth daily for 90 days. 90 Capsule 2 10/20/19 25 Discontinu ed(Cancell ed by ) etonogestreL-eth inyl estradioL (NUVARING) 0.12-0.015 mg/[address] 1 Each vaginally. 10/20/19 25 Discontinu ed(Cancell ed by ) phentermine (ADIPEX-P) 37.5 mg Oral TabletIndication s:Obesity, Class III, BMI 40-49.9 (morbid obesity) Take 1 Tablet by mouth every morning (before breakfast) for 90 days. 30 Tablet 2 10/25/19 25 025 Discontinu ed(Cancell ed by ) amoxicillin-clav ulanate (AUGMENTIN) 875-125 mg Oral TabletIndication s:Acute bacterial sinusitis Take 1 Tablet by mouth every 12 hours for 10 days. 20 Tablet 12/28/19 25 025 dextromethorphan -guaiFENesin (MUCINEX DM) 30-600 mg Oral Tablet Sustained Release 12 hrIndications:Ac juan bacterial sinusitis Take 1 Tablet by mouth every 12 hours as needed for Other (cough) for up to 10 days. 20 Tablet 12/28/19 25 025 methylPREDNISolo ne (MEDROL DOSPACK) 4 mg Oral Tablets, Dose PackIndications: Acute bacterial sinusitis See package instructions 21 Tablet 12/29/19 25 025 Discontinu ed(Cancell ed by ) Active Problems Patient Care Coordination No te Formatting of this note migh t be different from the original. Aidan as expected 05/16/2018 Reference number [id number] Utilization audit completed by Josefina Miguel RN on 04/19/2023. 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 Needs to increase physical activity. Restrict calories to 8809-1473. Phentermine caused tachycardia. Assessment & Plan (10/28/2023 [...] written. Encouraged to discuss medication management with switch maker. Orders: sertraline (ZOLOFT) 50 mg Oral Tablet; [...] place 09/17/2023 03/08/2024 Overview (09/17/2023): Placed by JUNIOR ADMINISTRATIVE ASSISTANT 08/2023 Par[facility] Hyperemesis gravidarum 08/25/202308/24 Group B [...] Department Care Team Description 01/18/2025 Results Follow-Up [address] [place] [address] Ivone Muro, FITNESS AND WELLNESS MANAGER PROGESTERONE LEVEL 01/18/2025 Results Follow-Up [address] [place] [address] Seng Duggan MD HUMAN CHORIONIC GONADOTROPIN QUANTITATIVE 01/17/2025 1:30 PM EDT Clinical Support [address] [place] [address] April Romero E Amenorrhea 01/16/2025 2:00 PM EDT Office Visit [address] [place] [address] Ivone Muro, FITNESS AND WELLNESS MANAGER Amenorrhea (Primary Dx); Iron deficiency anemia due to chronic blood loss; Anxiety and depression 12/28/2024 Orders Only [address] [place] [address] Zulay Fonseca DO Acute bacterial sinusitis (Primary Dx) 12/27/2024 2:40 PM EDT Telemedicine [address] [place] [address] Zulay Fonseca DO Acute bacterial sinusitis (Primary Dx) 12/27/2024 Travel from Last 3 Months Immunizations Immunization Administration [...] FOR MISCARRIAGE; Surgeon: Catrachito Ramos MD; Location: [facility]; Service: Gynecology DILATION AND CURETTAGE OF UTERUS 08/29/2019 N/A DILATION AND CURETTAGE SUCTION EVACUATION FOR MISCARRIAGE; Surgeon: Catrachito Ramos MD; Location: [facility]; Service: Gynecology Medical History Medical History [...] Date Recorded PHQ-2 Total Score 0 02/08/2024 [facility] of Occupat ional Health - Occupational Stress [...] April Romero Stay Tobacco Free Lifestyle No Denny, Cary Natalia, SHANITA Procedures Procedure Name Priority Date/Time Associated Diagnosis [...] Routine 06/04/2021 3:32 PM EST Abnormal menstruation RADIATION CONTROL TECHNICIAN CYTOLOGY REQUEST (PAP ONLY) Routine 06/04/2021 3:32 PM EST Abnormal menstruation from Last 3 Months or Most Recently Relevant to Health Maintenance Results * PROGESTERONE LEVEL (01/17/2025 1:29 PM EDT) Progesterone Lvl 9.10 ng/mL 01/18/20 8:48 PM EDT [facility] Blood VENOUS BLOOD / Unknown Venipuncture / Unknown 01/17/2025 1:29 PM EDT 01/17/2025 1:29 PM EDT Narrative [facility] - 01/17/2025 8:48 PM EDT Suggested Reference [...] ORDERABLES Sosa l Result Performing Organization Address [facility] Phone Number [facility], [address], [place] [address] * (ABNORMAL) IRON+TIBC (01/16/2025 2:30 PM EDT) Pathologist [facility] Iron 27(L) 30 - 160 mcg/dL 01/17/2025 12:14 AM EDT [facility] Transferrin 235 200 - 360 mg/dL 01/17/2025 12:14 AM EDT [facility] Trans[facility]in Saturation 8(L) 20 - 50 % 01/17/2025 12:14 AM EDT [facility], [facility] TIBC 329 250 - 400 mcg/dL 01/17/2025 12:14 AM EDT [facility], [facility] Blood VENOUS BLOOD / Unknown Venipuncture / Unknown 01/16/2025 2:30 PM EDT 01/16/2025 2:30 PM EDT Ivone Muro APRN CHEMISTRY ORDERABLES Sosa l Result Performing Organization Address [facility] Phone Number [facility] [employer], [address], [place] [address] * CBC WITH DIFF (01/16/2025 2:30 PM EDT) Pathologist [facility] WBC 8.2 3.7 - 10.3 x10(3)/mcL 01/16/2025 9:10 PM EDT [facility] RBC 4.47 3.90 - 5.20 x10(6)/mcL 01/16/2025 9:10 PM EDT [facility] Hgb 12.0 11.2 - 15.7 g/dL 01/16/2025 9:10 PM EDT [facility] Hct 38.3 34.0 - 45.0 % 01/16/2025 9:10 PM EDT [facility] MCV 85.7 80.0 - 100.0 fL 01/16/2025 9:10 PM EDT [facility] MCH 26.8 26.0 - 34.0 pg 01/16/2025 9:10 PM EDT [facility] MCHC 31.3 30.7 - 35.5 g/dL 01/16/2025 9:10 PM EDT [facility] RDW 13.7 <=14.9 % 01/16/2025 9:10 PM EDT [facility] Platelet 215 155 - 369 x10(3)/mcL 01/16/2025 9:10 PM EDT [facility] MPV 12.2 8.8 - 12.5 fL 01/16/2025 9:10 PM EDT [facility] Neut Percent 61.2 % 01/16/2025 9:10 PM EDT [facility] Comment:Neutrophils equals s egs plus bands Imm Gran% 0.4 % 01/16/2025 9:10 PM EDT [facility] Comment:Automated count of m etamyelocytes, myelocytes and promyelocytes. Lymph Percent 28.3 % 01/16/2025 9:10 PM EDT [facility] Ross Percent 7.7 % 01/16/2025 9:10 PM EDT [facility] Eos Percent 1.8 % 01/16/2025 9:10 PM EDT [facility] Baso Percent 0.6 % 01/16/2025 9:10 PM EDT [facility] Neut # 5.0 1.6 - 6.1 x10(3)/mcL 01/16/2025 9:10 PM EDT [facility] Comment:Neutrophils equals s egs plus bands IMMGRAN# 0.0 0.0 - 0.1 x10(3)/mcL 01/16/2025 9:10 PM EDT [facility] Comment:Automated count of m etamyelocytes, myelocytes and promyelocytes. An absolute IG <0.1 is reported as 0.0. Lymph # 2.3 1.2 - 3.9 x10(3)/mcL 01/16/2025 9:10 PM EDT [facility], [facility] Ross # 0.6 0.3 - 0.9 x10(3)/mcL 01/16/2025 9:10 PM EDT [facility], [facility] Eos# 0.2 0.0 - 0.5 x10(3)/mcL 01/16/2025 9:10 PM EDT [facility], [facility] Baso # 0.1 0.0 - 0.1 x10(3)/mcL 01/16/2025 9:10 PM EDT [facility], [facility] Blood VENOUS BLOOD / Unknown Venipuncture / Unknown 01/16/2025 2:30 PM EDT 01/16/2025 2:30 PM EDT Ivone Muro APRN HEMATOLOGY ORDERABLES Fin al Result Performing Organization Address [facility]/ZIP Co de Phone Number [facility] [address] [facility] , [place] [address] * (ABNORMAL) HUMAN CHORIONIC GONADOTROPIN QUANTITATIVE (01/16/2025 2:30 PM EDT) [facility] Hcg Quant 1,006(H) <5 mIU/mL 01/17/2025 12:18 AM EDT [facility] [employer] [facility] Blood VENOUS BLOOD / Unknown Venipuncture / Unknown 01/16/2025 2:30 PM EDT 01/16/2025 2:30 PM EDT Narrative [facility] - 01/17/2025 12:18 AM EDT Female (non-): [...] us Ivone Muro APRN CHEMISTRY ORDERABLES Sosa l Result Performing Organization Address [facility]/ZIP Co de Phone Number [employer] [facility] [address] [facility] [facility] , [place] [address] * (ABNORMAL) FERRITIN (01/16/2025 2:30 PM EDT) Pathologist [facility] Ferritin 22(L) 30 - 150 ng/mL 01/17/2025 12:14 AM EDT [facility] [employer], [facility] Comment:The lower threshold of 30 is not statistically defined, nor internally validated. The threshold has been updated to more closely reflect a physiologic basis. Vaishali Jasso, et al. Physiologically based serum ferritin thresholds for iron deficiency in children and non- women: a [place] National Health and Nutrition Examination Surveys (NHANES) serial cross-sectional study. Lancet Haematol 2021;8:e572-82. Blood VENOUS BLOOD / Unknown Venipuncture / Unknown 01/16/2025 2:30 PM EDT 01/16/2025 2:30 PM EDT Narrative [facility] [employer], [facility] - 01/17/2025 12:14 AM EDT Ingestion of jeane doses of biotin (>5 mg/day) taken within 8 hours of drawing blood sample can interfere with this immunoassay test. Ivone Muro APRN CHEMISTRY ORDERABLES Ssoa velasco Result [employer] [address] , [place] [address] * (ABNORMAL) COMPREHENSIVE METABOLIC PANEL (01/16/2025 2:30 PM EDT) Pathologist [facility] Sodium 135(L) 136 - 145 mmol/L 01/17/2025 12:14 AM EDT [facility], [facility] Potassium 3.5 3.5 - 5.0 mmol/L 01/17/2025 12:14 AM EDT [facility], [facility] Chloride 102 98 - 107 mmol/L 01/17/2025 12:14 AM EDT [facility], [facility] Total CO2 21(L) 22 - 29 mmol/L 01/17/2025 12:14 AM EDT [facility], [facility] Anion Gap 12 7 - 16 mmol/L 01/17/2025 12:14 AM EDT [facility], [facility] Calcium 9.3 8.6 - 10.4 mg/dL 01/17/2025 12:14 AM EDT [facility] Glucose Lvl 83 70 - 99 mg/dL 01/17/2025 12:14 AM EDT [facility] BUN 9 6 - 20 mg/dL 01/17/2025 12:14 AM EDT [facility] Creatinine 0.51 0.51 - 1.30 mg/dL 01/17/2025 12:14 AM EDT [facility] Albumin 4.1 3.5 - 5.2 gm/dL 01/17/2025 12:14 AM EDT [facility] Total Protein 6.8 6.4 - 8.3 gm/dL 01/17/2025 12:14 AM EDT [facility] Bili Total 0.2 0.2 - 1.3 mg/dL 01/17/2025 12:14 AM EDT [facility] ALT 16 <=41 U/L 01/17/2025 12:14 AM EDT [facility] AST 16 <=40 U/L 01/17/2025 12:14 AM EDT [facility] Alk Phos 80 36 - 123 U/L 01/17/2025 12:14 AM EDT [facility] eGFR (CKD-EPIcr 2020) 132 >=60 mL/min/1.7 3 m2 01/17/2025 12:14 AM EDT [facility] Comment:Estimated GFR was ca lculated using the CKD-EPIcr (2020) equation refit without race. The equation is recommended by the National Kidney Foundation - [employer] of Nephrology Task Force. Blood VENOUS BLOOD / Unknown Venipuncture / Unknown 01/16/2025 2:30 PM EDT 01/16/2025 2:30 PM EDT us Ivone Muro APRN CHEMISTRY ORDERABLES Sosa velasco Result [facility] [address] [facility] , [address] [place] [id number] * POCT URINE TELCOR (01/16/2025 2:01 PM EDT) Preg Test, Ur Positive 01/16/2025 2:05 PM EDT [facility] [place] Urine STRUCTURE OF URINARY TRACT PROPER / Unknown 01/16/2025 2:01 PM EDT 01/16/2025 2:05 PM EDT us Ivone Muro FITNESS AND WELLNESS MANAGER POINT OF CARE TEST ORDERA BLES Final Result [facility] [place] [address] [place] [address] * RADIATION CONTROL TECHNICIAN CYTOLOGY REQUEST (PAP ONLY) (06/04/2021 3:32 PM EST) CASE REPORT Gynecologic Cytology Report Case: [id number] Authorizing Provider: Helene Dobson Collected: 06/04/2021 1532 MD Randee Ordering Location: [facility] [place] Received: 06/04/2021 1532 First Screen: Tre Parkinson CT Specimen: LIQUID-BASED PAP - CERVICAL/ENDOCERV ICAL, Cervix, Endocervical 06/06/2021 6:48 AM EST [facility] PAP FINAL DIAGNOSIS Negative for intraepithelial lesion or malignancy 06/06/2021 6:48 AM EST [facility] at 0648 EST MICROSCOPIC DESCRIPTION Microscopic examination is performed and the findings corroborate the diagnosis. 06/06/2021 6:48 AM EST [facility] PAP SMEAR ADEQUACY Satisfactory for evaluation 06/06/2021 6:48 AM EST [facility] ENDOCERVICAL T-ZONE Transformation zone absent. 06/06/2021 6:48 AM EST [facility] EMBEDDED IMAGES 6:48 AM EST [facility] PAP DISCLAIMER The Pap Smear is a screening test that aids in the detection of cervical cancer and cancer precursors. Both false positive and false negative results can occur. The test should be used at regular intervals, and positive results should be confirmed before definitive therapy. Processed using the ThinPrep Employment Legal Assistant Automated cytology screening device ([employer]). 06/06/2021 6:48 AM EST [employer] [facility] Thin Prep ENDOCERVICAL STRUCTURE / Unknown 06/04/2021 3:32 PM EST 06/04/2021 3:32 PM EST Hleene Rain MD CYTOLOGY ORDERABLES Final Result Performing Organization Address [facility] Co de Phone Number [facility] [address] [place] [address] * GC CHLAMYDIA THIN PREP (06/04/2021 3:32 PM EST) Chlamydia trachomatis Not Detected Not Detected 06/06/2021 1:17 AM EST [facility], Mytrus Neisseria gonorrhoeae Not Detected Not Detected 06/06/2021 1:17 AM EST [facility] [employer], [facility] Thin Prep SPECIMEN FROM UTERINE CERVIX / Unknown 06/04/2021 3:32 PM EST 06/04/2021 3:32 PM EST Narrative [facility] [employer], [facility] - 06/06/2021 1:17 AM EST Testing methodology is assembler 1st shift mediated amplification (TMA) using the Aptima Combo 2 assay from [employer]. A negative result does not completely rule [...] specimens. Detailed methodology is available upon request. Helene Rain MD MICROBIOLOGY - GENE RAL ORDERABLES Final Result Performing Organization Address City/[facility]/ZIP Co de Phone Number [facility] [address] [place] [address], [place] [address] from Last 3 Months or Most Recently Relevant to Health Maintenance Insurance [facility] MDR Advance Directives For more information, please contact: [phone] * Full Code (Latest Code Status on File) Date Activated Date Inactivated Comments 06/02/2018 9:04 AM 06/02/2018 10:24 PM Care Teams Smoke Inspector Relationship Specialty Start Date End Date Zulay Fonseca DO [email or web address] [place] [address] PCP - General Family Medicine 07/30/23
--- OUTSIDE RECORDS SUMMARY | 2025-01-30 13:55 | XMS_ITS | Encounter Summary ---
Author Organization [facility] [place] [place] [address] Care Team Providers Care Retail Assistant Store Manager Name Role Phone Zulay Fonseca DO Primary Care Provider [phone] Encounter Details Date Type Department Care Team (Late st Contact Info) Description 12/28/2024 Orders Only [facility] [address] [place] [address] Zulay Fonseca DO [address] [place] [phone] Acute bacterial sinusitis (Primary Dx) Social History [...] Date Recorded PHQ-2 Total Score 0 02/08/2024 [facility] of Occupat ional Health - Occupational Stress [...] unspecified documented in this encounter Care Teams Retail Assistant Store Manager Relationship Specialty Start Date End Date Zulay [place]sec[place] [address] PCP - General Family Medicine 07/30/23 documented as of this encounter
--- OUTSIDE RECORDS SUMMARY | 2025-01-30 13:55 | XMS_ITS | Encounter Summary ---
Author Organization [facility] [place] [address] Care Team Providers Care Ship Cleaner Name Role Phone Zulay Fonseca DO Primary Care Provider [phone] Encounter Details Date Type Department Care Team [...] PHQ-2 Total Score 0 02/08/2024 [facility] [place] of Occupat ional Health - Occupational Stress [...] on filedocumented in this encounter Care Teams Ship Cleaner Relationship Specialty Start Date End Date Zulay Fonseca DO [address] [place] [address] PCP - General Family Medicine 07/30/23 documented as of this encounter
--- OUTSIDE RECORDS SUMMARY | 2025-01-30 13:55 | XMS_ITS | Encounter Summary ---
Author Organization [place] [address] Care Team Providers Care Furniture Builder Name Role Phone Zulay Fonseca DO Primary Care Provider [phone] Encounter Details Date Type Department Care Team (Late st Contact Info) Description 10/18/2024 Results Follow-Up [facility] [address] [place] [address] Zulay Fonseca DO [address] [place] [phone] LIPID PANEL REFLEX, HEMOGLOBIN A1C, CBC WITH [...] Date Recorded PHQ-2 Total Score 0 02/08/2024 [facility] [place] of Occupat ional Health - Occupational Stress [...] on filedocumented in this encounter Care Teams Furniture Builder Relationship Specialty Start Date End Date Zulay Fonseca DO [address] [employer] [place] [address] PCP - General Family Medicine 07/30/23 documented as of this encounter
--- NOTE | 2025-01-30 14:45 | US_ITS ---
PROCEDURE: US OB <= 14 WEEKS FETUS CLINICAL INDICATION: dates/viability COMPARISON: US US OB <= 14 WEEKS FETUS from 01/24/2025 FINDINGS: Transvaginal sonographic images of the pelvis were obtained. From her last menstrual period she is 6weeks 3days. An intrauterine gestational sac is present with a pole with a crown-rump length of 0.69cm This correlates to a gestational age of 6weeks 4days. IMANI 09/22/2025 heart tones are present with an FHR of 118bpm. Yolk sac is noted. The yolk sac measures 4.6mm. The right ovary is seen and appears normal. There is a 1.6 cm corpus luteum in the right ovary. There is a trace amount of fluid adjacent to the right ovary. The left ovary is seen and appears normal. There is no fluid in the cul-de-sac. IMPRESSION: 1. Viable embryo within the uterine cavity. Heart rate activity is seen. 2. The embryo measures 6 weeks 4 days and her IMANI will remain 09/22/2025. 3. Both ovaries are seen and appear normal. There is a corpus luteum in the right ovary. 4. No fluid in the cul-de-sac. Dictated by: Everett Arroyo MD 01/30/2025 18:06 Everett Arroyo MD in OV 01/30/2025 18:06
== END 2025-01-30 23:59 | disposition home or self-care (01) ==
LOC: RAD 13:52
PROVIDERS: PCP Student in an Organized Health Care Education/Training Program; Visit Provider Obstetrics & Gynecology
DX: O34.81 Maternal care for other abnormalities of pelvic organs, first trimester (principal); N83.11 Corpus luteum cyst of right ovary; Z3A.01 Less than 8 weeks gestation of pregnancy
CPT/HCPCS: 76801

== ENCOUNTER 2025-02-19 13:00 | Outpatient (CLI) | payer OTHER, SELFPAY ==
--- OUTSIDE RECORDS SUMMARY | 2005-08-05 01:00 | XMS_ITS | Encounter Summary ---
Author Organization [facility] Address [address] [place] [address] Care Team Providers Care Engine Watchman Name Role Phone Unavailable Primary Care Provider Unavailabl e Encounter Details Date Type Department Care Team (Late st Contact Info) Description 08/05/2005 Hospital Encounter [facility] Department of Radiology [address] [place] [phone] Social History Tobacco Use Types Packs/Day Years Used Date Smoking Tobacco: Never Assessed Comments Unknown Sex and Gender Information Value Date Recorded Sex Assigned at Not on file Legal Sex Female 5:26 AM EST Gender Identity Not on file Sexual Orientation Not on file documented as of this encounter Miscellaneous Notes * Consent Other - Edt, Audit [place] - 01/23/2009 10:13 AM EDT documented in this encounter Plan of Treatment Not on file documented as of this encounter Visit Diagnoses Not on filedocumented in this encounter
--- OUTSIDE RECORDS SUMMARY | 2024-12-27 14:40 | XMS_ITS | Encounter Summary ---
Author Organization [place] [address] Care Team Providers Care Wind Field Service Manager Name Role Phone Zulay Fonseca DO Primary Care Provider + [phone] Reason for Visit * Reason Comments Congestion Encounter Details Date Type Department Care Team (Late st Contact Info) Description 12/27/2024 2:40 PM EDT Telemedicine [place] [id number] [address] Zulay Fonseca DO [address] [place] [phone] Acute bacterial sinusitis (Primary Dx) Social History Tobacco Use Types Packs/Day Years Used Date Smoking Tobacco: Former Cigarettes Q uit: 05/31/2017 Smokeless Tobacco: Never Chew Comments:QUIT IN 2019 Alcohol Use Standard Drinks/Week Comments Not Currently 0 (1 standard drink = 0.6 oz pur e alcohol) some Overall Financial Resource Strain (CARDIA) Answe r Date Recorded Difficulty of Paying Living Expenses Not hard at all 05/03/2019 PHQ-2 Answer Date Recorded PHQ-2 Total Score 0 02/08/2024 [facility] - Occupational Stress Questionnaire Answer Date Recorded Do you feel stress - tense, restless, nervous, or anxious, or unable to sleep at night because your mind is troubled all the time - these days? Rather much 12/25/2021 Exercise Vital Sign Answer Date Recorde d On average, how many days pe r week do you engage in moderate to strenuous exercise (like a brisk walk)? 0 days 12/25/2021 On average, how many minutes do you engage in exercise at this level? 0 min 12/25/2021 Hunger Vital Sign Answer Date Recorded Worried About Running Out of Food in the Last Ye ar Never true 05/03/2019 Ran Out of Food in the Last Year Never true 05/03/2019 PRAPARE - Transportation Answer Date Re corded Lack of Transportation (Medical) No 05/03/2019 Lack of Transportation (Non-Medical) No 05/03/2019 Sexually Active Control Partners Comments Yes Male Comments No Sex and Gender Information Value Date Recorded Sex Assigned at Not on file Legal Sex Female 3:00 PM EDT Gender Identity Not on file Sexual Orientation Not on file documented as of this encounter Functional Status * Is the person deaf or does he/she have serious difficulty hearing? Answer Date of Assessment Author No 08/29/2019 6:29 PM Darwin Maurer RN * Is the person blind or does he/she have serious difficulty seeing even when wearing glasses? Answer Date of Assessment Author No 08/29/2019 6:29 PM Darwin Maurer RN * Does this person have serious difficulty walking or climbing stairs? Answer Date of Assessment Author No 08/29/2019 6:29 PM Darwin Maurer RN * Does this person have difficulty dressing or bathing? Answer Date of Assessment Author No 08/29/2019 6:29 PM Darwin Maurer RN * Because of a physical, mental or emotional condition, does this person have difficulty doing errands alone such as visiting a doctor's office or shopping? Answer Date of Assessment Author No 08/29/2019 6:29 PM Darwin Maurer RN documented as of this encounter Mental Status * Because of a physical, mental or emotional condition, does this person have serious difficulty concentrating, remembering or making decisions? Answer Entry Date Author No 08/29/2019 6:29 PM Darwin Maurer RN documented in this encounter Ordered Prescriptions Prescription Sig Dispense Quantity Refills Last Filled Start Date End Date dextromethorphan-g uaiFENesin (MUCINEX DM) 30-600 mg Oral Tablet Sustained Release 12 hrIndications:Acut e bacterial sinusitis Take 1 Tablet by mouth every 12 hours as needed for Other (cough) for up to 10 days. 20 Tablet 12/27/2024 01/06/2025 amoxicillin-clavul anate (AUGMENTIN) 875-125 mg Oral TabletIndications: Acute bacterial sinusitis Take 1 Tablet by mouth every 12 hours for 10 days. 20 Tablet 12/27/2024 01/06/2025 documented in this encounter Progress Notes * Zulay Fonseca DO - 12/27/2024 2:40 PM EDT Patient presented today for routine care follow-up through a video visit. Patient has reviewed the terms and conditions of service as part of the registration for today's visit. A video visit does not replace a [id number] exam and further services may be necessary. We are conducting her video visit in a private space and this video visit is being conducted in accordance with [facility] telehealth/video visit regulations. HPI: 24 year old female who presents with concern about sneezing, puffy, mucous, post nasal drainage, sinus pain and pressure for the past few days Review of Systems HENT: Positive for congestion, postnasal drip, sinus pressure and sinus pain. All other systems reviewed and are negative. Exam: Constitutional: NAD, appropriately groomed. Appears comfortable. HENT: No gross deformities. Voice normal. No facial swelling noted. Eyes: Extra occular movements grossly intact. Visible portions of the eyes appear normal. No redness or discharge visible via casual video inspection. Cardiopulmonary: Does not appear in cardiopulmonary distress. Easy respirations w/o labored breathing. No audible gross wheezing or breathlessness. Neuro: Alert and oriented. Conversational. No gross deficits or facial droop appreciated on video evaluation. Psych: Appropriate mood and affect. Normal conversation and thought content. Assessment Diagnoses and all orders for this visit: Acute bacterial sinusitis - amoxicillin-clavulanate (AUGMENTIN) 875-125 mg Oral Tablet; Take 1 Tablet by mouth every 12 hoursfor 10 days. Dispense: 20 Tablet; Refill: 0 - dextromethorphan-guaiFENesin (MUCINEX DM) 30-600 mg Oral Tablet Sustained Release 12 hr; Take 1 Tablet by mouth every 12 hours as needed for Other (cough) for up to 10 days. Dispense: 20 Tablet; Refill: 0 Zulay Fonseca DO Family Medicine 12/27/2024 documented in this encounter Plan of Treatment Not on file documented as of this encounter Goals Goal Patient Goal Type Associated Problems Recent Progress Patient-Stated? Author Blood Pressure < 140/90 Blood Pressure 116/70(2024 1:17 PM EDT) No April Romero Eat better, exercise, reach an ideal body weight General No April Romero Stay Tobacco Free Lifestyle No Cary Baldwin LPN documented as of this encounter Visit Diagnoses Diagnosis Acute bacterial sinusitis- Primary Acute sinusitis, unspecified documented in this encounter Care Teams Wind Field Service Manager Relationship Specialty Start Date End Date Zulay Fonsec[place] [address] PCP - General Family Medicine 07/30/23 documented as of this encounter
--- OUTSIDE RECORDS SUMMARY | 2025-01-16 14:00 | XMS_ITS | Encounter Summary ---
Author Organization [place] [address] Care Team Providers Care Marine Design Engineer Name Role Phone Zulay Fonseca DO Primary Care Provider + [phone] Reason for Visit * Reason Comments Test Positive t est at home Encounter Details Date Type Department Care Team (Late st Contact Info) Description 01/16/2025 2:00 PM EDT Office Visit [facility] [address] [place] [address] Ivone Muro, METAL DRESSER [address] [place] [address] Amenorrhea (Primary Dx); Iron deficiency anemia due [...] Date Recorded PHQ-2 Total Score 0 02/08/2024 [facility] [place] of Occupat ional Health - Occupational Stress [...] written. Encouraged to discuss medication management with silverlight developer. Orders: sertraline (ZOLOFT) 50 mg Oral Tablet; [...] written. Encouraged to discuss medication management with silverlight developer. Orders: sertraline (ZOLOFT) 50 mg Oral Tablet; [...] contacted her Ob, Dr. Josefina Weaver at [facility] and has appointment scheduled in 1 [...] * (ABNORMAL) FERRITIN (01/16/2025 2:30 PM EDT) [facility] Signature Ferritin 22(L) 30 - 150 ng/mL 01/17/2025 12:14 AM EDT [facility] Comment:The lower threshold of 30 is not [...] EDT 01/16/2025 2:30 PM EDT Narrative [facility], [facility] - 01/17/2025 12:14 AM EDT Ingestion of jeane doses of biotin (>5 mg/day) taken within 8 hours of drawing blood sample can interfere with this immunoassay test. Ivone Muro APRN CHEMISTRY ORDERABLES Sosa l Result Performing Organization Address [facility] de Phone Number [facility], [address] , [place] [address] * (ABNORMAL) IRON+TIBC (01/16/2025 2:30 PM EDT) Iron 27(L) 30 - 160 mcg/dL 01/17/2025 12:14 AM EDT [facility], [facility] Transferrin 235 200 - 360 mg/dL 01/17/2025 12:14 AM EDT [facility], [facility] Transferrin Saturation 8(L) 20 - 50 % 01/17/2025 12:14 AM EDT [facility] TIBC 329 250 - 400 mcg/dL 01/17/2025 12:14 AM EDT [place], [facility] Blood VENOUS BLOOD / Unknown Venipuncture / Unknown 01/16/2025 2:30 PM EDT 01/16/2025 2:30 PM EDT Ivone Muro APRN CHEMISTRY ORDERABLES Sosa l Result Performing Organization Address [facility] Co de Phone Number [facility], [address] , [place] [address] * (ABNORMAL) COMPREHENSIVE METABOLIC PANEL (01/16/2025 2:30 PM EDT) Sodium 135(L) 136 - 145 mmol/L 01/17/2025 12:14 AM EDT [facility] Potassium 3.5 3.5 - 5.0 mmol/L 01/17/2025 12:14 AM EDT [facility] Chloride 102 98 - 107 mmol/L 01/17/2025 12:14 AM EDT [facility] Total CO2 21(L) 22 - 29 mmol/L 01/17/2025 12:14 AM EDT [facility] Anion Gap 12 7 - 16 mmol/L 01/17/2025 12:14 AM EDT [facility] Calcium 9.3 8.6 - 10.4 mg/dL 01/17/2025 12:14 AM EDT [facility] Glucose Lvl 83 70 - 99 mg/dL 01/17/2025 12:14 AM EDT [facility] BUN 9 6 - 20 mg/dL 01/17/2025 12:14 AM EDT [facility] Creatinine 0.51 0.51 - 1.30 mg/dL 01/17/2025 12:14 AM EDT [facility] Albumin 4.1 3.5 - 5.2 gm/dL 01/17/2025 12:14 AM EDT [facility] Total Protein 6.8 6.4 - 8.3 gm/dL 01/17/2025 12:14 AM EDT [facility] Bili Total 0.2 0.2 - 1.3 mg/dL 01/17/2025 12:14 AM EDT [facility] ALT 16 <=41 U/L 01/17/2025 12:14 AM EDT [facility] AST 16 <=40 U/L 01/17/2025 12:14 AM EDT [facility] Alk Phos 80 36 - 123 U/L 01/17/2025 12:14 AM EDT [facility] eGFR (CKD-EPIcr 2020) 132 >=60 mL/min/1.7 3 m2 01/17/2025 12:14 AM EDT [facility] Comment:Estimated GFR was ca lculated using the CKD-EPIcr (2020) equation refit without race. The equation is recommended by the National Kidney Foundation - [employer] of Nephrology Task Force. Blood VENOUS BLOOD / Unknown Venipuncture / Unknown 01/16/2025 2:30 PM EDT 01/16/2025 2:30 PM EDT us Ivone Romero Bhaskar MONTOYA CHEMISTRY ORDERABLES Sosa velasco Result [facility] [address] [facility] , [place] [address] * CBC WITH DIFF (01/16/2025 2:30 PM EDT) Pathologist [facility] WBC 8.2 3.7 - 10.3 x10(3)/mcL 01/16/2025 [...] 01/16/2025 9:10 PM EDT [facility] [place] Percent 7.7 % 01/16/2025 9:10 PM EDT [facility] Eos Percent 1.8 % 01/16/2025 9:10 PM EDT [facility] Baso Percent 0.6 % 01/16/2025 9:10 PM EDT [facility] Neut # 5.0 1.6 - 6.1 x10(3)/[facility] 01/16/2025 9:10 PM EDT [facility] Comment:Neutrophils equals s egs plus bands IMMGRAN# 0.0 0.0 - 0.1 x10(3)/[facility] 01/16/2025 9:10 PM EDT [facility] Comment:Automated count of m etamyelocytes, myelocytes and promyelocytes. An absolute IG <0.1 is reported as 0.0. Lymph # 2.3 1.2 - 3.9 x10(3)/[facility] 01/16/2025 9:10 PM EDT [facility] [place] # 0.6 0.3 - 0.9 x10(3)/[facility] 01/16/2025 9:10 PM EDT [facility] Eos# 0.2 0.0 - 0.5 x10(3)/[facility] 01/16/2025 9:10 PM EDT [facility] Baso # 0.1 0.0 - 0.1 x10(3)/[facility] 01/16/2025 9:10 PM EDT [facility], [facility] Blood VENOUS BLOOD / Unknown Venipuncture / Unknown 01/16/2025 2:30 PM EDT 01/16/2025 2:30 PM EDT us Ivone Muro APRN HEMATOLOGY ORDERABLES Fin al Result [facility] [address] [facility] , [place] [address] * (ABNORMAL) HUMAN CHORIONIC GONADOTROPIN QUANTITATIVE (01/16/2025 2:30 PM EDT) Pathologist [facility] Hcg Quant 1,006(H) <5 mIU/mL 01/17/2025 12:18 AM EDT [facility] Blood VENOUS BLOOD / Unknown Venipuncture / Unknown 01/16/2025 2:30 PM EDT 01/16/2025 2:30 PM EDT Narrative [facility] - 01/17/2025 12:18 AM EDT Female (non-): [...] ORDERABLES Sosa l Result Performing Organization Address City/[facility]/ZIP Co de Phone Number [facility] [address] [place] [address] , [place] [address] * POCT URINE TELCOR (01/16/2025 2:01 PM EDT) Pathologist [facility] Preg Test, Ur Positive 01/16/2025 2:05 PM EDT [facility] [place] Urine STRUCTURE OF URINARY TRACT PROPER / Unknown 01/16/2025 2:01 PM EDT 01/16/2025 2:05 PM EDT Ivone Muro APRN POINT OF CARE TEST ORDERA BLES Final Result [facility] [place] [address] [place] [address] documented in this encounter Visit Diagnoses [...] 01/16/2025 fluticasone propionate (FLONASE) 50 mcg/actuation Nasl Polo, SuspensionIndications: Eustachian tube dysfunction, left 1 Polo by Nasal route daily. Cancelled by 08/18/2024 [...] documented as of this encounter Care Teams Marine Design Engineer Relationship Specialty Start Date End Date uZlay Fonseca DO [employer] [place] [phone] PCP - General Family Medicine 07/30/23 documented as of this encounter
--- OUTSIDE RECORDS SUMMARY | 2025-01-17 13:30 | XMS_ITS | Encounter Summary ---
Author Organization [place] [address] Care Team Providers Care Unix Engineer Name Role Phone Zulay Fonseca DO Primary Care Provider + [phone] Reason for Visit * Reason Comments Labs Only Encounter Details Date Type Department Care Team (Late st Contact Info) Description 01/17/2025 1:30 PM EDT Clinical Support [facility] [place] [address] [place] [address] [address] [place], [place] [id number] Amenorrhea Social History Tobacco Use Types Packs/Day [...] Date Recorded PHQ-2 Total Score 0 02/08/2024 [facility] [place] of Occupat ional Health - Occupational Stress [...] 9.10 ng/mL 01/18/20 8:48 PM EDT [facility] Blood VENOUS BLOOD / Unknown Venipuncture / Unknown 01/17/2025 1:29 PM EDT 01/17/2025 1:29 PM EDT Narrative [facility] - 01/17/2025 8:48 PM EDT Suggested Reference [...] APRN CHEMISTRY ORDERABLES Sosa velasco Result [facility] [address] [facility] , [place] [address] documented in this encounter Visit Diagnoses Diagnosis Amenorrhea Absence of menstruation documented in this encounter Care Teams Unix Engineer Relationship Specialty Start Date End Date Zulay Fonseca DO [address] [place] [address] PCP - General Family Medicine 07/30/23 documented as of this encounter
--- OUTSIDE RECORDS SUMMARY | 2025-02-14 13:20 | XMS_ITS | Encounter Summary ---
Author Organization [facility] Address [place] [address] Care Team Providers Care Soils Analyst Name Role Phone Zulay Fonseca DO Primary Care Provider [phone] Reason for Visit * Reason Comments Other Bumps on legs Encounter Details Date Type Department Care Team (Late st Contact Info) Description 02/14/2025 1:20 PM EDT Office Visit [facility] [address] [place] [address] Zulay Fonseca DO [address] [place] [phone] Erythema nodosum (Primary Dx); Positive test Social [...] Date Recorded PHQ-2 Total Score 0 02/08/2024 [facility] [place] of Occupat ional Health - Occupational Stress [...] sent through Care Everywhere. * Erythema nodosum (New Zealander) documented in this encounter Ordered Prescriptions Prescription [...] - 02/14/2025 1:20 PM EDT Erythema nodosum [facility] documented in this encounter Plan of Treatment [...] result documented in this encounter Care Teams Soils Analyst Relationship Specialty Start Date End Date Zulay Fonseca DO [employer] [place] [phone] PCP - General Family Medicine 07/30/23 documented as of this encounter
--- OUTSIDE RECORDS SUMMARY | 2025-02-20 14:35 | XMS_ITS | Clinical Summary ---
Author Organization [facility] Address [address] [place] [address] Care Team Providers Care Lehr Operator Name Role Phone Unavailable Primary Care Provider Unavailabl e Source Comments [facility] is fully rolled out with thefollowing exceptions:General Clinical Research [facility] Social History Tobacco Use Types Packs/Day Years [...] of 3 - 19+ 3-dose series) 2018 AMB SEASONAL FLU VACCINE (#1) 01/29/2025 COVID-19 Vaccine (1 - 2023-2 5 season) 2025 HIB IMMUNIZATION Aged Out No longer e [...]
--- OUTSIDE RECORDS SUMMARY | 2025-02-20 14:36 | XMS_ITS | Encounter Summary ---
Author Organization [place] [address] Care Team Providers Care Packing Clerk Name Role Phone FonsecaZulay Primary Care Provider + [phone] Encounter Details Date Type Department Care Team (Latest Contact Info) Description 01/18/2025 Results Follow-Up [facility] [place] [address] Seng Duggan MD [address] [facility] [place] [address] HUMAN CHORIONIC GONADOTROPIN QUANTITATIVE Social History [...] Date Recorded PHQ-2 Total Score 0 02/08/2024 [facility] [place] of Occupat ional Health - Occupational Stress [...] on filedocumented in this encounter Care Teams Packing Clerk Relationship Specialty Start Date End Date Zulay Fonseca DO [employer] [place] [phone] PCP - General Family Medicine 07/30/23 documented as of this encounter
--- OUTSIDE RECORDS SUMMARY | 2025-02-20 14:36 | XMS_ITS | Clinical Summary ---
Author Organization [facility] [place] [facility] Address [address] [place] [address] Phone Care Team Providers Care Maintenance Engineer Name Role Phone Zulay Fonseca DO Primary Care Provider + [phone] Allergies Active Allergy Reactions Criticality Noted Date Comments Bisoprolol Rash Low 04/01/2023 Medications sertraline (ZOLOFT) 50 mg Oral TabletIndicatio ns:Anxiety and depression Take 1 Tablet by mouth daily. 30 Tablet 3 5 Active lidocaine-prilo gi (EMLA) Top CreamIndication s:Erythema nodosum Apply topically as needed. 30 g 5 Active Active Problems Patient Care Coordination No te Formatting of this note migh t be different from the original. Aidan as expected 05/16/2018 Reference number [id number] Utilization audit completed by Josefina Miguel RN on 04/19/2023. 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 Restrict calories to [id number]. Phentermine caused tachycardia. Assessment & Plan (10/28/2023 [...] written. Encouraged to discuss medication management with special tax auditor. Orders: sertraline (ZOLOFT) 50 mg Oral Tablet; [...] place 09/17/2023 03/08/2024 Overview (09/17/2023): Placed by BOAT ENGINE MECHANIC 08/2023 Par[facility] Hyperemesis gravidarum 08/25/202308/24 Group B [...] Encounters Date Type Department Care Team Description 02/14/2025 1:20 PM EDT Office Visit [facility] [place] [address] [place] [address] Zulay Fonseca DO Erythema nodosum (Primary Dx); Positive test 01/18/2025 Results Follow-Up [facility] [address] [place] [address] Ivone Muro APRN PROGESTERONE LEVEL 01/18/2025 Results Follow-Up [facility] [address] [place] [address] Seng Duggan MD HUMAN CHORIONIC GONADOTROPIN QUANTITATIVE 01/17/2025 1:30 PM EDT Clinical Support [address] [place] [address] April Romero E Amenorrhea 01/16/2025 2:00 PM EDT Office Visit [address] [place] [address] Ivone Muro APRN Amenorrhea (Primary Dx); Iron deficiency anemia due to chronic blood loss; Anxiety and depression 12/28/2024 Orders Only [address] [place] [address] Zulay Fonseca, DO Acute bacterial sinusitis (Primary Dx) 12/27/2024 2:40 PM EDT Telemedicine [address] [place] [address] Zulay Fonseca, DO Acute bacterial sinusitis (Primary [...] FOR MISCARRIAGE; Surgeon: Catrachito Ramos MD; Location: [facility]; Service: Gynecology DILATION AND CURETTAGE OF UTERUS 08/29/2019 N/A DILATION AND CURETTAGE SUCTION EVACUATION FOR MISCARRIAGE; Surgeon: Catrachito Ramos MD; Location: [facility]; Service: Gynecology Medical History Medical History [...] Recorded PHQ-2 Total Score 0 02/08/2024 [facility] [place] of Occupat ional Health - Occupational Stress [...] (188 lb) 02/14/2025 1:17 PM EDT Height 160 cm (5' 3 ) 01/16/2025 2:03 PM EDT Body Mass Index 33.3 01/16/2025 2:03 PM EDT Plan of Treatment Health Maintenance Due Date Last Done Comments DTaP/TDaP/Td (7 - Td or Tdap) 01/05/2021 01/05/2011, 08/11/2004, 05/21/2003, Additional history exists Cervical Cancer Screening 06/04/2024 Pap Smear 06/04/2024 06/04/2021 COVID-19 Vaccine ( season) 2025 Influenza Vaccine (#1) 2025 9, 06/01/2018, 05/31/2018, [...] Routine 06/04/2021 3:32 PM EST Abnormal menstruation [facility] CYTOLOGY REQUEST (PAP ONLY) Routine 06/04/2021 3:32 PM EST Abnormal menstruation from Last 3 Months or Most Recently Relevant to Health Maintenance Results * PROGESTERONE LEVEL (01/17/2025 1:29 PM EDT) Progesterone Lvl 9.10 ng/mL 01/18/20 8:48 PM EDT [facility] Blood VENOUS BLOOD / Unknown Venipuncture / Unknown 01/17/2025 1:29 PM EDT 01/17/2025 1:29 PM EDT Narrative [facility] - 01/17/2025 8:48 PM EDT Suggested Reference Ranges (ng/mL) Follicular Phase 0.05 - 0.19 Ovulation Phase 0.06 - 4.14 Luteal Phase 4.11 - 14.5 Postmenopause 0.05 - 0.13 Adult Males <0.05 - 0.15 Ingestion of jeane doses of biotin (>5 mg/day) taken within 8 hours of drawing blood sample can interfere with this immunoassay test. Ivone Muro APRN CHEMISTRY ORDERABLES Sosa l Result [facility] [address] [facility] , [place] [address] * (ABNORMAL) IRON+TIBC (01/16/2025 2:30 PM EDT) Pathologist [facility] Iron 27(L) 30 - 160 mcg/dL 01/17/2025 12:14 AM EDT [facility] [employer] Transferrin 235 200 - 360 mg/dL 01/17/2025 12:14 AM EDT [facility] Transferrin Saturation 8(L) 20 - 50 % 01/17/2025 12:14 AM EDT [facility] TIBC 329 250 - 400 mcg/dL 01/17/2025 12:14 AM EDT [facility] Blood VENOUS BLOOD / Unknown Venipuncture / Unknown 01/16/2025 2:30 PM EDT 01/16/2025 2:30 PM EDT Ivone Muro APRN CHEMISTRY ORDERABLES Sosa l Result [facility] [address] [facility] , [place] [address] * CBC WITH DIFF (01/16/2025 2:30 PM [...] 9:10 PM EDT [facility] [place] Percent 7.7 % 01/16/2025 9:10 PM EDT [facility] Eos Percent 1.8 % 01/16/2025 9:10 PM EDT [facility] Baso Percent 0.6 % 01/16/2025 9:10 PM EDT [facility] Neut # 5.0 1.6 - 6.1 x10(3)/[facility] 01/16/2025 9:10 PM EDT [facility] Comment:Neutrophils equals s egs plus bands IMMGRAN# 0.0 0.0 - 0.1 x10(3)/[facility] 01/16/2025 9:10 PM EDT [facility] Comment:Automated count of m etamyelocytes, myelocytes and promyelocytes. An absolute IG <0.1 is reported as 0.0. Lymph # 2.3 1.2 - 3.9 x10(3)/[facility] 01/16/2025 9:10 PM EDT [facility] [place] # 0.6 0.3 - 0.9 x10(3)/[facility] 01/16/2025 9:10 PM EDT [facility] Eos# 0.2 0.0 - 0.5 x10(3)/[facility] 01/16/2025 9:10 PM EDT [facility] Baso # 0.1 0.0 - 0.1 x10(3)/[facility] 01/16/2025 9:10 PM EDT [facility] Blood VENOUS BLOOD / Unknown Venipuncture / Unknown 01/16/2025 2:30 PM EDT 01/16/2025 2:30 PM EDT Ivone Muro RESEARCH AND DEVELOPMENT MANAGER HEMATOLOGY ORDERABLES Fin al Result [facility] [address] [facility] , [place] [address] * (ABNORMAL) HUMAN CHORIONIC GONADOTROPIN QUANTITATIVE (01/16/2025 2:30 PM EDT) [facility] Hcg Quant 1,006(H) <5 mIU/mL 01/17/2025 12:18 AM EDT [facility] Blood VENOUS BLOOD / Unknown Venipuncture / Unknown 01/16/2025 2:30 PM EDT 01/16/2025 2:30 PM EDT Narrative [facility] - 01/17/2025 12:18 AM EDT Female (non-): [...] ORDERABLES Sosa l Result Performing Organization Address [facility] de Phone Number [facility] [address] [place] [address] [address], [place] [address] * (ABNORMAL) FERRITIN (01/16/2025 2:30 PM EDT) Ferritin 22(L) 30 - 150 ng/mL 01/17/2025 12:14 AM EDT [facility] Comment:The lower threshold of 30 is not statistically defined, nor internally validated. The threshold has been updated to more closely reflect a physiologic basis. Vaishali Jasso, et al. Physiologically based serum ferritin thresholds for iron deficiency in children and non- women: a [place] National Health and Nutrition Examination Surveys (NHANES) serial cross-sectional study. Lancet Haematol 202;8:e572-82. Blood VENOUS BLOOD / Unknown Venipuncture / Unknown 01/16/2025 2:30 PM EDT 01/16/2025 2:30 PM EDT Narrative [facility] - 01/17/2025 12:14 AM EDT Ingestion of jeane doses of biotin (>5 mg/day) taken within 8 hours of drawing blood sample can interfere with this immunoassay test. Ivone Muro APRN CHEMISTRY ORDERABLES Sosa l Result Performing Organization Address [facility] Co de Phone Number [facility] [address] [place] [address] [address], [place] [address] * (ABNORMAL) COMPREHENSIVE METABOLIC PANEL (01/16/2025 2:30 PM EDT) Sodium 135(L) 136 - 145 mmol/L 01/17/2025 12:14 AM EDT [facility] Potassium 3.5 3.5 - 5.0 mmol/L 01/17/2025 12:14 AM EDT [facility] Chloride 102 98 - 107 mmol/L 01/17/2025 12:14 AM EDT [facility] Total CO2 21(L) 22 - 29 mmol/L [...] 12:14 AM EDT [facility] AST 16 <=40 U/L 01/17/2025 12:14 AM EDT [facility] Alk Phos 80 36 - 123 U/L 01/17/2025 12:14 AM EDT [facility] eGFR (CKD-EPIcr 2020) 132 >=60 mL/min/1.7 3 m2 01/17/2025 12:14 AM EDT [facility] Comment:Estimated GFR was ca lculated using the CKD-EPIcr (2020) equation refit without race. The equation is recommended by the National Kidney Foundation - [place] Society of Nephrology Task Force. Blood VENOUS BLOOD / Unknown Venipuncture / Unknown 01/16/2025 2:30 PM EDT 01/16/2025 2:30 PM EDT us Ivone Muro APRN CHEMISTRY ORDERABLES Sosa l Result Performing Organization Address City/[facility]/ZIP Co de Phone Number [facility] [address] [facility] [place] [address] * POCT URINE TELCOR (01/16/2025 2:01 PM EDT) Preg Test, Ur Positive 01/16/2025 2:05 PM EDT [facility] [place] Urine STRUCTURE OF URINARY TRACT PROPER / Unknown 01/16/2025 2:01 PM EDT 01/16/2025 2:05 PM EDT us Ivone Muro APRN POINT OF CARE TEST ORDERA BLES Final Result Performing Organization Address [facility] de Phone Number [facility] [place] [address] * [facility] CYTOLOGY REQUEST (PAP ONLY) (06/04/2021 3:32 PM EST) CASE REPORT Gynecologic Cytology Report Case: [id number] Authorizing Provider: Helene Dobson Collected: 06/04/2021 1532 MD Randee Ordering Location: [facility] [place] Received: 06/04/2021 1532 First Screen: Tre Parkinson CT Specimen: LIQUID-BASED PAP - CERVICAL/ENDOCERV ICAL, Cervix, Endocervical 06/06/2021 6:48 AM EST [facility] PAP FINAL DIAGNOSIS Negative for intraepithelial lesion or malignancy 06/06/2021 6:48 AM EST [facility] at 0648 EST MICROSCOPIC DESCRIPTION Microscopic examination is performed and the findings corroborate the diagnosis. 06/06/2021 6:48 AM EST [facility] PAP SMEAR ADEQUACY Satisfactory for evaluation 06/06/2021 6:48 AM EST [facility] ENDOCERVICAL T-ZONE Transformation zone absent. 06/06/2021 6:48 AM EST [facility] EMBEDDED IMAGES 6:48 AM EST [facility] PAP DISCLAIMER The Pap Smear is a screening test that aids in the detection of cervical cancer and cancer precursors. Both false positive and false negative results can occur. The test should be used at regular intervals, and positive results should be confirmed before definitive therapy. Processed using the ThinPrep Online Merchandising Manager Automated cytology screening device (Ensemble Discovery). 06/06/2021 6:48 AM EST [facility] Thin Prep ENDOCERVICAL STRUCTURE / Unknown 06/04/2021 3:32 PM EST 06/04/2021 3:32 PM EST Helene Rain MD CYTOLOGY ORDERABLES Final Result [facility] [address] [place] [address] * GC CHLAMYDIA THIN PREP (06/04/2021 3:32 PM EST) Chlamydia trachomatis Not Detected Not Detected 06/06/2021 1:17 AM EST [facility] [employer] Neisseria gonorrhoeae Not Detected Not Detected 06/06/2021 1:17 AM EST [facility] [employer] Thin Prep SPECIMEN FROM UTERINE CERVIX / Unknown 06/04/2021 3:32 PM EST 06/04/2021 3:32 PM EST Narrative [facility] [employer] - 06/06/2021 1:17 AM EST Testing methodology is mapping editor mediated amplification (TMA) using the Aptima Combo 2 assay from [employer]. A negative result does not completely rule [...] request. us Helene Rain MD MICROBIOLOGY - [facility] ORDERABLES Final Result [facility] [address] [facility], [place] [address] from Last 3 Months or Most Recently Relevant to Health [place] [id number] [place] [facility] [place] MDR Advance Directives For more information, please contact: [phone] * Full Code (Latest Code Status on File) Date Activated Date Inactivated Comments 06/02/2018 9:04 AM 06/02/2018 10:24 PM Care Teams Maintenance Engineer Relationship Specialty Start Date End Date Zulay Fonseca DO [employer] [place] [address] PCP - General Family Medicine 07/30/23
--- OUTSIDE RECORDS SUMMARY | 2025-02-20 14:36 | XMS_ITS | Encounter Summary ---
Author Organization [facility] [address] Care Team Providers Care Cruise Coordinator Name Role Phone Zulay Fonseca DO Primary Care Provider [phone] Encounter Details Date Type Department Care Team [...] Date Recorded PHQ-2 Total Score 0 02/08/2024 [facility] [place] of Occupat ional Health - Occupational [...] on filedocumented in this encounter Care Teams Cruise Coordinator Relationship Specialty Start Date End Date Zulay Fonseca DO [address] [place] [address] PCP - General Family Medicine 07/30/23 documented as of this encounter
--- OUTSIDE RECORDS SUMMARY | 2025-02-20 14:36 | XMS_ITS | Encounter Summary ---
Author Organization [place] Address One [facility] [place] [address] Care Team Providers Care Sales Utility Representative Name Role Phone Helene Dobson MD Primary Care Provi Zulay Schultz DO Primary Care Provider + [phone] Encounter Details Date Type Department Care Team (Late st Contact Info) Description 10/26/2019 Hospital Encounter [facility] [address] [place] [phone] Social History Tobacco Use Types Packs/Day Years [...] Date Recorded PHQ-2 Total Score 0 02/08/2024 [facility] [place] of Occupat ional Health - Occupational Stress [...] 11:26 PM EDT Gianluca James RN * Mcpherson Suicide Severity Rating Scale (Q shift for [...] documented as of this encounter Care Teams Sales Utility Representative Relationship Specialty Start Date End Date Helene Dobson MD PCP - General Family Medicine 09/19/14 07/29/23 Zulay [place]onsec[place] [address] PCP - General Family Medicine 07/30/23 documented as of this encounter
--- OUTSIDE RECORDS SUMMARY | 2025-02-20 14:36 | XMS_ITS | Encounter Summary ---
Author Organization [place] [address] Care Team Providers Care Glass Blower Name Role Phone Zulay Fonseca DO Primary Care Provider + [phone] Encounter Details Date Type Department Care Team (Late st Contact Info) Description 01/18/2025 Results Follow-Up [facility] [address] [place] [address] Ivone Muro, NET PROGRAMMER ANALYST [address] [place], [place] [id number] PROGESTERONE LEVEL Social History Tobacco Use Types [...] Score 0 02/08/2024 [facility] [place] of Occupat ional Health - Occupational Stress [...] on filedocumented in this encounter Care Teams Glass Blower Relationship Specialty Start Date End Date Zul[place] [address] PCP - General Family Medicine 07/30/23 documented as of this encounter
--- OUTSIDE RECORDS SUMMARY | 2025-02-20 14:36 | XMS_ITS | Encounter Summary ---
Author Organization [place] [address] Care Team Providers Care Lamp Shade Maker Name Role Phone Zulay Fonseca DO Primary Care Provider [phone] Encounter Details Date Type Department Care Team (Late st Contact Info) Description 12/28/2024 Orders Only [facility] [address] [place] [address] Zulay Fonseca DO [address] [place] [phone] Acute bacterial sinusitis (Primary Dx) Social History [...] Date Recorded PHQ-2 Total Score 0 02/08/2024 [facility] [place] of Occupat ional Health - Occupational Stress [...] unspecified documented in this encounter Care Teams Lamp Shade Maker Relationship Specialty Start Date End Date Zulay Fonseca [place] [address] PCP - General Family Medicine 07/30/23 documented as of this encounter
== END 2025-02-19 23:59 | disposition home or self-care (01) ==
LOC: LAB.DROPOF 02-20 14:33
PROVIDERS: PCP Obstetrics & Gynecology; Visit Provider Obstetrics & Gynecology
DX: Z34.91 Encounter for supervision of normal pregnancy, unspecified, first trimester (principal)
CPT/HCPCS: 87086

== ENCOUNTER 2025-02-26 13:29 | Outpatient (CLI) | payer OTHER, SELFPAY ==
--- OUTSIDE RECORDS SUMMARY | 2025-01-16 14:00 | XMS_ITS | Encounter Summary ---
Author Organization [place] [address] Care Team Providers Care Gas Meter Reader Name Role Phone Zulay Fonseca DO Primary Care Provider + [phone] Reason for Visit * Reason Comments Test Positive t est at home Encounter Details Date Type Department Care Team (Late st Contact Info) Description 01/16/2025 2:00 PM EDT Office Visit SE[facility] [place] [address] [place] [address] Ivone Muro, SITECORE DEVELOPER [address] [place] [address] Amenorrhea (Primary Dx); Iron deficiency anemia due to chronic blood loss; Anxiety and depression Social History Tobacco Use Types Packs/Day Years [...] Date Recorded PHQ-2 Total Score 0 02/08/2024 [facility] [place] of Occupat ional Health - Occupational Stress [...] Active Control Partners Comments Yes Male Comments Yes Sex and Gender Information Value Date Recorded Sex Assigned at Not on file Legal Sex Female 3:00 PM EDT Gender Identity Not on file Sexual Orientation Not on file documented as of this encounter Last Filed Vital Signs Vital Sign Reading Time Taken Comments Blood Pressure 113/66 01/16/2025 2:03 PM EDT Pulse 92 01/16/2025 2:03 PM EDT Temperature 36.7 C (98 F) 01/16/2025 2:03 PM EDT Respiratory Rate 20 01/16/2025 2:03 PM EDT Oxygen Saturation 99% 01/16/2025 2:03 PM EDT Inhaled Oxygen Concentration - - Weight 87.3 kg (192 lb 6.4 oz) 01/16/2025 2:03 P M EDT Height 160 cm (5' 3 ) 01/16/2025 2:03 PM EDT Body Mass Index 34.08 01/16/2025 2:03 PM EDT documented in this encounter Functional Status * Is the person deaf or does he/she have serious difficulty hearing? Answer Date of Assessment Author No 08/29/2019 6:29 PM EDT Darwin Luo RN * Is the person blind or does he/she have serious difficulty seeing even when wearing glasses? Answer Date of Assessment Author No 08/29/2019 6:29 PM EDT Darwin Luo RN * Does this person have serious difficulty walking or climbing stairs? Answer Date of Assessment Author No 08/29/2019 6:29 PM EDT Darwin Luo RN * Does this person have difficulty dressing or bathing? Answer Date of Assessment Author No 08/29/2019 6:29 PM EDDarwin Mariee RN * Because of a physical, mental or emotional condition, does this person have difficulty doing errands alone such as visiting a doctor's office or shopping? Answer Date of Assessment Author No 08/29/2019 6:29 PM EDT Darwin Luo RN documented as of this encounter Mental Status * Because of a physical, mental or emotional condition, does this person have serious difficulty concentrating, remembering or making decisions? Answer Entry Date Author No 08/29/2019 6:29 PM EDT Darwin Luo RN documented in this encounter Ordered Prescriptions Prescription Sig Dispense Quantity Refills Last Filled Start Date End Date sertraline (ZOLOFT) 50 mg Oral TabletIndications:A nxiety and depression Take 1 Tablet by mouth daily. 30 Tablet 3 01/16/2025 documented in this encounter Progress Notes * Ivone Muro APRN - 01/16/2025 2:00 PM EDTAssociated Problem(s): Iron deficiency anemia Orders: CBC WITH DIFF; Future IRON+TIBC; Future FERRITIN; Future * Ivone Muro APRN - 01/16/2025 2:00 PM EDTAssociated Problem(s): Anxiety and depression Symptoms well controlled on Prozac but is class C with . After discussion of risks, benefits and possible side effects, will begin Zoloft as written. Encouraged to discuss medication management with admission liaison. Orders: sertraline (ZOLOFT) 50 mg Oral Tablet; Take 1 Tablet by mouth daily. * Ivone Muro APRN - 01/16/2025 2:00 PM EDT Assessment & Plan Amenorrhea Orders: HUMAN CHORIONIC GONADOTROPIN QUANTITATIVE; Future POCT URINE CBC WITH DIFF; Future COMPREHENSIVE METABOLIC PANEL; Future Iron deficiency anemia due to chronic blood loss Orders: CBC WITH DIFF; Future IRON+TIBC; Future FERRITIN; Future Anxiety and depression Symptoms well controlled on Prozac but is class C with . After discussion of risks, benefits and possible side effects, will begin Zoloft as written. Encouraged to discuss medication management with admission liaison. Orders: sertraline (ZOLOFT) 50 mg Oral Tablet; Take 1 Tablet by mouth daily. Progress Note: Vitals: 01/16/25 1403 BP: 113/66 Pulse: 92 Resp: 20 Temp: 98 ??F (36.7 ??C) TempSrc: Temporal SpO2: 99% Weight: 192 lb 6.4 oz (87.3 kg) Height: 5' 3 (1.6 m) Body mass index is 34.08 kg/m??. SUBJECTIVE: Chief Complaint Patient presents with Test Positive test at home HPI: Presents today with reports of positive home UPT, LMP 12/16/2024. reports she has contacted her Ob, Dr. Josefina Weaver at [facility] and has appointment scheduled in 1 month for 1st visit. Overall feels well. Is taking Prozac as prescribed, concerned about safety with . Review of Systems Constitutional: Negative. HENT: Negative. Eyes: Negative. Respiratory: Negative. Cardiovascular: Negative. Gastrointestinal: Negative. Genitourinary: Negative for dysuria. Skin: Negative. Neurological: Negative. Psychiatric/Behavioral: Negative. OBJECTIVE: Physical Exam Vitals reviewed. Constitutional: General: She is not in acute distress. HENT: Mouth/Throat: Mouth: Mucous membranes are moist. Eyes: Conjunctiva/sclera: Conjunctivae normal. Cardiovascular: Rate and Rhythm: Normal rate and regular rhythm. Pulmonary: Effort: Pulmonary effort is normal. Breath sounds: Normal breath sounds. Abdominal: Tenderness: There is no abdominal tenderness. Musculoskeletal: Cervical back: Neck supple. Right lower leg: No edema. Left lower leg: No edema. Skin: General: Skin is warm. Coloration: Skin is not jaundiced. Findings: No rash. Neurological: Mental Status: She is alert and oriented to person, place, and time. Psychiatric: Mood and Affect: Mood normal. Thought Content: Thought content normal. * April Romero - 01/16/2025 2:00 PM EDT Venipuncture in the right antecubital vein with 21 gauge needle, length 1 1/2 inch. documented in this encounter Plan of Treatment [...] Baldwin LPN documented as of this encounter Procedures Procedure Name Priority Date/Time Associated Diagnosis Comments IRON+TIBC Routine 01/16/2025 2:30 PM EDT Iron deficiency anemia due to chronic blood loss CBC WITH DIFF Routine 01/16/2025 2:30 PM EDT Amenorrhea Iron deficiency anemia due to chronic blood loss HUMAN CHORIONIC GONADOTROPIN QUANTITATIVE Routine 01/16/2025 2:30 PM EDT Amenorrhea FERRITIN Routine 01/16/2025 2:30 PM EDT Iron deficiency anemia due to chronic blood loss COMPREHENSIVE METABOLIC PANEL Routine 01/16/2025 2:30 PM EDT Amenorrhea POCT URINE TELCOR Routine 01/16/2025 2:01 PM EDT Amenorrhea documented in this encounter Results * (ABNORMAL) FERRITIN (01/16/2025 2:30 PM EDT) [facility] Signature Ferritin 22(L) 30 - 150 ng/mL 01/17/2025 12:14 AM EDT [facility] Comment:The lower threshold of 30 is not statistically defined, nor internally validated. The threshold has been updated to more closely reflect a physiologic basis. Vaishali Jasso et al. Physiologically based serum ferritin thresholds for iron deficiency in children and non- women: a [place] National Health and Nutrition Examination Surveys (NHANES) serial cross-sectional study. Lancet Haematol 2021;8:e572-82. Blood VENOUS BLOOD / Unknown Venipuncture / Unknown 01/16/2025 2:30 PM EDT 01/16/2025 2:30 PM EDT Narrative [facility] - 01/17/2025 12:14 AM EDT Ingestion of jeane doses of biotin (>5 mg/day) taken within 8 hours of drawing blood sample can interfere with this immunoassay test. Ivone Muro APRN CHEMISTRY ORDERABLES Sosa l Result Performing Organization Address [facility] de Phone Number [facility], [address] , [place] [address] * (ABNORMAL) IRON+TIBC (01/16/2025 2:30 PM EDT) Iron 27(L) 30 - 160 mcg/dL 01/17/2025 12:14 AM EDT [facility], [employer] Transferrin 235 200 - 360 mg/dL 01/17/2025 12:14 AM EDT [facility], [facility] Transferrin Saturation 8(L) 20 - 50 % 01/17/2025 12:14 AM EDT [facility], [facility] TIBC 329 250 - 400 mcg/dL 01/17/2025 12:14 AM EDT [employer], [facility] Blood VENOUS BLOOD / Unknown Venipuncture / Unknown 01/16/2025 2:30 PM EDT 01/16/2025 2:30 PM EDT Ivone Muro APRN CHEMISTRY ORDERABLES Sosa l Result Performing Organization Address [facility] Co de Phone Number [facility], [address] , [place] [address] * (ABNORMAL) COMPREHENSIVE METABOLIC PANEL (01/16/2025 2:30 PM EDT) Sodium 135(L) 136 - 145 mmol/L 01/17/2025 12:14 AM EDT [facility] Potassium 3.5 3.5 - 5.0 mmol/L 01/17/2025 12:14 AM EDT [facility] Chloride 102 98 - 107 mmol/L 01/17/2025 12:14 AM EDT [facility] Total CO2 21(L) 22 - 29 mmol/L 01/17/2025 12:14 AM EDT [facility] Anion Gap 12 7 - 16 mmol/L 01/17/2025 12:14 AM EDT [facility] Calcium 9.3 8.6 - 10.4 mg/dL 01/17/2025 12:14 AM EDT [facility] Glucose Lvl 83 70 - 99 mg/dL 01/17/2025 12:14 AM EDT [facility] BUN 9 6 - 20 mg/dL 01/17/2025 12:14 AM EDT [facility] Creatinine 0.51 0.51 - 1.30 mg/dL 01/17/2025 12:14 AM EDT [facility] Albumin 4.1 3.5 - 5.2 gm/dL 01/17/2025 12:14 AM EDT [facility] Total Protein 6.8 6.4 - 8.3 gm/dL 01/17/2025 12:14 AM EDT [facility] Bili Total 0.2 0.2 - 1.3 mg/dL 01/17/2025 12:14 AM EDT [facility] ALT 16 <=41 U/L 01/17/2025 12:14 AM EDT [facility] AST 16 <=40 U/L 01/17/2025 12:14 AM EDT [facility] Alk Phos 80 36 - 123 U/L 01/17/2025 12:14 AM EDT [facility] eGFR (CKD-EPIcr 2020) 132 >=60 mL/min/1.7 3 m2 01/17/2025 12:14 AM EDT [facility] Comment:Estimated GFR was ca lculated using the CKD-EPIcr (2020) equation refit without race. The equation is recommended by the National Kidney Foundation - [place] [employer] of Nephrology Task Force. Blood VENOUS BLOOD / Unknown Venipuncture / Unknown 01/16/2025 2:30 PM EDT 01/16/2025 2:30 PM EDT us Ivone Romero Bhaskar MONTOYA CHEMISTRY ORDERABLES Sosa velasco Result [facility] [address] [facility] , [place] [address] * CBC WITH DIFF (01/16/2025 2:30 PM EDT) Pathologist [facility] WBC 8.2 3.7 - 10.3 x10(3)/mcL 01/16/2025 9:10 PM EDT [facility] RBC 4.47 3.90 - 5.20 x10(6)/mcL 01/16/2025 9:10 PM EDT [facility] Hgb 12.0 11.2 - 15.7 g/dL 01/16/2025 9:10 PM EDT [facility] Hct 38.3 34.0 - 45.0 % 01/16/2025 9:10 PM EDT [facility] MCV 85.7 80.0 - 100.0 fL 01/16/2025 9:10 PM EDT [facility] MCH 26.8 26.0 - 34.0 pg 01/16/2025 9:10 PM EDT [facility] MCHC 31.3 30.7 - 35.5 g/dL 01/16/2025 9:10 PM EDT [facility] RDW 13.7 <=14.9 % 01/16/2025 9:10 PM EDT [facility] Platelet 215 155 - 369 x10(3)/mcL 01/16/2025 9:10 PM EDT [facility] MPV 12.2 8.8 - 12.5 fL 01/16/2025 9:10 PM EDT [facility] Neut Percent 61.2 % 01/16/2025 9:10 PM EDT [facility] Comment:Neutrophils equals s egs plus bands Imm Gran% 0.4 % 01/16/2025 9:10 PM EDT [facility] Comment:Automated count of m etamyelocytes, myelocytes and promyelocytes. Lymph Percent 28.3 % 01/16/2025 9:10 PM EDT [facility] Jack Percent 7.7 % 01/16/2025 9:10 PM EDT [facility] Eos Percent 1.8 % 01/16/2025 9:10 PM EDT [facility] Baso Percent 0.6 % 01/16/2025 9:10 PM EDT [facility] Neut # 5.0 1.6 - 6.1 x10(3)/[facility] 01/16/2025 9:10 PM EDT [facility] Comment:Neutrophils equals s egs plus bands IMMGRAN# 0.0 0.0 - 0.1 x10(3)/[facility] 01/16/2025 9:10 PM EDT [facility] Comment:Automated count of m etamyelocytes, myelocytes and promyelocytes. An absolute IG <0.1 is reported as 0.0. Lymph # 2.3 1.2 - 3.9 x10(3)/[facility] 01/16/2025 9:10 PM EDT [facility] Jack # 0.6 0.3 - 0.9 x10(3)/[facility] 01/16/2025 9:10 PM EDT [facility] Eos# 0.2 0.0 - 0.5 x10(3)/[facility] 01/16/2025 9:10 PM EDT [facility] Baso # 0.1 0.0 - 0.1 x10(3)/[facility] 01/16/2025 9:10 PM EDT [facility], [facility] Blood VENOUS BLOOD / Unknown Venipuncture / Unknown 01/16/2025 2:30 PM EDT 01/16/2025 2:30 PM EDT us Ivone Muro APRN HEMATOLOGY ORDERABLES Fin al Result [facility] [address] [facility] , [place] [address] * (ABNORMAL) HUMAN CHORIONIC GONADOTROPIN QUANTITATIVE (01/16/2025 2:30 PM EDT) Pathologist [facility] Hcg Quant 1,006(H) <5 mIU/mL 01/17/2025 12:18 AM EDT [facility] Blood VENOUS BLOOD / Unknown Venipuncture / Unknown 01/16/2025 2:30 PM EDT 01/16/2025 2:30 PM EDT Narrative [facility] - 01/17/2025 12:18 AM EDT Female (non-): 0-4.9 mIU/mL Female (postmenopausal): 0-8.1 mIU/mL Indeterminate values for (e.g., 5-25 mIU/mL) may be confirmed with a repeat test in 48-72 hours. Values in should double every 2-3 days for the first six weeks. Ingestion of jeane doses of biotin (>5 mg/day) taken within 8 hours of drawing blood sample can interfere with this immunoassay test. Ivone Muro APRN CHEMISTRY ORDERABLES Sosa l Result Performing Organization Address City/[facility]/ZIP Co de Phone Number [facility] [address] [place] [address] , [place] [address] * POCT URINE TELCOR (01/16/2025 2:01 PM EDT) Pathologist [facility] Preg Test, Ur Positive 01/16/2025 2:05 PM EDT [facility] [place] Urine STRUCTURE OF URINARY TRACT PROPER / Unknown 01/16/2025 2:01 PM EDT 01/16/2025 2:05 PM EDT Ivone Muro APRN POINT OF CARE TEST ORDERA BLES Final Result [facility] [place] [address] 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 Cancelled by 04/17/2024 01/16/2025 ibuprofen (ADVIL;MOTRIN) 400 mg Oral Tablet Take 1 Tablet by mouth every 6 hours as needed for Pain. Cancelled by 04/17/2024 01/16/2025 albuterol (PROVENTIL HFA;VENTOLIN HFA) 90 mcg/actuation Inhl HFA Aerosol InhalerIndications:Acu te bronchitis, unspecified organism Inhale 2 Puffs into the lungs every 4 hours as needed for Wheezing. Cancelled by 06/21/2024 01/16/2025 polyethylene glycol (GLYCOLAX) 17 gram/dose Oral PowderIndications:Cons tipation, unspecified constipation type Take 17 g by mouth 2 times daily. Cancelled by 07/25/2024 01/16/2025 ferrous sulfate 325 mg (65 mg iron) Oral Tablet, Delayed Release (E.C.)Indications:Othe r iron deficiency anemia Take 1 Tablet by mouth 2 times daily. Cancelled by 08/10/2024 01/16/2025 fluticasone propionate (FLONASE) 50 mcg/actuation Nasl [place], SuspensionIndications: Eustachian tube dysfunction, left 1 [place] by Nasal route daily. Cancelled by 08/18/2024 01/16/2025 QUEtiapine XR (SEROQUEL XR) 50 mg Oral Tablet Sustained Release 24 hrIndications:Anxiety and depression Take 1 Tablet by mouth nightly. DAY 1 50MG, DAY 2 50MG, DAY 3 150MG, DAY 4 150MG Must be taken 3-4 hours prior to Bedtime. Cancelled by 10/16/2024 01/16/2025 triamcinolone (KENALOG) 0.1 % Top Ointment Apply topically 2 times daily. Cancelled by 10/16/2024 01/16/2025 loratadine (CLARITIN) 10 mg Oral TabletIndications:Head congestion Take 1 Tablet by mouth daily. Cancelled by 10/16/2024 01/16/2025 FLUoxetine (PROZAC) 20 mg Oral CapsuleIndications:Anx iety and depression Take 3 Capsules by mouth daily for 90 days. Cancelled by 10/19/2024 01/16/2025 etonogestreL-ethinyl estradioL (NUVARING) 0.12-0.015 mg/[address] 1 Each vaginally. Cancelled by 10/19/2024 01/16/2025 phentermine (ADIPEX-P) 37.5 mg Oral TabletIndications:Obes ity, Class III, BMI 40-49.9 (morbid obesity) (HCC) Take 1 Tablet by mouth every morning (before breakfast) for 90 days. Cancelled by 10/24/2024 01/16/2025 methylPREDNISolone (MEDROL DOSPACK) 4 mg Oral Tablets, Dose PackIndications:Acute bacterial sinusitis See package instructions Cancelled by 12/28/2024 01/16/2025 documented as of this encounter Care Teams Gas Meter Reader Relationship Specialty Start Date End Date Zulay [place] [address] PCP - General Family Medicine 07/30/23 documented as of this encounter
--- OUTSIDE RECORDS SUMMARY | 2025-01-17 13:30 | XMS_ITS | Encounter Summary ---
Author Organization [place] [address] Care Team Providers Care Branch Banker Name Role Phone Zulay Fonseca DO Primary Care Provider + [phone] Reason for Visit * Reason Comments Labs Only Encounter Details Date Type Department Care Team (Late st Contact Info) Description 01/17/2025 1:30 PM EDT Clinical Support [facility] [place] [address] [place] [address] [address] [place], [place] [phone] Amenorrhea Social History Tobacco Use Types Packs/Day [...] Date Recorded PHQ-2 Total Score 0 02/08/2024 [facility] [place] of Occupat ional Health - Occupational Stress [...] 9.10 ng/mL 01/18/20 8:48 PM EDT [facility] Blood VENOUS BLOOD / Unknown Venipuncture / Unknown 01/17/2025 1:29 PM EDT 01/17/2025 1:29 PM EDT Narrative [facility] - 01/17/2025 8:48 PM EDT Suggested Reference [...] APRN CHEMISTRY ORDERABLES Sosa velasco Result [facility] [address] [facility] [facility] , [place] [address] documented in this encounter Visit Diagnoses Diagnosis Amenorrhea Absence of menstruation documented in this encounter Care Teams Branch Banker Relationship Specialty Start Date End Date Zulay Fonseca DO [address] [place] [address] PCP - General Family Medicine 07/30/23 documented as of this encounter
--- OUTSIDE RECORDS SUMMARY | 2025-02-14 13:20 | XMS_ITS | Encounter Summary ---
Author Organization [facility] Address [address] [place] [address] Care Team Providers Care Material Handler 1St Shift Name Role Phone Zulay Fonseca DO Primary Care Provider [phone] Reason for Visit * Reason Comments Other Bumps on legs Encounter Details Date Type Department Care Team (Late st Contact Info) Description 02/14/2025 1:20 PM EDT Office Visit [facility] [address] [place] 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.] Darwin Maurer RN documented in this encounter Patient Instructions * Attachments The following attachments cannot be sent through Care Everywhere. * Erythema nodosum (Burmese) documented in this encounter Ordered Prescriptions Prescription Sig Dispense Quantity Refills Last Filled Start Date End Date lidocaine-prilocai ne (EMLA) Top CreamIndications:E rythema nodosum Apply topically as needed. 30 g 02/14/2025 documented in this encounter Progress Notes * Zulay Fonseca DO - 02/14/2025 1:20 PM EDT Images from the original note were not included. 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 Only other prior flareups of this for patient was while she was . No other acute illness symptoms at this time. Avoidance of NSAIDs given . Patient's OBGYN preferred avoidance of prednisone if possible, recommended limited course if needed to control the pain. Orders: lidocaine-prilocaine (EMLA) Top Cream; Apply topically as needed. Positive test Zulay Fonseca DO Family Medicine 02/14/2025 Progress Note: Vitals: 02/14/25 1317 BP: 116/70 Pulse: 101 Resp: 18 Temp: 98.4 ??F (36.9 ??C) TempSrc: Temporal SpO2: 98% Weight: 188 lb (85.3 kg) Body mass index is 33.3 kg/m??. SUBJECTIVE: Chief Complaint Patient presents with Other Bumps on legs HPI: 24 year old female who presents with concern about red painful areas of the shins bilaterally that recently developed. Does have history of erythema nodosum during prior . Patient is currently . Reports no other systemic symptoms for concerning acute illness. Review of Systems Constitutional: Negative for activity change and fever. Respiratory: Negative for cough. All other systems reviewed and are negative. OBJECTIVE: Physical Exam Vitals reviewed. Constitutional: Appearance: Normal appearance. Cardiovascular: Rate and Rhythm: Normal rate. Pulmonary: Effort: Pulmonary effort is normal. Skin: Comments: Tender, erythematous lesions of the machuca. Photo below Neurological: Mental Status: She is alert. Psychiatric: Mood and Affect: Mood normal. Patient gave verbal consent to have photo taken and placed in chart. 02/14/2025 documented in this encounter Miscellaneous Notes * Patient Instructions - Zulay Fonseca DO - 02/14/2025 1:20 PM EDT Erythema nodosum [facility] documented in this encounter Plan of Treatment [...] as of this encounter Visit Diagnoses Diagnosis Erythema nodosum- Primary Positive test examination or test, positive result documented in this encounter Care Teams Material Handler 1St Shift Relationship Specialty Start Date End Date Zulay Fonseca DO [employer] [place] [phone] PCP - General Family Medicine 07/30/23 documented as of this encounter
--- OUTSIDE RECORDS SUMMARY | 2025-02-26 13:32 | XMS_ITS | Clinical Summary ---
Author Organization [facility] [place] [facility] Address [address] [place] [address] Phone Care Team Providers Care Special Shopper Name Role Phone Zulay Fonseca DO Primary Care Provider + [phone] Allergies Active Allergy Reactions Criticality Noted Date [...] original. Aidan as expected 05/16/2018 Reference number [id number] Utilization audit completed by Josefina Miguel RN on 04/19/2023. 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 Restrict calories to 2185-7096. Phentermine caused tachycardia. Assessment & Plan (10/28/2023 [...] written. Encouraged to discuss medication management with sr. logistics analyst. Orders: sertraline (ZOLOFT) 50 mg Oral Tablet; [...] place 09/17/2023 03/08/2024 Overview (09/17/2023): Placed by SENIOR CARE PROVIDER 08/2023 Paragard Hyperemesis gravidarum 08/25/202308/24 Group B [...] PM EDT Office Visit [facility] [place] [address] [place] [address] Zulay Fonseca DO Erythema nodosum (Primary Dx); Positive test 01/18/2025 Results Follow-Up [facility] [address] [place] [address] Ivone Muro APRN PROGESTERONE LEVEL 01/18/2025 Results Follow-Up [facility] [address] [place] [address] Seng Duggan MD HUMAN CHORIONIC GONADOTROPIN QUANTITATIVE 01/17/2025 1:30 PM EDT Clinical Support [address] [place] [address] April Romero E Amenorrhea 01/16/2025 2:00 PM EDT Office Visit [address] [place] [address] Ivone Muro APRN Amenorrhea (Primary Dx); Iron deficiency anemia due to chronic blood loss; Anxiety and depression 12/28/2024 Orders Only [address] [place] [address] Zulay Fonseca, DO Acute bacterial sinusitis (Primary Dx) 12/27/2024 2:40 PM EDT Telemedicine [address] [place] [address] Zulay Fonseca, DO Acute bacterial sinusitis (Primary [...] FOR MISCARRIAGE; Surgeon: Catrachito Ramos MD; Location: [facility]; Service: Gynecology DILATION AND CURETTAGE OF UTERUS 08/29/2019 N/A DILATION AND CURETTAGE SUCTION EVACUATION FOR MISCARRIAGE; Surgeon: Catrachito Ramos MD; Location: [facility]; Service: Gynecology Medical History Medical History [...] Date Recorded PHQ-2 Total Score 0 02/08/2024 [facility] [place] of Occupat ional Health - Occupational Stress [...] Routine 06/04/2021 3:32 PM EST Abnormal menstruation IT DATA ARCHITECT CYTOLOGY REQUEST (PAP ONLY) Routine 06/04/2021 3:32 PM EST Abnormal menstruation from Last 3 Months or Most Recently Relevant to Health Maintenance Results * PROGESTERONE LEVEL (01/17/2025 1:29 PM EDT) Progesterone Lvl 9.10 ng/mL 01/18/20 8:48 PM EDT [facility] Blood VENOUS BLOOD / Unknown Venipuncture / Unknown 01/17/2025 1:29 PM EDT 01/17/2025 1:29 PM EDT Narrative [facility] - 01/17/2025 8:48 PM EDT Suggested Reference Ranges (ng/mL) Follicular Phase 0.05 - 0.19 Ovulation Phase 0.06 - 4.14 Luteal Phase 4.11 - 14.5 Postmenopause 0.05 - 0.13 Adult Males <0.05 - 0.15 Ingestion of jeane doses of biotin (>5 mg/day) taken within 8 hours of drawing blood sample can interfere with this immunoassay test. vIone Muro APRN CHEMISTRY ORDERABLES Sosa l Result [facility] [address] [facility] , [place] [address] * (ABNORMAL) IRON+TIBC (01/16/2025 2:30 PM EDT) Pathologist [facility] Iron 27(L) 30 - 160 mcg/dL 01/17/2025 12:14 AM EDT [facility], [facility] Transferrin 235 200 - 360 mg/dL 01/17/2025 12:14 AM EDT [facility] Transferrin Saturation 8(L) 20 - 50 % 01/17/2025 12:14 AM EDT [facility] TIBC 329 250 - 400 mcg/dL 01/17/2025 12:14 AM EDT [facility] Blood VENOUS BLOOD / Unknown Venipuncture / Unknown 01/16/2025 2:30 PM EDT 01/16/2025 2:30 PM EDT Ivone Muro APRN CHEMISTRY ORDERABLES Sosa l Result [facility] [address] [facility] , [place] [address] * CBC WITH DIFF (01/16/2025 2:30 PM [...] 9:10 PM EDT [facility] [place] Percent 7.7 % 01/16/2025 9:10 PM EDT [facility] Eos Percent 1.8 % 01/16/2025 9:10 PM EDT [facility] Baso Percent 0.6 % 01/16/2025 9:10 PM EDT [facility] Neut # 5.0 1.6 - 6.1 x10(3)/[facility] 01/16/2025 9:10 PM EDT [facility] Comment:Neutrophils equals s egs plus bands IMMGRAN# 0.0 0.0 - 0.1 x10(3)/[facility] 01/16/2025 9:10 PM EDT [facility] Comment:Automated count of m etamyelocytes, myelocytes and promyelocytes. An absolute IG <0.1 is reported as 0.0. Lymph # 2.3 1.2 - 3.9 x10(3)/[facility] 01/16/2025 9:10 PM EDT [facility] [place] # 0.6 0.3 - 0.9 x10(3)/[facility] 01/16/2025 9:10 PM EDT [facility] Eos# 0.2 0.0 - 0.5 x10(3)/[facility] 01/16/2025 9:10 PM EDT [facility] Baso # 0.1 0.0 - 0.1 x10(3)/[facility] 01/16/2025 9:10 PM EDT [facility] Blood VENOUS BLOOD / Unknown Venipuncture / Unknown 01/16/2025 2:30 PM EDT 01/16/2025 2:30 PM EDT Ivone Muro STRIP CLEANER HEMATOLOGY ORDERABLES Fin al Result [facility] [address] [facility] , [place] [address] * (ABNORMAL) HUMAN CHORIONIC GONADOTROPIN QUANTITATIVE (01/16/2025 2:30 PM EDT) [facility] Hcg Quant 1,006(H) <5 mIU/mL 01/17/2025 12:18 AM EDT [facility] Blood VENOUS BLOOD / Unknown Venipuncture / Unknown 01/16/2025 2:30 PM EDT 01/16/2025 2:30 PM EDT Narrative [facility] - 01/17/2025 12:18 AM EDT Female (non-): [...] ORDERABLES Sosa l Result Performing Organization Address [facility] de Phone Number [facility] [address] [place] [address] [address], [place] [address] * (ABNORMAL) FERRITIN (01/16/2025 2:30 PM EDT) Ferritin 22(L) 30 - 150 ng/mL 01/17/2025 12:14 AM EDT [facility] Comment:The lower threshold of 30 is not [...] PM EDT 01/16/2025 2:30 PM EDT Narrative [facility] - 01/17/2025 12:14 AM EDT Ingestion of jeane doses of biotin (>5 mg/day) taken within 8 hours of drawing blood sample can interfere with this immunoassay test. Ivone Muro APRN CHEMISTRY ORDERABLES Sosa l Result Performing Organization Address [facility] Co de Phone Number [facility] [address] [place] [address] [address], [place] [address] * (ABNORMAL) COMPREHENSIVE METABOLIC PANEL [...] recommended by the National Kidney Foundation - [place] Society of Nephrology Task Force. Blood VENOUS BLOOD / Unknown Venipuncture / Unknown 01/16/2025 2:30 PM EDT 01/16/2025 2:30 PM EDT us Ivone Muro APRN CHEMISTRY ORDERABLES Sosa l Result Performing Organization Address City/[facility]/ZIP Co de Phone Number [facility] [address], [place] [address] * POCT URINE TELCOR (01/16/2025 2:01 PM EDT) Preg Test, Ur Positive 01/16/2025 2:05 PM EDT [facility] [place] Urine STRUCTURE OF URINARY TRACT PROPER / Unknown 01/16/2025 2:01 PM EDT 01/16/2025 2:05 PM EDT us Ivone Muro APRN POINT OF CARE TEST ORDERA BLES Final Result Performing Organization Address [facility] de Phone Number [place] [address] [place] [address] * IT DATA ARCHITECT CYTOLOGY REQUEST (PAP ONLY) (06/04/2021 3:32 PM EST) CASE REPORT Gynecologic Cytology Report Case: [id number] Authorizing Provider: Helene Dobson Collected: 06/04/2021 1532 MD Randee Ordering Location: [facility] [place] Received: 06/04/2021 1532 First Screen: Tre Parkinson CT Specimen: LIQUID-BASED PAP - CERVICAL/ENDOCERV ICAL, Cervix, Endocervical 06/06/2021 6:48 AM EST [facility] PAP FINAL DIAGNOSIS Negative for intraepithelial lesion or malignancy 06/06/2021 6:48 AM EST [facility] at 0648 EST MICROSCOPIC DESCRIPTION Microscopic examination is performed and the findings corroborate the diagnosis. 06/06/2021 6:48 AM EST [facility] PAP SMEAR ADEQUACY Satisfactory for evaluation 06/06/2021 6:48 AM EST [facility] ENDOCERVICAL T-ZONE Transformation zone absent. 06/06/2021 6:48 AM EST [facility] EMBEDDED IMAGES 6:48 AM EST [facility] PAP DISCLAIMER The Pap Smear is a screening test that aids in the detection of cervical cancer and cancer precursors. Both false positive and false negative results can occur. The test should be used at regular intervals, and positive results should be confirmed before definitive therapy. Processed using the ThinPrep Strainer Cleaner Automated cytology screening device ([employer]). 06/06/2021 6:48 AM EST [facility] Thin Prep ENDOCERVICAL STRUCTURE / Unknown 06/04/2021 3:32 PM EST 06/04/2021 3:32 PM EST Helene Rain MD CYTOLOGY ORDERABLES Final Result [facility] [address] [place] [address] * GC CHLAMYDIA THIN PREP (06/04/2021 3:32 PM EST) Chlamydia trachomatis Not Detected Not Detected 06/06/2021 1:17 AM EST [facility] Neisseria gonorrhoeae Not Detected Not Detected 06/06/2021 1:17 AM EST [facility] Thin Prep SPECIMEN FROM UTERINE CERVIX / Unknown 06/04/2021 3:32 PM EST 06/04/2021 3:32 PM EST Narrative [facility], [facility] - 06/06/2021 1:17 AM EST Testing methodology is template checker mediated amplification (TMA) using the Aptima Combo 2 assay from [employer]. A negative result does not completely rule [...] request. us Helene Rain MD MICROBIOLOGY - [facility] ORDERABLES Final Result [facility] [address] [facility] [place] [address] from Last 3 Months or Most Recently Relevant to Health [place] [id number] [place] MDR [facility] COMMUNITY PLAN [place] MDR Advance Directives For more information, please contact: [phone] * Full Code (Latest Code Status on File) Date Activated Date Inactivated Comments 06/02/2018 9:04 AM 06/02/2018 10:24 PM Care Teams Special Shopper Relationship Specialty Start Date End Date Zulay Fonseca DO [employer] [place] [address] PCP - General Family Medicine 07/30/23
--- OUTSIDE RECORDS SUMMARY | 2025-02-26 13:32 | XMS_ITS | Encounter Summary ---
Author Organization [place] Address One [facility] [place] [address] Care Team Providers Care Patient Companion Name Role Phone Helene Dobson MD Primary Care Provi Zulay Schultz DO Primary Care Provider + [phone] Encounter Details Date Type Department Care Team (Late st Contact Info) Description 10/26/2019 Hospital Encounter [facility] [address] [place] [id number] Social History Tobacco Use Types Packs/Day Years [...] Date Recorded PHQ-2 Total Score 0 02/08/2024 [facility] [place] of Occupat ional Health - Occupational Stress [...] 11:26 PM EDT Gianluca James RN * [place] Suicide Severity Rating Scale (Q shift for [...] documented as of this encounter Care Teams Patient Companion Relationship Specialty Start Date End Date Helene Dobson MD PCP - General Family Medicine 09/19/14 07/29/23 [place] [address] PCP - General Family Medicine 07/30/23 documented as of this encounter
--- OUTSIDE RECORDS SUMMARY | 2025-02-26 13:32 | XMS_ITS | Encounter Summary ---
Author Organization [place] [address] Care Team Providers Care General Science Teacher Name Role Phone Zulay Fonseca DO Primary Care Provider [phone] Encounter Details Date Type Department Care Team (Late st Contact Info) Description 12/28/2024 Orders Only [facility] [address] [place] [address] Zulay Fosneca DO [address] [place] [id number] Acute bacterial sinusitis (Primary Dx) Social History [...] PHQ-2 Total Score 0 02/08/2024 [facility] [place] of Occupat ional Health - Occupational Stress [...] unspecified documented in this encounter Care Teams General Science Teacher Relationship Specialty Start Date End Date Zul[place] [address] PCP - General Family Medicine 07/30/23 documented as of this encounter
--- OUTSIDE RECORDS SUMMARY | 2025-02-26 13:32 | XMS_ITS | Encounter Summary ---
Author Organization [place] [address] Care Team Providers Care Health Center Assistant Name Role Phone FonsecaZulay Primary Care Provider + [phone] Encounter Details Date Type Department Care Team (Latest Contact Info) Description 01/18/2025 Results Follow-Up [place] [facility] [place] [address] Seng Duggan MD [address] [facility] [place] [address] HUMAN CHORIONIC GONADOTROPIN QUANTITATIVE Social History [...] Recorded PHQ-2 Total Score 0 02/08/2024 [facility] [place] of Occupat ional Health - Occupational Stress [...] on filedocumented in this encounter Care Teams Health Center Assistant Relationship Specialty Start Date End Date Zulay Fonseca DO [employer] [place] [id number] PCP - General Family Medicine 07/30/23 documented as of this encounter
--- OUTSIDE RECORDS SUMMARY | 2025-02-26 13:32 | XMS_ITS | Encounter Summary ---
Author Organization [place] [address] Care Team Providers Care Cabinet Worker Name Role Phone Zulay Fonseca DO Primary Care Provider + [phone] Encounter Details Date Type Department Care Team (Late st Contact Info) Description 01/18/2025 Results Follow-Up [facility] [address] [place] [address] Ivone Muro, UTILITY ENGINEER [address] [place], [place] [phone] PROGESTERONE LEVEL Social History Tobacco Use Types [...] Date Recorded PHQ-2 Total Score 0 02/08/2024 [facility] [place] of Occupat ional Health - Occupational Stress [...] on filedocumented in this encounter Care Teams Cabinet Worker Relationship Specialty Start Date End Date Zulay Fonseca [place] [address] PCP - General Family Medicine 07/30/23 documented as of this encounter
[2025-02-26 14:27] LABS: Hematocrit 34.7 % (37.0-47.0); Hemoglobin 11.7 g/dL (12.2-16.2); Immature Granulocytes % 0.1 %; Mean Corpuscular HGB Conc 33.7 g/dL (31.8-35.4); Mean Corpuscular Hemoglobin 27.6 pg (27.0-31.2); Mean Corpuscular Volume 81.8 fl (81-99); Nucleated Red Blood Cells % 0 %; Platelet Count 231 K/mm3 (142-424); Red Blood Count 4.24 M/mm3 (4.20-5.40); Red Cell Distribution Width-SD 39.6 fL; White Blood Count 7.1 K/mm3 (4.8-10.8)
[2025-02-26 18:06] LABS: Hepatitis C Ab Qual. W/ RFX NEGATIVE (Negative)
[2025-02-27 08:23] LABS: Hepatitis B Surface Antigen Negative (Negative)
[2025-02-27 10:12] LABS: Rubella Antibodies, IgG 1.94 index (Immune >0.99)
[2025-03-01 14:31] LABS: RPR W/RFX Titers Nonreactive (Nonreactive)
== END 2025-02-26 23:59 | disposition home or self-care (01) ==
LOC: LAB 13:30
PROVIDERS: PCP Student in an Organized Health Care Education/Training Program; Visit Provider Obstetrics & Gynecology
DX: Z34.91 Encounter for supervision of normal pregnancy, unspecified, first trimester (principal)
CPT/HCPCS: 36415; 85025; 86592; 86762; 86803; 86850; 87340; 87389

== ENCOUNTER 2025-04-17 14:27 | Outpatient (CLI) | payer OTHER, SELFPAY ==
[2025-04-17] MEDS: LACTATED RINGERS 1000ML 1,000 ML 999 ML IV (15:01)
[2025-04-17 15:08] VITALS: BP 138/77; PULSE 105; RESP 18; TEMP 36.8; O2SAT 100
[2025-04-17 16:43] VITALS: BP 127/67; PULSE 100; RESP 16; TEMP 36.9; O2SAT 98
== END 2025-04-17 16:44 | disposition home or self-care (01) ==
LOC: OBOUT 14:30 → INF 14:33 → OBOUT 14:36
PROVIDERS: PCP Student in an Organized Health Care Education/Training Program; Visit Provider Obstetrics & Gynecology
DX: O21.9 Vomiting of pregnancy, unspecified (principal); O99.280 Endocrine, nutritional and metabolic diseases complicating pregnancy, unspecified trimester; E86.0 Dehydration; Z3A.00 Weeks of gestation of pregnancy not specified
CPT/HCPCS: 99212; J7120

== ENCOUNTER 2025-05-07 12:58 | Outpatient (CLI) | payer OTHER, SELFPAY ==
--- NOTE | 2025-05-07 13:00 | US_ITS ---
PROCEDURE: US OB /MATERNAL DETAIL CLINICAL INDICATION: 20 week anatomy COMPARISON: US US OB <= 14 WEEKS FETUS from 01/24/2025 US US OB <= 14 WEEKS FETUS from 01/30/2025 FINDINGS: Transabdominal sonographic images of the pelvis were obtained. From her established due date she is 20 weeks 4 days. Single viable intrauterine gestation. Breech position. Placenta: Posteriorplacenta grade 1. There is an average amount of fluid. The cervix appears satisfactory. Closed and measuring 4.01 cm in length. Complete survey performed and was unremarkable on the submitted images as in PACS. No discrete anomalies identified on survey imaging by technologist. Active fetus. Three-vessel cord with satisfactory umbilical cord insertion. 4- chamber heart noted. Situs, aortic arch, LVOT, RVOT, three-vessel view appear normal. Survey of brain & ventricles Unremarkable. Cerebellum, thalamus, choroid plexus, cisterna magna appear normal. Face and neck survey unremarkable. Profile, nasion, lips and nose appeared normal. Diaphragm and chest views unremarkable. Abdomen: Both kidneys noted and unremarkable. Stomach and bladder noted and satisfactory. Spine: Survey of the spine satisfactory with no anomalies identified nor imaged. Cervical, thoracic, lower spine appear normal. Both arms and legs noted. Amniotic Fluid: Adequate. MVP 4.15 cm Measurements: Average ultrasound age 20weeks 5days. Estimated due date by ultrasound age 0409/19/2025. Estimated weight 359g BPD = 20weeks 5days HC = 20weeks 5days AC = 20weeks 5days FL = 20weeks 3days Growth Percentile= 42 Heart Rate = 146bpm Cerebellum = 19weeks 5days Humerus = 21weeks 3days HC/AC is 1.18 FL/BPD is 0.68 FL/AC is 0.21 IMPRESSION: 1. Viable fetus in the breech presentation with a posterior placenta grade 1. 2. The fluid is within normal limits with an MVP 4.15 cm. 3. Anatomical scan appears normal. 4. biometry is consistent with the dates. Dictated by: Everett Arroyo MD 05/07/2025 15:13 Everett Arroyo MD in OV 05/07/2025 15:13
== END 2025-05-07 23:59 | disposition home or self-care (01) ==
LOC: RAD 12:59
PROVIDERS: PCP Student in an Organized Health Care Education/Training Program; Visit Provider Obstetrics & Gynecology
DX: O32.1XX0 Maternal care for breech presentation, not applicable or unspecified (principal); O99.212 Obesity complicating pregnancy, second trimester; O99.342 Other mental disorders complicating pregnancy, second trimester; F32.A Depression, unspecified; E66.9 Obesity, unspecified; Z3A.20 20 weeks gestation of pregnancy
CPT/HCPCS: 76811

== ENCOUNTER 2025-05-13 17:02 | Outpatient (CLI) | payer OTHER, SELFPAY ==
--- OUTSIDE RECORDS SUMMARY | 2005-08-05 | XMS_ITS | Encounter Summary ---
Author Organization [facility] Address [address] [place] [id number] Care Team Providers Care Cisco Certified Internetwork Expert Name Role Phone Unavailable Primary Care Provider Unavailabl e Encounter Details Date Type Department Care Team (Late st Contact Info) Description 08/05/2005 Hospital Encounter [facility] Department of Radiology [address] [place] [phone] Social History Tobacco Use Types Packs/Day Years Used Date Smoking Tobacco: Never Assessed Comments Unknown Sex and Gender Information Value Date Recorded Sex Assigned at Not on file Legal Sex Female 5:26 AM EST Gender Identity Not on file Sexual Orientation Not on file documented as of this encounter Miscellaneous Notes * Consent Other - Edt, Audit [place] - 01/23/2009 10:13 AM EDT documented in this encounter Plan of Treatment Not on file documented as of this encounter Visit Diagnoses Not on filedocumented in this encounter
--- OUTSIDE RECORDS SUMMARY | 2025-05-13 17:07 | XMS_ITS | Encounter Summary ---
Author Organization [place] [address] Care Team Providers Care Fleet Technician Name Role Phone Zulay Fonseca DO Primary Care Provider + [phone] Encounter Details Date Type Department Care Team (Late st Contact Info) Description 01/18/2025 Results Follow-Up [facility] [address] [place] [address] Ivone Muro, TRACTOR ENGINE MECHANIC [address] [place], [place] [phone] PROGESTERONE LEVEL Social History Tobacco Use Types [...] Date Recorded PHQ-2 Total Score 0 02/08/2024 [facility] [place] of Occupat ional Health - Occupational Stress [...] on filedocumented in this encounter Care Teams Fleet Technician Relationship Specialty Start Date End Date Zulay Fonseca DO [employer] [place] [address] PCP - General Family Medicine 07/30/23 documented as of this encounter
--- OUTSIDE RECORDS SUMMARY | 2025-05-13 17:07 | XMS_ITS | Clinical Summary ---
Author Organization [facility] Address [address] [place] [address] Phone Care Team Providers Care Baker Apprentice Name Role Phone Zulay Fonseca DO Primary Care Provider + [phone] Allergies Active Allergy Reactions Criticality Noted Date [...] original. Aidan as expected 05/16/2018 Reference number [id number] Utilization audit completed by Josefina Miguel RN on 04/19/2023. Problem Noted Date Diagnosed Date Bilateral ovarian cysts 07/12/2024 S/P repeat low transverse 03/03/2024 [id number] intermediate metabolizer 11/12/2023 Overview (11/12/2023): Patient is predicted to be a [id number] Intermediate Metabolizer (*1/*2), which can lead to reduced metabolism of FPA1U76 dependent drugs such as SSRI's (citalopram, escitalopram [...] to increase physical activity. Restrict calories to 7788-7641. Phentermine caused tachycardia. Assessment & Plan (10/28/2023 [...] written. Encouraged to discuss medication management with high school science tutor. Orders: sertraline (ZOLOFT) 50 mg Oral Tablet; [...] place 09/17/2023 03/08/2024 Overview (09/17/2023): Placed by CERAMIC PLATER 08/2023 Paragard Hyperemesis gravidarum 08/25/202308/24 Group B [...] 02/14/2025 1:20 PM EDT Office Visit [facility] [place] [facility] [address] [place] [address] Zulay Fonseca, Erythema nodosum (Primary Dx); Positive test from Last 3 Months Immunizations Immunization Administration [...] FOR MISCARRIAGE; Surgeon: Catrachito Ramos MD; Location: [facility]; Service: Gynecology DILATION AND CURETTAGE OF UTERUS 08/29/2019 N/A DILATION AND CURETTAGE SUCTION EVACUATION FOR MISCARRIAGE; Surgeon: Catrachito Ramos MD; Location: [facility]; Service: Gynecology Medical History Medical History [...] Date Recorded PHQ-2 Total Score 0 02/08/2024 [facility] of Occupat ional Health - Occupational Stress [...] Procedure Name Priority Date/Time Associated Diagnosis Comments SCANNED LABS 03/04/2025 2:53 PM EDT GC CHLAMYDIA THIN PREP Routine 06/04/2021 3:32 PM EST Abnormal menstruation POWDER LINE REPAIRER CYTOLOGY REQUEST (PAP ONLY) Routine 06/04/2021 3:32 PM EST Abnormal menstruation from Last 3 Months or Most Recently Relevant to Health Maintenance Results * SCANNED LABS (03/04/2025 2:53 PM EDT) 03/04/2025 2:53 PM EDT us Unknown Provider HEMATOLOGY ORDERABLES Final Res ult * POWDER LINE REPAIRER CYTOLOGY REQUEST (PAP ONLY) (06/04/2021 3:32 PM EST) CASE REPORT Gynecologic Cytology Report Case: [id number] Authorizing Provider: Helene Dobson Collected: 06/04/2021 1532 MD Randee Ordering Location: [facility] Received: 06/04/2021 153 First Screen: Tre Parkinson CT Specimen: LIQUID-BASED PAP - CERVICAL/ENDOCERV ICAL, Cervix, Endocervical 06/06/2021 6:48 AM EST [facility] PAP FINAL DIAGNOSIS Negative for intraepithelial lesion or malignancy 06/06/2021 6:48 AM EST [facility] at 0648 EST MICROSCOPIC DESCRIPTION Microscopic examination is performed and the findings corroborate the diagnosis. 06/06/2021 6:48 AM EST [facility] PAP SMEAR ADEQUACY Satisfactory for evaluation 06/06/2021 6:48 AM EST [facility] ENDOCERVICAL T-ZONE Transformation zone absent. 06/06/2021 6:48 AM EST [facility] EMBEDDED IMAGES 6:48 AM EST [facility] PAP DISCLAIMER The Pap Smear is a screening test that aids in the detection of cervical cancer and cancer precursors. Both false positive and false negative results can occur. The test should be used at regular intervals, and positive results should be confirmed before definitive therapy. Processed using the ThinPrep Specimen Technician Automated cytology screening device ([employer]). 06/06/2021 6:48 AM EST [facility] Thin Prep ENDOCERVICAL STRUCTURE / Unknown 06/04/2021 3:32 PM EST 06/04/2021 3:32 PM EST us Helene Rain MD CYTOLOGY ORDERABLES Final Result [facility] [address] [place] [address] * GC CHLAMYDIA THIN PREP (06/04/2021 3:32 PM EST) Chlamydia trachomatis Not Detected Not Detected 06/06/2021 1:17 AM EST PREFERRED [employer], [facility] Neisseria gonorrhoeae Not Detected Not Detected 06/06/2021 1:17 AM EST [employer], [facility] Thin Prep SPECIMEN FROM UTERINE CERVIX / Unknown 06/04/2021 3:32 PM EST 06/04/2021 3:32 PM EST Narrative PREFERRED [employer], [facility] - 06/06/2021 1:17 AM EST Testing methodology is fuel operator mediated amplification (TMA) using the Aptima Combo 2 assay from [employer]. A negative result does not completely rule [...] upon request. Helene Rain MD MICROBIOLOGY - [facility] ORDERABLES Final Result [facility] [employer] [facility] [address] [facility], [place] [address] from Last 3 Months or Most Recently Relevant to Health Maintenance Insurance [facility] COMM[place]ITY PLAN [place] MDR Advance Directives For more information, please contact: [phone] * Full Code (Latest Code Status on File) Date Activated Date Inactivated Comments 06/02/2018 9:04 AM 06/02/2018 10:24 PM Care Teams Baker Apprentice Relationship Specialty Start Date End Date Zulay Fonseca DO [address] [place] [address] PCP - General Family Medicine 07/30/23
--- OUTSIDE RECORDS SUMMARY | 2025-05-13 17:07 | XMS_ITS | Clinical Summary ---
Author Organization [facility] Address [address] [place] [id number] Care Team Providers Care Network Manager Name Role Phone Unavailable Primary Care Provider Unavailabl e Source Comments [facility] is fully rolled out with thefollowing exceptions:General Clinical Research [facility] Social History Tobacco Use Types [...] 2000 DTAP/Tdap/Td IMMUNIZATION (1 - Tdap) 2006 Yearly Physical Ages 3-18+ 2010 VARICELLA IMMUNIZATION (1 of 2 - 13+ 2-dose series) 2012 HPV IMMUNIZATION (1 - 3-dose series) 2014 HEPATITIS B IMMUNIZATION (1 of 3 - 19+ 3-dose series) 2018 AMB SEASONAL FLU VACCINE (#1) 01/29/2025 COVID-19 Vaccine ( - 2024-2 6 season) 2025 HIB IMMUNIZATION Aged Out No [...]
--- OUTSIDE RECORDS SUMMARY | 2025-05-13 17:07 | XMS_ITS | Encounter Summary ---
Author Organization [place] [address] Care Team Providers Care Composition Floor Layer Name Role Phone FonsecaZulay Primary Care Provider + [phone] Encounter Details Date Type Department Care Team (Latest Contact Info) Description 01/18/2025 Results Follow-Up [facility] Severiano [facility] [place] [address] Seng Duggan MD [address] [facility] [place] [address] H[employer] GONADOTROP[employer]ITAT[employer] Social History [...] Date Recorded PHQ-2 Total Score 0 02/08/2024 [facility] [place] of Occupat ional Health - Occupational Stress [...] on filedocumented in this encounter Care Teams Composition Floor Layer Relationship Specialty Start Date End Date Zulay Fonseca DO [facility] [place] [id number] PCP - General Family Medicine 07/30/23 documented as of this encounter
--- OUTSIDE RECORDS SUMMARY | 2025-05-13 17:07 | XMS_ITS | Encounter Summary ---
Author Organization [place] Address [facility] [place] [address] Care Team Providers Care Senior Auditor Name Role Phone Helene Dobson MD Primary Care Provi Zulay Schultz DO Primary Care Provider + [phone] Encounter Details Date Type Department Care Team (Late st Contact Info) Description 10/26/2019 Hospital Encounter [facility] [address] [place] [id number] Social History Tobacco Use Types Packs/Day Years [...] Date Recorded PHQ-2 Total Score 0 02/08/2024 [facility] [place] of Occupat ional Health - Occupational Stress [...] Fanta Weber RMA Feeling tired or having dogu le energy 0 02/08/2024 4:00 PM EDT [...] 4:00 PM EDT Jose M Levin RMA documented as of this encounter Mental Status [...] documented as of this encounter Care Teams Senior Auditor Relationship Specialty Start Date End Date Helene Dobson MD PCP - General Family Medicine 09/19/14 07/29/23 Zulay Fonsec[place] [address] PCP - General Family Medicine 07/30/23 documented as of this encounter
[2025-05-13 17:27] LABS: Microscopic, Urine URINE MICROSCOPIC (MICROSCOPIC)
[2025-05-13 17:28] LABS: Bilirubin,Urine Negative (Negative); Color,Urine YELLOW (Yellow); Glucose,Urine (UA) Negative (Negative); Ketones,Urine Negative (Negative); Leukocyte Esterase,Urine Negative (Negative); PH,Urine 7.5 (5.0-8.5); Protein,Urine Negative (Negative); Specific Gravity, Urine 1.015 (1.005-1.030); Urobilinogen,Urine 0.2 EU/dl (0.2)
[2025-05-13 17:36] VITALS: BP 120/59; PULSE 97; RESP 17; TEMP 36.8; O2SAT 99; BMI 35.3
[2025-05-13 18:15] LABS: Amorphous Sediment,Urine 3+ /lpf; Bacteria,Urine 1+ /lpf
== END 2025-05-13 17:50 | disposition home or self-care (01) ==
LOC: OBOUT 17:04 → OB 17:06
PROVIDERS: PCP Student in an Organized Health Care Education/Training Program; Visit Provider Obstetrics & Gynecology
DX: O36.8120 Decreased fetal movements, second trimester, not applicable or unspecified (principal); Z3A.21 21 weeks gestation of pregnancy
CPT/HCPCS: 81001; 99212